=== PATIENT | female | born 1970 | race Caucasian/White ===

== ENCOUNTER 2019-06-12 12:54 | Emergency (ER) | payer OTHER ==
[~2019-06-12] VITALS: Ht 157.5 cm; Wt 77.0 kg
[~2019-06-12 12:54] MED LIST: GABA600T13 PO; VENL-191 PO; VENL37.55 PO
[2019-06-12] MEDS ORDERED: QUET-1 PO (13:23)
[2019-06-12] MEDS ORDERED: ESCI10TA PO (13:23)
[2019-06-12] MEDS ORDERED: HYDROcodone/acetaminophen 10/325mg tab PO ONE (14:15)
[2019-06-12] MEDS ORDERED: ketorolac trometh inj. 60 MG/2 ML VIAL IM ONE (14:15)
[2019-06-12] MEDS ORDERED: HYDR-4353 PO (14:15)
[2019-06-12 14:36] VITALS: BP 145/103
== END 2019-06-12 14:33 | disposition home or self-care (01) ==
LOC: ER 12:54
DX: S80.01XA Contusion of right knee, initial encounter (principal); G43.909 Migraine, unspecified, not intractable, without status migrainosus; Z94.9 Transplanted organ and tissue status, unspecified; Z90.710 Acquired absence of both cervix and uterus; Z79.899 Other long term (current) drug therapy; Z88.6 Allergy status to analgesic agent; X50.1XXA Overexertion from prolonged static or awkward postures, initial encounter; Y93.89 Activity, other specified; Y92.89 Other specified places as the place of occurrence of the external cause; Y99.9 Unspecified external cause status
CPT/HCPCS: 73564; 96372; 99284; J1885

== ENCOUNTER 2020-09-19 09:54 | Emergency (ER) | payer BC ==
[~2020-09-19] VITALS: Ht 167.6 cm; Wt 84.0 kg
[~2020-09-19 09:54] MED LIST changes: +ESCI10TA PO; +QUET-1 PO; -VENL-191 PO; -VENL37.55 PO
[2020-09-19 10:05] VITALS: BP 122/72
[2020-09-19] MEDS ORDERED: HYDROcodone/acetaminophen 5mg/325mg tablet PO ONE (13:10)
[2020-09-19] MEDS ORDERED: PRED20TA PO (13:17)
[2020-09-19] MEDS ORDERED: GUAI120015 PO (13:17)
[2020-09-19] MEDS ORDERED: ALBU6.7H9 INH (13:17)
[2020-09-19] MEDS ORDERED: HYDR-3965 PO (13:48)
== END 2020-09-19 14:00 | disposition home or self-care (01) ==
LOC: ER 09:54
DX: S92.102A Unspecified fracture of left talus, initial encounter for closed fracture (principal); S93.402A Sprain of unspecified ligament of left ankle, initial encounter; J40 Bronchitis, not specified as acute or chronic; M25.562 Pain in left knee; M25.561 Pain in right knee; G43.909 Migraine, unspecified, not intractable, without status migrainosus; F41.9 Anxiety disorder, unspecified; F32.9 Major depressive disorder, single episode, unspecified; Z90.710 Acquired absence of both cervix and uterus; Z98.890 Other specified postprocedural states; Z88.8 Allergy status to other drugs, medicaments and biological substances; Z88.6 Allergy status to analgesic agent; Z88.5 Allergy status to narcotic agent; Z79.899 Other long term (current) drug therapy; W19.XXXA Unspecified fall, initial encounter; Y93.89 Activity, other specified; Y92.89 Other specified places as the place of occurrence of the external cause; Y99.8 Other external cause status
CPT/HCPCS: 29405; 29515; 71046; 73610; 73630; 99284

== ENCOUNTER 2021-02-13 07:22 | Inpatient (IN) | payer BC ==
[~2021-02-13] VITALS: Ht 167.6 cm; Wt 86.3 kg
[~2021-02-13 07:22] MED LIST changes: +ALBU6.7H9 INH; +GUAI120015 PO
[2021-02-13] MEDS ORDERED: pantoprazole IV 80 MG in normal saline 100ml IV soln 100 ML IV ONE (07:35)
[2021-02-13] MEDS ORDERED: morphine 4 MG/ML inj SYRINge IV ONE ×3 (07:35→10:50)
[2021-02-13] MEDS ORDERED: famotidine/PF 10 mg/ml inj IV ONE (07:35)
[2021-02-13] MEDS ORDERED: normal saline 1000ml 1,000 ML IV ONE ×2 (07:35→09:00)
[2021-02-13] MEDS ORDERED: ondansetron/PF 4mg/2ml inj IV ONE (07:35)
[2021-02-13] MEDS ORDERED: etomidate 2mg/ml inj. ONE (08:00)
[2021-02-13] MEDS ORDERED: rocuronium 10mg/ml inj IV ONE (08:00)
[2021-02-13] MEDS: pantoprazole 40MG/NS 100ML BAG 100 ML IV SCH (08:13)
[2021-02-13 08:17] LABS: BASOPHILS % (AUTO) 0.3 % (0-1); EOSINOPHILS % (AUTO) 0.2 % (0-6); HEMATOCRIT 43.3 % (35.0-45.0); HEMOGLOBIN 14.6 g/dl (12.0-16.0); LYMPHOCYTES # (AUTO) 1.4 X10'3 (1.1-4.8); LYMPHOCYTES % (AUTO) 10.3 % (21-51); MEAN CORPUSCULAR HEMOGLOBIN 35.5 PG (27.0-31.0); MEAN CORPUSCULAR HGB CONC 33.8 g/dL (33.0-36.5); MEAN CORPUSCULAR VOLUME 105.2 FL (78-98); MEAN PLATELET VOLUME 7.2 FL (7.4-10.4); MONOCYTES # (AUTO) 0.8 X10'3 (0-0.9); MONOCYTES % (AUTO) 6.4 % (2-12); NEUTROPHILS # (AUTO) 10.9 X10'3 (1.8-7.7); NEUTROPHILS % (AUTO) 82.8 % (42-75); PLATELET COUNT 327 X10'3 (140-440); RED BLOOD COUNT 4.12 X10'6 (4.20-5.60); RED CELL DISTRIBUTION WIDTH 14.7 % (11.5-14.5); WHITE BLOOD COUNT 13.1 X10'3 (4.5-11.0)
[2021-02-13 08:35] LABS: ALANINE AMINOTRANSFERASE 30 U/L (12-78); ALBUMIN 3.8 G/DL (3.4-5.0); ALBUMIN/GLOBULIN RATIO 0.8 (1.1-1.5); ALKALINE PHOSPHATASE 79 IU/L (46-116); ASPARTATE AMINO TRANSFERASE 30 U/L (10-37); BETA HCG,QUANTITATIVE 3 mIU/ml; BILIRUBIN,TOTAL 0.5 MG/DL (0.1-1.0); BLOOD UREA NITROGEN 20 MG/DL (7-18); BUN/CREATININE RATIO 15.2 (6.6-38.0); CREATININE 1.32 MG/DL (0.40-0.90); GLUCOSE 174 MG/DL (70-104); LIPASE < 50 U/L (73-393); TOTAL PROTEIN 8.5 G/DL (6.4-8.2); eGFR 43 ML/MIN
[2021-02-13 08:46] LABS: ANION GAP 16 (8-16); CHLORIDE 102 MMOL/L (99-107); ETHANOL < 0.010 GM/DL (0.0-0.010); POTASSIUM 3.6 MMOL/L (3.5-5.1); SODIUM 144 MMOL/L (135-145)
[2021-02-13] MEDS ORDERED: proCHLORperazine 10 MG/2 ml inj IV ONE (10:10)
[2021-02-13] MEDS ORDERED: LIDOcaine 2% 10ml TOPICAL JELLY (Urojet) MM ONE (10:50)
[2021-02-13] MEDS ORDERED: piperacillin/tazo 4.5gm/100ml 100 ML IV ONE (10:50)
[2021-02-13] MEDS ORDERED: mag hydrox/Alum hydrox/simeth 30ml oral suspension PO PRN (11:45)
[2021-02-13] MEDS ORDERED: potassium Cl 20 mEq SR tablet PO PRN ×2 (11:45)
[2021-02-13] MEDS ORDERED: magnesium hydroxide 30ml (MOM) UD suspension PO PRN (11:45)
[2021-02-13] MEDS ORDERED: magnesium Cl slow-release 64mg tablet PO PRN (11:45)
[2021-02-13] MEDS ORDERED: magnesium 4gm in 100ml NS 100 ML IV PRN (11:45)
[2021-02-13] MEDS ORDERED: morphine 2 MG/ML inj. syringe IV PRN ×2 (11:45)
[2021-02-13] MEDS ORDERED: magnesium 2GM in 50ml NS 50 ML IV PRN (11:45)
[2021-02-13] MEDS ORDERED: acetaminophen 325mg tablet PO PRN (11:45)
[2021-02-13] MEDS ORDERED: acetaminophen 650mg rectal suppository RC PRN (11:45)
[2021-02-13] MEDS ORDERED: diphenhydrAMINE 25mg capsule PO PRN (11:45)
[2021-02-13] MEDS ORDERED: potassium CL 10mEq/100ml bag 100 ML IV PRN (11:45)
[2021-02-13 12:35] LABS: HEMOGLOBIN A1C 5.2 % (4.5-6.2)
[2021-02-13] MEDS ORDERED: QUET200T PO (13:15)
[2021-02-13] MEDS ORDERED: LOSA25TA96 PO (13:15)
[2021-02-13] MEDS ORDERED: LORA-269 PO (13:15)
[2021-02-13] MEDS ORDERED: ESCI20TA PO (13:15)
[2021-02-13] MEDS ORDERED: BUSP-28 PO (13:15)
[2021-02-13 14:20] VITALS: BP 124/82
--- NOTE | 2021-02-13 14:21 | NUR ---
PT. ADMITTED TO ROOM 346B. VS TAKEN. RELATIVELY STABLE. NG HOOKED UP TO SUCTION PER ORDER. ASPIRATION PRECAUTIONS SET UP. BC BY BED. IVF STARTED. PT. ORIENTED TO ROOM AND GIVEN CALL LIGHT.
[2021-02-13] MEDS: normal saline 1000ml 1,000 ML IV SCH ×2 (14:42→22:27)
[2021-02-13] MEDS: ondansetron/PF 4mg/2ml inj IV PRN (15:03)
[2021-02-13] MEDS: morphine 2 MG/ML inj. syringe IV PRN ×4 (16:49→23:44)
[2021-02-13] MEDS: piperacillin/tazo 3.375gm/50ml 50 ML IV SCH ×2 (16:51→23:44)
--- NOTE | 2021-02-13 18:49 | NUR ---
PAGER ID: [phone] MESSAGE: TEJAS LISA 346B C/O NAUSEA. ZOFRAN Q6H GIVEN 3 H AGO. MAY WE HAVE COMPAZINE ORDER PLEASE? MARLEE CRANE RN OLIVE [phone]
--- NOTE | 2021-02-13 18:51 | NUR ---
gAVE REPORT TO HENRY GREEN
[2021-02-13] MEDS: heparin, porcine 5000 units/ml vial SQ SCH (19:18)
[2021-02-13] MEDS: LORazepam 2 mg/ml vial IV PRN (19:31)
[2021-02-13] MEDS: proCHLORperazine 10 MG/2 ml inj IV PRN (19:56)
[2021-02-13 20:00] VITALS: BP 144/93
[2021-02-13] MEDS: docusate sod 100mg capsule PO SCH (20:00)
[2021-02-13] MEDS: K and/or MAG REPLACEMENT MC SCH (20:00)
[2021-02-13 23:42] VITALS: BP 143/90
[2021-02-14] VITALS (25 sets, daily range): BP systolic 101–192; BP diastolic 67–139
[2021-02-14] MEDS: diatr meglu/diatrizoate 30ml oral sol.-(3 dose) bottle PO SCH ×3 (00:17→09:04)
[2021-02-14] MEDS: morphine 2 MG/ML inj. syringe IV PRN ×3 (03:14→09:20)
[2021-02-14] MEDS: LORazepam 2 mg/ml vial IV PRN (05:39)
[2021-02-14] MEDS: ondansetron/PF 4mg/2ml inj IV PRN (05:40)
--- NOTE | 2021-02-14 05:50 | NUR ---
PATIENT C/O CONSTANT PAIN WITH SEVERE NAUSEA THRU THE NIGHT , MORPHINE ADMINISTERED ORDERED WITH LITTLE RELIEF SHE ALSO REQUESTED COMPAZINE AND ZOFRAN FOR NAUSEA AND ATIVAN FOR ANXIETY WHICH WERE ADMINISTERED .
[2021-02-14 05:55] LABS: CLARITY,URINE SLIGHTLY CLOUDY (Clear); COLOR,URINE YELLOW (Yellow); GLUCOSE, URINE NEGATIVE (Neg); KETONES,URINE NEGATIVE (Neg); LEUKOCYTE ESTERASE ,URINE NEGATIVE (Neg); NITRITES, URINE NEGATIVE (Neg); OCCULT BLOOD,URINE TRACE-LYSED (Neg); PH,URINE 5.5 (4.8-8.0); PROTEIN,URINE NEGATIVE (Neg); UROBILINOGEN,URINE 0.2 E.U/dL (0.2-1.0)
[2021-02-14 05:57] LABS: UA COLLECTION TYPE NON-SPECIFIED
[2021-02-14 06:01] LABS: RBC,URINE NONE SEEN /HPF (0-2); URIC ACID CRYSTALS 3+ /HPF (NEGATIVE); URINE AMPHETAMINE SCREEN NEGATIVE (Neg); URINE BARBITUATE SCREEN NEGATIVE (Neg); URINE BENZODIAZEPINES SCREEN NEGATIVE (Neg); URINE CANNABINOID SCREEN NEGATIVE (Neg); URINE COCAINE SCREEN NEGATIVE (Neg); URINE METHADONE SCREEN NEGATIVE (Neg); URINE OPIATE SCREEN POSITIVE (Neg); URINE PHENCYCLIDINE SCREEN NEGATIVE (Neg)
[2021-02-14 06:02] LABS: BACTERIA,URINE 1+ /HPF (Neg); MUCUS STRANDS NONE SEEN /LPF (Neg); SQUAMOUS EPITHELIAL CELL,UR MODERATE /LPF (FEW)
[2021-02-14 06:08] LABS: BASOPHILS # (AUTO) 0.1 X10'3 (0-0.2); BASOPHILS % (AUTO) 0.7 % (0-1); EOSINOPHILS % (AUTO) 0.5 % (0-6); LYMPHOCYTES # (AUTO) 1.4 X10'3 (1.1-4.8); LYMPHOCYTES % (AUTO) 19.1 % (21-51); MEAN CORPUSCULAR HEMOGLOBIN 36.7 PG (27.0-31.0); MEAN CORPUSCULAR HGB CONC 34.4 g/dL (33.0-36.5); MEAN CORPUSCULAR VOLUME 106.7 FL (78-98); MEAN PLATELET VOLUME 7.5 FL (7.4-10.4); MONOCYTES # (AUTO) 0.9 X10'3 (0-0.9); MONOCYTES % (AUTO) 11.7 % (2-12); NEUTROPHILS # (AUTO) 5.1 X10'3 (1.8-7.7); PLATELET COUNT 259 X10'3 (140-440); RED BLOOD COUNT 3.28 X10'6 (4.20-5.60); RED CELL DISTRIBUTION WIDTH 14.7 % (11.5-14.5); WHITE BLOOD COUNT 7.6 X10'3 (4.5-11.0)
[2021-02-14 06:21] LABS: ALANINE AMINOTRANSFERASE 20 U/L (12-78); ALBUMIN 2.9 G/DL (3.4-5.0); ALBUMIN/GLOBULIN RATIO 0.7 (1.1-1.5); ALKALINE PHOSPHATASE 59 IU/L (46-116); ANION GAP 12 (8-16); BILIRUBIN,TOTAL 0.9 MG/DL (0.1-1.0); BLOOD UREA NITROGEN 12 MG/DL (7-18); BUN/CREATININE RATIO 11.5 (6.6-38.0); CALCIUM 8.4 MG/DL (8.5-10.1); CHLORIDE 110 MMOL/L (99-107); CHOLESTEROL 211 MG/DL (0-200); CREATININE 1.04 MG/DL (0.40-0.90); GLUCOSE 142 MG/DL (70-104); HDL CHOLESTEROL 107 MG/DL (35-60); LDL CHOLESTEROL 77 MG/DL (50-100); MAGNESIUM 1.8 MG/DL (1.5-2.4); SODIUM 145 MMOL/L (135-145); TOTAL CARBON DIOXIDE 23.4 MMOL/L (24-32); TOTAL PROTEIN 7.1 G/DL (6.4-8.2); TRIGLYCERIDES 133 MG/DL (20-135); eGFR 57 ML/MIN
[2021-02-14 06:30] LABS: ASPARTATE AMINO TRANSFERASE 25 U/L (10-37); PHOSPHORUS 3.8 MG/DL (2.3-4.5); POTASSIUM 3.7 MMOL/L (3.5-5.1)
[2021-02-14] MEDS ORDERED: ringers solution, lacted 1,000 ML IV SCH (07:50)
[2021-02-14] MEDS ORDERED: meperidine/PF 25mg/ml syringe IV PRN ×3 (07:50)
[2021-02-14] MEDS ORDERED: morphine 4 MG/ML inj SYRINge IV PRN (07:50)
[2021-02-14] MEDS ORDERED: morphine 2 MG/ML inj. syringe IV PRN ×2 (07:50→16:30)
[2021-02-14] MEDS ORDERED: proCHLORperazine 10 MG/2 ml inj IV PRN (07:50)
[2021-02-14] MEDS ORDERED: ondansetron/PF 4mg/2ml inj IV PRN (07:50)
[2021-02-14] MEDS: docusate sod 100mg capsule PO SCH ×2 (08:00→21:33)
[2021-02-14] MEDS: K and/or MAG REPLACEMENT MC SCH (08:00)
[2021-02-14] MEDS: normal saline 1000ml 1,000 ML IV SCH ×2 (08:42→16:50)
[2021-02-14] MEDS: heparin, porcine 5000 units/ml vial SQ SCH ×2 (08:43→21:32)
[2021-02-14] MEDS: piperacillin/tazo 3.375gm/50ml 50 ML IV SCH ×2 (08:51→16:00)
[2021-02-14] MEDS ORDERED: BUPIVAcaine 0.5% inj/PF 30 ML ONE (09:35)
[2021-02-14] MEDS ORDERED: naloxone 0.4 mg/ml inj IV PRN (09:50)
[2021-02-14] MEDS ORDERED: CADD PCA waste documentation MC PRN (09:50)
[2021-02-14] MEDS ORDERED: morphine/NS 1 mg/ml 50ml CADD 50 ML IV SCH (09:50)
[2021-02-14] MEDS ORDERED: midazolam 1 mg/ML 2ml injection ONE (11:02)
[2021-02-14] MEDS ORDERED: fentaNYL /PF 50mcg/ml 5ml ampule ONE (11:02)
[2021-02-14] MEDS ORDERED: dexamethasone sod phosphate 10mg/ml inj ONE (11:03)
[2021-02-14] MEDS ORDERED: LIDOcaine 1%/PF 5ML 10 MG/ML VIAL ONE (11:03)
[2021-02-14] MEDS ORDERED: sevoflurane 250ml liquid IH ONE (11:03)
[2021-02-14] MEDS ORDERED: labetalol 20mg/4ml (5mg/ml) syringe IV ONE (11:03)
[2021-02-14] MEDS ORDERED: propofol inj 20 ML IV ONE (11:03)
[2021-02-14] MEDS ORDERED: rocuronium 10mg/ml inj IV ONE ×2 (11:03)
[2021-02-14] MEDS ORDERED: ondansetron/PF 4mg/2ml inj ONE (11:34)
[2021-02-14] MEDS ORDERED: BUPIVACAINE liposomal/PF 13.3 MG/ML vial IM ONE (12:44)
[2021-02-14] MEDS ORDERED: BUPIVAcaine/PF 7.5mg/ml (0.75%) 10ml vial ONE (13:53)
[2021-02-14] MEDS ORDERED: acetaminophen 1,000mg/100ml IV 100 ML IV ONE (14:00)
--- NOTE | 2021-02-14 14:08 | NUR ---
Received from OR via SURGICAL BED , accompanied by Anesthesiologist FALGUNI and report given by Anesthesiolgist. PATIENT WITH 20G PIV IN RIGHT UE RUNNING 1 GM TYLENOL. PATIENT WITH RIGGS CATHETER IN PLACE CY URINE. PATIENT WITH MIDLINE ISLAND DRESSING THAT WAS SPOTTED WITH BLOOD. 2 SMALL ISLANDS WITH VARRIED BLOODY DRAINAGE. PATIENT WITH SCDS DONNED AND PATIENT IS VSS AT THIS TIME. 10L MASK ON WITH 94% SATURATIONS. Addendum: 02/14/21 at 1446 by Tucker Clark RN, RN Amended: Links added.
[2021-02-14] MEDS ORDERED: ipratropium/albuterol 3ml nebule NEB STA (14:19)
--- NOTE | 2021-02-14 14:25 | NUR ---
PATIENT BEGINNING TO LABOR IN HER BREATHING. GETTING TACHYPNEIC AT THIS TIME. RR INCREASING AND PATIENT LEVEL OF CONSCIOUSNESS DECREASING. 02 SATURATIONS DROPPED TO 80'S AND PATIENT MENTATION BEGINNING TO DECREASE. LOSS OF CONSCIOUSNESS OCCURRED, CODE BLUE CALLED 2' INCREASING LABOR OF BREATHING AND INCREASED ABDOMINAL SWELLING TO INCISION LINE - NO BLEEDING OUTSIDE OF ISLAND DRESSING HOWEVER MUCH TIGHTER SWELLING LEFT LATERAL TO DRESSING. MD MONTES DE OCA AND MD PILLAI PRESENT TO LEAD CODE. HR WEAK VIA PALPATION TO RIGHT GROIN. PATIENT BEING BAGGED TO INCREASE O2 SATURATIONS. PATIENT BEGINNING TO ROUSE MANUAL BAGGING VIA RT AND JAW THRUST BEING PERFORMED. PATIENT MAINTAINED HR THROUGHOUT CODE. QUAD LUMEN CENTRAL LINE PLACED IN RIGHT GROIN VIA MD PILLAI. PATIENT NOW SEDATED AND ON VENTILATOR. VSS. CURRENT VS IN FLOW SHEET Addendum: 02/14/21 at 1604 by Tucker Clark RN RN Amended: Links added.
[2021-02-14] MEDS ORDERED: fentaNYL/PF 50MCG/1 ML 2ML syringe ONE (14:33)
[2021-02-14] MEDS ORDERED: MIDAZolam 5mg/ml 2ml vial ONE (14:33)
[2021-02-14] MEDS ORDERED: fentaNYL/PF 50MCG/1 ML 2ML syringe IV PRN (15:25)
[2021-02-14] MEDS: midazolam 100mg in NS 100ml 100 ML IV PRN ×2 (15:33→21:13)
[2021-02-14] MEDS: FENTANYL-0.9 % NACL/PF 100 ML IV PRN ×2 (15:34→21:16)
--- NOTE | 2021-02-14 15:58 | NUR ---
DRIPS SET UP FOR ICU. FENTANYL AND VERSED SET UP. VSS. TRANSFERED VIA BED WITH RT PRESENT TO BAG PATIENT DURING TRANSPORT. QUAD LUMEN TO RIGHT GROIN PRESENT AND PATENT. 20G PIV IN RIGHT UE STILL PATENT. CLEAR YELLOW URINE PRESENT IN ATRIUM . PATIENT VSS AT THIS TIME. PATIENT MIDLINE DRESSING STILL CDI. CARE TURNED OVER TO JEWELRY DESIGNER. Addendum: 02/14/21 at 1604 by Tucker Rosa - NORMA RN Amended: Links added.
[2021-02-14] MEDS ORDERED: sodium phosphate inj. 30 MMOL in dextrose 5%-water 250 ML IV PRN (16:30)
[2021-02-14] MEDS ORDERED: bisacodyl 10mg suppository rectal RC PRN (16:30)
[2021-02-14] MEDS ORDERED: magnesium 4gm in 100ml NS 100 ML IV PRN (16:30)
[2021-02-14] MEDS ORDERED: sodium phosphate inj. 15 MMOL in dextrose 5%-water 250 ML IV PRN (16:30)
[2021-02-14] MEDS ORDERED: magnesium 2GM in 50ml NS 50 ML IV PRN (16:30)
[2021-02-14] MEDS ORDERED: acetaminophen 650mg rectal suppository RC PRN (16:30)
[2021-02-14 16:40] LABS: ABG BASE EXCESS -4.6 mmol/L (-2.0-2.0); ABG HCO3 18.5 mmol/L (22.0-26.0); ABG PCO2 (T) 27.2 mmHg (32.0-45.0); FCOHb 0.3 % (0.0-3.9); FMetHb 0.2 % (0.0-1.5); FO2Hb 97.5 % (94-97); PATIENT TEMPERATURE 36.2; PEEP 5 cm H2O; RESPIRATORY RATE 16 b/min; TIDAL VOLUME 450 mL; TOTAL HEMOGLOBIN 11.5 G/dl (12.0-16.0)
[2021-02-15] VITALS (24 sets, daily range): BP systolic 82–109; BP diastolic 39–68
[2021-02-15] MEDS: FENTANYL-0.9 % NACL/PF 100 ML IV PRN ×6 (00:12→17:52)
[2021-02-15] MEDS ORDERED: propofol 1000mg/100ml bottle 100 ML IV ONE (01:37)
[2021-02-15] MEDS: propofol 1000mg/100ml bottle 100 ML IV SCH ×2 (01:40→12:27)
[2021-02-15] MEDS: midazolam 100mg in NS 100ml 100 ML IV PRN ×5 (01:46→22:07)
[2021-02-15] MEDS: piperacillin/tazo 3.375gm/50ml 50 ML IV SCH ×3 (02:24→16:11)
[2021-02-15 02:37] LABS: BASOPHILS % (AUTO) 0.3 % (0-1); EOSINOPHILS % (AUTO) 0 % (0-6); HEMATOCRIT 26.7 % (35.0-45.0); LYMPHOCYTES % (AUTO) 15.4 % (21-51); MEAN CORPUSCULAR HEMOGLOBIN 36.4 PG (27.0-31.0); MEAN CORPUSCULAR HGB CONC 33.8 g/dL (33.0-36.5); MEAN CORPUSCULAR VOLUME 107.7 FL (78-98); MEAN PLATELET VOLUME 7.3 FL (7.4-10.4); MONOCYTES # (AUTO) 0.7 X10'3 (0-0.9); MONOCYTES % (AUTO) 10.9 % (2-12); NEUTROPHILS # (AUTO) 4.8 X10'3 (1.8-7.7); NEUTROPHILS % (AUTO) 73.4 % (42-75); PLATELET COUNT 216 X10'3 (140-440); RED BLOOD COUNT 2.48 X10'6 (4.20-5.60); RED CELL DISTRIBUTION WIDTH 14.5 % (11.5-14.5); WHITE BLOOD COUNT 6.5 X10'3 (4.5-11.0)
[2021-02-15 02:57] LABS: ALANINE AMINOTRANSFERASE 21 U/L (12-78); ALBUMIN 2.1 G/DL (3.4-5.0); ALBUMIN/GLOBULIN RATIO 0.6 (1.1-1.5); ALKALINE PHOSPHATASE 38 IU/L (46-116); ANION GAP 13 (8-16); ASPARTATE AMINO TRANSFERASE 20 U/L (10-37); BILIRUBIN,TOTAL 0.8 MG/DL (0.1-1.0); BLOOD UREA NITROGEN 9 MG/DL (7-18); BUN/CREATININE RATIO 9.9 (6.6-38.0); CALCIUM 7.8 MG/DL (8.5-10.1); CHLORIDE 112 MMOL/L (99-107); CREATININE 0.91 MG/DL (0.40-0.90); GLUCOSE 126 MG/DL (70-104); MAGNESIUM 1.5 MG/DL (1.5-2.4); PHOSPHORUS 2.4 MG/DL (2.3-4.5); POTASSIUM 3.2 MMOL/L (3.5-5.1); SODIUM 146 MMOL/L (135-145); TOTAL PROTEIN 5.4 G/DL (6.4-8.2); eGFR 66 ML/MIN
[2021-02-15 03:01] LABS: ABG BASE EXCESS -3.8 mmol/L (-2.0-2.0); ABG HCO3 18.6 mmol/L (22.0-26.0); ABG OXYGEN SATURATION 92.8 % (94-97); ABG PCO2 (T) 25.4 mmHg (32.0-45.0); ABG PO2 (T) 63.6 mmHg (75.0-100.0); FCOHb 0.3 % (0.0-3.9); FO2Hb 92.5 % (94-97); PEEP 5 cm H2O; RESPIRATORY RATE 16 b/min; TIDAL VOLUME 450 mL; TOTAL HEMOGLOBIN 9.7 G/dl (12.0-16.0)
[2021-02-15] MEDS: potassium Cl 20mEq/100mL bag 100 ML IV PRN (04:09)
--- NOTE | 2021-02-15 04:30 | NUR ---
MD notified during rounds that patient UOP has dropped off most likely due to hypotension from sedation. Patient requiring a significant amount of sedation to keep comfortable and safe on ventilator. Potassium 3.2 and H&H dropped from post op labs. Will recheck labs, replace potassium, and give 1 L LR bolus
[2021-02-15] MEDS ORDERED: ringers solution, lacted 1,000 ML IV ONE ×4 (04:50→16:20)
[2021-02-15] MEDS: normal saline 1000ml 1,000 ML IV SCH ×2 (07:03→10:58)
[2021-02-15] MEDS ORDERED: atropine 0.1mg/ml 10ml syringe ONE (08:00)
[2021-02-15] MEDS: K and/or MAG REPLACEMENT MC SCH (08:11)
[2021-02-15] MEDS: enoxaparin 40mg/0.4ml syringe SUBCUT SCH (08:11)
[2021-02-15] MEDS: docusate sod 100mg capsule PO SCH ×2 (08:11→19:47)
[2021-02-15] MEDS: pantoprazole 40MG/NS 100ML BAG 100 ML IV SCH (08:12)
[2021-02-15] MEDS: ringers solution, lacted 1,000 ML IV SCH ×2 (08:50→20:32)
[2021-02-15 10:18] LABS: BASOPHILS % (AUTO) 0.4 % (0-1); EOSINOPHILS % (AUTO) 0.4 % (0-6); HEMOGLOBIN 8.2 g/dl (12.0-16.0); LYMPHOCYTES # (AUTO) 1.6 X10'3 (1.1-4.8); LYMPHOCYTES % (AUTO) 23.9 % (21-51); MEAN CORPUSCULAR HEMOGLOBIN 36.7 PG (27.0-31.0); MEAN CORPUSCULAR HGB CONC 34.1 g/dL (33.0-36.5); MEAN CORPUSCULAR VOLUME 107.6 FL (78-98); MEAN PLATELET VOLUME 7.4 FL (7.4-10.4); MONOCYTES # (AUTO) 0.8 X10'3 (0-0.9); MONOCYTES % (AUTO) 11.6 % (2-12); NEUTROPHILS # (AUTO) 4.4 X10'3 (1.8-7.7); NEUTROPHILS % (AUTO) 63.7 % (42-75); PLATELET COUNT 181 X10'3 (140-440); RED BLOOD COUNT 2.23 X10'6 (4.20-5.60); RED CELL DISTRIBUTION WIDTH 14.1 % (11.5-14.5); WHITE BLOOD COUNT 6.9 X10'3 (4.5-11.0)
[2021-02-15] MEDS ORDERED: furosemide 40mg/4ml inj IV ONE (10:45)
[2021-02-15] MEDS: acetaminophen 325mg tablet PO PRN ×2 (10:49→12:15)
[2021-02-15 12:07] LABS: ALANINE AMINOTRANSFERASE 18 U/L (12-78); ALBUMIN 1.9 G/DL (3.4-5.0); ALBUMIN/GLOBULIN RATIO 0.6 (1.1-1.5); ALKALINE PHOSPHATASE 35 IU/L (46-116); ANION GAP 10 (8-16); ASPARTATE AMINO TRANSFERASE 25 U/L (10-37); BILIRUBIN,TOTAL 0.6 MG/DL (0.1-1.0); BLOOD UREA NITROGEN 9 MG/DL (7-18); BUN/CREATININE RATIO 11.1 (6.6-38.0); CALCIUM 7.6 MG/DL (8.5-10.1); CHLORIDE 113 MMOL/L (99-107); CREATININE 0.81 MG/DL (0.40-0.90); GLUCOSE 102 MG/DL (70-104); POTASSIUM 3.7 MMOL/L (3.5-5.1); SODIUM 144 MMOL/L (135-145); TOTAL CARBON DIOXIDE 20.9 MMOL/L (24-32); TOTAL PROTEIN 5.1 G/DL (6.4-8.2); eGFR 75 ML/MIN
[2021-02-15] MEDS: folic acid 1mg/0.2ml inj IV SCH (12:16)
[2021-02-15] MEDS: thiamine inj. 100 MG in normal saline 100ml IV soln 100 ML IV SCH (13:35)
--- NOTE | 2021-02-15 14:16 | NUR ---
Initial: Pt intubated admit DX HTN, acute respiratory failure, SBO r/t obstipation w/ abdominal distention s/p ex lap TRAVIS, spigelian hernia repair per EMR. S/p code blue yesterday per EMR. Abdominal pressure test slightly elevated w/ decreasing urine output this AM per RN; concerns for potential abdominal compartment syndrome if continues per architect manager at rounds. EN and PN recs below for nutrition support needs depending on pt course. Noted pt receiving propofol at 3.474ml/hr providing additional 92 kcals/day per EMR. MCV 107.7 w/ hx etoh per RN; to start on thiamin, folic, MVI today per architect manager at rounds. Will continue to monitor for nutrition support needs on vent post-op. Rec: 1. IF no concern for compartment syndrome/GI impairment; consider continuous EN using Vital High Protein at 64ml/hr goal. Would provide 1536ml volume/day, 1536 kcals, 1290ml water, and 134g protein. 2. IF TF; additional water flush 200ml Q4H 3. IF continuous TPN; 2:1 Clinimix E 5/20 at 70ml/hr goal w/ separate 250ml 20% intralipids to run for 12 hours on Friday/Fridays. In total would provide 1680ml volume/day, 84g AA, 336g DEX (2.51mg/kg/min), and avg 1607 kcals/day. Unable to meet pt protein needs via PN given current high DEX formulary. 4. IF EN/PN; PALB Q /, daily wts 5. thiamin, folic, MVI for etoh hx per MD 6. bowel care per MD post-op Addendum: 02/15/21 at [address] Amended: Links added.
[2021-02-15] MEDS ORDERED: VANCOMYCIN 1GM/200ML IVPB 200 ML IV ONE (16:25)
[2021-02-15 17:10] LABS: BASOPHILS % (AUTO) 0.5 % (0-1); EOSINOPHILS # (AUTO) 0.1 X10'3 (0-0.9); EOSINOPHILS % (AUTO) 1.2 % (0-6); HEMATOCRIT 22.4 % (35.0-45.0); HEMOGLOBIN 7.6 g/dl (12.0-16.0); LYMPHOCYTES # (AUTO) 1.7 X10'3 (1.1-4.8); LYMPHOCYTES % (AUTO) 26.1 % (21-51); MEAN CORPUSCULAR HEMOGLOBIN 36.5 PG (27.0-31.0); MEAN CORPUSCULAR HGB CONC 33.8 g/dL (33.0-36.5); MEAN CORPUSCULAR VOLUME 107.9 FL (78-98); MEAN PLATELET VOLUME 7.4 FL (7.4-10.4); MONOCYTES # (AUTO) 0.7 X10'3 (0-0.9); MONOCYTES % (AUTO) 10.3 % (2-12); NEUTROPHILS # (AUTO) 3.9 X10'3 (1.8-7.7); NEUTROPHILS % (AUTO) 61.9 % (42-75); PLATELET COUNT 168 X10'3 (140-440); RED BLOOD COUNT 2.08 X10'6 (4.20-5.60); RED CELL DISTRIBUTION WIDTH 14.4 % (11.5-14.5); WHITE BLOOD COUNT 6.3 X10'3 (4.5-11.0)
[2021-02-15] MEDS: fluconazole-Diflucan 200mg/NS 100 ML IV SCH (17:16)
[2021-02-15] MEDS: hydrocortisone sod succ/PF 100mg/2ml inj. IV SCH ×2 (17:35→19:46)
[2021-02-15] MEDS: vancomycin/NS 1 GM ADD-VANTAGE 250 ML IV SCH (17:51)
[2021-02-15] MEDS ORDERED: furosemide 20 MG/2 ML vial IV ONE (19:20)
[2021-02-15 19:27] LABS: ABG BASE EXCESS -5.8 mmol/L (-2.0-2.0); ABG HCO3 19.9 mmol/L (22.0-26.0); ABG OXYGEN SATURATION 84.1 % (94-97); ABG PCO2 (T) 40.1 mmHg (32.0-45.0); FMetHb 0.4 % (0.0-1.5); FO2Hb 83.8 % (94-97); PEEP 5 cm H2O; RESPIRATORY RATE 14 b/min; TIDAL VOLUME 450 mL; TOTAL HEMOGLOBIN 9.5 G/dl (12.0-16.0)
--- NOTE | 2021-02-15 19:30 | NUR ---
Notified MD tyler regarding pt requiring more sedation as she is not tolerating the ventilator. Volumes mismatching, peak pressures elevated, and O2 sats dropping. Will give ordered 20 mg Lasix, get ABG, and titrate up on the sedation.
--- NOTE | 2021-02-15 20:40 | NUR ---
Dr. Rouse notified that patient still not tolerating ventilator setting without appropriate sedation. Fent and versed on max limit and propofol at 20. Patient is now hypotensive to due to sedation. MD recommended starting levophed.
[2021-02-15] MEDS ORDERED: NORepinephrine 8mg/ 250ml NS 250 ML IV ONE (20:43)
[2021-02-15] MEDS: NORepinephrine 8mg/ 250ml NS 250 ML IV SCH (20:49)
[2021-02-15] MEDS: fentaNYL/NS/PF 2,500 mcg/250mL 250 ML IV PRN (22:12)
--- NOTE | 2021-02-15 22:45 | NUR ---
Notified Nasim PUGH regarding levophed appearing to cause bradycardic HR. Patient normally 70-90's and now is in the 40-50's with an irregular HR. MD recommended starting dopamine rather than using levophed as BP support.
[2021-02-15] MEDS ORDERED: DOPamine 400mg/D5W 250ml 250 ML IV PRN (22:50)
[2021-02-15] MEDS ORDERED: DOPamine 400mg/D5W 250ml 250 ML IV ONE (22:55)
[2021-02-16] VITALS (24 sets, daily range): BP systolic 87–123; BP diastolic 44–75
[2021-02-16] MEDS: piperacillin/tazo 4.5gm/100ml 100 ML IV SCH ×3 (00:48→16:35)
[2021-02-16] MEDS: midazolam 100mg in NS 100ml 100 ML IV PRN ×3 (01:47→15:14)
[2021-02-16 02:32] LABS: ABG BASE EXCESS -2.8 mmol/L (-2.0-2.0); ABG HCO3 20.3 mmol/L (22.0-26.0); ABG OXYGEN SATURATION 92.4 % (94-97); ABG PCO2 (T) 29.3 mmHg (32.0-45.0); ABG PO2 (T) 62.9 mmHg (75.0-100.0); FCOHb 0.3 % (0.0-3.9); FMetHb 0.2 % (0.0-1.5); FO2Hb 91.9 % (94-97); PATIENT TEMPERATURE 36.9; PEEP 5 cm H2O; RESPIRATORY RATE 14 b/min; TIDAL VOLUME 450 mL
[2021-02-16 03:12] LABS: BASOPHILS % (AUTO) 0.1 % (0-1); EOSINOPHILS % (AUTO) 0 % (0-6); HEMATOCRIT 24.5 % (35.0-45.0); HEMOGLOBIN 8.3 g/dl (12.0-16.0); LYMPHOCYTES # (AUTO) 0.6 X10'3 (1.1-4.8); LYMPHOCYTES % (AUTO) 7.6 % (21-51); MEAN CORPUSCULAR HEMOGLOBIN 36.4 PG (27.0-31.0); MEAN CORPUSCULAR HGB CONC 33.8 g/dL (33.0-36.5); MEAN CORPUSCULAR VOLUME 107.6 FL (78-98); MEAN PLATELET VOLUME 7.5 FL (7.4-10.4); MONOCYTES # (AUTO) 0.7 X10'3 (0-0.9); MONOCYTES % (AUTO) 7.9 % (2-12); NEUTROPHILS % (AUTO) 84.4 % (42-75); PLATELET COUNT 194 X10'3 (140-440); RED BLOOD COUNT 2.27 X10'6 (4.20-5.60); RED CELL DISTRIBUTION WIDTH 14.6 % (11.5-14.5); WHITE BLOOD COUNT 8.3 X10'3 (4.5-11.0)
[2021-02-16 03:30] LABS: % IRON SATURATION 5 % (11-46); IRON 7 UG/DL (49-151); TOTAL IRON BINDING CAPACITY 155 UG/DL (259-388)
[2021-02-16 03:42] LABS: ALANINE AMINOTRANSFERASE 19 U/L (12-78); ALBUMIN 1.9 G/DL (3.4-5.0); ALBUMIN/GLOBULIN RATIO 0.5 (1.1-1.5); ALKALINE PHOSPHATASE 43 IU/L (46-116); ANION GAP 11 (8-16); ASPARTATE AMINO TRANSFERASE 22 U/L (10-37); BILIRUBIN,TOTAL 0.7 MG/DL (0.1-1.0); BLOOD UREA NITROGEN 9 MG/DL (7-18); BUN/CREATININE RATIO 11.7 (6.6-38.0); CALCIUM 7.4 MG/DL (8.5-10.1); CHLORIDE 109 MMOL/L (99-107); CREATININE 0.77 MG/DL (0.40-0.90); FERRITIN 244 NG/ML (8-252); GLUCOSE 125 MG/DL (70-104); MAGNESIUM 1.5 MG/DL (1.5-2.4); PHOSPHORUS 3.5 MG/DL (2.3-4.5); SODIUM 143 MMOL/L (135-145); TOTAL CARBON DIOXIDE 22.7 MMOL/L (24-32); TOTAL PROTEIN 5.6 G/DL (6.4-8.2); eGFR 80 ML/MIN
[2021-02-16 03:53] LABS: POTASSIUM 2.8 MMOL/L (3.5-5.1)
[2021-02-16] MEDS: potassium Cl 20mEq/100mL bag 100 ML IV PRN ×3 (03:57→12:38)
[2021-02-16] MEDS: fentaNYL/NS/PF 2,500 mcg/250mL 250 ML IV PRN ×2 (04:36→12:39)
--- NOTE | 2021-02-16 04:40 | NUR ---
MD rounds on patient. Potassium currently being replaced. MD recommends to wean versed sedation due to propofol seeming to be the main sedative that works appropriately. Will wean sedation as patient tolerates.
[2021-02-16] MEDS: vancomycin/NS 1 GM ADD-VANTAGE 250 ML IV SCH ×2 (05:20→17:01)
[2021-02-16] MEDS: hydrocortisone sod succ/PF 100mg/2ml inj. IV SCH ×4 (05:20→22:08)
[2021-02-16] MEDS: ringers solution, lacted 1,000 ML IV SCH ×3 (05:21→16:35)
[2021-02-16] MEDS: pantoprazole 40MG/NS 100ML BAG 100 ML IV SCH (07:38)
[2021-02-16] MEDS: enoxaparin 40mg/0.4ml syringe SUBCUT SCH (07:39)
[2021-02-16] MEDS: thiamine inj. 100 MG in normal saline 100ml IV soln 100 ML IV SCH (07:39)
[2021-02-16] MEDS: docusate sod 100mg capsule PO SCH ×2 (07:39→22:08)
[2021-02-16] MEDS: K and/or MAG REPLACEMENT MC SCH (07:40)
[2021-02-16] MEDS ORDERED: MULTIVIT-MIN/FERROUS GLUCONATE 9 MG/15 ML LIQUID PO SCH (08:00)
[2021-02-16] MEDS ORDERED: furosemide 20 MG/2 ML vial IV ONE (08:15)
[2021-02-16] MEDS: propofol 1000mg/100ml bottle 100 ML IV SCH (08:21)
[2021-02-16] MEDS: NORepinephrine 8mg/ 250ml NS 250 ML IV SCH (11:03)
[2021-02-16] MEDS ORDERED: haloperidol 5mg tablet PO PRN (11:15)
[2021-02-16] MEDS ORDERED: haloperidol lactate 5mg/ml inj IM PRN (11:15)
[2021-02-16] MEDS ORDERED: dextrose 50%-water 50ml dispensing syringe IV PRN (11:15)
[2021-02-16] MEDS ORDERED: LORazepam 2 mg/ml vial IV PRN (11:15)
[2021-02-16] MEDS: folic acid 1mg/0.2ml inj IV SCH (13:19)
[2021-02-16 15:33] LABS: BASOPHILS % (AUTO) 0.2 % (0-1); EOSINOPHILS % (AUTO) 0 % (0-6); HEMATOCRIT 24.8 % (35.0-45.0); HEMOGLOBIN 8.6 g/dl (12.0-16.0); LYMPHOCYTES # (AUTO) 1.1 X10'3 (1.1-4.8); LYMPHOCYTES % (AUTO) 10.4 % (21-51); MEAN CORPUSCULAR HEMOGLOBIN 36.8 PG (27.0-31.0); MEAN CORPUSCULAR HGB CONC 34.7 g/dL (33.0-36.5); MEAN CORPUSCULAR VOLUME 106.1 FL (78-98); MEAN PLATELET VOLUME 7.3 FL (7.4-10.4); MONOCYTES # (AUTO) 1.1 X10'3 (0-0.9); MONOCYTES % (AUTO) 10.2 % (2-12); NEUTROPHILS # (AUTO) 8.5 X10'3 (1.8-7.7); NEUTROPHILS % (AUTO) 79.2 % (42-75); PLATELET COUNT 243 X10'3 (140-440); RED BLOOD COUNT 2.33 X10'6 (4.20-5.60); RED CELL DISTRIBUTION WIDTH 14.2 % (11.5-14.5); WHITE BLOOD COUNT 10.8 X10'3 (4.5-11.0)
[2021-02-16] MEDS ORDERED: CISatracurium **Bolus** 2 mg/ml inj IV ONE (15:40)
[2021-02-16 15:50] LABS: ALBUMIN 1.9 G/DL (3.4-5.0); ANION GAP 5 (8-16); BLOOD UREA NITROGEN 9 MG/DL (7-18); BUN/CREATININE RATIO 10.8 (6.6-38.0); CALCIUM 7.9 MG/DL (8.5-10.1); CHLORIDE 106 MMOL/L (99-107); CREATININE 0.83 MG/DL (0.40-0.90); GLUCOSE 123 MG/DL (70-104); POTASSIUM 3.6 MMOL/L (3.5-5.1); SODIUM 139 MMOL/L (135-145); TOTAL CARBON DIOXIDE 27.7 MMOL/L (24-32); eGFR 73 ML/MIN
[2021-02-16] MEDS ORDERED: bisacodyl 10mg suppository rectal RC PRN (16:30)
[2021-02-16] MEDS: fluconazole-Diflucan 200mg/NS 100 ML IV SCH (16:35)
--- NOTE | 2021-02-16 16:43 | NUR ---
Abd pressure obtained this morning and was 17. Pt became increasingly agitated around 1600, stomach firmer then morning assessment, rechecked abd pressure which fluctuated between 25-30. Per Dr Brennan, gave 1x Nimbex 10mg push and reassessed Abd pressure and it was 8. Rechecked Hgb which remained stable. Notified Dr. Mohr.
[2021-02-16] MEDS: iron sucrose complex injection 200 MG in normal saline 100ml IV soln 100 ML IV SCH (17:01)
[2021-02-16 17:08] LABS: ABG BASE EXCESS -1.9 mmol/L (-2.0-2.0); ABG HCO3 21.4 mmol/L (22.0-26.0); ABG OXYGEN SATURATION 93.2 % (94-97); ABG PCO2 (T) 29.8 mmHg (32.0-45.0); ABG PO2 (T) 65.6 mmHg (75.0-100.0); FCOHb 0.3 % (0.0-3.9); FMetHb 0.3 % (0.0-1.5); FO2Hb 92.6 % (94-97); PATIENT TEMPERATURE 36.5; PEEP 5 cm H2O; RESPIRATORY RATE 14 b/min; TIDAL VOLUME 452 mL; TOTAL HEMOGLOBIN 8.4 G/dl (12.0-16.0)
--- NOTE | 2021-02-16 20:45 | NUR ---
Elgin PU[facility] notified regarding bradycardic HR at 38-41, and UOP minimal of 15-20 an hour since arrival to shift. After paralytic wore off from day shift, pt not compliant on ventilator with versed and fentanyl current rate. Propofol started at low dosage. MD will look at chart and order as needed.
--- NOTE | 2021-02-16 21:00 | NUR ---
Pt awake during 1999 assessment. Noncompliant on ventilator. End-Tidal CO2 trending upward, mismatching volumes. RT at bedside.
[2021-02-16] MEDS ORDERED: furosemide 40mg/4ml inj IV ONE (21:20)
--- NOTE | 2021-02-16 22:10 | NUR ---
10 mg of Lasix given and stopped LR infusion of 150/Hr per order. Will let MD know if patient blood pressure does not maintain with low HR.
[2021-02-17] VITALS (25 sets, daily range): BP systolic 94–165; BP diastolic 59–99
[2021-02-17] MEDS: piperacillin/tazo 4.5gm/100ml 100 ML IV SCH ×3 (01:14→16:46)
[2021-02-17] MEDS: NORepinephrine 8mg/ 250ml NS 250 ML IV SCH ×2 (01:26→15:49)
[2021-02-17 03:08] LABS: ABG BASE EXCESS -1.4 mmol/L (-2.0-2.0); ABG HCO3 21.2 mmol/L (22.0-26.0); ABG PCO2 (T) 27.3 mmHg (32.0-45.0); FCOHb 0.2 % (0.0-3.9); FMetHb 0.3 % (0.0-1.5); FO2Hb 93.5 % (94-97); PATIENT TEMPERATURE 36.7; PEEP 5 cm H2O; RESPIRATORY RATE 14 b/min; TIDAL VOLUME 450 mL; TOTAL HEMOGLOBIN 8.5 G/dl (12.0-16.0)
[2021-02-17] MEDS: hydrocortisone sod succ/PF 100mg/2ml inj. IV SCH ×4 (04:18→19:58)
[2021-02-17] MEDS: fentaNYL/NS/PF 2,500 mcg/250mL 250 ML IV PRN ×2 (04:19→20:59)
[2021-02-17] MEDS ORDERED: VANCOMYCIN LEVEL IV ONE (04:30)
--- NOTE | 2021-02-17 04:45 | NUR ---
AM rounds with Dr. Otero. Let him know about events that happened over night. Due to patient's blood pressure maintaining and ventilating properly we will allow 40's HR. Let him know about ABG results for AM; patient was 7.5 with a CO2 of 27. Will decrease rate from 14 to 12.
[2021-02-17 04:46] LABS: BASOPHILS % (AUTO) 0.1 % (0-1); EOSINOPHILS % (AUTO) 0.1 % (0-6); HEMOGLOBIN 7.5 g/dl (12.0-16.0); LYMPHOCYTES % (AUTO) 14.1 % (21-51); MEAN CORPUSCULAR HEMOGLOBIN 36.4 PG (27.0-31.0); MEAN CORPUSCULAR HGB CONC 34.2 g/dL (33.0-36.5); MEAN CORPUSCULAR VOLUME 106.4 FL (78-98); MEAN PLATELET VOLUME 7.7 FL (7.4-10.4); MONOCYTES # (AUTO) 0.7 X10'3 (0-0.9); NEUTROPHILS # (AUTO) 5.2 X10'3 (1.8-7.7); NEUTROPHILS % (AUTO) 75.7 % (42-75); PLATELET COUNT 193 X10'3 (140-440); RED BLOOD COUNT 2.05 X10'6 (4.20-5.60); RED CELL DISTRIBUTION WIDTH 14.5 % (11.5-14.5); WHITE BLOOD COUNT 6.9 X10'3 (4.5-11.0)
[2021-02-17 04:52] LABS: HEMATOCRIT 21.8 % (35.0-45.0)
[2021-02-17 05:29] LABS: ALANINE AMINOTRANSFERASE 20 U/L (12-78); ALBUMIN 1.6 G/DL (3.4-5.0); ALBUMIN/GLOBULIN RATIO 0.4 (1.1-1.5); ALKALINE PHOSPHATASE 39 IU/L (46-116); ANION GAP 13 (8-16); ASPARTATE AMINO TRANSFERASE 21 U/L (10-37); BILIRUBIN,TOTAL 0.5 MG/DL (0.1-1.0); BLOOD UREA NITROGEN 11 MG/DL (7-18); BUN/CREATININE RATIO 13.3 (6.6-38.0); CHLORIDE 108 MMOL/L (99-107); CREATININE 0.83 MG/DL (0.40-0.90); GLUCOSE 125 MG/DL (70-104); MAGNESIUM 1.6 MG/DL (1.5-2.4); PHOSPHORUS 3.3 MG/DL (2.3-4.5); POTASSIUM 3.2 MMOL/L (3.5-5.1); SODIUM 145 MMOL/L (135-145); TOTAL CARBON DIOXIDE 23.7 MMOL/L (24-32); TOTAL PROTEIN 5.5 G/DL (6.4-8.2); VANCOMYCIN,TROUGH 7.8 UG/ML (6.0-14.0); eGFR 73 ML/MIN
[2021-02-17] MEDS: vancomycin/NS 1 GM ADD-VANTAGE 250 ML IV SCH (05:44)
[2021-02-17] MEDS: potassium Cl 20mEq/100mL bag 100 ML IV PRN (05:44)
--- NOTE | 2021-02-17 05:45 | NUR ---
Replaced potassium for a level of 3.2. Will need to recheck lab to increase to 3.5 per protocol and order.
--- NOTE | 2021-02-17 06:30 | NUR ---
Patient in room ICU 2040. I have received report from NIGHT NURSE and had the opportunity to ask questions and assume patient care.
[2021-02-17] MEDS: K and/or MAG REPLACEMENT MC SCH (07:06)
--- NOTE | 2021-02-17 08:00 | NUR ---
PT RESTLESS- DIPRIVAN BOLUSES GIVEN- HR 39 TO 80'S- MOVING LEGS- SBP STABLE
[2021-02-17] MEDS: pantoprazole 40MG/NS 100ML BAG 100 ML IV SCH (08:07)
[2021-02-17] MEDS: iron sucrose complex injection 200 MG in normal saline 100ml IV soln 100 ML IV SCH (08:08)
[2021-02-17] MEDS: thiamine inj. 100 MG in normal saline 100ml IV soln 100 ML IV SCH (08:08)
[2021-02-17] MEDS: docusate sod 100mg capsule PO SCH ×2 (08:09→19:58)
[2021-02-17] MEDS: enoxaparin 40mg/0.4ml syringe SUBCUT SCH (08:09)
[2021-02-17] MEDS: folic acid 1mg/0.2ml inj IV SCH (08:10)
--- NOTE | 2021-02-17 08:15 | NUR ---
PT'S SATS SUDDENLY TO 70'S- PT BLUE- VOLUMES NONE TO 100'S. PT BAGGED-THEN UNABLE TO BAG- DR PAREDES HERE- AWARE- PARALYTIC GIVEN . PT NOW GETTING VOLUMES.
[2021-02-17] MEDS ORDERED: CISatracurium **Bolus** 2 mg/ml inj IV ONE (08:25)
[2021-02-17] MEDS ORDERED: rocuronium 10mg/ml inj IV ONE (08:25)
[2021-02-17] MEDS ORDERED: Dextrose 10%-water IV solution 1,000 ML IV PRN ×3 (08:40→08:51)
[2021-02-17] MEDS: ipratropium/albuterol 3ml nebule NEB PRN ×2 (08:54→08:55)
[2021-02-17 09:30] LABS: ABG BASE EXCESS -0.5 mmol/L (-2.0-2.0); ABG HCO3 23.4 mmol/L (22.0-26.0); ABG OXYGEN SATURATION 98.3 % (94-97); ABG PO2 (T) 138.5 mmHg (75.0-100.0); FCOHb 0.3 % (0.0-3.9); FMetHb 0.1 % (0.0-1.5); FO2Hb 97.9 % (94-97); PATIENT TEMPERATURE 36.6; PEEP 5 cm H2O; RESPIRATORY RATE 20 b/min; TIDAL VOLUME 400 mL; TOTAL HEMOGLOBIN 10.8 G/dl (12.0-16.0)
--- NOTE | 2021-02-17 09:30 | NUR ---
CXR AND ABGS DONE ON DIFFERENT VENT SETTINGS- CHANGES MADE ACCORDINGLY.
[2021-02-17] MEDS ORDERED: CISatracurium besylate inj. 100 MG in normal saline 100ml IV soln 90 ML IV PRN (09:45)
--- NOTE | 2021-02-17 10:00 | NUR ---
HR 139 ST- DR REGGIE AWARE- DIPRIVAN BOLUS GIVEN- BRIEF AFFECT. PT AWKENING FROM PARALYTIC.
[2021-02-17] MEDS: propofol 1000mg/100ml bottle 100 ML IV SCH (10:11)
[2021-02-17] MEDS: ipratropium/albuterol 3ml nebule NEB SCH ×4 (11:06→22:37)
--- NOTE | 2021-02-17 11:59 | NUR ---
TPN Consult: Pt remains intubated w/ TPN to start today per furnace unloader. Propofol currently at 4.56ml/hr providing additional 120 kcals/day. Noted pt +18kg 2 days w/ +1L fluid balance likely initial 81.82kg most accurate wt making true BMI 29; PN recs below using updated wt hx. Concerns for abdominal pressures noted per EMR; RD d/w RN regarding holding colace per MD discretion given GI concerns. Will monitor for TPN tolerance and adjustment needs. Rec: 1. Continuous TPN per MD via central access using 2:1 Clinimix E / at 105ml/hr goal w/ separate 250ml 20% intralipids to run for 12 hours on Friday/Fridays. In total would provide 2520ml volume/day, 126g AA, 378g DEX (3.21mg/kg/min initial accurate wt 81.82kg), and avg 1918 kcals/day. 2. TG/PALB Q /, daily wts 3. monitor TPN tolerance and Propofol rate for PN adjustment needs 4. IF TF; Vital High Protein at 64ml/hr goal would provide 1536ml volume/day, 1536 kcals, 1290ml water, and 134g protein. 5. thiamin, folic, MVI for etoh hx per MD 6. bowel care per MD post-op Addendum: 02/17/21 at [address] Amended: Links added.
--- NOTE | 2021-02-17 12:00 | NUR ---
NIMBEX GTT STARTED. PT STABLE. UPDATE TO BY PHONE
[2021-02-17] MEDS: VANCOmycin 1250MG/NS 250ml Bag 250 ML IV SCH (13:07)
[2021-02-17 13:12] LABS: PREALBUMIN 15.9 MG/DL (19-36); TRIGLYCERIDES 146 MG/DL (20-135)
[2021-02-17] MEDS: fluconazole-Diflucan 200mg/NS 100 ML IV SCH (16:46)
[2021-02-17] MEDS: CISatracurium besylate inj. 100 MG in dextrose 5%-water 90 ML IV PRN ×2 (17:30→22:47)
[2021-02-17] MEDS: lactobacillus rhamnosus 10,000 MMU CELLS/CAPSULE PO SCH (19:58)
[2021-02-17] MEDS: ZINC/COPPER/MANGANESE/SELENIUM 1 ML, chromic chloride inj. 10 MCG in AA 5%/cal/electrol... IV SCH (20:05)
[2021-02-18] VITALS (25 sets, daily range): BP systolic 138–192; BP diastolic 80–101
[2021-02-18] MEDS: VANCOmycin 1250MG/NS 250ml Bag 250 ML IV SCH ×2 (01:51→13:31)
[2021-02-18] MEDS: hydrocortisone sod succ/PF 100mg/2ml inj. IV SCH ×4 (01:51→20:30)
[2021-02-18] MEDS: piperacillin/tazo 4.5gm/100ml 100 ML IV SCH ×3 (01:52→16:00)
[2021-02-18] MEDS: ipratropium/albuterol 3ml nebule NEB SCH ×6 (02:53→23:48)
[2021-02-18 03:04] LABS: ABG BASE EXCESS -0.2 mmol/L (-2.0-2.0); ABG HCO3 23.1 mmol/L (22.0-26.0); ABG OXYGEN SATURATION 94.7 % (94-97); ABG PCO2 (T) 31.2 mmHg (32.0-45.0); ABG PO2 (T) 74.2 mmHg (75.0-100.0); FCOHb 0.3 % (0.0-3.9); FMetHb 0.2 % (0.0-1.5); FO2Hb 94.2 % (94-97); PATIENT TEMPERATURE 36.4; PEEP 5 cm H2O; RESPIRATORY RATE 16 b/min; TIDAL VOLUME 400 mL; TOTAL HEMOGLOBIN 8.1 G/dl (12.0-16.0)
[2021-02-18 03:26] LABS: ALANINE AMINOTRANSFERASE 8 U/L (12-78); ALBUMIN 1.7 G/DL (3.4-5.0); ALBUMIN/GLOBULIN RATIO 0.4 (1.1-1.5); ALKALINE PHOSPHATASE 37 IU/L (46-116); ANION GAP 7 (8-16); ASPARTATE AMINO TRANSFERASE 16 U/L (10-37); BILIRUBIN,TOTAL 0.5 MG/DL (0.1-1.0); BLOOD UREA NITROGEN 11 MG/DL (7-18); BUN/CREATININE RATIO 14.1 (6.6-38.0); CALCIUM 8.3 MG/DL (8.5-10.1); CHLORIDE 108 MMOL/L (99-107); CREATININE 0.78 MG/DL (0.40-0.90); GLUCOSE 172 MG/DL (70-104); MAGNESIUM 1.7 MG/DL (1.5-2.4); PHOSPHORUS 2.8 MG/DL (2.3-4.5); SODIUM 141 MMOL/L (135-145); TOTAL CARBON DIOXIDE 25.8 MMOL/L (24-32); TOTAL PROTEIN 5.7 G/DL (6.4-8.2); eGFR 79 ML/MIN
[2021-02-18 03:31] LABS: POTASSIUM 2.7 MMOL/L (3.5-5.1)
[2021-02-18] MEDS: propofol 1000mg/100ml bottle 100 ML IV SCH ×5 (03:36→23:26)
[2021-02-18] MEDS: potassium Cl 20mEq/100mL bag 100 ML IV PRN ×3 (03:36→09:17)
[2021-02-18 03:54] LABS: BASOPHILS % (AUTO) 0.2 % (0-1); EOSINOPHILS % (AUTO) 0.1 % (0-6); HEMOGLOBIN 7.6 g/dl (12.0-16.0); LYMPHOCYTES # (AUTO) 0.7 X10'3 (1.1-4.8); LYMPHOCYTES % (AUTO) 8.6 % (21-51); MEAN CORPUSCULAR HEMOGLOBIN 36.7 PG (27.0-31.0); MEAN CORPUSCULAR HGB CONC 34.6 g/dL (33.0-36.5); MEAN CORPUSCULAR VOLUME 106.1 FL (78-98); MEAN PLATELET VOLUME 7.5 FL (7.4-10.4); MONOCYTES # (AUTO) 0.7 X10'3 (0-0.9); MONOCYTES % (AUTO) 9.3 % (2-12); NEUTROPHILS # (AUTO) 6.3 X10'3 (1.8-7.7); NEUTROPHILS % (AUTO) 81.8 % (42-75); PLATELET COUNT 241 X10'3 (140-440); RED BLOOD COUNT 2.08 X10'6 (4.20-5.60); RED CELL DISTRIBUTION WIDTH 14.1 % (11.5-14.5); WHITE BLOOD COUNT 7.7 X10'3 (4.5-11.0)
[2021-02-18] MEDS ORDERED: magnesium 2GM in 50ml NS 50 ML IV ONE (05:00)
[2021-02-18] MEDS: CISatracurium besylate inj. 100 MG in dextrose 5%-water 90 ML IV PRN ×4 (05:17→20:42)
--- NOTE | 2021-02-18 06:00 | NUR ---
Replacing potassium and magnesium after AM labs resulted.
[2021-02-18] MEDS: NORepinephrine 8mg/ 250ml NS 250 ML IV SCH ×2 (06:12→20:30)
--- NOTE | 2021-02-18 06:51 | NUR ---
Patient in room ICU 2040. I have received report from Greyson GREEN and had the opportunity to ask questions and assume patient care.
[2021-02-18 07:05] LABS: POTASSIUM 2.9 MMOL/L (3.5-5.1)
[2021-02-18] MEDS: lactobacillus rhamnosus 10,000 MMU CELLS/CAPSULE PO SCH ×2 (08:00→20:00)
[2021-02-18] MEDS: docusate sod 100mg capsule PO SCH ×2 (08:00→20:00)
[2021-02-18] MEDS: folic acid 1mg/0.2ml inj IV SCH (08:06)
[2021-02-18] MEDS: iron sucrose complex injection 200 MG in normal saline 100ml IV soln 100 ML IV SCH (08:07)
[2021-02-18] MEDS: thiamine inj. 100 MG in normal saline 100ml IV soln 100 ML IV SCH (08:07)
[2021-02-18] MEDS: enoxaparin 40mg/0.4ml syringe SUBCUT SCH (08:07)
[2021-02-18] MEDS: pantoprazole 40MG/NS 100ML BAG 100 ML IV SCH (08:08)
[2021-02-18 10:05] LABS: PLATELET ESTIMATE NORMAL; TOTAL CELLS COUNTED 100
[2021-02-18] MEDS: fentaNYL/NS/PF 2,500 mcg/250mL 250 ML IV PRN ×2 (10:07→20:39)
--- NOTE | 2021-02-18 10:30 | NUR ---
Per pharmacy keep TPN at 30, patients potassium and phos dropped
--- NOTE | 2021-02-18 10:39 | NUR ---
Dr. Zaidi by to round on patient, ordered an add on test CPK possible EEG if she does not tolerate weaning of nimbex
[2021-02-18 10:53] LABS: CREATINE KINASE 132 U/L (26-192)
[2021-02-18] MEDS ORDERED: LORazepam 2 mg/ml vial IV PRN (11:15)
[2021-02-18] MEDS ORDERED: LORazepam 1 MG tablet PO PRN (11:15)
[2021-02-18] MEDS: fluconazole-Diflucan 200mg/NS 100 ML IV SCH (16:04)
--- NOTE | 2021-02-18 18:23 | NUR ---
Problems reprioritized. Patient report given, questions answered & plan of care reviewed with Magalys GREEN.
--- NOTE | 2021-02-18 18:25 | NUR ---
Patient in room ICU 2040. I have received report from Lashon GREEN and had the opportunity to ask questions and assume patient care.
[2021-02-19] VITALS (23 sets, daily range): BP systolic 127–192; BP diastolic 1–100
[2021-02-19] MEDS ORDERED: VANCOMYCIN LEVEL IV ONE (00:30)
[2021-02-19] MEDS ORDERED: midazolam 100mg in NS 100ml 100 ML IV PRN (00:40)
[2021-02-19] MEDS: piperacillin/tazo 4.5gm/100ml 100 ML IV SCH ×4 (00:44→23:53)
[2021-02-19] MEDS: VANCOmycin 1250MG/NS 250ml Bag 250 ML IV SCH (00:49)
[2021-02-19] MEDS: midazolam 100mg in NS 100ml 100 ML IV PRN ×4 (01:12→20:07)
[2021-02-19 01:49] LABS: BASOPHILS % (AUTO) 0.1 % (0-1); EOSINOPHILS % (AUTO) 0.1 % (0-6); HEMATOCRIT 23.8 % (35.0-45.0); LYMPHOCYTES # (AUTO) 1.2 X10'3 (1.1-4.8); MEAN CORPUSCULAR HEMOGLOBIN 36.3 PG (27.0-31.0); MEAN CORPUSCULAR HGB CONC 33.8 g/dL (33.0-36.5); MEAN CORPUSCULAR VOLUME 107.2 FL (78-98); MEAN PLATELET VOLUME 7.2 FL (7.4-10.4); MONOCYTES # (AUTO) 1.2 X10'3 (0-0.9); MONOCYTES % (AUTO) 9.9 % (2-12); NEUTROPHILS # (AUTO) 9.8 X10'3 (1.8-7.7); NEUTROPHILS % (AUTO) 79.9 % (42-75); PLATELET COUNT 256 X10'3 (140-440); RED BLOOD COUNT 2.22 X10'6 (4.20-5.60); RED CELL DISTRIBUTION WIDTH 14.4 % (11.5-14.5); WHITE BLOOD COUNT 12.3 X10'3 (4.5-11.0)
[2021-02-19 02:12] LABS: ALBUMIN 1.8 G/DL (3.4-5.0); ANION GAP 7 (8-16); BLOOD UREA NITROGEN 9 MG/DL (7-18); BUN/CREATININE RATIO 10.6 (6.6-38.0); CALCIUM 8.6 MG/DL (8.5-10.1); CHLORIDE 109 MMOL/L (99-107); CREATININE 0.85 MG/DL (0.40-0.90); GLUCOSE 158 MG/DL (70-104); MAGNESIUM 2.3 MG/DL (1.5-2.4); PHOSPHORUS 3.2 MG/DL (2.3-4.5); POTASSIUM 3.5 MMOL/L (3.5-5.1); PREALBUMIN 22.6 MG/DL (19-36); SODIUM 142 MMOL/L (135-145); TOTAL CARBON DIOXIDE 25.6 MMOL/L (24-32); eGFR 71 ML/MIN
[2021-02-19 02:14] LABS: VANCOMYCIN,TROUGH 21.7 UG/ML (6.0-14.0)
[2021-02-19] MEDS: ipratropium/albuterol 3ml nebule NEB SCH ×6 (02:16→23:33)
[2021-02-19 02:22] LABS: NUCLEATED RED BLOOD CELLS 4 /100WBC (0-0); TOTAL CELLS COUNTED 100
[2021-02-19 02:24] LABS: PLATELET ESTIMATE NORMAL; POLYCHROMASIA 1+
[2021-02-19 02:27] LABS: ABG BASE EXCESS -0.7 mmol/L (-2.0-2.0); ABG HCO3 23.5 mmol/L (22.0-26.0); ABG OXYGEN SATURATION 91.6 % (94-97); ABG PCO2 (T) 35.4 mmHg (32.0-45.0); ABG PO2 (T) 63.3 mmHg (75.0-100.0); FCOHb 0.2 % (0.0-3.9); FMetHb 0.4 % (0.0-1.5); FO2Hb 91.1 % (94-97); PATIENT TEMPERATURE 36.2; PEEP 5 cm H2O; RESPIRATORY RATE 16 b/min; TIDAL VOLUME 400 mL; TOTAL HEMOGLOBIN 8.9 G/dl (12.0-16.0)
[2021-02-19] MEDS: hydrocortisone sod succ/PF 100mg/2ml inj. IV SCH ×4 (03:05→20:05)
[2021-02-19] MEDS: hydrALAZINE 20mg/ml inj. IV PRN ×2 (03:05→22:59)
[2021-02-19] MEDS: propofol 1000mg/100ml bottle 100 ML IV SCH ×7 (03:49→21:57)
[2021-02-19] MEDS: CISatracurium besylate inj. 100 MG in dextrose 5%-water 90 ML IV PRN ×3 (03:50→23:51)
[2021-02-19] MEDS ORDERED: furosemide 40mg/4ml inj IV ONE ×2 (04:30→12:30)
--- NOTE | 2021-02-19 06:14 | NUR ---
Problems reprioritized. Patient report given, questions answered & plan of care reviewed with Lashon GREEN.
[2021-02-19] MEDS: fentaNYL/NS/PF 2,500 mcg/250mL 250 ML IV PRN ×3 (07:14→23:52)
[2021-02-19] MEDS: ZINC/COPPER/MANGANESE/SELENIUM 1 ML, chromic chloride inj. 10 MCG in AA 5%/cal/electrol... IV SCH (07:58)
[2021-02-19] MEDS: enoxaparin 40mg/0.4ml syringe SUBCUT SCH (08:00)
[2021-02-19] MEDS: thiamine inj. 100 MG in normal saline 100ml IV soln 100 ML IV SCH (08:00)
[2021-02-19] MEDS: docusate sod 100mg capsule PO SCH ×2 (08:00→20:00)
[2021-02-19] MEDS: lactobacillus rhamnosus 10,000 MMU CELLS/CAPSULE PO SCH ×2 (08:00→20:00)
[2021-02-19] MEDS: pantoprazole 40MG/NS 100ML BAG 100 ML IV SCH (08:01)
[2021-02-19] MEDS: iron sucrose complex injection 200 MG in normal saline 100ml IV soln 100 ML IV SCH (08:01)
[2021-02-19] MEDS: folic acid 1mg/0.2ml inj IV SCH (08:02)
--- NOTE | 2021-02-19 10:57 | NUR ---
bedside, updated him on condition and plan for the day, he requested to take the patients cell phone home so that it can be charged. Black cell phone with a pink case sent home with rubio
--- NOTE | 2021-02-19 11:50 | NUR ---
f/u 02/19: Noted Propofol increased to 28.5ml/hr providing 752kcals. Updated TPN recs below discussed w/ clinical pharmacist. Will hold lipids while pt receiving high does of Propofol. Unable to meet minimum protein needs d/t to increased Propofol. Rec: 1. Continuous TPN per MD via central access using 2:1 Clinimix E 07/29 at 90ml/hr to provide 2160ml volume/day, 108g AA, 324g DEX (2.75mg/kg/min GIR; initial accurate wt 81.82kg), and 1533 kcals/day. 2. Hold additional intralipids given current Propofol rate 21.42, providing 752kcals/day. Monitor Propofol rate and adjustment needs 3. TG/PALB Q /, daily wts 4. monitor TPN tolerance and Propofol rate for PN adjustment needs 5. IF TF; Vital High Protein at 64ml/hr goal would provide 1536ml volume/day, 1536 kcals, 1290ml water, and 134g protein. 6. thiamin, folic, MVI for etoh hx per MD 7. bowel care per MD post-op Addendum: 02/19/21 at [address] Amended: Links added.
--- NOTE | 2021-02-19 12:00 | NUR ---
Called Dr. Zaidi concerning patients decreasing o2 sat, informed him that she is sating between 85-875 on 100% fio2 peep of 10, he gave a one time order of 40mg of lasix
--- NOTE | 2021-02-19 13:00 | NUR ---
Dr. Brennan by to round on patient updated him of her current situation, inquired about her previous surgeries in regards to her difficulties with extubation. He stated that prior she has been difficult to extubate, he stated that she looks fluid over loaded, informed him that i gave her a one time dose of 40mg lasix and that she also has it scheduled Q8. Inquired about tube feeding he stated that if we chose to we need to go slow at 10ml/hr as she had a small bowel obstruction
[2021-02-19 13:14] LABS: ABG BASE EXCESS 2.4 mmol/L (-2.0-2.0); ABG HCO3 27.4 mmol/L (22.0-26.0); ABG OXYGEN SATURATION 86.4 % (94-97); ABG PCO2 (T) 44.7 mmHg (32.0-45.0); ABG PO2 (T) 55.8 mmHg (75.0-100.0); FCOHb 0.2 % (0.0-3.9); FMetHb 0.3 % (0.0-1.5); PEEP 10 cm H2O; RESPIRATORY RATE 16 b/min; TIDAL VOLUME 400 mL
[2021-02-19] MEDS: vancomycin/NS 1 GM ADD-VANTAGE 250 ML IV SCH (14:22)
[2021-02-19] MEDS ORDERED: enoxaparin 50mg/0.5ml (from 3ml vial) syringe SUBCUT ONE ×2 (14:30)
--- NOTE | 2021-02-19 14:30 | NUR ---
Dr. Zaidi by to follow up on patient wants to get her to CT for a CTA chest and an abdomen and pelvis once she is stable respiratory mott, also ordered some labs, an echo and bilateral ultra sound lower ext.
[2021-02-19 14:31] LABS: PLATELET COUNT 268 X10'3 (140-440)
[2021-02-19 14:54] LABS: AMYLASE 18 U/L (25-115); LIPASE 117 U/L (73-393)
[2021-02-19 15:17] LABS: D-DIMER 2.07 MG/L FEU (0-0.50); PARTIAL THROMBOPLASTIN TIME 27 SECONDS (22-32)
[2021-02-19] MEDS ORDERED: dextrose 50%-water 50ml dispensing syringe IV PRN ×2 (15:50)
[2021-02-19] MEDS ORDERED: dextrose ORAL solution 15 GM/59 ML bottle PO PRN ×2 (15:50)
[2021-02-19] MEDS ORDERED: glucagon, human recombinant 1mg kit SUBCUT PRN (15:50)
[2021-02-19] MEDS: fluconazole-Diflucan 200mg/NS 100 ML IV SCH (16:33)
[2021-02-19] MEDS: furosemide 40mg/4ml inj IV SCH ×2 (17:55→23:53)
--- NOTE | 2021-02-19 18:39 | NUR ---
Problems reprioritized. Patient report given, questions answered & plan of care reviewed with Sanjana GREEN.
[2021-02-19] MEDS: potassium Cl 20mEq/100mL bag 100 ML IV PRN ×3 (19:01→21:37)
[2021-02-19] MEDS: enoxaparin 60mg/0.6ml syringe SUBCUT SCH (20:06)
[2021-02-19] MEDS: enoxaparin 30mg/0.3ml syringe SUBCUT SCH (20:06)
[2021-02-19] MEDS: insulin regular, human U-100 3ml vial - multi-dose SQ SCH (20:29)
[2021-02-19] MEDS: insulin glargine (Lantus) pen - multi-dose SQ SCH (20:30)
[2021-02-19] MEDS: diatr meglu/diatrizoate 30ml oral sol.-(3 dose) bottle PO SCH (21:19)
[2021-02-20] VITALS (24 sets, daily range): BP systolic 105–160; BP diastolic 46–100
[2021-02-20] MEDS ORDERED: VANCOMYCIN LEVEL IV ONE (00:30)
[2021-02-20] MEDS: vancomycin/NS 1 GM ADD-VANTAGE 250 ML IV SCH ×2 (01:09→15:48)
[2021-02-20] MEDS: propofol 1000mg/100ml bottle 100 ML IV SCH ×4 (01:30→18:36)
[2021-02-20] MEDS: insulin regular, human U-100 3ml vial - multi-dose SQ SCH ×3 (02:11→20:32)
[2021-02-20] MEDS: hydrocortisone sod succ/PF 100mg/2ml inj. IV SCH ×2 (02:18→08:03)
[2021-02-20 02:48] LABS: BASOPHILS % (AUTO) 0 % (0-1); EOSINOPHILS % (AUTO) 0.1 % (0-6); HEMATOCRIT 24.6 % (35.0-45.0); HEMOGLOBIN 8.3 g/dl (12.0-16.0); LYMPHOCYTES # (AUTO) 1.7 X10'3 (1.1-4.8); LYMPHOCYTES % (AUTO) 11.6 % (21-51); MEAN CORPUSCULAR HEMOGLOBIN 35.9 PG (27.0-31.0); MEAN CORPUSCULAR HGB CONC 33.6 g/dL (33.0-36.5); MEAN CORPUSCULAR VOLUME 106.8 FL (78-98); MEAN PLATELET VOLUME 7.4 FL (7.4-10.4); MONOCYTES # (AUTO) 1.7 X10'3 (0-0.9); MONOCYTES % (AUTO) 11.7 % (2-12); NEUTROPHILS % (AUTO) 76.6 % (42-75); PLATELET COUNT 291 X10'3 (140-440); RED CELL DISTRIBUTION WIDTH 14.5 % (11.5-14.5); WHITE BLOOD COUNT 14.4 X10'3 (4.5-11.0)
[2021-02-20 03:09] LABS: ALBUMIN 1.9 G/DL (3.4-5.0); ANION GAP 3 (8-16); BLOOD UREA NITROGEN 20 MG/DL (7-18); BUN/CREATININE RATIO 19.6 (6.6-38.0); CALCIUM 8.4 MG/DL (8.5-10.1); CHLORIDE 107 MMOL/L (99-107); CREATININE 1.02 MG/DL (0.40-0.90); GLUCOSE 169 MG/DL (70-104); MAGNESIUM 1.8 MG/DL (1.5-2.4); PHOSPHORUS 3.4 MG/DL (2.3-4.5); SODIUM 142 MMOL/L (135-145); TOTAL CARBON DIOXIDE 32.1 MMOL/L (24-32); TRIGLYCERIDES 147 MG/DL (20-135); eGFR 58 ML/MIN
[2021-02-20] MEDS: ipratropium/albuterol 3ml nebule NEB SCH ×5 (03:14→20:54)
[2021-02-20 03:22] LABS: POTASSIUM 2.4 MMOL/L (3.5-5.1)
[2021-02-20 03:24] LABS: ABG BASE EXCESS 6.7 mmol/L (-2.0-2.0); ABG HCO3 28.8 mmol/L (22.0-26.0); ABG OXYGEN SATURATION 97.7 % (94-97); ABG PCO2 (T) 30.5 mmHg (32.0-45.0); ABG PO2 (T) 97.9 mmHg (75.0-100.0); FCOHb 0.2 % (0.0-3.9); FMetHb 0.1 % (0.0-1.5); FO2Hb 97.4 % (94-97); PATIENT TEMPERATURE 36.3; PEEP 14 cm H2O; RESPIRATORY RATE 16 b/min; TOTAL HEMOGLOBIN 8.9 G/dl (12.0-16.0)
[2021-02-20] MEDS: potassium Cl 20mEq/100mL bag 100 ML IV PRN ×5 (03:24→17:51)
[2021-02-20 04:02] LABS: NUCLEATED RED BLOOD CELLS 3 /100WBC (0-0); TOTAL CELLS COUNTED 100
[2021-02-20 04:03] LABS: PLATELET ESTIMATE NORMAL
[2021-02-20 04:05] LABS: POLYCHROMASIA FEW
[2021-02-20 05:29] LABS: ABG BASE EXCESS 7.4 mmol/L (-2.0-2.0); ABG HCO3 31.1 mmol/L (22.0-26.0); ABG OXYGEN SATURATION 96.9 % (94-97); ABG PCO2 (T) 39.2 mmHg (32.0-45.0); ABG PO2 (T) 95.7 mmHg (75.0-100.0); FCOHb 0.2 % (0.0-3.9); FMetHb 0.6 % (0.0-1.5); FO2Hb 96.1 % (94-97); PATIENT TEMPERATURE 36.5; PEEP 14 cm H2O; RESPIRATORY RATE 14 b/min; TOTAL HEMOGLOBIN 8.8 G/dl (12.0-16.0)
[2021-02-20] MEDS: CISatracurium besylate inj. 100 MG in dextrose 5%-water 90 ML IV PRN ×4 (05:58→20:58)
--- NOTE | 2021-02-20 06:38 | NUR ---
Reassessments not done on previous shift Propofol 02/19/21 2221 02/20/21 0112 02/20/21 0157 02/20/21 0530 Fentanyl 02/20/21 0052
--- NOTE | 2021-02-20 06:38 | NUR ---
Patient in room ICU 2040. I have received report from Sanjana GREEN and had the opportunity to ask questions and assume patient care.
[2021-02-20] MEDS: potassium Cl 20 mEq/100mL bag IV SCH ×4 (07:36→23:09)
[2021-02-20] MEDS: diatr meglu/diatrizoate 30ml oral sol.-(3 dose) bottle PO SCH ×2 (07:51→21:00)
[2021-02-20] MEDS: lactobacillus rhamnosus 10,000 MMU CELLS/CAPSULE PO SCH ×2 (08:00→20:00)
[2021-02-20] MEDS: docusate sod 100mg capsule PO SCH ×2 (08:00→20:00)
[2021-02-20] MEDS: furosemide 40mg/4ml inj IV SCH ×3 (08:00→23:54)
[2021-02-20] MEDS: hydrALAZINE 20mg/ml inj. IV SCH ×2 (08:04→14:00)
[2021-02-20] MEDS ORDERED: acetaZOLAMIDE IV 500mg inj IV ONE (08:05)
[2021-02-20] MEDS: MVI, adult No.4 with vit. K 10 ML in dextrose 5% water 500ml 500 ML IV SCH ×2 (08:05)
[2021-02-20] MEDS: thiamine inj. 100 MG in normal saline 100ml IV soln 100 ML IV SCH (08:05)
[2021-02-20] MEDS: ZINC/COPPER/MANGANESE/SELENIUM 1 ML, chromic chloride inj. 10 MCG in AA 5%/cal/electrol... IV SCH (08:06)
[2021-02-20] MEDS: pantoprazole IV 40 MG in dextrose 5%-water 100 ML IV SCH (08:07)
[2021-02-20] MEDS: enoxaparin 60mg/0.6ml syringe SUBCUT SCH ×2 (08:08→20:00)
[2021-02-20] MEDS: enoxaparin 30mg/0.3ml syringe SUBCUT SCH ×2 (08:08→20:00)
[2021-02-20] MEDS: piperacillin/tazo 4.5gm/100ml 100 ML IV SCH ×2 (08:09→18:37)
[2021-02-20] MEDS: iron sucrose complex injection 200 MG in normal saline 100ml IV soln 100 ML IV SCH (08:09)
[2021-02-20] MEDS: folic acid 1mg/0.2ml inj IV SCH (08:10)
--- NOTE | 2021-02-20 09:43 | NUR ---
D/C'd right upper arm IV cannula intact.
[2021-02-20] MEDS: midazolam 100mg in NS 100ml 100 ML IV PRN ×2 (10:11→17:09)
[2021-02-20] MEDS ORDERED: iohexol 350MG/ML 100ml bottle IV ONE (10:37)
[2021-02-20] MEDS ORDERED: LORazepam 1 MG tablet PO PRN (11:15)
[2021-02-20] MEDS ORDERED: LORazepam 2 mg/ml vial IV PRN (11:15)
--- NOTE | 2021-02-20 11:24 | NUR ---
f/u 02/20: Pt remains intubated and sedated, now on rotorest bed. Per RN, Propofol continues to run at 50mcg, or 28.95ml/hr providing ~764kcals. Will continue to infuse TPN and hold on trickle feeds per now per Event Promoter. Unable to meet minimum protein needs d/t to increased Propofol. Rec: 1. Continuous TPN per MD via central access using 2:1 Clinimix E 07/29 at 90ml/hr to provide 2160ml volume/day, 108g AA, 324g DEX (2.75mg/kg/min GIR; initial accurate wt 81.82kg), and 1533 kcals/day. 2. Hold additional intralipids given current Propofol rate 28.95, providing 764kcals/day. Monitor Propofol rate and adjustment needs 3. TG/PALB Q /, daily wts 4. monitor TPN tolerance and Propofol rate for PN adjustment needs 5. IF TF; Vital High Protein at 64ml/hr goal would provide 1536ml volume/day, 1536 kcals, 1290ml water, and 134g protein. 6. thiamin, folic, MVI for etoh hx per MD 7. bowel care per MD post-op Addendum: 02/20/21 at [address] Amended: Links added.
[2021-02-20] MEDS: methylPREDNISolone sod succ 125mg/2ml vial IV SCH ×2 (14:36→20:19)
[2021-02-20] MEDS: fluconazole-Diflucan 200mg/NS 100 ML IV SCH (15:48)
[2021-02-20] MEDS: fentaNYL/NS/PF 2,500 mcg/250mL 250 ML IV PRN (17:09)
[2021-02-20] MEDS: insulin glargine (Lantus) pen - multi-dose SQ SCH (20:33)
[2021-02-21] VITALS (24 sets, daily range): BP systolic 113–176; BP diastolic 50–87
[2021-02-21] MEDS: propofol 1000mg/100ml bottle 100 ML IV SCH ×5 (00:21→22:42)
[2021-02-21] MEDS: ipratropium/albuterol 3ml nebule NEB SCH ×7 (00:22→22:55)
[2021-02-21] MEDS: midazolam 100mg in NS 100ml 100 ML IV PRN ×4 (00:39→23:10)
[2021-02-21] MEDS: piperacillin/tazo 4.5gm/100ml 100 ML IV SCH ×4 (00:39→23:10)
[2021-02-21] MEDS: vancomycin/NS 1 GM ADD-VANTAGE 250 ML IV SCH (01:00)
[2021-02-21 01:03] LABS: POTASSIUM 4.2 MMOL/L (3.5-5.1)
[2021-02-21 01:14] LABS: VANCOMYCIN,TROUGH 25.4 UG/ML (6.0-14.0)
[2021-02-21] MEDS: methylPREDNISolone sod succ 125mg/2ml vial IV SCH ×4 (02:38→20:01)
[2021-02-21] MEDS: insulin regular, human U-100 3ml vial - multi-dose SQ SCH ×4 (02:46→20:12)
[2021-02-21] MEDS: fentaNYL/NS/PF 2,500 mcg/250mL 250 ML IV PRN ×2 (02:55→12:25)
[2021-02-21 03:47] LABS: EOSINOPHILS % (AUTO) 0.1 % (0-6); HEMOGLOBIN 8.2 g/dl (12.0-16.0); MONOCYTES # (AUTO) 1.1 X10'3 (0-0.9)
[2021-02-21 03:49] LABS: BASOPHILS % (AUTO) 0.1 % (0-1); HEMATOCRIT 25.5 % (35.0-45.0); LYMPHOCYTES % (AUTO) 7.8 % (21-51); MEAN CORPUSCULAR HEMOGLOBIN 35.5 PG (27.0-31.0); MEAN CORPUSCULAR HGB CONC 32.2 g/dL (33.0-36.5); MEAN CORPUSCULAR VOLUME 110.3 FL (78-98); MEAN PLATELET VOLUME 7.8 FL (7.4-10.4); MONOCYTES % (AUTO) 8.6 % (2-12); NEUTROPHILS # (AUTO) 10.4 X10'3 (1.8-7.7); NEUTROPHILS % (AUTO) 83.4 % (42-75); PLATELET COUNT 296 X10'3 (140-440); RED BLOOD COUNT 2.31 X10'6 (4.20-5.60); RED CELL DISTRIBUTION WIDTH 15.6 % (11.5-14.5); WHITE BLOOD COUNT 12.5 X10'3 (4.5-11.0)
[2021-02-21 03:56] LABS: ALBUMIN 2.1 G/DL (3.4-5.0); ANION GAP 9 (8-16); BLOOD UREA NITROGEN 24 MG/DL (7-18); BUN/CREATININE RATIO 24.5 (6.6-38.0); CALCIUM 8.6 MG/DL (8.5-10.1); CHLORIDE 105 MMOL/L (99-107); CREATININE 0.98 MG/DL (0.40-0.90); GLUCOSE 155 MG/DL (70-104); MAGNESIUM 1.8 MG/DL (1.5-2.4); PHOSPHORUS 4.6 MG/DL (2.3-4.5); POTASSIUM 4.3 MMOL/L (3.5-5.1); SODIUM 144 MMOL/L (135-145); TOTAL CARBON DIOXIDE 30.3 MMOL/L (24-32); eGFR 61 ML/MIN
[2021-02-21 04:28] LABS: ABG BASE EXCESS 7.2 mmol/L (-2.0-2.0); ABG HCO3 31.8 mmol/L (22.0-26.0); ABG OXYGEN SATURATION 96.5 % (94-97); ABG PCO2 (T) 46.6 mmHg (32.0-45.0); ABG PO2 (T) 89.8 mmHg (75.0-100.0); FCOHb 0.3 % (0.0-3.9); FMetHb 0.6 % (0.0-1.5); FO2Hb 95.6 % (94-97); PATIENT TEMPERATURE 37.2; PEEP 14 cm H2O; RESPIRATORY RATE 14 b/min; TOTAL HEMOGLOBIN 8.6 G/dl (12.0-16.0)
[2021-02-21 04:32] LABS: NUCLEATED RED BLOOD CELLS 3 /100WBC (0-0); TOTAL CELLS COUNTED 100
[2021-02-21 04:33] LABS: LARGE PLATELETS FEW; PLATELET ESTIMATE NORMAL
[2021-02-21 04:34] LABS: POLYCHROMASIA FEW
[2021-02-21] MEDS: CISatracurium besylate inj. 100 MG in dextrose 5%-water 90 ML IV PRN ×2 (05:45→23:20)
[2021-02-21] MEDS: ZINC/COPPER/MANGANESE/SELENIUM 1 ML, chromic chloride inj. 10 MCG in AA 5%/cal/electrol... IV SCH (05:46)
--- NOTE | 2021-02-21 06:30 | NUR ---
Patient in room ICU 2040. I have received report from Sanjana GREEN and had the opportunity to ask questions and assume patient care.
[2021-02-21] MEDS: docusate sod 100mg capsule PO SCH (08:00)
[2021-02-21] MEDS ORDERED: vancomycin inj. 750 MG in normal saline 250ml IV soln 250 ML IV SCH (08:00)
[2021-02-21] MEDS: enoxaparin 30mg/0.3ml syringe SUBCUT SCH (08:08)
[2021-02-21] MEDS: enoxaparin 60mg/0.6ml syringe SUBCUT SCH (08:08)
[2021-02-21] MEDS: furosemide 40mg/4ml inj IV SCH ×3 (08:09→23:10)
[2021-02-21] MEDS: iron sucrose complex injection 200 MG in normal saline 100ml IV soln 100 ML IV SCH (08:09)
[2021-02-21] MEDS: thiamine inj. 100 MG in normal saline 100ml IV soln 100 ML IV SCH (08:09)
[2021-02-21] MEDS: potassium Cl 20 mEq/100mL bag IV SCH ×3 (08:30→14:31)
[2021-02-21] MEDS: pantoprazole IV 40 MG in dextrose 5%-water 100 ML IV SCH (08:31)
[2021-02-21] MEDS: lactobacillus rhamnosus 10,000 MMU CELLS/CAPSULE PO SCH (08:31)
[2021-02-21] MEDS: folic acid 1mg/0.2ml inj IV SCH (08:36)
--- NOTE | 2021-02-21 10:00 | NUR ---
MD Visit Dr. Paz here. OK'd tube feed at a slow rate as pt will aspariate if too fast. Dr. Zaidi aware as well. In rounds discussed restarting pts psych meds. Orders noted.
[2021-02-21 11:28] LABS: ABG BASE EXCESS 4.8 mmol/L (-2.0-2.0); ABG HCO3 28.8 mmol/L (22.0-26.0); ABG OXYGEN SATURATION 94.6 % (94-97); ABG PCO2 (T) 40.4 mmHg (32.0-45.0); ABG PO2 (T) 76.6 mmHg (75.0-100.0); FCOHb 0.3 % (0.0-3.9); FMetHb 0.4 % (0.0-1.5); FO2Hb 93.9 % (94-97); PATIENT TEMPERATURE 37.1; PEEP 14 cm H2O; TOTAL HEMOGLOBIN 11.3 G/dl (12.0-16.0)
--- NOTE | 2021-02-21 11:45 | NUR ---
TF/El Consult: Pt s/p CT abdomen yesterday w/ no obstruction noted per EMR. Trickle EN to start today per surgeon; recs below. El 12 w/ abdomen surgical site otherwise skin intact per EMR. Pt remains on propofol at 17.1ml/hr providing additional 451 kcals/day. LBM 02/11 10 days constipation w/ prior colace held for NPO; likely to start w/ EN. Will monitor for TF/PN tolerance and adjustment needs on vent. Rec: 1. Continuous TPN per MD via central access using 2:1 Clinimix E 07/29 at 90ml/hr to provide 2160ml volume/day, 108g AA, 324g DEX (2.75mg/kg/min GIR; initial accurate wt 81.82kg), and 1533 kcals/day. 2. Trickle TF per MD using Pivot 1.5 at 10ml/hr goal; to provide 240ml volume/day, 360 kcals, 182ml water, and 23g protein. 3. Hold additional intralipids given current Propofol rate 17.1ml/hr providing 451 kcals/day. Monitor Propofol rate and adjustment needs 4. TG/PALB Q /, daily wts 5. monitor EN/TPN tolerance and Propofol rate for adjustment needs 6. IF TF to advance recommend PN weaning and EN using Pivot 1.5 at 55ml/hr goal. Would provide 1320ml volume/day, 1980 kcals, 1003ml water, and 124g protein. 7. IF TF advancement; additional water flush 200ml Q4H 8. thiamin, folic, MVI for etoh hx per MD 9. routine bowel care Addendum: 02/21/21 at [address] Amended: Links added.
[2021-02-21] MEDS: vancomycin inj. 750 MG in normal saline 250ml IV soln 250 ML IV SCH ×2 (12:27→23:10)
[2021-02-21] MEDS ORDERED: dextrose ORAL solution 15 GM/59 ML bottle NG PRN ×2 (12:30→12:31)
[2021-02-21] MEDS ORDERED: haloperidol 5mg tablet NG PRN (12:32)
[2021-02-21] MEDS ORDERED: mag hydrox/Alum hydrox/simeth 30ml oral suspension NG PRN (12:32)
[2021-02-21] MEDS ORDERED: magnesium hydroxide 30ml (MOM) UD suspension NG PRN (12:33)
[2021-02-21] MEDS ORDERED: diphenhydrAMINE 25 MG/10 ML UD oral solution NG PRN (12:35)
[2021-02-21] MEDS: morphine/NS 100mg/100ml bag 100 ML IV SCH ×2 (12:47→21:05)
[2021-02-21] MEDS: busPIRone 5mg tablet NG SCH ×2 (13:27→20:03)
[2021-02-21] MEDS: gabapentin 300mg capsule NG SCH ×2 (13:27→20:03)
--- NOTE | 2021-02-21 15:47 | NUR ---
NG Tube Pts NG was off x 30 mins for oral meds given. At 20 mins, moderate amt of green drainage coming out her mouth. Discussed with CN and NG tube advances about 10 cm. Placement confirmed and put back on low intermittent suction with mod amount of drainage. Surgeon notified.
--- NOTE | 2021-02-21 16:00 | NUR ---
NORMA TC: Pt NG suction turned off and pt proceeded to vomit; EN not to start at this time. Rec: 1. Continuous TPN per MD via central access using 2:1 Clinimix E / at 90ml/hr to provide 2160ml volume/day, 108g AA, 324g DEX (2.75mg/kg/min GIR; initial accurate wt 81.82kg), and 1533 kcals/day. 2. IF trickle TF per MD using Pivot 1.5 at 10ml/hr goal; would provide 240ml volume/day, 360 kcals, 182ml water, and 23g protein. 3. Hold additional intralipids given current Propofol rate 17.1ml/hr providing 451 kcals/day. Monitor Propofol rate and adjustment needs 4. TG/PALB Q /, daily wts 5. monitor EN/TPN tolerance and Propofol rate for adjustment needs 6. IF TF to start/advance recommend PN weaning and EN using Pivot 1.5 at 55ml/hr goal. Would provide 1320ml volume/day, 1980 kcals, 1003ml water, and 124g protein. 7. IF TF start and advancement; additional water flush 200ml Q4H 8. thiamin, folic, MVI for etoh hx per MD 9. routine bowel care Addendum: 02/21/21 at [address] Amended: Links added.
[2021-02-21] MEDS ORDERED: methylnaltrexone br 12mg/0.6ml inj***SubQ only SQ PRN (16:15)
--- NOTE | 2021-02-21 16:15 | NUR ---
MD Visit Dr. Zaidi to see pt. Aware of NG output with NG suction off. Orders received.
[2021-02-21] MEDS: fluconazole-Diflucan 200mg/NS 100 ML IV SCH (16:28)
--- NOTE | 2021-02-21 18:07 | NUR ---
Problems reprioritized. Patient report given, questions answered & plan of care reviewed with Jim GREEN.
[2021-02-21] MEDS: ESCITALOPRAM OXALATE 5 MG TABLET NG SCH (20:02)
[2021-02-21] MEDS: docusate sodium 100mg/10ml UD cup NG SCH (20:02)
[2021-02-21] MEDS: quetiapine 100mg tablet NG SCH (20:03)
[2021-02-21] MEDS: lactobacillus rhamnosus 10,000 MMU CELLS/CAPSULE NG SCH (20:04)
[2021-02-21] MEDS: insulin glargine (Lantus) pen - multi-dose SQ SCH (20:07)
--- NOTE | 2021-02-21 21:46 | NUR ---
Pt is a 50 yo female, admitted 02/13/2021, day 8 of hospitalization, full code, multiple allergies, PMH of multiple abdominal surgeries, presented on 02/13/2021 c/o abdominal pain along with N/V and decreased flatus. Admitted to hospital 02/13/2021. 02/14/2021 to OR for TRAVIS, in PACU post op pt went into respiratory arrest requiring reintubation and admission to ICU. 02/19/2021 pt placed on Rotorest bed for ARDS. Currently, pt remains sedated on Morphine at 10 mg infusing (10ml/hr), Versed at 13 mg infusion (13ml/hr), Propofol at 30 mcgs (17.1 ml/hr), and paralytic Nimbex infusing at 1.99 (11.91 ml/hr). TO4 4/4 at 10. Afebrile with core temperature probe. Pt is repositioned Q 2 hours. HR 68 SR BP 144/62 via right groin A-Line. weak pulses, generalized +3 edema. 02/20/2021 CTA neg for PE, 02/19/2021 Vascular US neg for DVT. Pt is on scheduled Lasix with serum K+ Q8 hours. 2000 K+ was 3.7. Pt remains on Potassium and Magnesium Protocol. All IVF infusing via Rt groin QLC, all ports f/p with good blood return. Right groin A-Line, f/p, good blood return, lines zeroed, good square wave. Dressings for both A-Line and QLC were changed. Intubated with 7.0 ETT, 23 cm, vent mode: AC/PC, rate:16, TV:376+, FIO2:45%, PEEP:12. Breath sounds clear/coarse, equal symmetrical, non labored. Pulses OX 93-97%. Tolerating vent settings well. Bed rotation at 62 degrees. Hypoactive bowel sounds all quads. OGT draining green content. LIWS. Abdomen with midline surgical incision, dressing CDI, no drainage noted. Protonix for GI prophylaxis. Glucose checks Q 6 hours level 2. 20:00 140 covered with 1 unit of Humulin R insulin. Lantus 14 units. TPN infusing at 90 ml's hour (TPN designated port). LBM 02/11/2021 (scheduled Colace and Culturelle). Bladder non distended, Anders draining clear yellow urine, >100 ml's/hour. Skin intact aside for surgical incision. ABX: Diflucan, Zosyn, Vancomycin. Vancomycin Tr on 02/21/2021 0000 was 25.4. (called and discussed with pharmacist the level and said Vancomycin had been adjusted from 1 gm to 750 mg. Repeat Vancomycin Tr at 02/22/2021 0200. Pt remains safe, continue to monitor. Addendum: 02/22/21 at 0426 by Jim Javier RN update: Potassium 3.2 replaced with 40 meq (20 meq/1 hour times 2) Creatine 1.11 WBC's 14.0 (previous was 12.5) ( pt is on steroids.
[2021-02-22] VITALS (24 sets, daily range): BP systolic 136–185; BP diastolic 47–97
[2021-02-22] MEDS: midazolam 100mg in NS 100ml 100 ML IV PRN ×3 (00:25→21:02)
[2021-02-22] MEDS: methylPREDNISolone sod succ 125mg/2ml vial IV SCH ×4 (02:06→20:20)
[2021-02-22] MEDS: insulin regular, human U-100 3ml vial - multi-dose SQ SCH ×4 (02:11→20:31)
[2021-02-22] MEDS: ipratropium/albuterol 3ml nebule NEB SCH ×6 (02:27→23:52)
[2021-02-22 02:41] LABS: ABG BASE EXCESS 7.5 mmol/L (-2.0-2.0); ABG HCO3 31.1 mmol/L (22.0-26.0); ABG OXYGEN SATURATION 93.7 % (94-97); ABG PCO2 (T) 37.6 mmHg (32.0-45.0); ABG PO2 (T) 64.2 mmHg (75.0-100.0); FCOHb 0.3 % (0.0-3.9); FMetHb 0.3 % (0.0-1.5); FO2Hb 93.1 % (94-97); PATIENT TEMPERATURE 35.5; PEEP 12 cm H2O; RESPIRATORY RATE 16 b/min; TOTAL HEMOGLOBIN 9.3 G/dl (12.0-16.0)
[2021-02-22] MEDS: propofol 1000mg/100ml bottle 100 ML IV SCH ×4 (03:22→19:51)
[2021-02-22 03:30] LABS: EOSINOPHILS % (AUTO) 0.1 % (0-6); HEMOGLOBIN 8.7 g/dl (12.0-16.0)
[2021-02-22 03:33] LABS: BASOPHILS % (AUTO) 0.2 % (0-1); LYMPHOCYTES # (AUTO) 1.2 X10'3 (1.1-4.8); LYMPHOCYTES % (AUTO) 8.3 % (21-51); MEAN CORPUSCULAR HEMOGLOBIN 36.6 PG (27.0-31.0); MEAN CORPUSCULAR HGB CONC 33.5 g/dL (33.0-36.5); MEAN CORPUSCULAR VOLUME 109.2 FL (78-98); MEAN PLATELET VOLUME 8.2 FL (7.4-10.4); MONOCYTES # (AUTO) 1.1 X10'3 (0-0.9); MONOCYTES % (AUTO) 8.1 % (2-12); NEUTROPHILS # (AUTO) 11.7 X10'3 (1.8-7.7); NEUTROPHILS % (AUTO) 83.3 % (42-75); PLATELET COUNT 296 X10'3 (140-440); RED BLOOD COUNT 2.38 X10'6 (4.20-5.60); RED CELL DISTRIBUTION WIDTH 15.6 % (11.5-14.5)
[2021-02-22 03:56] LABS: ALBUMIN 2.3 G/DL (3.4-5.0); ANION GAP 11 (8-16); BLOOD UREA NITROGEN 40 MG/DL (7-18); CALCIUM 8.7 MG/DL (8.5-10.1); CHLORIDE 103 MMOL/L (99-107); CREATININE 1.11 MG/DL (0.40-0.90); GLUCOSE 231 MG/DL (70-104); MAGNESIUM 2.2 MG/DL (1.5-2.4); PHOSPHORUS 5.5 MG/DL (2.3-4.5); POTASSIUM 3.2 MMOL/L (3.5-5.1); SODIUM 145 MMOL/L (135-145); TOTAL CARBON DIOXIDE 31.2 MMOL/L (24-32); eGFR 52 ML/MIN
[2021-02-22] MEDS: potassium Cl 20 mEq/100mL bag IV SCH ×2 (04:11→07:37)
[2021-02-22] MEDS: potassium Cl 20mEq/100mL bag 100 ML IV PRN (06:11)
--- NOTE | 2021-02-22 06:30 | NUR ---
Patient in room ICU 2040. I have received report from Jim GREEN and had the opportunity to ask questions and assume patient care.
[2021-02-22] MEDS: piperacillin/tazo 4.5gm/100ml 100 ML IV SCH ×2 (07:36→16:16)
[2021-02-22] MEDS: thiamine inj. 100 MG in normal saline 100ml IV soln 100 ML IV SCH (07:36)
[2021-02-22] MEDS: pantoprazole IV 40 MG in dextrose 5%-water 100 ML IV SCH (07:36)
[2021-02-22] MEDS: docusate sodium 100mg/10ml UD cup NG SCH ×2 (07:37→20:20)
[2021-02-22] MEDS: gabapentin 300mg capsule NG SCH ×3 (07:38→20:21)
[2021-02-22] MEDS: furosemide 40mg/4ml inj IV SCH ×2 (07:38→16:16)
[2021-02-22] MEDS: lactobacillus rhamnosus 10,000 MMU CELLS/CAPSULE NG SCH ×2 (07:38→20:21)
[2021-02-22] MEDS: busPIRone 5mg tablet NG SCH ×3 (07:38→20:21)
[2021-02-22] MEDS: iron sucrose complex injection 200 MG in normal saline 100ml IV soln 100 ML IV SCH (08:00)
--- NOTE | 2021-02-22 09:30 | NUR ---
MD Visit Dr. Zaidi and Dr. Paz to see pt. Both aware of no bowel sounds and NG. Dr. Paz said he didnt expect her bowels to respond for about 10 days. PICC line recommended to remove femoral line.
[2021-02-22] MEDS: folic acid 1mg/0.2ml inj IV SCH (09:32)
--- NOTE | 2021-02-22 11:06 | NUR ---
Visit He came to see . Glendy was here (REMOTE PILOT OPERATOR) and spoke with . I answered his questions. He thanked us for caring for her, shook my hand and left after about 15 minutes.
--- NOTE | 2021-02-22 11:52 | NUR ---
Skin Assessment Pt was turned with help of 2 Johanna. Skin on back in clear w/no areas of redness or bruising. Pad to coccyx replaces. No BM evidence at all. Cream to rectal area.
[2021-02-22] MEDS: vancomycin inj. 750 MG in normal saline 250ml IV soln 250 ML IV SCH (12:11)
[2021-02-22] MEDS: enoxaparin 40mg/0.4ml syringe SQ SCH (12:27)
--- NOTE | 2021-02-22 13:36 | NUR ---
PICC PICC line inserted per PICC RN. Lines changed prior to moving to new PICC line. Weaning paralytics.
[2021-02-22] MEDS: morphine/NS 100mg/100ml bag 100 ML IV SCH (15:57)
[2021-02-22] MEDS: ZINC/COPPER/MANGANESE/SELENIUM 1 ML, chromic chloride inj. 10 MCG in AA 5%/cal/electrol... IV SCH (16:07)
[2021-02-22] MEDS: fluconazole-Diflucan 200mg/NS 100 ML IV SCH (16:16)
--- NOTE | 2021-02-22 18:09 | NUR ---
Shift note Nimbex was weaned off about 4 PM. After PICC placed, all lines changed with new tubing. Quad lumen removed form femoral vein. Bled somewhat but controlled with manual pressure x 15 min. Dressing replaces over art line and recheck without blood. Versed and MS going to Rt forearm IV. Other meds to PICC line after checking compatibility.
--- NOTE | 2021-02-22 18:25 | NUR ---
Patient in room ICU 2040. I have received report from Priscilla GREEN and had the opportunity to ask questions and assume patient care.
--- NOTE | 2021-02-22 18:30 | NUR ---
Patient in room ICU 2040. I have received report from Tab GREEN and had the opportunity to ask questions and assume patient care.
[2021-02-22] MEDS ORDERED: VANCOMYCIN LEVEL IV ONE ×2 (19:30→23:30)
[2021-02-22] MEDS: ESCITALOPRAM OXALATE 5 MG TABLET NG SCH (20:21)
[2021-02-22] MEDS: quetiapine 100mg tablet NG SCH (20:21)
[2021-02-22] MEDS: insulin glargine (Lantus) pen - multi-dose SQ SCH (20:30)
[2021-02-23] VITALS (24 sets, daily range): BP systolic 94–151; BP diastolic 43–81
[2021-02-23] MEDS: furosemide 40mg/4ml inj IV SCH ×2 (00:26→08:32)
[2021-02-23 00:37] LABS: POTASSIUM 3.5 MMOL/L (3.5-5.1); VANCOMYCIN,TROUGH 16.7 UG/ML (6.0-14.0)
[2021-02-23] MEDS: vancomycin inj. 750 MG in normal saline 250ml IV soln 250 ML IV SCH ×3 (00:49→23:55)
[2021-02-23] MEDS: potassium Cl 20 mEq/100mL bag IV SCH ×2 (00:50→08:27)
[2021-02-23] MEDS: propofol 1000mg/100ml bottle 100 ML IV SCH ×5 (01:01→22:53)
[2021-02-23] MEDS: piperacillin/tazo 4.5gm/100ml 100 ML IV SCH ×3 (01:53→16:34)
[2021-02-23] MEDS: methylPREDNISolone sod succ 125mg/2ml vial IV SCH ×2 (02:05→08:31)
[2021-02-23] MEDS: insulin regular, human U-100 3ml vial - multi-dose SQ SCH ×4 (02:09→20:44)
[2021-02-23 02:27] LABS: BASOPHILS % (AUTO) 0.1 % (0-1); EOSINOPHILS % (AUTO) 0 % (0-6); HEMATOCRIT 26.8 % (35.0-45.0); LYMPHOCYTES # (AUTO) 0.9 X10'3 (1.1-4.8); LYMPHOCYTES % (AUTO) 6.7 % (21-51); MEAN CORPUSCULAR HEMOGLOBIN 36.4 PG (27.0-31.0); MEAN CORPUSCULAR HGB CONC 33.5 g/dL (33.0-36.5); MEAN CORPUSCULAR VOLUME 108.6 FL (78-98); MEAN PLATELET VOLUME 7.9 FL (7.4-10.4); MONOCYTES # (AUTO) 1.2 X10'3 (0-0.9); NEUTROPHILS # (AUTO) 11.6 X10'3 (1.8-7.7); NEUTROPHILS % (AUTO) 84.2 % (42-75); PLATELET COUNT 305 X10'3 (140-440); RED BLOOD COUNT 2.47 X10'6 (4.20-5.60); RED CELL DISTRIBUTION WIDTH 16.4 % (11.5-14.5); WHITE BLOOD COUNT 13.8 X10'3 (4.5-11.0)
[2021-02-23] MEDS: morphine/NS 100mg/100ml bag 100 ML IV SCH ×3 (02:29→22:52)
[2021-02-23 02:43] LABS: ALBUMIN 2.2 G/DL (3.4-5.0); ANION GAP 7 (8-16); BLOOD UREA NITROGEN 50 MG/DL (7-18); BUN/CREATININE RATIO 50.5 (6.6-38.0); CALCIUM 8.6 MG/DL (8.5-10.1); CHLORIDE 105 MMOL/L (99-107); CREATININE 0.99 MG/DL (0.40-0.90); GLUCOSE 154 MG/DL (70-104); MAGNESIUM 2.4 MG/DL (1.5-2.4); PHOSPHORUS 5.7 MG/DL (2.3-4.5); POTASSIUM 3.8 MMOL/L (3.5-5.1); SODIUM 144 MMOL/L (135-145); TOTAL CARBON DIOXIDE 32.1 MMOL/L (24-32); eGFR 60 ML/MIN
[2021-02-23] MEDS: ipratropium/albuterol 3ml nebule NEB SCH ×6 (03:23→23:09)
[2021-02-23 04:29] LABS: ANISOCYTOSIS 1+; LARGE PLATELETS FEW; NUCLEATED RED BLOOD CELLS 2 /100WBC (0-0); PLATELET ESTIMATE NORMAL; TOTAL CELLS COUNTED 100
[2021-02-23 04:30] LABS: POLYCHROMASIA FEW
[2021-02-23] MEDS: midazolam 100mg in NS 100ml 100 ML IV PRN ×3 (04:47→20:40)
[2021-02-23 05:17] LABS: ABG HCO3 30.5 mmol/L (22.0-26.0); ABG OXYGEN SATURATION 90.7 % (94-97); ABG PCO2 (T) 38.8 mmHg (32.0-45.0); ABG PO2 (T) 63.1 mmHg (75.0-100.0); FCOHb 0.3 % (0.0-3.9); FMetHb 0.2 % (0.0-1.5); FO2Hb 90.2 % (94-97); PATIENT TEMPERATURE 36.7; PEEP 10 cm H2O; RESPIRATORY RATE 16 b/min; TOTAL HEMOGLOBIN 9.9 G/dl (12.0-16.0)
--- NOTE | 2021-02-23 06:23 | NUR ---
Problems reprioritized. Patient report given, questions answered & plan of care reviewed with Sharny GREEN.
--- NOTE | 2021-02-23 06:30 | NUR ---
Patient in room ICU 2040. I have received report from kathya and had the opportunity to ask questions and assume patient care.
[2021-02-23] MEDS: pantoprazole IV 40 MG in dextrose 5%-water 100 ML IV SCH (08:25)
[2021-02-23] MEDS: thiamine inj. 100 MG in normal saline 100ml IV soln 100 ML IV SCH (08:28)
[2021-02-23] MEDS: MVI, adult No.4 with vit. K 10 ML in dextrose 5% water 500ml 500 ML IV SCH ×2 (08:29)
[2021-02-23] MEDS: folic acid 1mg/0.2ml inj IV SCH (08:31)
[2021-02-23] MEDS: enoxaparin 40mg/0.4ml syringe SQ SCH (08:31)
[2021-02-23] MEDS: gabapentin 300mg capsule NG SCH ×3 (08:32→20:29)
[2021-02-23] MEDS: docusate sodium 100mg/10ml UD cup NG SCH ×2 (08:32→20:28)
[2021-02-23] MEDS: busPIRone 5mg tablet NG SCH ×3 (08:33→20:29)
[2021-02-23] MEDS: lactobacillus rhamnosus 10,000 MMU CELLS/CAPSULE NG SCH ×2 (08:33→20:28)
--- NOTE | 2021-02-23 11:00 | NUR ---
pt on rotorest- parked on rt side briefly - hr to 39, sats to 60%. bed to supine position, losing volumes, put on 100%- now being bagged- dr cedillo here and aware. attempted side to side and then supine- volumes and sats remain down- vent malfunctioning- changed by rt. pt improved, still occ low volumes- mode changed to acprvc.- abg and cxr done.
[2021-02-23 11:59] LABS: ABG HCO3 31.3 mmol/L (22.0-26.0); ABG OXYGEN SATURATION 98.3 % (94-97); ABG PCO2 (T) 50.9 mmHg (32.0-45.0); ABG PO2 (T) 147.9 mmHg (75.0-100.0); ALLEN'S TEST POSITIVE; FCOHb 0.3 % (0.0-3.9); FMetHb 0.3 % (0.0-1.5); FO2Hb 97.7 % (94-97); PATIENT TEMPERATURE 37.7; PEEP 8 cm H2O; RESPIRATORY RATE 16 b/min; TIDAL VOLUME 400 mL; TOTAL HEMOGLOBIN 9.4 G/dl (12.0-16.0)
[2021-02-23] MEDS: ZINC/COPPER/MANGANESE/SELENIUM 1 ML, chromic chloride inj. 10 MCG in AA 5%/cal/electrol... IV SCH (12:11)
[2021-02-23] MEDS: methylPREDNISolone sod succ/PF 40mg inj. IV SCH ×2 (14:48→20:28)
[2021-02-23] MEDS: mineral oil/petrolatum ophthal oint EACHEYE SCH ×2 (14:49→20:28)
[2021-02-23 15:29] LABS: ALBUMIN 2.3 G/DL (3.4-5.0); ANION GAP 6 (8-16); BLOOD UREA NITROGEN 54 MG/DL (7-18); BUN/CREATININE RATIO 50.9 (6.6-38.0); CALCIUM 8.4 MG/DL (8.5-10.1); CHLORIDE 103 MMOL/L (99-107); CREATININE 1.06 MG/DL (0.40-0.90); GLUCOSE 119 MG/DL (70-104); MAGNESIUM 2.5 MG/DL (1.5-2.4); PHOSPHORUS 6.3 MG/DL (2.3-4.5); POTASSIUM 3.8 MMOL/L (3.5-5.1); SODIUM 142 MMOL/L (135-145); eGFR 55 ML/MIN
--- NOTE | 2021-02-23 15:30 | NUR ---
update to dr cedillo. tolerating acprvc fairly well-at times high peak pressures able now to turn fio2 to 45%. óscar checked post large diuresis. bp down with radha- positional- using cuff pressures. in briefly
--- NOTE | 2021-02-23 18:30 | NUR ---
Patient in room ICU 2040. I have received report from Sharyn GREEN and had the opportunity to ask questions and assume patient care.
--- NOTE | 2021-02-23 19:30 | NUR ---
PT is intubated and mechanically vented, on Rotorest bed. PT sedated with Versed @ 13mg/hr, Propofol @ 30mcg/kg and Morphine at 10mg/hr. PT has an Arterial line to RT groin, BP is positional and tends to decrease when PT is rotated to the Left, also noted that PT's TV decrease slightly as well. PT's is maintaining O2 sats in mid 90's. HR decreased from Mid 50's down to low 50's as low as 48 thus far when rotated to Left side as well. Anders in place and draining to gravity. All straps are on place, PT is secure. Will continue to monitor.
[2021-02-23] MEDS: quetiapine 100mg tablet NG SCH (20:29)
[2021-02-23] MEDS: ESCITALOPRAM OXALATE 5 MG TABLET NG SCH (20:29)
[2021-02-23] MEDS: insulin glargine (Lantus) pen - multi-dose SQ SCH (20:44)
[2021-02-24] VITALS (24 sets, daily range): BP systolic 97–144; BP diastolic 42–78
[2021-02-24] MEDS: piperacillin/tazo 4.5gm/100ml 100 ML IV SCH ×3 (01:34→15:50)
[2021-02-24] MEDS: mineral oil/petrolatum ophthal oint EACHEYE SCH ×4 (02:04→20:09)
[2021-02-24] MEDS: methylPREDNISolone sod succ/PF 40mg inj. IV SCH ×4 (02:05→20:10)
[2021-02-24] MEDS: insulin regular, human U-100 3ml vial - multi-dose SQ SCH ×4 (02:07→20:44)
[2021-02-24 03:00] LABS: BASOPHILS % (AUTO) 0.2 % (0-1); EOSINOPHILS % (AUTO) 0 % (0-6); HEMOGLOBIN 8.6 g/dl (12.0-16.0); LYMPHOCYTES # (AUTO) 0.7 X10'3 (1.1-4.8); MEAN CORPUSCULAR HGB CONC 32.8 g/dL (33.0-36.5); PLATELET COUNT 262 X10'3 (140-440)
[2021-02-24 03:02] LABS: HEMATOCRIT 26.2 % (35.0-45.0); LYMPHOCYTES % (AUTO) 5.9 % (21-51); MEAN CORPUSCULAR VOLUME 109.5 FL (78-98); MEAN PLATELET VOLUME 8.2 FL (7.4-10.4); MONOCYTES # (AUTO) 1.2 X10'3 (0-0.9); MONOCYTES % (AUTO) 10.2 % (2-12); NEUTROPHILS # (AUTO) 9.5 X10'3 (1.8-7.7); NEUTROPHILS % (AUTO) 83.7 % (42-75); RED CELL DISTRIBUTION WIDTH 16.7 % (11.5-14.5); WHITE BLOOD COUNT 11.4 X10'3 (4.5-11.0)
[2021-02-24 03:05] LABS: ALBUMIN 2.1 G/DL (3.4-5.0); ANION GAP 7 (8-16); BLOOD UREA NITROGEN 53 MG/DL (7-18); BUN/CREATININE RATIO 58.2 (6.6-38.0); CALCIUM 8.4 MG/DL (8.5-10.1); CHLORIDE 105 MMOL/L (99-107); CREATININE 0.91 MG/DL (0.40-0.90); GLUCOSE 142 MG/DL (70-104); MAGNESIUM 2.8 MG/DL (1.5-2.4); PHOSPHORUS 4.9 MG/DL (2.3-4.5); POTASSIUM 3.6 MMOL/L (3.5-5.1); SODIUM 144 MMOL/L (135-145); TOTAL CARBON DIOXIDE 32.1 MMOL/L (24-32); eGFR 66 ML/MIN
[2021-02-24] MEDS: propofol 1000mg/100ml bottle 100 ML IV SCH ×3 (03:16→14:22)
[2021-02-24] MEDS: ipratropium/albuterol 3ml nebule NEB SCH ×6 (03:30→23:38)
[2021-02-24 03:46] LABS: ANISOCYTOSIS 1+; NUCLEATED RED BLOOD CELLS 2 /100WBC (0-0); PLATELET ESTIMATE NORMAL; TOTAL CELLS COUNTED 100
[2021-02-24 03:47] LABS: POLYCHROMASIA FEW
[2021-02-24 03:49] LABS: ABG BASE EXCESS 5.6 mmol/L (-2.0-2.0); ABG HCO3 29.6 mmol/L (22.0-26.0); ABG OXYGEN SATURATION 93.9 % (94-97); ABG PCO2 (T) 38.5 mmHg (32.0-45.0); ABG PO2 (T) 69.1 mmHg (75.0-100.0); FCOHb 0.4 % (0.0-3.9); FMetHb 0.3 % (0.0-1.5); FO2Hb 93.2 % (94-97); PATIENT TEMPERATURE 35.7; PEEP 8 cm H2O; RESPIRATORY RATE 16 b/min; TIDAL VOLUME 400 mL; TOTAL HEMOGLOBIN 7.2 G/dl (12.0-16.0)
[2021-02-24] MEDS: midazolam 100mg in NS 100ml 100 ML IV PRN ×2 (04:42→12:24)
--- NOTE | 2021-02-24 06:27 | NUR ---
Problems reprioritized. Patient report given, questions answered & plan of care reviewed with Sharyn GREEN.
--- NOTE | 2021-02-24 06:30 | NUR ---
Patient in room ICU 2040. I have received report from Priscilla and had the opportunity to ask questions and assume patient care.
[2021-02-24] MEDS: pantoprazole IV 40 MG in dextrose 5%-water 100 ML IV SCH (08:30)
[2021-02-24] MEDS: folic acid 1mg/0.2ml inj IV SCH (08:36)
[2021-02-24] MEDS: thiamine inj. 100 MG in normal saline 100ml IV soln 100 ML IV SCH (08:37)
[2021-02-24] MEDS: ZINC/COPPER/MANGANESE/SELENIUM 1 ML, chromic chloride inj. 10 MCG in AA 5%/cal/electrol... IV SCH (08:37)
[2021-02-24] MEDS: furosemide 40mg/4ml inj IV SCH (08:42)
[2021-02-24] MEDS: enoxaparin 40mg/0.4ml syringe SQ SCH (08:43)
[2021-02-24] MEDS: gabapentin 300mg capsule NG SCH ×3 (08:44→20:10)
[2021-02-24] MEDS: docusate sodium 100mg/10ml UD cup NG SCH ×2 (08:44→20:09)
[2021-02-24] MEDS: lactobacillus rhamnosus 10,000 MMU CELLS/CAPSULE NG SCH ×2 (08:44→20:10)
[2021-02-24] MEDS: busPIRone 5mg tablet NG SCH ×3 (08:44→20:10)
[2021-02-24] MEDS: morphine/NS 100mg/100ml bag 100 ML IV SCH ×2 (10:37→21:25)
--- NOTE | 2021-02-24 11:47 | NUR ---
Reassessment: Pt remains intubated on rotorest bed and tolerating TPN at goal rate. Noted Phos is elevated though down from 02/23 with elevated mag, currently receiving electrolyte containing TPN. Will monitor need to transition to non-electrolyte TPN. Noted Propofol rate has been decreased to 11.58 mL/hr still providing a significant amount of kcal. IF Propofol continues to be weaned TPN recommendations will need to be adjusted to include intralipids. F/u KUB was performed this morning, pending report at this time. Will continue to follow closely and make recommendations as appropriate. Recommendations: 1. Continuous TPN per MD via central access using 2:1 Clinimix-E 07/29 at 90 ml/hr to provide 2160 ml volume/day, 108 g AA, 324 g DEX (2.42 mg/kg/min GIR), and 1533 kcal/day. 2. Hold additional intralipids given current Propofol rate 11.58 ml/hr providing 306 kcal/day. Monitor Propofol rate and adjust TPN as appropriate 3. TG and PALB q Friday/ 4. Daily scaled wts 5. Monitor electrolytes and need to change to non-electrolyte TPN 6. IF trickle TF, Pivot 1.5 with 10 ml/hr goal; to provide 240 ml volume/day, 360 kcal, 182 ml water, and 23 g protein. 7. IF okay to advance TF, Pivot 1.5 with 55 ml/hr goal. To provide 1320 ml volume/day, 1980 kcal, 1003 ml water, and 124 g protein. Wean TPN with TF advancement 8. IF TF to advance to goal rate; additional 200 mL water flush Q4H 9. Routine Thiamine, Folic acid, and MVI for EtOH hx per MD 10. Routine bowel care Addendum: 02/24/21 at [address] Amended: Links added.
--- NOTE | 2021-02-24 12:00 | NUR ---
fio2 to 40% as per md- sats still 94%, peep at 8. pt not responsive to any care- diprivan and versed decreased., hr remains laura in the 40's. bp stable. good diuresis post am lasix. will check lytes.
[2021-02-24] MEDS: vancomycin inj. 750 MG in normal saline 250ml IV soln 250 ML IV SCH ×2 (12:25→23:29)
[2021-02-24] MEDS ORDERED: mineral oil/petrolatum ophthal oint EACHEYE SCH (14:00)
[2021-02-24 14:36] LABS: ALBUMIN 2.1 G/DL (3.4-5.0); ANION GAP 8 (8-16); BLOOD UREA NITROGEN 53 MG/DL (7-18); BUN/CREATININE RATIO 67.1 (6.6-38.0); CALCIUM 8.1 MG/DL (8.5-10.1); CHLORIDE 104 MMOL/L (99-107); CREATININE 0.79 MG/DL (0.40-0.90); GLUCOSE 127 MG/DL (70-104); MAGNESIUM 2.6 MG/DL (1.5-2.4); PHOSPHORUS 4.6 MG/DL (2.3-4.5); POTASSIUM 3.4 MMOL/L (3.5-5.1); SODIUM 144 MMOL/L (135-145); eGFR 78 ML/MIN
[2021-02-24] MEDS: potassium Cl 20mEq/100mL bag 100 ML IV PRN ×2 (15:08→15:51)
--- NOTE | 2021-02-24 18:23 | NUR ---
1 small soft bm
--- NOTE | 2021-02-24 18:35 | NUR ---
Patient in room ICU 2040. I have received report from Sharyn GREEN and had the opportunity to ask questions and assume patient care.
[2021-02-24] MEDS: ESCITALOPRAM OXALATE 5 MG TABLET NG SCH (20:10)
[2021-02-24] MEDS: quetiapine 100mg tablet NG SCH (20:10)
[2021-02-24] MEDS: insulin glargine (Lantus) pen - multi-dose SQ SCH (20:43)
--- NOTE | 2021-02-24 22:00 | NUR ---
FiO2 increased from 35% to 40% d/t PT de-sat to 86%. PT tolerating well and O2 sat now >90%.
[2021-02-25] VITALS (24 sets, daily range): BP systolic 101–171; BP diastolic 39–82
[2021-02-25] MEDS: midazolam 100mg in NS 100ml 100 ML IV PRN ×2 (00:35→11:10)
[2021-02-25] MEDS: propofol 1000mg/100ml bottle 100 ML IV SCH ×3 (00:36→19:22)
[2021-02-25] MEDS: piperacillin/tazo 4.5gm/100ml 100 ML IV SCH ×3 (01:32→15:58)
[2021-02-25] MEDS: mineral oil/petrolatum ophthal oint EACHEYE SCH ×4 (02:40→19:55)
[2021-02-25] MEDS: methylPREDNISolone sod succ/PF 40mg inj. IV SCH ×4 (02:41→19:55)
[2021-02-25] MEDS: ipratropium/albuterol 3ml nebule NEB SCH ×6 (03:00→22:50)
[2021-02-25 03:04] LABS: BASOPHILS % (AUTO) 0.2 % (0-1); EOSINOPHILS % (AUTO) 0 % (0-6); HEMOGLOBIN 9.1 g/dl (12.0-16.0); LYMPHOCYTES # (AUTO) 0.5 X10'3 (1.1-4.8); LYMPHOCYTES % (AUTO) 5.1 % (21-51); MEAN CORPUSCULAR HEMOGLOBIN 36.9 PG (27.0-31.0); MEAN CORPUSCULAR HGB CONC 33.8 g/dL (33.0-36.5); MEAN CORPUSCULAR VOLUME 109.3 FL (78-98); MEAN PLATELET VOLUME 8.4 FL (7.4-10.4); MONOCYTES # (AUTO) 1.3 X10'3 (0-0.9); MONOCYTES % (AUTO) 12.3 % (2-12); NEUTROPHILS # (AUTO) 8.4 X10'3 (1.8-7.7); NEUTROPHILS % (AUTO) 82.4 % (42-75); PLATELET COUNT 249 X10'3 (140-440); RED BLOOD COUNT 2.47 X10'6 (4.20-5.60); RED CELL DISTRIBUTION WIDTH 16.5 % (11.5-14.5); WHITE BLOOD COUNT 10.2 X10'3 (4.5-11.0)
[2021-02-25] MEDS: insulin regular, human U-100 3ml vial - multi-dose SQ SCH ×4 (03:04→22:09)
[2021-02-25 03:21] LABS: ALBUMIN 2.1 G/DL (3.4-5.0); ANION GAP 6 (8-16); BLOOD UREA NITROGEN 55 MG/DL (7-18); BUN/CREATININE RATIO 67.9 (6.6-38.0); CALCIUM 8.4 MG/DL (8.5-10.1); CHLORIDE 105 MMOL/L (99-107); CREATININE 0.81 MG/DL (0.40-0.90); GLUCOSE 110 MG/DL (70-104); MAGNESIUM 2.7 MG/DL (1.5-2.4); POTASSIUM 4.3 MMOL/L (3.5-5.1); SODIUM 142 MMOL/L (135-145); TOTAL CARBON DIOXIDE 31.4 MMOL/L (24-32); eGFR 75 ML/MIN
[2021-02-25 05:07] LABS: ANISOCYTOSIS 1+; NUCLEATED RED BLOOD CELLS 1 /100WBC (0-0); PLATELET ESTIMATE NORMAL; TOTAL CELLS COUNTED 100
[2021-02-25 05:08] LABS: POLYCHROMASIA FEW
--- NOTE | 2021-02-25 06:31 | NUR ---
Problems reprioritized. Patient report given, questions answered & plan of care reviewed with Tab GREEN.
--- NOTE | 2021-02-25 06:33 | NUR ---
Patient in room ICU 2040. I have received report from Priscilla GREEN and had the opportunity to ask questions and assume patient care.
[2021-02-25] MEDS: gabapentin 300mg capsule NG SCH ×3 (07:46→22:01)
[2021-02-25] MEDS: docusate sodium 100mg/10ml UD cup NG SCH ×2 (07:46→19:55)
[2021-02-25] MEDS: lactobacillus rhamnosus 10,000 MMU CELLS/CAPSULE NG SCH ×2 (07:46→19:55)
[2021-02-25] MEDS: busPIRone 5mg tablet NG SCH ×3 (07:47→22:02)
[2021-02-25] MEDS: folic acid 1mg/0.2ml inj IV SCH (07:47)
[2021-02-25] MEDS: pantoprazole IV 40 MG in dextrose 5%-water 100 ML IV SCH (07:49)
[2021-02-25] MEDS: furosemide 40mg/4ml inj IV SCH (07:49)
[2021-02-25] MEDS: enoxaparin 40mg/0.4ml syringe SQ SCH (07:50)
[2021-02-25] MEDS: thiamine inj. 100 MG in normal saline 100ml IV soln 100 ML IV SCH (07:50)
[2021-02-25] MEDS: ZINC/COPPER/MANGANESE/SELENIUM 1 ML, chromic chloride inj. 10 MCG in AA 5%/cal/electrol... IV SCH (07:52)
[2021-02-25] MEDS: vancomycin inj. 750 MG in normal saline 250ml IV soln 250 ML IV SCH (11:10)
--- NOTE | 2021-02-25 11:20 | NUR ---
Roto rest Dr. Richards to see pt earlier with order to take pt of roto-rest bed. About 1015, pt moved to an ICU bed with out incident. Positioned to comfort. Pt HR down to low 40s so weaning sedation meds. Dr Hernandez to see - incisional dressings removed at midline at two rt lateral abd small incision sites. Opens eyes to sternal rub.
--- NOTE | 2021-02-25 14:45 | NUR ---
Family to see. Excited pt was off rotorest bed. Pt noted to have abrasion at Rt yarsani area from bed. Triple abx ointment applied. Small rt shoulder abrasion as well that is scabbed over.
[2021-02-25 15:41] LABS: ABG BASE EXCESS 8.4 mmol/L (-2.0-2.0); ABG HCO3 33.2 mmol/L (22.0-26.0); ABG OXYGEN SATURATION 91.4 % (94-97); ABG PCO2 (T) 47.2 mmHg (32.0-45.0); ABG PO2 (T) 65.9 mmHg (75.0-100.0); FCOHb 0.3 % (0.0-3.9); FLOW 35 L/min; FO2Hb 91.1 % (94-97); PEEP 8 cm H2O; RESPIRATORY RATE 16 b/min; TIDAL VOLUME 400 mL; TOTAL HEMOGLOBIN 10.5 G/dl (12.0-16.0)
--- NOTE | 2021-02-25 18:14 | NUR ---
Problems reprioritized. Patient report given, questions answered & plan of care reviewed with Sanjana GREEN.
[2021-02-25] MEDS: quetiapine 100mg tablet NG SCH (22:02)
[2021-02-25] MEDS: ESCITALOPRAM OXALATE 5 MG TABLET NG SCH (22:02)
[2021-02-25] MEDS: morphine/NS 100mg/100ml bag 100 ML IV SCH (22:04)
[2021-02-25] MEDS: insulin glargine (Lantus) pen - multi-dose SQ SCH (22:10)
[2021-02-26] VITALS (22 sets, daily range): BP systolic 122–178; BP diastolic 61–96
[2021-02-26] MEDS: piperacillin/tazo 4.5gm/100ml 100 ML IV SCH ×3 (00:06→15:41)
[2021-02-26] MEDS: vancomycin inj. 750 MG in normal saline 250ml IV soln 250 ML IV SCH (00:06)
[2021-02-26] MEDS: mineral oil/petrolatum ophthal oint EACHEYE SCH ×4 (02:00→20:30)
[2021-02-26] MEDS: insulin regular, human U-100 3ml vial - multi-dose SQ SCH ×4 (02:13→20:38)
[2021-02-26 02:57] LABS: BASOPHILS % (AUTO) 0.1 % (0-1); EOSINOPHILS % (AUTO) 0 % (0-6); HEMATOCRIT 29.1 % (35.0-45.0); HEMOGLOBIN 9.8 g/dl (12.0-16.0); LYMPHOCYTES # (AUTO) 0.2 X10'3 (1.1-4.8); LYMPHOCYTES % (AUTO) 2.7 % (21-51); MEAN CORPUSCULAR HEMOGLOBIN 36.9 PG (27.0-31.0); MEAN CORPUSCULAR HGB CONC 33.8 g/dL (33.0-36.5); MEAN CORPUSCULAR VOLUME 109.2 FL (78-98); MEAN PLATELET VOLUME 8.5 FL (7.4-10.4); MONOCYTES # (AUTO) 1.2 X10'3 (0-0.9); MONOCYTES % (AUTO) 13.3 % (2-12); NEUTROPHILS # (AUTO) 7.6 X10'3 (1.8-7.7); NEUTROPHILS % (AUTO) 83.9 % (42-75); PLATELET COUNT 241 X10'3 (140-440); RED BLOOD COUNT 2.66 X10'6 (4.20-5.60); RED CELL DISTRIBUTION WIDTH 15.9 % (11.5-14.5)
[2021-02-26] MEDS: ipratropium/albuterol 3ml nebule NEB SCH ×6 (03:07→23:19)
[2021-02-26] MEDS: methylPREDNISolone sod succ/PF 40mg inj. IV SCH ×4 (03:14→20:30)
[2021-02-26 03:45] LABS: ALBUMIN 2.1 G/DL (3.4-5.0); BLOOD UREA NITROGEN 52 MG/DL (7-18); BUN/CREATININE RATIO 61.2 (6.6-38.0); CALCIUM 8.3 MG/DL (8.5-10.1); CHLORIDE 104 MMOL/L (99-107); CREATININE 0.85 MG/DL (0.40-0.90); GLUCOSE 123 MG/DL (70-104); MAGNESIUM 2.6 MG/DL (1.5-2.4); PHOSPHORUS 3.7 MG/DL (2.3-4.5); POTASSIUM 4.2 MMOL/L (3.5-5.1); SODIUM 140 MMOL/L (135-145); TRIGLYCERIDES 91 MG/DL (20-135); eGFR 71 ML/MIN
[2021-02-26 03:51] LABS: ABG BASE EXCESS 7.1 mmol/L (-2.0-2.0); ABG HCO3 31.6 mmol/L (22.0-26.0); ABG OXYGEN SATURATION 93.2 % (94-97); ABG PCO2 (T) 45.5 mmHg (32.0-45.0); ABG PO2 (T) 75.5 mmHg (75.0-100.0); FCOHb 0.3 % (0.0-3.9); FMetHb 0.1 % (0.0-1.5); FO2Hb 92.8 % (94-97); PATIENT TEMPERATURE 37.5; PEEP 8 cm H2O; RESPIRATORY RATE 16 b/min; TIDAL VOLUME 400 mL; TOTAL HEMOGLOBIN 10.9 G/dl (12.0-16.0)
[2021-02-26 03:58] LABS: ANION GAP 6 (8-16); TOTAL CARBON DIOXIDE 30.2 MMOL/L (24-32)
[2021-02-26 04:13] LABS: ANISOCYTOSIS 1+; PLATELET ESTIMATE NORMAL; POLYCHROMASIA FEW; TOTAL CELLS COUNTED 100
[2021-02-26 05:03] LABS: PREALBUMIN 60.4 MG/DL (19-36)
[2021-02-26] MEDS: ZINC/COPPER/MANGANESE/SELENIUM 1 ML, chromic chloride inj. 10 MCG in AA 5%/cal/electrol... IV SCH (06:54)
[2021-02-26] MEDS: docusate sodium 100mg/10ml UD cup NG SCH ×2 (07:23→20:30)
[2021-02-26] MEDS: thiamine inj. 100 MG in normal saline 100ml IV soln 100 ML IV SCH (07:23)
[2021-02-26] MEDS: gabapentin 300mg capsule NG SCH ×3 (07:23→20:30)
[2021-02-26] MEDS: lactobacillus rhamnosus 10,000 MMU CELLS/CAPSULE NG SCH ×2 (07:23→20:30)
[2021-02-26] MEDS: enoxaparin 40mg/0.4ml syringe SQ SCH (07:23)
[2021-02-26] MEDS: busPIRone 5mg tablet NG SCH ×3 (07:24→20:30)
[2021-02-26] MEDS: furosemide 40mg/4ml inj IV SCH ×2 (07:24→15:42)
[2021-02-26] MEDS: pantoprazole IV 40 MG in dextrose 5%-water 100 ML IV SCH (07:24)
[2021-02-26] MEDS: folic acid 1mg/0.2ml inj IV SCH (07:25)
[2021-02-26] MEDS: morphine/NS 100mg/100ml bag 100 ML IV SCH (11:20)
[2021-02-26] MEDS: midazolam 100mg in NS 100ml 100 ML IV PRN (18:29)
[2021-02-26] MEDS ORDERED: metolazone 2.5mg tablet PO SCH (20:00)
[2021-02-26] MEDS: ESCITALOPRAM OXALATE 5 MG TABLET NG SCH (20:30)
[2021-02-26] MEDS: quetiapine 100mg tablet NG SCH (20:30)
[2021-02-26] MEDS: insulin glargine (Lantus) pen - multi-dose SQ SCH (20:41)
[2021-02-27] VITALS (23 sets, daily range): BP systolic 110–173; BP diastolic 62–101
[2021-02-27] MEDS: piperacillin/tazo 4.5gm/100ml 100 ML IV SCH ×3 (00:42→15:44)
[2021-02-27] MEDS: furosemide 40mg/4ml inj IV SCH (00:43)
[2021-02-27] MEDS: methylPREDNISolone sod succ/PF 40mg inj. IV SCH ×4 (02:14→21:10)
[2021-02-27] MEDS: insulin regular, human U-100 3ml vial - multi-dose SQ SCH ×4 (02:17→21:21)
[2021-02-27] MEDS: mineral oil/petrolatum ophthal oint EACHEYE SCH ×4 (02:18→20:00)
[2021-02-27 03:08] LABS: BASOPHILS % (AUTO) 0.1 % (0-1); EOSINOPHILS % (AUTO) 0 % (0-6); HEMATOCRIT 34.1 % (35.0-45.0); HEMOGLOBIN 11.7 g/dl (12.0-16.0); LYMPHOCYTES # (AUTO) 0.5 X10'3 (1.1-4.8); LYMPHOCYTES % (AUTO) 4.7 % (21-51); MEAN CORPUSCULAR HEMOGLOBIN 36.4 PG (27.0-31.0); MEAN CORPUSCULAR HGB CONC 34.3 g/dL (33.0-36.5); MEAN CORPUSCULAR VOLUME 106.2 FL (78-98); MEAN PLATELET VOLUME 8.8 FL (7.4-10.4); MONOCYTES # (AUTO) 1.9 X10'3 (0-0.9); MONOCYTES % (AUTO) 17.2 % (2-12); NEUTROPHILS # (AUTO) 8.5 X10'3 (1.8-7.7); PLATELET COUNT 274 X10'3 (140-440); RED BLOOD COUNT 3.21 X10'6 (4.20-5.60); RED CELL DISTRIBUTION WIDTH 15.6 % (11.5-14.5)
[2021-02-27] MEDS: ipratropium/albuterol 3ml nebule NEB SCH ×6 (03:10→23:20)
[2021-02-27 03:45] LABS: ALBUMIN 2.5 G/DL (3.4-5.0); ANION GAP 8 (8-16); BLOOD UREA NITROGEN 55 MG/DL (7-18); BUN/CREATININE RATIO 60.4 (6.6-38.0); CALCIUM 8.8 MG/DL (8.5-10.1); CHLORIDE 100 MMOL/L (99-107); CREATININE 0.91 MG/DL (0.40-0.90); GLUCOSE 119 MG/DL (70-104); MAGNESIUM 2.5 MG/DL (1.5-2.4); PHOSPHORUS 3.6 MG/DL (2.3-4.5); POTASSIUM 3.3 MMOL/L (3.5-5.1); SODIUM 138 MMOL/L (135-145); eGFR 66 ML/MIN
[2021-02-27] MEDS: morphine/NS 100mg/100ml bag 100 ML IV SCH (03:46)
[2021-02-27] MEDS ORDERED: ZINC/COPPER/MANGANESE/SELENIUM 0.5 ML, chromic chloride inj. 5 MCG in AA 5%/cal/electro... IV SCH (04:00)
[2021-02-27 04:12] LABS: ABG BASE EXCESS 6.3 mmol/L (-2.0-2.0); ABG HCO3 27.7 mmol/L (22.0-26.0); ABG OXYGEN SATURATION 92.3 % (94-97); ABG PCO2 (T) 29.7 mmHg (32.0-45.0); ABG PO2 (T) 63.7 mmHg (75.0-100.0); FCOHb 0.1 % (0.0-3.9); FMetHb 0.1 % (0.0-1.5); FO2Hb 92.1 % (94-97); PATIENT TEMPERATURE 37.1; PEEP 5 cm H2O; RESPIRATORY RATE 16 b/min; TIDAL VOLUME 400 mL; TOTAL HEMOGLOBIN 12.1 G/dl (12.0-16.0)
[2021-02-27] MEDS: potassium Cl 20mEq/100mL bag 100 ML IV PRN ×2 (04:12→05:33)
[2021-02-27 05:32] LABS: NUCLEATED RED BLOOD CELLS 1 /100WBC (0-0); PLATELET ESTIMATE NORMAL; TOTAL CELLS COUNTED 100
[2021-02-27 05:33] LABS: ANISOCYTOSIS 1+; POLYCHROMASIA FEW; TEAR DROP CELLS FEW
[2021-02-27] MEDS ORDERED: metolazone 2.5mg tablet NG SCH ×2 (07:53→11:51)
[2021-02-27] MEDS ORDERED: furosemide 40mg/4ml inj IV SCH (08:00)
[2021-02-27] MEDS: folic acid 1mg/0.2ml inj IV SCH (08:18)
[2021-02-27] MEDS: lactobacillus rhamnosus 10,000 MMU CELLS/CAPSULE NG SCH ×2 (08:19→21:11)
[2021-02-27] MEDS: busPIRone 5mg tablet NG SCH ×3 (08:19→21:12)
[2021-02-27] MEDS: docusate sodium 100mg/10ml UD cup NG SCH ×2 (08:19→21:11)
[2021-02-27] MEDS: pantoprazole IV 40 MG in dextrose 5%-water 100 ML IV SCH (08:19)
[2021-02-27] MEDS: gabapentin 300mg capsule NG SCH ×3 (08:19→21:11)
[2021-02-27] MEDS: enoxaparin 40mg/0.4ml syringe SQ SCH (08:20)
[2021-02-27] MEDS: thiamine inj. 100 MG in normal saline 100ml IV soln 100 ML IV SCH (08:25)
[2021-02-27] MEDS: MVI, adult No.4 with vit. K 10 ML in dextrose 5% water 500ml 500 ML IV SCH ×2 (09:11)
[2021-02-27 13:55] LABS: ALBUMIN 2.7 G/DL (3.4-5.0); ANION GAP 10 (8-16); BLOOD UREA NITROGEN 55 MG/DL (7-18); BUN/CREATININE RATIO 52.4 (6.6-38.0); CHLORIDE 91 MMOL/L (99-107); CREATININE 1.05 MG/DL (0.40-0.90); GLUCOSE 163 MG/DL (70-104); POTASSIUM 3.7 MMOL/L (3.5-5.1); SODIUM 133 MMOL/L (135-145); TOTAL CARBON DIOXIDE 31.7 MMOL/L (24-32); eGFR 56 ML/MIN
--- NOTE | 2021-02-27 14:55 | NUR ---
F/u 02/27: Pt remains intubated off roto-rest bed tolerating TPN at goal. Propofol now off; updated PN recs below to better meet kcal/lipid needs. LBM 02/11 16 days w/ persistent Ileus per surgeon note. R NG -300ml output daily per EMR w/ pt receiving routine colace BID; consider trickle EN per surgeon discretion since receiving bowel care via NG daily. Noted PALB 60 02/26 up from 22.6 02/19; likely r/t steroids as not overfeeding pt at this time. Will continue to monitor for further nutrition intervention needs this admit. Recommendations: 1. Continuous TPN per MD via central access using 2:1 Clinimix-E / at 91ml/hr w/ separate 250ml 20% intralipids to run for 12 hours at 20.83ml/hr /Fri. In total; to provide 2184ml volume/day, 109g AA, 437g DEX (3.39 mg/kg/min), and avg 2065 kcal/day. 2. TG/PALB q Friday/; Daily scaled wts 3. Monitor TPN tolerance and adjustment needs 4. IF trickle TF, Pivot 1.5 with 10 ml/hr goal; to provide 240 ml volume/day, 360 kcal, 182 ml water, and 23 g protein. 5. IF EN initiates and to advance; Pivot 1.5 with 55 ml/hr goal. To provide 1320 ml volume/day, 1980 kcal, 1003 ml water, and 124 g protein. Wean TPN with TF advancement 6. Routine Thiamine, Folic acid, and MVI for EtOH hx per MD 7. Routine bowel care per MD Addendum: 02/27/21 at [address] Amended: Links added.
[2021-02-27] MEDS: ZINC/COPPER/MANGANESE/SELENIUM 1 ML, chromic chloride inj. 10 MCG in AA 5%/cal/electrol... IV SCH (15:38)
[2021-02-27] MEDS: midazolam 100mg in NS 100ml 100 ML IV PRN (18:22)
[2021-02-27] MEDS: quetiapine 100mg tablet NG SCH (21:11)
[2021-02-27] MEDS: ESCITALOPRAM OXALATE 5 MG TABLET NG SCH (21:11)
[2021-02-27] MEDS: insulin glargine (Lantus) pen - multi-dose SQ SCH (21:23)
[2021-02-28] VITALS (24 sets, daily range): BP systolic 96–161; BP diastolic 55–108
[2021-02-28] MEDS: piperacillin/tazo 4.5gm/100ml 100 ML IV SCH ×4 (00:29→23:16)
[2021-02-28] MEDS: mineral oil/petrolatum ophthal oint EACHEYE SCH ×4 (02:00→20:00)
[2021-02-28] MEDS: insulin regular, human U-100 3ml vial - multi-dose SQ SCH ×3 (02:46→20:30)
[2021-02-28] MEDS: methylPREDNISolone sod succ/PF 40mg inj. IV SCH ×4 (02:50→20:36)
[2021-02-28 03:16] LABS: BASOPHILS % (AUTO) 0.1 % (0-1); EOSINOPHILS % (AUTO) 0 % (0-6); HEMATOCRIT 34.6 % (35.0-45.0); HEMOGLOBIN 11.6 g/dl (12.0-16.0); LYMPHOCYTES # (AUTO) 0.2 X10'3 (1.1-4.8); LYMPHOCYTES % (AUTO) 1.6 % (21-51); MEAN CORPUSCULAR HEMOGLOBIN 35.9 PG (27.0-31.0); MEAN CORPUSCULAR HGB CONC 33.6 g/dL (33.0-36.5); MEAN CORPUSCULAR VOLUME 106.9 FL (78-98); MEAN PLATELET VOLUME 8.6 FL (7.4-10.4); MONOCYTES # (AUTO) 2.2 X10'3 (0-0.9); MONOCYTES % (AUTO) 15.5 % (2-12); NEUTROPHILS # (AUTO) 11.9 X10'3 (1.8-7.7); NEUTROPHILS % (AUTO) 82.8 % (42-75); PLATELET COUNT 267 X10'3 (140-440); RED BLOOD COUNT 3.23 X10'6 (4.20-5.60); RED CELL DISTRIBUTION WIDTH 15.6 % (11.5-14.5); WHITE BLOOD COUNT 14.3 X10'3 (4.5-11.0)
[2021-02-28 03:27] LABS: ALBUMIN 2.5 G/DL (3.4-5.0); ANION GAP 9 (8-16); BLOOD UREA NITROGEN 47 MG/DL (7-18); BUN/CREATININE RATIO 53.4 (6.6-38.0); CALCIUM 8.9 MG/DL (8.5-10.1); CHLORIDE 95 MMOL/L (99-107); CREATININE 0.88 MG/DL (0.40-0.90); GLUCOSE 151 MG/DL (70-104); MAGNESIUM 2.3 MG/DL (1.5-2.4); PHOSPHORUS 3.8 MG/DL (2.3-4.5); POTASSIUM 3.6 MMOL/L (3.5-5.1); SODIUM 136 MMOL/L (135-145); TOTAL CARBON DIOXIDE 32.4 MMOL/L (24-32); eGFR 69 ML/MIN
[2021-02-28] MEDS: ipratropium/albuterol 3ml nebule NEB SCH ×2 (03:29→07:44)
[2021-02-28 04:14] LABS: ABG BASE EXCESS 4.7 mmol/L (-2.0-2.0); ABG HCO3 28.8 mmol/L (22.0-26.0); ABG OXYGEN SATURATION 94.1 % (94-97); ABG PCO2 (T) 42.1 mmHg (32.0-45.0); ABG PO2 (T) 78.1 mmHg (75.0-100.0); ALLEN'S TEST POSITIVE; FCOHb 0.3 % (0.0-3.9); FMetHb 0.3 % (0.0-1.5); FO2Hb 93.5 % (94-97); PATIENT TEMPERATURE 37.5; PEEP 5 cm H2O; RESPIRATORY RATE 12 b/min; TIDAL VOLUME 400 mL; TOTAL HEMOGLOBIN 12.2 G/dl (12.0-16.0)
[2021-02-28 04:49] LABS: TOTAL CELLS COUNTED 100
[2021-02-28 04:50] LABS: ANISOCYTOSIS 1+; PLATELET ESTIMATE NORMAL
[2021-02-28 04:51] LABS: TEAR DROP CELLS FEW
[2021-02-28] MEDS: gabapentin 300mg capsule NG SCH ×3 (08:46→21:35)
[2021-02-28] MEDS: busPIRone 5mg tablet NG SCH ×3 (08:47→21:35)
[2021-02-28] MEDS: lactobacillus rhamnosus 10,000 MMU CELLS/CAPSULE NG SCH ×2 (08:47→20:38)
[2021-02-28] MEDS: furosemide 40mg/4ml inj IV SCH (08:47)
[2021-02-28] MEDS: thiamine inj. 100 MG in normal saline 100ml IV soln 100 ML IV SCH (08:47)
[2021-02-28] MEDS: pantoprazole IV 40 MG in dextrose 5%-water 100 ML IV SCH (08:48)
[2021-02-28] MEDS: enoxaparin 40mg/0.4ml syringe SQ SCH (08:49)
[2021-02-28] MEDS: docusate sodium 100mg/10ml UD cup NG SCH ×2 (08:50→20:00)
[2021-02-28] MEDS: folic acid 1mg/0.2ml inj IV SCH (09:03)
--- NOTE | 2021-02-28 12:16 | NUR ---
TF Consult: Pt TPN at goal and tolerating s/p extubation this AM. No bowel movement post-op 17 days receiving routine colace w/ trickle feeds to start today via NG per surgeon. PRN dulcolax available to be given today per RN. Updated nutrition recs below s/p extubation. Will monitor for nutrition support tolerance and further adjustment needs this admit. Recommendations: 1. Continuous TPN per MD via central access using 2:1 Clinimix-E 5/20 at 91ml/hr w/ separate 250ml 20% intralipids to run for 12 hours at 20.83ml/hr /Fri. In total; to provide 2184ml volume/day, 109g AA, 437g DEX (3.39 mg/kg/min), and avg 2065 kcal/day. 2. Trickle NGTF per surgeon using Pivot 1.5 at 10ml/hr goal; to provide 240ml volume/day, 360 kcal, 182ml water, and 23g protein. 3. TG/PALB q Friday/; Daily scaled wts 4. Monitor TPN/EN tolerance and adjustment needs 5. IF EN to advance; Pivot 1.5 at 57ml/hr goal. Would provide 1368ml volume/day, 2052 kcal, 1040ml water, and 128g protein. Wean TPN with TF advancement 6. Advance diet as medically indicated per NUTRITION AIDES TEACHER/MD recs to low-residue 7. Routine Thiamine, Folic acid, and MVI for EtOH hx per MD 8. Routine bowel care per MD Addendum: 02/28/21 at [address] Amended: Links added.
[2021-02-28] MEDS: ZINC/COPPER/MANGANESE/SELENIUM 1 ML, chromic chloride inj. 10 MCG in AA 5%/cal/electrol... IV SCH (15:05)
--- NOTE | 2021-02-28 18:32 | NUR ---
Problems reprioritized. Patient report given, questions answered & plan of care reviewed with NORMA Metz.
[2021-02-28] MEDS: morphine 4 MG/ML inj SYRINge IV PRN (19:47)
[2021-02-28] MEDS: insulin glargine (Lantus) pen - multi-dose SQ SCH (20:31)
[2021-02-28] MEDS: ondansetron/PF 4mg/2ml inj IV PRN (20:32)
[2021-02-28] MEDS: ESCITALOPRAM OXALATE 5 MG TABLET NG SCH (21:35)
[2021-02-28] MEDS: quetiapine 100mg tablet NG SCH (21:35)
[2021-02-28] MEDS: LORazepam 2 mg/ml vial IV PRN (22:06)
[2021-02-28] MEDS: proCHLORperazine 10 MG/2 ml inj IV PRN (23:16)
[2021-03-01] VITALS (24 sets, daily range): BP systolic 107–162; BP diastolic 62–94
[2021-03-01] MEDS: mineral oil/petrolatum ophthal oint EACHEYE SCH ×4 (01:09→20:00)
[2021-03-01] MEDS: insulin regular, human U-100 3ml vial - multi-dose SQ SCH ×2 (02:34→15:57)
[2021-03-01] MEDS: LORazepam 2 mg/ml vial IV PRN (02:54)
[2021-03-01 03:12] LABS: BASOPHILS % (AUTO) 0.1 % (0-1); EOSINOPHILS % (AUTO) 0.2 % (0-6); HEMATOCRIT 36.3 % (35.0-45.0); HEMOGLOBIN 12.2 g/dl (12.0-16.0); LYMPHOCYTES # (AUTO) 0.6 X10'3 (1.1-4.8); LYMPHOCYTES % (AUTO) 5.2 % (21-51); MEAN CORPUSCULAR HEMOGLOBIN 35.4 PG (27.0-31.0); MEAN CORPUSCULAR HGB CONC 33.5 g/dL (33.0-36.5); MEAN CORPUSCULAR VOLUME 105.6 FL (78-98); MEAN PLATELET VOLUME 8.8 FL (7.4-10.4); MONOCYTES # (AUTO) 2.1 X10'3 (0-0.9); MONOCYTES % (AUTO) 18.6 % (2-12); NEUTROPHILS # (AUTO) 8.7 X10'3 (1.8-7.7); NEUTROPHILS % (AUTO) 75.9 % (42-75); PLATELET COUNT 267 X10'3 (140-440); RED BLOOD COUNT 3.44 X10'6 (4.20-5.60); WHITE BLOOD COUNT 11.5 X10'3 (4.5-11.0)
[2021-03-01 03:31] LABS: ALBUMIN 2.7 G/DL (3.4-5.0); ANION GAP 8 (8-16); BLOOD UREA NITROGEN 40 MG/DL (7-18); BUN/CREATININE RATIO 54.1 (6.6-38.0); CHLORIDE 96 MMOL/L (99-107); CREATININE 0.74 MG/DL (0.40-0.90); GLUCOSE 113 MG/DL (70-104); MAGNESIUM 2.2 MG/DL (1.5-2.4); PHOSPHORUS 3.3 MG/DL (2.3-4.5); POTASSIUM 3.7 MMOL/L (3.5-5.1); PREALBUMIN 49.8 MG/DL (19-36); SODIUM 136 MMOL/L (135-145); TOTAL CARBON DIOXIDE 32.4 MMOL/L (24-32); TRIGLYCERIDES 105 MG/DL (20-135); eGFR 84 ML/MIN
[2021-03-01] MEDS: morphine 4 MG/ML inj SYRINge IV PRN ×2 (03:34→22:18)
[2021-03-01 04:31] LABS: TOTAL CELLS COUNTED 100
[2021-03-01 04:33] LABS: ANISOCYTOSIS 1+; LARGE PLATELETS FEW; PLATELET ESTIMATE NORMAL; TEAR DROP CELLS FEW
[2021-03-01 04:34] LABS: ELLIPTOCYTES FEW
--- NOTE | 2021-03-01 06:21 | NUR ---
Problems reprioritized. Patient report given, questions answered & plan of care reviewed with NORMA Vergara.
[2021-03-01] MEDS: docusate sodium 100mg/10ml UD cup NG SCH ×2 (09:00→20:00)
[2021-03-01] MEDS: pantoprazole IV 40 MG in dextrose 5%-water 100 ML IV SCH (09:56)
[2021-03-01] MEDS: thiamine inj. 100 MG in normal saline 100ml IV soln 100 ML IV SCH (09:56)
[2021-03-01] MEDS: piperacillin/tazo 4.5gm/100ml 100 ML IV SCH (09:57)
[2021-03-01] MEDS: folic acid 1mg/0.2ml inj IV SCH (09:57)
[2021-03-01] MEDS: methylPREDNISolone sod succ/PF 40mg inj. IV SCH ×2 (09:58→21:35)
[2021-03-01] MEDS: enoxaparin 40mg/0.4ml syringe SQ SCH (09:58)
[2021-03-01] MEDS: busPIRone 5mg tablet NG SCH ×3 (09:59→21:00)
[2021-03-01] MEDS: furosemide 40mg/4ml inj IV SCH (09:59)
[2021-03-01] MEDS: gabapentin 300mg capsule NG SCH ×3 (09:59→21:00)
[2021-03-01] MEDS: lactobacillus rhamnosus 10,000 MMU CELLS/CAPSULE NG SCH ×2 (09:59→20:00)
--- NOTE | 2021-03-01 10:53 | NUR ---
F/u 03/01: Pt trickle TF not started yesterday w/ no reasoning in EMR; to start today per RN. Pt s/p large BM last night w/ lisa held r/t diarrhea per RN; following prior 17 days constipation post-op. Pt tolerating TPN at new goal rate s/p extubation. Will monitor for trickle TF tolerance and further nutrition support adjustment needs post-op. Addendum: 03/01/21 at [address] Amended: Links added.
[2021-03-01] MEDS: proCHLORperazine 10 MG/2 ml inj IV PRN (13:35)
[2021-03-01] MEDS: ZINC/COPPER/MANGANESE/SELENIUM 1 ML, chromic chloride inj. 10 MCG in AA 5%/cal/electrol... IV SCH (14:36)
[2021-03-01] MEDS: ESCITALOPRAM OXALATE 5 MG TABLET NG SCH (21:00)
[2021-03-01] MEDS: quetiapine 100mg tablet NG SCH (21:00)
[2021-03-01] MEDS: insulin glargine (Lantus) pen - multi-dose SQ SCH (21:41)
[2021-03-02] VITALS (23 sets, daily range): BP systolic 133–172; BP diastolic 73–97
[2021-03-02] MEDS: mineral oil/petrolatum ophthal oint EACHEYE SCH ×4 (01:59→19:32)
[2021-03-02 03:24] LABS: BASOPHILS % (AUTO) 0.1 % (0-1); EOSINOPHILS % (AUTO) 0 % (0-6); HEMATOCRIT 38.2 % (35.0-45.0); HEMOGLOBIN 12.9 g/dl (12.0-16.0); LYMPHOCYTES # (AUTO) 0.3 X10'3 (1.1-4.8); LYMPHOCYTES % (AUTO) 1.5 % (21-51); MEAN CORPUSCULAR HGB CONC 33.8 g/dL (33.0-36.5); MEAN CORPUSCULAR VOLUME 106.6 FL (78-98); MEAN PLATELET VOLUME 8.8 FL (7.4-10.4); MONOCYTES # (AUTO) 1.5 X10'3 (0-0.9); MONOCYTES % (AUTO) 8.3 % (2-12); NEUTROPHILS % (AUTO) 90.1 % (42-75); PLATELET COUNT 291 X10'3 (140-440); RED BLOOD COUNT 3.58 X10'6 (4.20-5.60); RED CELL DISTRIBUTION WIDTH 15.1 % (11.5-14.5); WHITE BLOOD COUNT 17.7 X10'3 (4.5-11.0)
[2021-03-02 03:34] LABS: ALBUMIN 2.7 G/DL (3.4-5.0); ANION GAP 10 (8-16); BLOOD UREA NITROGEN 38 MG/DL (7-18); BUN/CREATININE RATIO 54.3 (6.6-38.0); CALCIUM 9.1 MG/DL (8.5-10.1); CHLORIDE 98 MMOL/L (99-107); GLUCOSE 160 MG/DL (70-104); MAGNESIUM 2.3 MG/DL (1.5-2.4); POTASSIUM 3.1 MMOL/L (3.5-5.1); SODIUM 141 MMOL/L (135-145); TOTAL CARBON DIOXIDE 33.1 MMOL/L (24-32); eGFR 89 ML/MIN
[2021-03-02] MEDS: morphine 4 MG/ML inj SYRINge IV PRN ×4 (04:17→19:59)
[2021-03-02] MEDS: ondansetron/PF 4mg/2ml inj IV PRN ×3 (04:17→16:22)
--- NOTE | 2021-03-02 06:10 | NUR ---
Patient in room ICU 2040. I have received report from Javed GREEN and had the opportunity to ask questions and assume patient care.
[2021-03-02] MEDS: docusate sodium 100mg/10ml UD cup NG SCH ×2 (08:00→19:39)
[2021-03-02] MEDS: busPIRone 5mg tablet NG SCH ×3 (08:00→20:00)
[2021-03-02] MEDS: lactobacillus rhamnosus 10,000 MMU CELLS/CAPSULE NG SCH ×2 (08:00→19:59)
[2021-03-02] MEDS: gabapentin 300mg capsule NG SCH ×3 (08:00→20:00)
[2021-03-02] MEDS: pantoprazole IV 40 MG in dextrose 5%-water 100 ML IV SCH (08:34)
[2021-03-02] MEDS: methylPREDNISolone sod succ/PF 40mg inj. IV SCH ×2 (08:35→19:58)
[2021-03-02] MEDS: thiamine inj. 100 MG in normal saline 100ml IV soln 100 ML IV SCH (08:35)
[2021-03-02] MEDS: furosemide 40mg/4ml inj IV SCH (08:35)
[2021-03-02] MEDS: enoxaparin 40mg/0.4ml syringe SQ SCH (08:38)
[2021-03-02] MEDS: potassium Cl 20mEq/100mL bag 100 ML IV PRN ×2 (08:39→12:12)
[2021-03-02] MEDS: MVI, adult No.4 with vit. K 10 ML in dextrose 5% water 500ml 500 ML IV SCH ×2 (08:57)
[2021-03-02] MEDS: folic acid 1mg/0.2ml inj IV SCH (08:58)
[2021-03-02] MEDS: ZINC/COPPER/MANGANESE/SELENIUM 1 ML, chromic chloride inj. 10 MCG in AA 5%/cal/electrol... IV SCH (12:51)
[2021-03-02] MEDS: piperacillin/tazo 4.5gm/100ml 100 ML IV SCH ×2 (12:52→19:50)
--- NOTE | 2021-03-02 14:08 | NUR ---
F/u 03/02: Pt NG came out w/ episode of emesis and possible aspiration per MD at rounds. Pt to remain NPO on TPN for sole nutrition at this time currently tolerating at goal. LBM 03/01 per EMR. Will monitor for PO diet advancement and tolerance this admit. Recommendations: 1. Continuous TPN per MD via central access using 2:1 Clinimix-E /20 at 91ml/hr w/ separate 250ml 20% intralipids to run for 12 hours at 20.83ml/hr /Fri. In total; to provide 2184ml volume/day, 109g AA, 437g DEX (3.39 mg/kg/min), and avg 2065 kcal/day. 2. advance diet as medically indicated per X RAY EQUIPMENT SERVICER/MD to low-residue 3. TG/PALB q Friday/; Daily scaled wts 4. Wean TPN w/ PO diet advancement as medically indicated 5. IF prolonged NPO/unsafe PO; consider post-pyloric EN using Pivot 1.5 at 57ml/hr goal. Would provide 1368ml volume/day, 2052 kcal, 1040ml water, and 128g protein. 6. Routine Thiamine, Folic acid, and MVI for EtOH hx per MD 7. Routine bowel care Addendum: 03/02/21 at [address] Amended: Links added.
[2021-03-02 15:53] LABS: ABG BASE EXCESS 8.2 mmol/L (-2.0-2.0); ABG HCO3 32.7 mmol/L (22.0-26.0); ABG OXYGEN SATURATION 89.8 % (94-97); ABG PCO2 (T) 45.1 mmHg (32.0-45.0); ABG PO2 (T) 57.8 mmHg (75.0-100.0); ALLEN'S TEST POSITIVE; FCOHb 0.3 % (0.0-3.9); FMetHb 0.4 % (0.0-1.5); FO2Hb 89.2 % (94-97); PATIENT TEMPERATURE 37.2; TOTAL HEMOGLOBIN 14.1 G/dl (12.0-16.0)
--- NOTE | 2021-03-02 16:00 | NUR ---
patient vomited bile gastric contents 3x, NG inserted in patient's left nare hooked to suction, bilous output noted.
[2021-03-02] MEDS: quetiapine 100mg tablet NG SCH (20:00)
[2021-03-02] MEDS: ESCITALOPRAM OXALATE 5 MG TABLET NG SCH (20:01)
[2021-03-02] MEDS: insulin regular, human U-100 3ml vial - multi-dose SQ SCH (20:59)
[2021-03-02] MEDS: insulin glargine (Lantus) pen - multi-dose SQ SCH (21:00)
[2021-03-03] VITALS (21 sets, daily range): BP systolic 127–170; BP diastolic 73–106
[2021-03-03] MEDS: mineral oil/petrolatum ophthal oint EACHEYE SCH ×4 (01:12→20:29)
[2021-03-03] MEDS: morphine 4 MG/ML inj SYRINge IV PRN ×3 (01:13→18:12)
[2021-03-03 02:38] LABS: BASOPHILS % (AUTO) 0.3 % (0-1); EOSINOPHILS % (AUTO) 0.3 % (0-6); HEMATOCRIT 36.5 % (35.0-45.0); HEMOGLOBIN 12.1 g/dl (12.0-16.0); LYMPHOCYTES # (AUTO) 0.2 X10'3 (1.1-4.8); LYMPHOCYTES % (AUTO) 1.8 % (21-51); MEAN CORPUSCULAR HEMOGLOBIN 35.4 PG (27.0-31.0); MEAN CORPUSCULAR HGB CONC 33.1 g/dL (33.0-36.5); MEAN CORPUSCULAR VOLUME 107.1 FL (78-98); MEAN PLATELET VOLUME 9.2 FL (7.4-10.4); MONOCYTES # (AUTO) 1.1 X10'3 (0-0.9); MONOCYTES % (AUTO) 8.9 % (2-12); NEUTROPHILS # (AUTO) 11.2 X10'3 (1.8-7.7); NEUTROPHILS % (AUTO) 88.7 % (42-75); PLATELET COUNT 230 X10'3 (140-440); RED CELL DISTRIBUTION WIDTH 14.7 % (11.5-14.5); WHITE BLOOD COUNT 12.6 X10'3 (4.5-11.0)
[2021-03-03 02:54] LABS: ALBUMIN 2.5 G/DL (3.4-5.0); ANION GAP 7 (8-16); BLOOD UREA NITROGEN 34 MG/DL (7-18); BUN/CREATININE RATIO 50.7 (6.6-38.0); CALCIUM 9.1 MG/DL (8.5-10.1); CHLORIDE 100 MMOL/L (99-107); CREATININE 0.67 MG/DL (0.40-0.90); GLUCOSE 111 MG/DL (70-104); MAGNESIUM 2.2 MG/DL (1.5-2.4); PHOSPHORUS 3.1 MG/DL (2.3-4.5); POTASSIUM 3.8 MMOL/L (3.5-5.1); SODIUM 139 MMOL/L (135-145); TOTAL CARBON DIOXIDE 31.6 MMOL/L (24-32); eGFR > 90 ML/MIN
[2021-03-03] MEDS: piperacillin/tazo 4.5gm/100ml 100 ML IV SCH ×3 (04:00→20:12)
--- NOTE | 2021-03-03 06:10 | NUR ---
Patient in room ICU 2040. I have received report from Octavio GREEN and had the opportunity to ask questions and assume patient care.
[2021-03-03] MEDS: methylPREDNISolone sod succ/PF 40mg inj. IV SCH ×2 (07:42→20:15)
[2021-03-03] MEDS: furosemide 40mg/4ml inj IV SCH (07:42)
[2021-03-03] MEDS: enoxaparin 40mg/0.4ml syringe SQ SCH (07:43)
[2021-03-03] MEDS: pantoprazole IV 40 MG in dextrose 5%-water 100 ML IV SCH (07:43)
[2021-03-03] MEDS: folic acid 1mg/0.2ml inj IV SCH (07:43)
[2021-03-03] MEDS: lactobacillus rhamnosus 10,000 MMU CELLS/CAPSULE NG SCH ×2 (08:00→20:14)
[2021-03-03] MEDS: docusate sodium 100mg/10ml UD cup NG SCH ×2 (08:00→20:29)
[2021-03-03] MEDS: gabapentin 300mg capsule NG SCH ×3 (08:00→20:15)
[2021-03-03] MEDS: busPIRone 5mg tablet NG SCH ×3 (08:16→20:14)
[2021-03-03] MEDS: thiamine inj. 100 MG in normal saline 100ml IV soln 100 ML IV SCH (08:16)
[2021-03-03] MEDS: insulin regular, human U-100 3ml vial - multi-dose SQ SCH ×2 (08:36→15:04)
[2021-03-03] MEDS: ZINC/COPPER/MANGANESE/SELENIUM 1 ML, chromic chloride inj. 10 MCG in AA 5%/cal/electrol... IV SCH (10:23)
[2021-03-03] MEDS: hydrALAZINE 20mg/ml inj. IV PRN (16:36)
--- NOTE | 2021-03-03 18:30 | NUR ---
Problems reprioritized. Patient report given, questions answered & plan of care reviewed with Eryn GREEN.
--- NOTE | 2021-03-03 20:00 | NUR ---
TRIAL OF ICE SHIPS MADE PATIENT NAUSEOUS. ORDERED ZOFRAN GIVEN. TOLERATED WELL. TUBE FEEDS GOING AT 10ML ORDERED.
[2021-03-03] MEDS: ondansetron/PF 4mg/2ml inj IV PRN (20:14)
[2021-03-03] MEDS: quetiapine 100mg tablet NG SCH (20:14)
[2021-03-03] MEDS: ESCITALOPRAM OXALATE 5 MG TABLET NG SCH (20:15)
[2021-03-03] MEDS: insulin glargine (Lantus) pen - multi-dose SQ SCH (21:00)
[2021-03-04] VITALS (22 sets, daily range): BP systolic 123–170; BP diastolic 69–106
[2021-03-04] MEDS: mineral oil/petrolatum ophthal oint EACHEYE SCH ×5 (02:00→20:30)
[2021-03-04] MEDS: insulin regular, human U-100 3ml vial - multi-dose SQ SCH ×4 (02:12→20:53)
[2021-03-04 03:54] LABS: BASOPHILS % (AUTO) 0.1 % (0-1); EOSINOPHILS % (AUTO) 0.1 % (0-6); HEMATOCRIT 34.7 % (35.0-45.0); HEMOGLOBIN 11.6 g/dl (12.0-16.0); LYMPHOCYTES # (AUTO) 0.2 X10'3 (1.1-4.8); LYMPHOCYTES % (AUTO) 1.9 % (21-51); MEAN CORPUSCULAR HEMOGLOBIN 35.8 PG (27.0-31.0); MEAN CORPUSCULAR HGB CONC 33.5 g/dL (33.0-36.5); MEAN CORPUSCULAR VOLUME 106.9 FL (78-98); MONOCYTES # (AUTO) 0.6 X10'3 (0-0.9); MONOCYTES % (AUTO) 4.8 % (2-12); NEUTROPHILS # (AUTO) 10.7 X10'3 (1.8-7.7); NEUTROPHILS % (AUTO) 93.1 % (42-75); PLATELET COUNT 256 X10'3 (140-440); RED BLOOD COUNT 3.24 X10'6 (4.20-5.60); RED CELL DISTRIBUTION WIDTH 14.6 % (11.5-14.5); WHITE BLOOD COUNT 11.5 X10'3 (4.5-11.0)
[2021-03-04 03:59] LABS: ANION GAP 8 (8-16); BLOOD UREA NITROGEN 37 MG/DL (7-18); CHLORIDE 97 MMOL/L (99-107); CREATININE 0.74 MG/DL (0.40-0.90); GLUCOSE 144 MG/DL (70-104); POTASSIUM 3.5 MMOL/L (3.5-5.1); SODIUM 137 MMOL/L (135-145); TOTAL CARBON DIOXIDE 31.8 MMOL/L (24-32)
[2021-03-04 04:00] LABS: ALBUMIN 2.4 G/DL (3.4-5.0); MAGNESIUM 2.1 MG/DL (1.5-2.4); PHOSPHORUS 3.4 MG/DL (2.3-4.5); eGFR 84 ML/MIN
[2021-03-04] MEDS: piperacillin/tazo 4.5gm/100ml 100 ML IV SCH ×3 (05:01→20:47)
--- NOTE | 2021-03-04 06:28 | NUR ---
Problems reprioritized. Patient report given, questions answered & plan of care reviewed with NORMA Oconnell.
--- NOTE | 2021-03-04 06:31 | NUR ---
Patient in room 2040, received report from Enzo GREEN, assumed patient care.
[2021-03-04] MEDS: thiamine inj. 100 MG in normal saline 100ml IV soln 100 ML IV SCH (07:35)
[2021-03-04] MEDS: docusate sodium 100mg/10ml UD cup NG SCH ×2 (07:35→20:47)
[2021-03-04] MEDS: enoxaparin 40mg/0.4ml syringe SQ SCH (07:35)
[2021-03-04] MEDS: pantoprazole IV 40 MG in dextrose 5%-water 100 ML IV SCH (07:35)
[2021-03-04] MEDS: busPIRone 5mg tablet NG SCH ×3 (07:35→20:48)
[2021-03-04] MEDS: furosemide 40mg/4ml inj IV SCH (07:36)
[2021-03-04] MEDS: gabapentin 300mg capsule NG SCH ×3 (07:36→20:48)
[2021-03-04] MEDS: lactobacillus rhamnosus 10,000 MMU CELLS/CAPSULE NG SCH ×2 (07:36→20:48)
[2021-03-04] MEDS: methylPREDNISolone sod succ/PF 40mg inj. IV SCH ×2 (07:36→20:47)
--- NOTE | 2021-03-04 08:15 | NUR ---
shortly after administering PO meds through NG tube patient began vomiting, about 200ml of green emesis noted. made aware.
[2021-03-04] MEDS: folic acid 1mg/0.2ml inj IV SCH (08:58)
[2021-03-04] MEDS: ZINC/COPPER/MANGANESE/SELENIUM 1 ML, chromic chloride inj. 10 MCG in AA 5%/cal/electrol... IV SCH (08:58)
--- NOTE | 2021-03-04 16:37 | NUR ---
Noted patient had another episode of emesis, about 50ml, changed entire bed linen new gown and picc line dressing.
--- NOTE | 2021-03-04 18:30 | NUR ---
Patient in room ICU 2040. I have received report from NORMA Coles and had the opportunity to ask questions and assume patient care.
[2021-03-04] MEDS: quetiapine 100mg tablet NG SCH (20:48)
[2021-03-04] MEDS: ESCITALOPRAM OXALATE 5 MG TABLET NG SCH (20:48)
[2021-03-04] MEDS: insulin glargine (Lantus) pen - multi-dose SQ SCH (20:53)
[2021-03-04] MEDS: ondansetron/PF 4mg/2ml inj IV PRN (20:58)
[2021-03-05] VITALS (23 sets, daily range): BP systolic 127–151; BP diastolic 56–112
[2021-03-05] MEDS: insulin regular, human U-100 3ml vial - multi-dose SQ SCH ×3 (02:47→21:59)
[2021-03-05 03:48] LABS: ALBUMIN 2.5 G/DL (3.4-5.0); ANION GAP 8 (8-16); BLOOD UREA NITROGEN 47 MG/DL (7-18); BUN/CREATININE RATIO 66.2 (6.6-38.0); CALCIUM 9.2 MG/DL (8.5-10.1); CHLORIDE 97 MMOL/L (99-107); CREATININE 0.71 MG/DL (0.40-0.90); GLUCOSE 142 MG/DL (70-104); MAGNESIUM 2.2 MG/DL (1.5-2.4); PHOSPHORUS 3.6 MG/DL (2.3-4.5); POTASSIUM 3.2 MMOL/L (3.5-5.1); SODIUM 138 MMOL/L (135-145); TOTAL CARBON DIOXIDE 32.8 MMOL/L (24-32); TRIGLYCERIDES 108 MG/DL (20-135); eGFR 88 ML/MIN
[2021-03-05 03:58] LABS: BASOPHILS % (AUTO) 0.1 % (0-1); EOSINOPHILS % (AUTO) 0.2 % (0-6); HEMATOCRIT 34.4 % (35.0-45.0); HEMOGLOBIN 11.7 g/dl (12.0-16.0); LYMPHOCYTES # (AUTO) 0.3 X10'3 (1.1-4.8); LYMPHOCYTES % (AUTO) 2.7 % (21-51); MEAN CORPUSCULAR HEMOGLOBIN 36.2 PG (27.0-31.0); MEAN CORPUSCULAR HGB CONC 33.9 g/dL (33.0-36.5); MEAN CORPUSCULAR VOLUME 106.7 FL (78-98); MEAN PLATELET VOLUME 8.8 FL (7.4-10.4); MONOCYTES # (AUTO) 0.6 X10'3 (0-0.9); MONOCYTES % (AUTO) 5.8 % (2-12); NEUTROPHILS # (AUTO) 9.8 X10'3 (1.8-7.7); NEUTROPHILS % (AUTO) 91.2 % (42-75); PLATELET COUNT 261 X10'3 (140-440); RED BLOOD COUNT 3.22 X10'6 (4.20-5.60); RED CELL DISTRIBUTION WIDTH 14.5 % (11.5-14.5); WHITE BLOOD COUNT 10.7 X10'3 (4.5-11.0)
[2021-03-05 04:22] LABS: PREALBUMIN 22.6 MG/DL (19-36)
[2021-03-05] MEDS: piperacillin/tazo 4.5gm/100ml 100 ML IV SCH (04:26)
[2021-03-05] MEDS: potassium Cl 20 mEq/100mL bag IV SCH ×2 (04:50→06:16)
[2021-03-05] MEDS ORDERED: metoclopramide 5 mg/ml inj IV PRN (04:50)
[2021-03-05] MEDS: potassium Cl 20mEq/100mL bag 100 ML IV PRN (05:05)
--- NOTE | 2021-03-05 06:12 | NUR ---
Problems reprioritized. Patient report given, questions answered & plan of care reviewed with Day shift RN.
--- NOTE | 2021-03-05 06:47 | NUR ---
Patient in room ICU 2040. I have received report from mold shifter RN and had the opportunity to ask questions and assume patient care.
[2021-03-05] MEDS: ZINC/COPPER/MANGANESE/SELENIUM 1 ML, chromic chloride inj. 10 MCG in AA 5%/cal/electrol... IV SCH (07:01)
[2021-03-05] MEDS: mineral oil/petrolatum ophthal oint EACHEYE SCH ×4 (07:48→18:46)
[2021-03-05] MEDS: folic acid 1mg/0.2ml inj IV SCH (07:48)
[2021-03-05] MEDS: furosemide 40mg/4ml inj IV SCH (07:51)
[2021-03-05] MEDS: methylPREDNISolone sod succ/PF 40mg inj. IV SCH ×2 (07:51→21:53)
[2021-03-05] MEDS: pantoprazole IV 40 MG in dextrose 5%-water 100 ML IV SCH (07:55)
[2021-03-05] MEDS: enoxaparin 40mg/0.4ml syringe SQ SCH (07:58)
[2021-03-05] MEDS: docusate sodium 100mg/10ml UD cup NG SCH ×2 (08:00→21:53)
[2021-03-05] MEDS: lactobacillus rhamnosus 10,000 MMU CELLS/CAPSULE NG SCH ×2 (08:00→21:54)
[2021-03-05] MEDS: busPIRone 5mg tablet NG SCH ×3 (08:00→21:54)
[2021-03-05] MEDS: gabapentin 300mg capsule NG SCH ×3 (08:00→21:54)
[2021-03-05] MEDS: thiamine inj. 100 MG in normal saline 100ml IV soln 100 ML IV SCH (08:21)
--- NOTE | 2021-03-05 11:27 | NUR ---
F/u 03/05: Pt continues to have episodes of emesis, last one 03/04 per RN. Pt to continue on TPN until no more emesis and pt can tolerate PO. LBM 03/03. Will continue to monitor for diet advancement and tolerance this admit. Recommendations: 1. Continuous TPN per MD via central access using 2:1 Clinimix-E 08/03 at 91ml/hr w/ separate 250ml 20% intralipids to run for 12 hours at 20.83ml/hr /Fri. In total; to provide 2184ml volume/day, 109g AA, 437g DEX (3.39 mg/kg/min), and avg 2065 kcal/day. 2. advance diet as medically indicated per RPG DEVELOPER/MD to low-residue 3. TG/PALB q Friday/; Daily scaled wts 4. Wean TPN w/ PO diet advancement as medically indicated 5. IF prolonged NPO/unsafe PO; consider post-pyloric EN using Pivot 1.5 at 57ml/hr goal. Would provide 1368ml volume/day, 2052 kcal, 1040ml water, and 128g protein. 6. Routine Thiamine, Folic acid, and MVI for EtOH hx per MD 7. Routine bowel care Addendum: 03/05/21 at [address] Amended: Links added.
[2021-03-05] MEDS: metoclopramide 5 mg/ml inj IV SCH ×2 (11:33→18:00)
[2021-03-05] MEDS ORDERED: ketorolac trometh. 30mg/ml inj. IV ONE (12:30)
--- NOTE | 2021-03-05 18:15 | NUR ---
Problems reprioritized. Patient report given, questions answered & plan of care reviewed with Rubi GREEN.
--- NOTE | 2021-03-05 18:30 | NUR ---
Patient in room ICU 2040. I have received report from NORMA Smith and had the opportunity to ask questions and assume patient care.
[2021-03-05] MEDS: ESCITALOPRAM OXALATE 5 MG TABLET NG SCH (21:54)
[2021-03-05] MEDS: quetiapine 100mg tablet NG SCH (21:54)
[2021-03-05] MEDS: insulin glargine (Lantus) pen - multi-dose SQ SCH (22:03)
[2021-03-06] VITALS (18 sets, daily range): BP systolic 113–157; BP diastolic 70–89
[2021-03-06] MEDS: metoclopramide 5 mg/ml inj IV SCH ×3 (00:08→15:11)
[2021-03-06] MEDS: insulin regular, human U-100 3ml vial - multi-dose SQ SCH ×4 (02:50→20:33)
[2021-03-06 03:11] LABS: BASOPHILS # (AUTO) 0.1 X10'3 (0-0.2); BASOPHILS % (AUTO) 0.7 % (0-1); EOSINOPHILS % (AUTO) 0.3 % (0-6); HEMATOCRIT 35.3 % (35.0-45.0); HEMOGLOBIN 11.9 g/dl (12.0-16.0); LYMPHOCYTES # (AUTO) 0.3 X10'3 (1.1-4.8); LYMPHOCYTES % (AUTO) 2.7 % (21-51); MEAN CORPUSCULAR HEMOGLOBIN 35.8 PG (27.0-31.0); MEAN CORPUSCULAR HGB CONC 33.6 g/dL (33.0-36.5); MEAN CORPUSCULAR VOLUME 106.8 FL (78-98); MEAN PLATELET VOLUME 8.7 FL (7.4-10.4); MONOCYTES # (AUTO) 0.4 X10'3 (0-0.9); NEUTROPHILS # (AUTO) 9.5 X10'3 (1.8-7.7); NEUTROPHILS % (AUTO) 92.3 % (42-75); PLATELET COUNT 245 X10'3 (140-440); RED BLOOD COUNT 3.31 X10'6 (4.20-5.60); RED CELL DISTRIBUTION WIDTH 14.3 % (11.5-14.5); WHITE BLOOD COUNT 10.3 X10'3 (4.5-11.0)
[2021-03-06 03:25] LABS: ALANINE AMINOTRANSFERASE 83 U/L (12-78); ALBUMIN 2.6 G/DL (3.4-5.0); ALBUMIN/GLOBULIN RATIO 0.6 (1.1-1.5); ALKALINE PHOSPHATASE 85 IU/L (46-116); ANION GAP 8 (8-16); ASPARTATE AMINO TRANSFERASE 36 U/L (10-37); BILIRUBIN,TOTAL 0.6 MG/DL (0.1-1.0); BLOOD UREA NITROGEN 48 MG/DL (7-18); BUN/CREATININE RATIO 68.6 (6.6-38.0); CALCIUM 9.4 MG/DL (8.5-10.1); CHLORIDE 98 MMOL/L (99-107); GLUCOSE 143 MG/DL (70-104); MAGNESIUM 2.4 MG/DL (1.5-2.4); PHOSPHORUS 3.6 MG/DL (2.3-4.5); POTASSIUM 3.6 MMOL/L (3.5-5.1); SODIUM 140 MMOL/L (135-145); TOTAL CARBON DIOXIDE 33.7 MMOL/L (24-32); TOTAL PROTEIN 7.1 G/DL (6.4-8.2); eGFR 89 ML/MIN
[2021-03-06] MEDS: ZINC/COPPER/MANGANESE/SELENIUM 1 ML, chromic chloride inj. 10 MCG in AA 5%/cal/electrol... IV SCH (05:09)
--- NOTE | 2021-03-06 06:13 | NUR ---
Problems reprioritized. Patient report given, questions answered & plan of care reviewed with NORMA Nam.
--- NOTE | 2021-03-06 06:35 | NUR ---
Patient in room ICU 2040. I have received report from Rubi GREEN and had the opportunity to ask questions and assume patient care. Pt semi fowlers in bed, NG tube to left nare, pt endorses she had a lot of dreams through the night, and making kissing faces at nurse. breathing even and non labored. no s/sx acute distress. safety measures in place.
[2021-03-06] MEDS: gabapentin 300mg capsule NG SCH ×3 (07:43→21:32)
[2021-03-06] MEDS: docusate sodium 100mg/10ml UD cup NG SCH ×2 (07:43→21:17)
[2021-03-06] MEDS: furosemide 40mg/4ml inj IV SCH (07:43)
[2021-03-06] MEDS: busPIRone 5mg tablet NG SCH ×3 (07:43→21:32)
[2021-03-06] MEDS: lactobacillus rhamnosus 10,000 MMU CELLS/CAPSULE NG SCH ×2 (07:43→21:32)
[2021-03-06] MEDS: methylPREDNISolone sod succ/PF 40mg inj. IV SCH ×2 (07:43→21:16)
[2021-03-06] MEDS: folic acid 1mg/0.2ml inj IV SCH (07:44)
[2021-03-06] MEDS: thiamine inj. 100 MG in normal saline 100ml IV soln 100 ML IV SCH (07:44)
[2021-03-06] MEDS: pantoprazole IV 40 MG in dextrose 5%-water 100 ML IV SCH (07:44)
[2021-03-06] MEDS: enoxaparin 40mg/0.4ml syringe SQ SCH (07:45)
[2021-03-06] MEDS: mineral oil/petrolatum ophthal oint EACHEYE SCH ×3 (07:45→20:00)
[2021-03-06] MEDS: MVI, adult No.4 with vit. K 10 ML in dextrose 5% water 500ml 500 ML IV SCH ×2 (09:06)
[2021-03-06] MEDS: acetaminophen 325mg/10.15ml oral unit dose solution NG PRN (09:06)
--- NOTE | 2021-03-06 11:42 | NUR ---
F/u 03/06: Pt nausea and emesis not stopped w/ NGTF started at 10ml/hr last night per RN. Clean Up Worker agreeable to advance trickle rate today. RD d/w RN and notified MD will advance to 30ml/hr and monitor for tolerance given prior hx EN intolerance this admit. Updated recs below; IF EN advancement wean PN as medically indicated. Recommendations: 1. Continuous TPN per MD via central access using 2:1 Clinimix-E /20 at 91ml/hr w/ separate 250ml 20% intralipids to run for 12 hours at 20.83ml/hr /Fri. In total; to provide 2184ml volume/day, 109g AA, 437g DEX (3.39 mg/kg/min), and avg 2065 kcal/day. 2. Trickle TF per MD using Pivot 1.5 at 30ml/hr goal; to provide 720ml volume/day, 1080 kcal, 547ml water, and 68g protein 3. advance diet as medically indicated per FRONT DESK AUXILIARY/MD to low-residue 4. TG/PALB q Friday/; Daily scaled wts 5. Wean TPN w/ EN tolerance/advancement as medically indicated 6. IF trickle TF tolerance; advance TF using Pivot 1.5 at 57ml/hr goal. Would provide 1368ml volume/day, 2052 kcal, 1040ml water, and 128g protein. 7. Routine Thiamine, Folic acid, and MVI for EtOH hx per MD 8. Routine bowel care Addendum: 03/06/21 at [address] Amended: Links added.
--- NOTE | 2021-03-06 14:17 | NUR ---
WOUND INFECTION EDUCATION PROVIDED BY WOUND CARE 1. Patient instructed to call their primary doctor, or go the ED immediately if any of the following symptoms occur: * Increased pain in wound * Increase in drainage from the wound * Redness in the skin surrounding the wound * Warmth in the skin surrounding the wound * Bleeding from the wound * Temperature of 101 or greater 2. If any of these occur while in the hospital tell a nurse immediately. PRESSURE ULCER EDUCATION: DEFINITION: A pressure ulcer is an area of skin that breaks down when you stay in one position too long. The constant pressure against the skin reduces the blood flow to that area and the affected tissue dies. CAUSES: "Being bedridden or in a wheelchair "Fragile skin "Having a chronic condition, such as diabetes or vascular disease "Inability to move certain parts of your body without assistance "Older age "Incontinence of urine or stool SYMPTOMS: "A reddened area that DOES NOT turn white when pressed on - this can be the beginning of a pressure ulcer "A blister, deep sore or a crater - these can be advanced pressure ulcers FIRST AID: "Relieve the pressure on this area "Keep the area clean and dry "Call your primary doctor if you see any of the above symptoms "DO NOT massage the area "DO NOT use a donut shaped or ring shaped pillow- these actually interfere with the blood flow and cause complications PREVENTION: "Check for pressure ulcers everyday "Change position at least every two hours to relieve pressure "Use items that help relieve pressure- pillows, sheepskin, foam padding, and powders. "Keep skin clean and dry "Eat healthy well balanced meals "Exercise daily IF YOU SEE ANY OF THESE SYMPTOMS WHILE IN THE HOSPITAL - TELL YOUR NURSE IMMEDIATELY. IF YOU SEE ANY OF THESE SYMPTOMS WHILE AT HOME OR HAVE ANY QUESTIONS OR CONCERNS ABOUT PRESSURE ULCERS - CALL YOUR PRIMARY DOCTOR IMMEDIATELY. Addendum: 03/06/21 at 1418 by Kristina Partida RN Amended: Links added.
--- NOTE | 2021-03-06 17:30 | NUR ---
Pt transferred to room 348A, surgical floor. all pt belongings brought with pt including pt cell phone and tablet. pt oriented to new room. safety education completed. pt minimally verbalized understanding, but agreed with information willingly. safety measures ensured. needs anticipated and met. no s/sx acute distress.
--- NOTE | 2021-03-06 18:24 | NUR ---
Problems reprioritized. Patient report given, questions answered & plan of care reviewed with Romeo RN. Pt semi folwers in bed, TPN at 90; TF @ 30. breathing even and non labored. no s/sx acute distress
--- NOTE | 2021-03-06 18:30 | NUR ---
Patient in room [id number] 348. I have received report from NAVARRO GREEN and had the opportunity to ask questions and assume patient care.
[2021-03-06] MEDS: insulin glargine (Lantus) pen - multi-dose SQ SCH (20:34)
[2021-03-06] MEDS: quetiapine 100mg tablet NG SCH (21:31)
[2021-03-06] MEDS: ESCITALOPRAM OXALATE 5 MG TABLET NG SCH (21:31)
[2021-03-07] VITALS (8 sets, daily range): BP systolic 130–157; BP diastolic 64–94
[2021-03-07] MEDS: metoclopramide 5 mg/ml inj IV SCH ×3 (00:22→17:45)
[2021-03-07] MEDS: mineral oil/petrolatum ophthal oint EACHEYE SCH ×4 (01:53→20:33)
[2021-03-07] MEDS: insulin regular, human U-100 3ml vial - multi-dose SQ SCH ×3 (02:40→21:19)
[2021-03-07] MEDS: ZINC/COPPER/MANGANESE/SELENIUM 1 ML, chromic chloride inj. 10 MCG in AA 5%/cal/electrol... IV SCH (02:50)
--- NOTE | 2021-03-07 03:35 | NUR ---
PATIENT TRANSFERRED TO PCU ROOM 3025B FOR TELEMETRY MONITORING.
--- NOTE | 2021-03-07 03:40 | NUR ---
Patient in room PCU 3025. I have received report from Lizeth GREEN and had the opportunity to ask questions and assume patient care.
--- NOTE | 2021-03-07 06:45 | NUR ---
Patient in room PCU 3025. I have received report from Lizabeth BUSTILLO and had the opportunity to ask questions and assume patient care.
--- NOTE | 2021-03-07 07:12 | NUR ---
Pt received with lt nare NGT, infusing Vital AF and patent. TPN and Lipids infusing, pat in place, skin teat to lt thigh. Alma to midline abd dsg well approximated dry and intact, call light in reach, will continue to monitor.
[2021-03-07] MEDS: folic acid 1mg/0.2ml inj IV SCH ×2 (08:00→11:57)
[2021-03-07] MEDS: busPIRone 5mg tablet NG SCH ×3 (08:15→20:32)
[2021-03-07] MEDS: enoxaparin 40mg/0.4ml syringe SQ SCH (08:16)
[2021-03-07] MEDS: docusate sodium 100mg/10ml UD cup NG SCH ×2 (08:16→20:32)
[2021-03-07] MEDS: furosemide 40mg/4ml inj IV SCH (08:16)
[2021-03-07] MEDS: methylPREDNISolone sod succ/PF 40mg inj. IV SCH ×2 (08:16→20:33)
[2021-03-07] MEDS: gabapentin 300mg capsule NG SCH ×3 (08:16→20:33)
[2021-03-07] MEDS: lactobacillus rhamnosus 10,000 MMU CELLS/CAPSULE NG SCH ×2 (08:16→20:32)
--- NOTE | 2021-03-07 08:34 | NUR ---
Request sent to pharmacy for meds GM Can you send josh please Protonix 40 IV Thiamine 100 iV Folic Acid inj Lisandra reid Thank you
[2021-03-07] MEDS: thiamine inj. 100 MG in normal saline 100ml IV soln 100 ML IV SCH (09:04)
[2021-03-07] MEDS: pantoprazole IV 40 MG in dextrose 5%-water 100 ML IV SCH (09:04)
[2021-03-07] MEDS ORDERED: magnesium 4gm in 100ml NS 100 ML IV PRN (10:00)
[2021-03-07] MEDS ORDERED: potassium Cl 40MEQ/1/2NS 520ml 520 ML IV PRN (10:00)
[2021-03-07] MEDS ORDERED: magnesium Cl slow-release 64mg tablet PO PRN (10:00)
[2021-03-07] MEDS ORDERED: potassium Cl 20 mEq SR tablet PO PRN ×2 (10:00)
--- NOTE | 2021-03-07 10:51 | NUR ---
Anders cath bag leaking, bag was exchanged
--- NOTE | 2021-03-07 14:24 | NUR ---
F/u 03/07: Pt tolerating trickle TF at 30ml/hr GRV WNL. RD paged MD and d/w RN regarding TF advancement and TPN wean as medically indicated; pending response. Updated TPN recs below given current EN provision; RD collaborated w/ clinical pharmacist. Recommendations: 1. Continuous TPN per MD via central access using 2:1 Clinimix-E / at 46ml/hr goal; to provide 1104ml volume/day, 55g AA, 221g DEX (1.81 mg/kg/min), and 971 kcals/day. Hold intralipids at this time; receiving 37g fat/day w/ current TF regimen. 2. Trickle TF per MD using Pivot 1.5 at 30ml/hr goal; to provide 720ml volume/day, 1080 kcal, 547ml water, and 68g protein 3. advance diet as medically indicated per INHALATION THERAPY AIDES TEACHER/MD to low-residue 4. TG/PALB q Friday/; Daily scaled wts 5. Wean TPN w/ EN tolerance/advancement as medically indicated 6. Advance TF using Pivot 1.5 at 57ml/hr goal if MD agreeable; would provide 1368ml volume/day, 2052 kcal, 1040ml water, and 128g protein. 7. Routine Thiamine, Folic acid, and MVI for EtOH hx per MD 8. Routine bowel care Addendum: 03/07/21 at [address] Amended: Links added.
--- NOTE | 2021-03-07 18:30 | NUR ---
Patient in room PCU 3025. I have received report from Rachael GREEN and had the opportunity to ask questions and assume patient care.
--- NOTE | 2021-03-07 19:04 | NUR ---
Problems reprioritized. Patient report given, questions answered & plan of care reviewed with Jimena GREEN [].
[2021-03-07] MEDS: K and/or MAG REPLACEMENT MC SCH (20:00)
[2021-03-07] MEDS: quetiapine 100mg tablet NG SCH (20:32)
[2021-03-07] MEDS: ESCITALOPRAM OXALATE 5 MG TABLET NG SCH (20:33)
[2021-03-07] MEDS: insulin glargine (Lantus) pen - multi-dose SQ SCH (21:24)
[2021-03-08] VITALS (7 sets, daily range): BP systolic 123–152; BP diastolic 58–93
[2021-03-08] MEDS: ZINC/COPPER/MANGANESE/SELENIUM 1 ML, chromic chloride inj. 10 MCG in AA 5%/cal/electrol... IV SCH (00:43)
[2021-03-08] MEDS: insulin regular, human U-100 3ml vial - multi-dose SQ SCH ×4 (02:48→21:47)
[2021-03-08] MEDS: mineral oil/petrolatum ophthal oint EACHEYE SCH ×4 (02:52→20:00)
--- NOTE | 2021-03-08 06:37 | NUR ---
Patient in room PCU 3025. I have received report from Jimena GREEN and had the opportunity to ask questions and assume patient care.
--- NOTE | 2021-03-08 06:56 | NUR ---
Problems reprioritized. Patient report given, questions answered & plan of care reviewed with Rachael GREEN.
[2021-03-08] MEDS: docusate sodium 100mg/10ml UD cup NG SCH ×2 (08:00→20:00)
[2021-03-08] MEDS ORDERED: methylPREDNISolone sod succ/PF 40mg inj. IV SCH (08:00)
[2021-03-08] MEDS: K and/or MAG REPLACEMENT MC SCH ×2 (08:00→20:00)
[2021-03-08] MEDS: thiamine inj. 100 MG in normal saline 100ml IV soln 100 ML IV SCH ×2 (08:51→09:03)
[2021-03-08] MEDS: pantoprazole IV 40 MG in dextrose 5%-water 100 ML IV SCH (08:52)
[2021-03-08] MEDS: enoxaparin 40mg/0.4ml syringe SQ SCH (08:57)
[2021-03-08] MEDS: furosemide 40mg/4ml inj IV SCH (08:59)
[2021-03-08] MEDS: gabapentin 300mg capsule NG SCH ×3 (09:00→21:43)
[2021-03-08] MEDS: lactobacillus rhamnosus 10,000 MMU CELLS/CAPSULE NG SCH ×2 (09:01→20:00)
[2021-03-08] MEDS: busPIRone 5mg tablet NG SCH ×3 (09:03→21:42)
[2021-03-08] MEDS: folic acid 1mg/0.2ml inj IV SCH (09:06)
[2021-03-08 13:04] LABS: BASOPHILS % (AUTO) 0.3 % (0-1); EOSINOPHILS # (AUTO) 0.1 X10'3 (0-0.9); EOSINOPHILS % (AUTO) 0.7 % (0-6); HEMATOCRIT 37.7 % (35.0-45.0); HEMOGLOBIN 12.6 g/dl (12.0-16.0); LYMPHOCYTES # (AUTO) 0.4 X10'3 (1.1-4.8); LYMPHOCYTES % (AUTO) 2.8 % (21-51); MEAN CORPUSCULAR HEMOGLOBIN 35.8 PG (27.0-31.0); MEAN CORPUSCULAR HGB CONC 33.5 g/dL (33.0-36.5); MEAN CORPUSCULAR VOLUME 106.8 FL (78-98); MEAN PLATELET VOLUME 8.6 FL (7.4-10.4); MONOCYTES # (AUTO) 0.5 X10'3 (0-0.9); MONOCYTES % (AUTO) 3.3 % (2-12); NEUTROPHILS # (AUTO) 14.3 X10'3 (1.8-7.7); NEUTROPHILS % (AUTO) 92.9 % (42-75); PLATELET COUNT 262 X10'3 (140-440); RED BLOOD COUNT 3.53 X10'6 (4.20-5.60); WHITE BLOOD COUNT 15.3 X10'3 (4.5-11.0)
[2021-03-08 13:29] LABS: ALANINE AMINOTRANSFERASE 85 U/L (12-78); ALBUMIN 2.9 G/DL (3.4-5.0); ALBUMIN/GLOBULIN RATIO 0.6 (1.1-1.5); ALKALINE PHOSPHATASE 84 IU/L (46-116); ANION GAP 11 (8-16); ASPARTATE AMINO TRANSFERASE 28 U/L (10-37); BILIRUBIN,TOTAL 0.5 MG/DL (0.1-1.0); BLOOD UREA NITROGEN 47 MG/DL (7-18); BUN/CREATININE RATIO 65.3 (6.6-38.0); CALCIUM 9.2 MG/DL (8.5-10.1); CHLORIDE 98 MMOL/L (99-107); CREATININE 0.72 MG/DL (0.40-0.90); GLUCOSE 152 MG/DL (70-104); MAGNESIUM 2.2 MG/DL (1.5-2.4); PHOSPHORUS 3.9 MG/DL (2.3-4.5); POTASSIUM 3.8 MMOL/L (3.5-5.1); SODIUM 138 MMOL/L (135-145); TOTAL CARBON DIOXIDE 28.6 MMOL/L (24-32); TOTAL PROTEIN 7.6 G/DL (6.4-8.2); TRIGLYCERIDES 131 MG/DL (20-135); eGFR 86 ML/MIN
[2021-03-08 13:36] LABS: PREALBUMIN 50.8 MG/DL (19-36)
--- NOTE | 2021-03-08 13:52 | NUR ---
F/u 03/08: Pt tolerating trickle TF at 30ml/hr GRV WNL and continues on TPN at goal. D/w RN and MD regarding advancing TF and weaning TPN as tolerated, MD diego w/ this, see updated TF recs below. VLAD collaborated w/ clinical pharmacist. LBM 03/05. Will continue to monitor and adjust needs as medically indicated. Recommendations: 1. Advance TF using Pivot 1.5 at 57ml/hr goal; would provide 1368ml volume/day, 2052 kcal, 1040ml water, and 128g protein. 2. Continuous TPN per MD via central access using 2:1 Clinimix-E 08/03 at 46ml/hr goal; to provide 1104ml volume/day, 55g AA, 221g DEX (1.81 mg/kg/min), and 971 kcals/day. Wean PN as TF advances 3. Additional water flush 200ml Q4H once TPN stopped; monitor serum Na 4. TG/PALB q Friday/; Daily scaled wt 5. advance diet as medically indicated per MINE CAPTAIN/MD to low-residue 6. Routine Thiamine, Folic acid, and MVI for EtOH hx per MD 7. Routine bowel care Addendum: 03/08/21 at [address] Amended: Links added.
--- NOTE | 2021-03-08 18:51 | NUR ---
Problems reprioritized. Patient report given, questions answered & plan of care reviewed with Alfa GREEN[].
[2021-03-08] MEDS: insulin glargine (Lantus) pen - multi-dose SQ SCH (21:00)
[2021-03-08] MEDS: ESCITALOPRAM OXALATE 5 MG TABLET NG SCH (21:42)
[2021-03-08] MEDS: LORazepam 2 mg/ml vial IV PRN (21:42)
[2021-03-08] MEDS: quetiapine 100mg tablet NG SCH (21:43)
[2021-03-08] MEDS: hydrALAZINE 20mg/ml inj. IV PRN (23:01)
[2021-03-08] MEDS: acetaminophen 325mg/10.15ml oral unit dose solution NG PRN (23:53)
--- NOTE | 2021-03-09 | NUR ---
PT 1800 AND 2200 BP WAS ELEVATED AND PRN HTN MEDICATIONS ADMINISTERED ORDERED. BP WAS RECHECKED AND DECREASED SIGNIFICANTLY. PT HAD INCREASED TEMPERATURES AND PRN ANTIPYRETIC WAS ALSO ADMINISTERED. WILL REASSESS. NO S/S OF ACUTE PAIN/DISTRESS NOTED. WILL CONTINUE TO OBSERVE.
[2021-03-09] MEDS: LORazepam 2 mg/ml vial IV PRN ×2 (01:33→20:49)
[2021-03-09] MEDS: ZINC/COPPER/MANGANESE/SELENIUM 1 ML, chromic chloride inj. 10 MCG in AA 5%/cal/electrol... IV SCH ×2 (01:39→20:45)
--- NOTE | 2021-03-09 02:18 | NUR ---
PT HAD EMESIS R/T TO ANXIETY. PRN ANXIETY MEDICATION WAS ADMINISTERED ORDERED. FEEDING TO NGT HELD AND WILL RESTART IN 30 MINS. PT IS A/OX3 BUT SPEAKS INCOHERENTLY REGARDING PAST EVENTS WHILE ADMITTED THAT DO NOT MAKE SENSE. PT WAS REDIRECTED AND IS NOW RESTING. WILL CONTINUE TO OBSERVE.
[2021-03-09] MEDS: mineral oil/petrolatum ophthal oint EACHEYE SCH ×4 (02:22→20:00)
[2021-03-09 02:30] VITALS: BP 122/67
[2021-03-09 06:00] VITALS: BP 140/78
[2021-03-09 07:24] LABS: BASOPHILS % (AUTO) 0.2 % (0-1); EOSINOPHILS # (AUTO) 0.1 X10'3 (0-0.9); HEMATOCRIT 35.1 % (35.0-45.0); LYMPHOCYTES # (AUTO) 1.5 X10'3 (1.1-4.8); LYMPHOCYTES % (AUTO) 12.6 % (21-51); MEAN CORPUSCULAR HEMOGLOBIN 35.7 PG (27.0-31.0); MEAN CORPUSCULAR HGB CONC 34.1 g/dL (33.0-36.5); MEAN CORPUSCULAR VOLUME 104.8 FL (78-98); MEAN PLATELET VOLUME 8.3 FL (7.4-10.4); MONOCYTES # (AUTO) 0.8 X10'3 (0-0.9); MONOCYTES % (AUTO) 6.6 % (2-12); NEUTROPHILS # (AUTO) 9.7 X10'3 (1.8-7.7); NEUTROPHILS % (AUTO) 79.6 % (42-75); PLATELET COUNT 226 X10'3 (140-440); RED BLOOD COUNT 3.35 X10'6 (4.20-5.60); RED CELL DISTRIBUTION WIDTH 14.3 % (11.5-14.5); WHITE BLOOD COUNT 12.2 X10'3 (4.5-11.0)
[2021-03-09 07:51] LABS: ALANINE AMINOTRANSFERASE 63 U/L (12-78); ALBUMIN 2.6 G/DL (3.4-5.0); ALBUMIN/GLOBULIN RATIO 0.6 (1.1-1.5); ALKALINE PHOSPHATASE 79 IU/L (46-116); ANION GAP 11 (8-16); ASPARTATE AMINO TRANSFERASE 15 U/L (10-37); BILIRUBIN,TOTAL 0.4 MG/DL (0.1-1.0); BLOOD UREA NITROGEN 42 MG/DL (7-18); BUN/CREATININE RATIO 62.7 (6.6-38.0); CALCIUM 9.2 MG/DL (8.5-10.1); CHLORIDE 102 MMOL/L (99-107); CREATININE 0.67 MG/DL (0.40-0.90); GLUCOSE 168 MG/DL (70-104); MAGNESIUM 2.1 MG/DL (1.5-2.4); PHOSPHORUS 3.2 MG/DL (2.3-4.5); POTASSIUM 3.4 MMOL/L (3.5-5.1); SODIUM 141 MMOL/L (135-145); TOTAL CARBON DIOXIDE 27.9 MMOL/L (24-32); TOTAL PROTEIN 6.9 G/DL (6.4-8.2); eGFR > 90 ML/MIN
[2021-03-09] MEDS: furosemide 40mg/4ml inj IV SCH (08:00)
[2021-03-09] MEDS: enoxaparin 40mg/0.4ml syringe SQ SCH (08:00)
[2021-03-09] MEDS: folic acid 1mg/0.2ml inj IV SCH (08:00)
[2021-03-09] MEDS: gabapentin 300mg capsule NG SCH ×3 (08:00→20:48)
[2021-03-09] MEDS: pantoprazole IV 40 MG in normal saline 100ml IV soln 100 ML IV SCH (08:00)
[2021-03-09] MEDS: busPIRone 5mg tablet NG SCH ×3 (08:00→20:48)
[2021-03-09] MEDS: lactobacillus rhamnosus 10,000 MMU CELLS/CAPSULE NG SCH ×2 (08:00→20:00)
[2021-03-09] MEDS: methylPREDNISolone sod succ/PF 40mg inj. IV SCH (08:00)
[2021-03-09] MEDS: K and/or MAG REPLACEMENT MC SCH ×2 (08:00→20:00)
[2021-03-09] MEDS: docusate sodium 100mg/10ml UD cup NG SCH ×2 (08:00→20:00)
[2021-03-09] MEDS: MVI, adult No.4 with vit. K 10 ML in dextrose 5% water 500ml 500 ML IV SCH ×2 (08:00)
[2021-03-09] MEDS: proCHLORperazine 10 MG/2 ml inj IV PRN (09:22)
[2021-03-09 11:00] VITALS: BP 149/84
[2021-03-09 18:00] VITALS: BP 120/71
[2021-03-09] MEDS: diatr meglu/diatrizoate 30ml oral sol.-(3 dose) bottle PO SCH (20:47)
[2021-03-09] MEDS: ESCITALOPRAM OXALATE 5 MG TABLET NG SCH (20:48)
[2021-03-09] MEDS: ondansetron/PF 4mg/2ml inj IV PRN (20:49)
[2021-03-09] MEDS: quetiapine 100mg tablet NG SCH (20:49)
[2021-03-09] MEDS: insulin glargine (Lantus) pen - multi-dose SQ SCH (21:00)
[2021-03-09] MEDS: insulin regular, human U-100 3ml vial - multi-dose SQ SCH (21:22)
[2021-03-09 22:00] VITALS: BP 114/73
[2021-03-10 02:00] VITALS: BP 128/72
[2021-03-10] MEDS: mineral oil/petrolatum ophthal oint EACHEYE SCH ×4 (02:00→20:00)
[2021-03-10 06:00] VITALS: BP 117/65
[2021-03-10 06:30] LABS: BASOPHILS % (AUTO) 0.3 % (0-1); EOSINOPHILS # (AUTO) 0.2 X10'3 (0-0.9); EOSINOPHILS % (AUTO) 1.4 % (0-6); HEMATOCRIT 34.8 % (35.0-45.0); LYMPHOCYTES # (AUTO) 1.8 X10'3 (1.1-4.8); LYMPHOCYTES % (AUTO) 14.8 % (21-51); MEAN CORPUSCULAR HEMOGLOBIN 36.1 PG (27.0-31.0); MEAN CORPUSCULAR HGB CONC 34.4 g/dL (33.0-36.5); MEAN CORPUSCULAR VOLUME 105.1 FL (78-98); MEAN PLATELET VOLUME 8.4 FL (7.4-10.4); MONOCYTES # (AUTO) 0.9 X10'3 (0-0.9); MONOCYTES % (AUTO) 7.2 % (2-12); NEUTROPHILS # (AUTO) 9.2 X10'3 (1.8-7.7); NEUTROPHILS % (AUTO) 76.3 % (42-75); PLATELET COUNT 204 X10'3 (140-440); RED BLOOD COUNT 3.32 X10'6 (4.20-5.60); RED CELL DISTRIBUTION WIDTH 14.5 % (11.5-14.5); WHITE BLOOD COUNT 12.1 X10'3 (4.5-11.0)
[2021-03-10 07:19] LABS: ALANINE AMINOTRANSFERASE 51 U/L (12-78); ALBUMIN 2.6 G/DL (3.4-5.0); ALBUMIN/GLOBULIN RATIO 0.6 (1.1-1.5); ALKALINE PHOSPHATASE 79 IU/L (46-116); ANION GAP 11 (8-16); ASPARTATE AMINO TRANSFERASE 20 U/L (10-37); BILIRUBIN,TOTAL 0.4 MG/DL (0.1-1.0); BLOOD UREA NITROGEN 41 MG/DL (7-18); BUN/CREATININE RATIO 62.1 (6.6-38.0); CALCIUM 9.1 MG/DL (8.5-10.1); CHLORIDE 99 MMOL/L (99-107); CREATININE 0.66 MG/DL (0.40-0.90); GLUCOSE 99 MG/DL (70-104); MAGNESIUM 2.2 MG/DL (1.5-2.4); PHOSPHORUS 3.3 MG/DL (2.3-4.5); SODIUM 140 MMOL/L (135-145); TOTAL CARBON DIOXIDE 30.5 MMOL/L (24-32); TOTAL PROTEIN 7.2 G/DL (6.4-8.2); eGFR > 90 ML/MIN
[2021-03-10] MEDS: diatr meglu/diatrizoate 30ml oral sol.-(3 dose) bottle PO SCH ×2 (07:31→21:00)
[2021-03-10] MEDS: folic acid 1mg/0.2ml inj IV SCH (07:32)
[2021-03-10] MEDS: pantoprazole IV 40 MG in normal saline 100ml IV soln 100 ML IV SCH (07:32)
[2021-03-10] MEDS: methylPREDNISolone sod succ/PF 40mg inj. IV SCH (07:32)
[2021-03-10] MEDS: furosemide 40mg/4ml inj IV SCH (07:32)
[2021-03-10] MEDS: lactobacillus rhamnosus 10,000 MMU CELLS/CAPSULE NG SCH ×2 (08:00→20:39)
[2021-03-10] MEDS: thiamine inj. 100 MG in normal saline 100ml IV soln 100 ML IV SCH (08:00)
[2021-03-10] MEDS: gabapentin 300mg capsule NG SCH ×3 (08:00→20:39)
[2021-03-10] MEDS: busPIRone 5mg tablet NG SCH ×3 (08:00→20:39)
[2021-03-10] MEDS: docusate sodium 100mg/10ml UD cup NG SCH ×2 (08:00→20:00)
[2021-03-10] MEDS: K and/or MAG REPLACEMENT MC SCH ×2 (08:00→20:00)
[2021-03-10] MEDS: enoxaparin 40mg/0.4ml syringe SQ SCH (08:02)
[2021-03-10] MEDS: LORazepam 2 mg/ml vial IV PRN ×2 (08:02→20:40)
[2021-03-10 11:00] VITALS: BP 138/74
[2021-03-10 15:00] VITALS: BP 136/72
[2021-03-10] MEDS ORDERED: ZINC/COPPER/MANGANESE/SELENIUM 1 ML, chromic chloride inj. 10 MCG in AA 5%/cal/electrol... IV SCH (16:28)
[2021-03-10 18:00] VITALS: BP 118/77
[2021-03-10] MEDS: quetiapine 100mg tablet NG SCH (20:39)
[2021-03-10] MEDS: ESCITALOPRAM OXALATE 5 MG TABLET NG SCH (20:39)
[2021-03-10] MEDS: insulin regular, human U-100 3ml vial - multi-dose SQ SCH (20:44)
[2021-03-10] MEDS: insulin glargine (Lantus) pen - multi-dose SQ SCH (21:00)
[2021-03-10 22:00] VITALS: BP 145/86
[2021-03-11 02:00] VITALS: BP 144/86
[2021-03-11] MEDS: mineral oil/petrolatum ophthal oint EACHEYE SCH ×4 (02:00→20:00)
[2021-03-11] MEDS: LORazepam 2 mg/ml vial IV PRN ×3 (04:24→18:54)
--- NOTE | 2021-03-11 06:30 | NUR ---
Patient in room PCU 3025. I have received report from Merritt GREEN and had the opportunity to ask questions and assume patient care.
[2021-03-11 06:55] LABS: ALANINE AMINOTRANSFERASE 51 U/L (12-78); ALBUMIN 2.5 G/DL (3.4-5.0); ALBUMIN/GLOBULIN RATIO 0.5 (1.1-1.5); ALKALINE PHOSPHATASE 88 IU/L (46-116); ANION GAP 8 (8-16); ASPARTATE AMINO TRANSFERASE 21 U/L (10-37); BILIRUBIN,TOTAL 0.4 MG/DL (0.1-1.0); BLOOD UREA NITROGEN 45 MG/DL (7-18); BUN/CREATININE RATIO 68.2 (6.6-38.0); CALCIUM 9.6 MG/DL (8.5-10.1); CHLORIDE 100 MMOL/L (99-107); CREATININE 0.66 MG/DL (0.40-0.90); GLUCOSE 130 MG/DL (70-104); MAGNESIUM 2.3 MG/DL (1.5-2.4); PHOSPHORUS 4.4 MG/DL (2.3-4.5); POTASSIUM 3.8 MMOL/L (3.5-5.1); SODIUM 142 MMOL/L (135-145); TOTAL CARBON DIOXIDE 34.2 MMOL/L (24-32); TOTAL PROTEIN 7.1 G/DL (6.4-8.2); eGFR > 90 ML/MIN
[2021-03-11] MEDS: K and/or MAG REPLACEMENT MC SCH ×2 (08:00→20:00)
[2021-03-11] MEDS: docusate sodium 100mg/10ml UD cup NG SCH (08:00)
[2021-03-11] MEDS: folic acid 1mg/0.2ml inj IV SCH (08:00)
[2021-03-11 08:30] LABS: BASOPHILS % (AUTO) 0.3 % (0-1); EOSINOPHILS # (AUTO) 0.2 X10'3 (0-0.9); EOSINOPHILS % (AUTO) 2.1 % (0-6); HEMATOCRIT 36.3 % (35.0-45.0); HEMOGLOBIN 12.2 g/dl (12.0-16.0); LYMPHOCYTES # (AUTO) 1.8 X10'3 (1.1-4.8); LYMPHOCYTES % (AUTO) 15.7 % (21-51); MEAN CORPUSCULAR HEMOGLOBIN 35.4 PG (27.0-31.0); MEAN CORPUSCULAR HGB CONC 33.7 g/dL (33.0-36.5); MEAN PLATELET VOLUME 8.8 FL (7.4-10.4); MONOCYTES % (AUTO) 9.3 % (2-12); NEUTROPHILS # (AUTO) 8.1 X10'3 (1.8-7.7); NEUTROPHILS % (AUTO) 72.6 % (42-75); PLATELET COUNT 209 X10'3 (140-440); RED BLOOD COUNT 3.45 X10'6 (4.20-5.60); RED CELL DISTRIBUTION WIDTH 14.7 % (11.5-14.5); WHITE BLOOD COUNT 11.2 X10'3 (4.5-11.0)
[2021-03-11] MEDS: busPIRone 5mg tablet NG SCH ×3 (08:52→21:31)
[2021-03-11] MEDS: furosemide 40mg/4ml inj IV SCH (08:52)
[2021-03-11] MEDS: gabapentin 300mg capsule NG SCH ×3 (08:52→21:31)
[2021-03-11] MEDS: lactobacillus rhamnosus 10,000 MMU CELLS/CAPSULE NG SCH ×2 (08:52→20:00)
[2021-03-11] MEDS: proCHLORperazine 10 MG/2 ml inj IV PRN (08:52)
[2021-03-11] MEDS: enoxaparin 40mg/0.4ml syringe SQ SCH (08:53)
[2021-03-11] MEDS: methylPREDNISolone sod succ/PF 40mg inj. IV SCH (08:53)
[2021-03-11] MEDS: piperacillin/tazo 3.375gm/50ml 50 ML IV SCH ×3 (08:56→16:47)
[2021-03-11] MEDS: pantoprazole IV 40 MG in normal saline 100ml IV soln 100 ML IV SCH (08:56)
[2021-03-11] MEDS: thiamine inj. 100 MG in normal saline 100ml IV soln 100 ML IV SCH (08:56)
[2021-03-11] MEDS ORDERED: LOPERAMIDE 2 mg/15 ml oral solution UD NG PRN (12:45)
[2021-03-11 18:00] VITALS: BP 137/87
--- NOTE | 2021-03-11 18:30 | NUR ---
Problems reprioritized. Patient report given, questions answered & plan of care reviewed with Merritt GREEN.
[2021-03-11] MEDS: morphine 2 MG/ML inj. syringe IV PRN (20:34)
[2021-03-11] MEDS: insulin glargine (Lantus) pen - multi-dose SQ SCH (21:00)
[2021-03-11] MEDS: quetiapine 100mg tablet NG SCH (21:31)
[2021-03-11] MEDS: ESCITALOPRAM OXALATE 5 MG TABLET NG SCH (21:31)
[2021-03-11] MEDS: insulin regular, human U-100 3ml vial - multi-dose SQ SCH (21:33)
[2021-03-11] MEDS: ondansetron/PF 4mg/2ml inj IV PRN (21:48)
[2021-03-11 22:00] VITALS: BP 120/74
[2021-03-12] MEDS: piperacillin/tazo 3.375gm/50ml 50 ML IV SCH ×2 (01:07→09:46)
[2021-03-12 02:00] VITALS: BP 107/50
[2021-03-12] MEDS: mineral oil/petrolatum ophthal oint EACHEYE SCH ×3 (02:00→14:00)
[2021-03-12] MEDS: LORazepam 2 mg/ml vial IV PRN ×2 (05:38→14:52)
[2021-03-12 06:13] LABS: BASOPHILS % (AUTO) 0.3 % (0-1); EOSINOPHILS # (AUTO) 0.2 X10'3 (0-0.9); EOSINOPHILS % (AUTO) 2.1 % (0-6); HEMATOCRIT 33.5 % (35.0-45.0); HEMOGLOBIN 11.4 g/dl (12.0-16.0); LYMPHOCYTES % (AUTO) 20.8 % (21-51); MEAN CORPUSCULAR HEMOGLOBIN 35.7 PG (27.0-31.0); MEAN CORPUSCULAR HGB CONC 33.8 g/dL (33.0-36.5); MEAN CORPUSCULAR VOLUME 105.4 FL (78-98); MEAN PLATELET VOLUME 8.6 FL (7.4-10.4); MONOCYTES # (AUTO) 0.9 X10'3 (0-0.9); MONOCYTES % (AUTO) 9.2 % (2-12); NEUTROPHILS # (AUTO) 6.6 X10'3 (1.8-7.7); NEUTROPHILS % (AUTO) 67.6 % (42-75); PLATELET COUNT 222 X10'3 (140-440); RED BLOOD COUNT 3.18 X10'6 (4.20-5.60); RED CELL DISTRIBUTION WIDTH 14.6 % (11.5-14.5); WHITE BLOOD COUNT 9.8 X10'3 (4.5-11.0)
[2021-03-12 06:14] LABS: ALANINE AMINOTRANSFERASE 48 U/L (12-78); ALBUMIN 2.3 G/DL (3.4-5.0); ALBUMIN/GLOBULIN RATIO 0.5 (1.1-1.5); ALKALINE PHOSPHATASE 80 IU/L (46-116); ANION GAP 8 (8-16); ASPARTATE AMINO TRANSFERASE 16 U/L (10-37); BILIRUBIN,TOTAL 0.4 MG/DL (0.1-1.0); BLOOD UREA NITROGEN 41 MG/DL (7-18); BUN/CREATININE RATIO 68.3 (6.6-38.0); CHLORIDE 102 MMOL/L (99-107); GLUCOSE 106 MG/DL (70-104); MAGNESIUM 2.2 MG/DL (1.5-2.4); PHOSPHORUS 3.8 MG/DL (2.3-4.5); POTASSIUM 3.5 MMOL/L (3.5-5.1); SODIUM 142 MMOL/L (135-145); TOTAL CARBON DIOXIDE 31.9 MMOL/L (24-32); TOTAL PROTEIN 6.6 G/DL (6.4-8.2); TRIGLYCERIDES 99 MG/DL (20-135); eGFR > 90 ML/MIN
--- NOTE | 2021-03-12 06:30 | NUR ---
Patient in room PCU 3025. I have received report from Merritt GREEN and had the opportunity to ask questions and assume patient care.
[2021-03-12] MEDS ORDERED: vancomycin/NS 1 GM ADD-VANTAGE 250 ML IV SCH (07:00)
[2021-03-12] MEDS: K and/or MAG REPLACEMENT MC SCH (08:00)
[2021-03-12] MEDS: folic acid 1mg/0.2ml inj IV SCH (08:00)
[2021-03-12] MEDS: gabapentin 300mg capsule NG SCH ×2 (08:16→13:00)
[2021-03-12] MEDS: lactobacillus rhamnosus 10,000 MMU CELLS/CAPSULE NG SCH (08:16)
[2021-03-12] MEDS: busPIRone 5mg tablet NG SCH ×2 (08:16→13:00)
[2021-03-12] MEDS: furosemide 40mg/4ml inj IV SCH (08:17)
[2021-03-12] MEDS: methylPREDNISolone sod succ/PF 40mg inj. IV SCH (08:17)
[2021-03-12] MEDS: morphine 2 MG/ML inj. syringe IV PRN ×2 (08:18→18:11)
[2021-03-12] MEDS: enoxaparin 40mg/0.4ml syringe SQ SCH (08:18)
[2021-03-12] MEDS: pantoprazole IV 40 MG in normal saline 100ml IV soln 100 ML IV SCH (08:19)
[2021-03-12] MEDS: thiamine inj. 100 MG in normal saline 100ml IV soln 100 ML IV SCH (08:19)
[2021-03-12] MEDS: ondansetron/PF 4mg/2ml inj IV PRN ×2 (09:35→18:11)
--- NOTE | 2021-03-12 12:47 | NUR ---
F/u 03/12: Pt TF has been advanced to goal of Pivot at 57ml/hr and tolerating well; TPN has been stopped. Pt noted to continue to be confused. LBM 03/10. No change to nutrition recommendations at this time, will continue to monitor. Recommendations: 1. Advance TF using Pivot 1.5 at 57ml/hr goal; would provide 1368ml volume/day, 2052 kcal, 1040ml water, and 128g protein. 2. Additional water flush 200ml Q4H once TPN stopped; monitor serum Na 3. TG/PALB q Friday/; Daily scaled wt 4. advance diet as medically indicated per PREPRESS MANAGER/MD to low-residue 5. Routine Thiamine, Folic acid, and MVI for EtOH hx per MD 6. Routine bowel care 7. Advance diet per PREPRESS MANAGER/MD to low residue Addendum: 03/12/21 at [address] Amended: Links added.
--- NOTE | 2021-03-12 19:03 | NUR ---
Problems reprioritized. Patient report given, questions answered & plan of care reviewed with Merritt GREEN.
[2021-03-12 19:20] VITALS: BP 117/84
--- NOTE | 2021-03-12 19:29 | NUR ---
PATIENT WAS PICKED UP BY EMS TO [facility] AT 1920. PATIENT WAS IN A STABLE CONDITION, VITAL SIGN STABLE AND REPORT WAS GIVEN BY THE DAY SHIFT NURSE TO THE FACILITY. TELE WAS REMOVED AND ALL CARE WAS TRANSFERRED TO [facility].
[2021-03-13] MEDS ORDERED: lansoprazole 15mg solutab NG SCH (08:00)
[2021-03-13] MEDS ORDERED: VANCOMYCIN LEVEL IV ONE (18:30)
== END 2021-03-12 19:20 | DRG 335 ==
LOC: ER 07:22 → ED HOLD 11:44 → SUR 3N 14:10 → ICU 2S 02-14 14:54 → SUR 3N 03-06 16:53 → PCU 3S 03-07 03:45
PROVIDERS: ADMIT Family Medicine; ATTEND Internal Medicine Critical Care Medicine
PROC: 0D9670Z Drainage of Stomach with Drainage Device, Via Natural or Artificial Opening (ICD-10-PCS; 2021-02-13)
PROC: 0WJG4ZZ Inspection of Peritoneal Cavity, Percutaneous Endoscopic Approach (ICD-10-PCS; 2021-02-14)
PROC: 3E0T3BZ Introduction of Anesthetic Agent into Peripheral Nerves and Plexi, Percutaneous Approach (ICD-10-PCS; 2021-02-14)
PROC: 5A1955Z Respiratory Ventilation, Greater than 96 Consecutive Hours (ICD-10-PCS; 2021-02-14)
PROC: 04HY32Z Insertion of Monitoring Device into Lower Artery, Percutaneous Approach (ICD-10-PCS; 2021-02-14)
PROC: 06HY33Z Insertion of Infusion Device into Lower Vein, Percutaneous Approach (ICD-10-PCS; 2021-02-14)
PROC: 0BH17EZ Insertion of Endotracheal Airway into Trachea, Via Natural or Artificial Opening (ICD-10-PCS; 2021-02-14)
PROC: 0DN80ZZ Release Small Intestine, Open Approach (ICD-10-PCS; principal; 2021-02-14 11:03)
PROC: 3E0336Z Introduction of Nutritional Substance into Peripheral Vein, Percutaneous Approach (ICD-10-PCS; 2021-02-17)
PROC: B32T1ZZ Computerized Tomography (CT Scan) of Left Pulmonary Artery using Low Osmolar Contrast (ICD-10-PCS; 2021-02-20)
PROC: B3201ZZ Computerized Tomography (CT Scan) of Thoracic Aorta using Low Osmolar Contrast (ICD-10-PCS; 2021-02-20)
PROC: B32S1ZZ Computerized Tomography (CT Scan) of Right Pulmonary Artery using Low Osmolar Contrast (ICD-10-PCS; 2021-02-20)
PROC: 02H633Z Insertion of Infusion Device into Right Atrium, Percutaneous Approach (ICD-10-PCS; 2021-02-22)
DX: K56.52 Intestinal adhesions [bands] with complete obstruction (principal); J69.0 Pneumonitis due to inhalation of food and vomit; A41.9 Sepsis, unspecified organism; J80 Acute respiratory distress syndrome; I46.9 Cardiac arrest, cause unspecified; E87.2 Acidosis; G93.40 Encephalopathy, unspecified; Z99.11 Dependence on respirator [ventilator] status; N17.9 Acute kidney failure, unspecified; E87.3 Alkalosis; G89.4 Chronic pain syndrome; I12.9 Hypertensive chronic kidney disease with stage 1 through stage 4 chronic kidney disease, or unspecified chronic kidney disease; E66.9 Obesity, unspecified; N18.9 Chronic kidney disease, unspecified; F32.A Depression, unspecified; F41.9 Anxiety disorder, unspecified; Z20.822 Contact with and (suspected) exposure to COVID-19; R00.1 Bradycardia, unspecified; E87.6 Hypokalemia; D50.0 Iron deficiency anemia secondary to blood loss (chronic); G43.909 Migraine, unspecified, not intractable, without status migrainosus; Z53.31 Laparoscopic surgical procedure converted to open procedure; Z82.5 Family history of asthma and other chronic lower respiratory diseases; Z82.61 Family history of arthritis; Z90.710 Acquired absence of both cervix and uterus; Z90.49 Acquired absence of other specified parts of digestive tract; Z88.8 Allergy status to other drugs, medicaments and biological substances; Z88.6 Allergy status to analgesic agent; Z79.899 Other long term (current) drug therapy; Z68.30 Body mass index [BMI] 30.0-30.9, adult
CPT/HCPCS: 36569; 36573; 93306; 99285; Z7506; Z7508; 36415; 36600; 71045; 71275; 74018; 74176; 74177; 76937; 80048; 80053; 80061; 80202; 80305; 80320; 81001; 82150; 82550; 82607; 82728; 82803; 82948; 83036; 83540; 83550; 83605; 83690; 83735; 84100; 84132; 84134; 84145; 84478; 84484; 84702; 85007; 85018; 85025; 85379; 85384; 85610; 85730; 87040; 87070; 87077; 87081; 87088; 87186; 87635; 93970; 94002; 94003; 94640; 94760; 94799; 97110; 97116; 97161; 97530; 97535; A4215; A4314; A4618; A7000; C9113; C9290; G0378; J0131; J0360; J0461; J0780; J1100; J1120; J1265; J1450; J1630; J1644; J1650; J1720; J1756; J1815; J1885; J1940; J2060; J2250; J2270; J2274; J2405; J2543; J2704; J2765; J2920; J2930; J3010; J3370; J3411; J3475; J3480; J3490; J7030; J7050; J7060; J7120; Q9963; Q9967; S0020

== ENCOUNTER 2021-08-24 16:51 | Inpatient (IN) | payer BC ==
[~2021-08-24] VITALS: Ht 165.1 cm; Wt 74.0 kg
[~2021-08-24 16:51] MED LIST changes: -ALBU6.7H9 INH; +BUSP-28 PO; -ESCI10TA PO; +ESCI20TA PO; -GUAI120015 PO; +LORA-269 PO; +LOSA25TA96 PO; -QUET-1 PO; +QUET200T PO
[2021-08-24 17:58] LABS: ALANINE AMINOTRANSFERASE 19 U/L (12-78); ALBUMIN 3.3 G/DL (3.4-5.0); ALBUMIN/GLOBULIN RATIO 0.8 (1.1-1.5); ALKALINE PHOSPHATASE 91 IU/L (46-116); ANION GAP 4 (8-16); ASPARTATE AMINO TRANSFERASE 18 U/L (10-37); BILIRUBIN,TOTAL 0.2 MG/DL (0.1-1.0); BLOOD UREA NITROGEN 23 MG/DL (7-18); BUN/CREATININE RATIO 23.2 (6.6-38.0); CHLORIDE 105 MMOL/L (99-107); CREATININE 0.99 MG/DL (0.40-0.90); GLUCOSE 121 MG/DL (70-104); LIPASE < 50 U/L (73-393); POTASSIUM 4.2 MMOL/L (3.5-5.1); SODIUM 136 MMOL/L (135-145); TOTAL CARBON DIOXIDE 26.6 MMOL/L (24-32); TOTAL PROTEIN 7.2 G/DL (6.4-8.2); eGFR 60 ML/MIN
[2021-08-24 18:02] LABS: BASOPHILS % (AUTO) 0.8 % (0-1); EOSINOPHILS # (AUTO) 0.1 X10'3 (0-0.9); EOSINOPHILS % (AUTO) 1.7 % (0-6); HEMATOCRIT 40.3 % (35.0-45.0); HEMOGLOBIN 13.4 g/dl (12.0-16.0); LYMPHOCYTES # (AUTO) 2.2 X10'3 (1.1-4.8); LYMPHOCYTES % (AUTO) 41.9 % (21-51); MEAN CORPUSCULAR HEMOGLOBIN 28.7 PG (27.0-31.0); MEAN CORPUSCULAR HGB CONC 33.3 g/dL (33.0-36.5); MEAN PLATELET VOLUME 7.4 FL (7.4-10.4); MONOCYTES # (AUTO) 0.5 X10'3 (0-0.9); MONOCYTES % (AUTO) 10.1 % (2-12); NEUTROPHILS # (AUTO) 2.4 X10'3 (1.8-7.7); NEUTROPHILS % (AUTO) 45.5 % (42-75); PLATELET COUNT 297 X10'3 (140-440); RED BLOOD COUNT 4.68 X10'6 (4.20-5.60); RED CELL DISTRIBUTION WIDTH 13.4 % (11.5-14.5); WHITE BLOOD COUNT 5.3 X10'3 (4.5-11.0)
[2021-08-24 18:29] LABS: CLARITY,URINE SLIGHTLY CLOUDY (Clear); COLOR,URINE YELLOW (Yellow); GLUCOSE, URINE NEGATIVE (Neg); KETONES,URINE NEGATIVE (Neg); LEUKOCYTE ESTERASE ,URINE SMALL (Neg); NITRITES, URINE POSITIVE (Neg); OCCULT BLOOD,URINE NEGATIVE (Neg); PH,URINE 5.5 (4.8-8.0); PROTEIN,URINE NEGATIVE (Neg); URINE HCG NEGATIVE (NEG); UROBILINOGEN,URINE 0.2 E.U/dL (0.2-1.0)
[2021-08-24 18:31] LABS: UA COLLECTION TYPE CLN CATCH MIDSTREAM
[2021-08-24 18:43] LABS: BACTERIA,URINE 2+ /HPF (Neg); MUCUS STRANDS MODERATE /LPF (Neg); RBC,URINE NONE SEEN /HPF (0-2); SQUAMOUS EPITHELIAL CELL,UR MODERATE /LPF (FEW); WBC,URINE 20-30 /HPF (0-4)
[2021-08-25] MEDS ORDERED: ondansetron/PF 4mg/2ml inj IV ONE (01:45)
[2021-08-25] MEDS ORDERED: normal saline 1000ml 1,000 ML IV ONE (01:45)
[2021-08-25] MEDS ORDERED: morphine 2 MG/ML inj. syringe IV ONE ×3 (01:45→11:00)
[2021-08-25] MEDS ORDERED: iohexol 300mg/ml 100ml inj. ONE (01:52)
[2021-08-25] MEDS ORDERED: LIDOcaine 1% 30ml preserv. free vial IJ ONE (02:45)
[2021-08-25] MEDS ORDERED: diphenhydrAMINE 50 mg/ml inj IV ONE (03:20)
[2021-08-25] MEDS ORDERED: pantoprazole 40MG/NS 100ML BAG 100 ML IV STA (03:48)
[2021-08-25] MEDS ORDERED: NITR100C11 PO (03:54)
[2021-08-25] MEDS ORDERED: morphine 4 MG/ML inj SYRINge IV ONE (05:15)
[2021-08-25] MEDS ORDERED: metroNIDAZOLE-Flagyl 750mg/NS 150 ML IV STA (06:12)
[2021-08-25] MEDS ORDERED: levoFLOXACIN-Levaquin 750MG/D5 150 ML IV STA (06:12)
[2021-08-25] MEDS ORDERED: metoclopramide 5 mg/ml inj IV ONE (06:15)
--- NOTE | 2021-08-25 07:30 | NUR ---
REPORTED FROM HIDE SPLITTER, PT DIFFICULT IV PLACEMENT. MULTIPLE ATTEMPTS FOR ACCESS ON BILAT ARMS.
[2021-08-25] MEDS: diatr meglu/diatrizoate 30ml oral sol.-(3 dose) bottle PO SCH ×3 (08:40→15:15)
[2021-08-25 09:43] LABS: GASTRIC OCCULT BLOOD POSITIVE (Neg)
[2021-08-25] MEDS: normal saline 1000ml 1,000 ML IV SCH ×5 (10:12→21:00)
[2021-08-25] MEDS ORDERED: acetaminophen 650mg rectal suppository RC PRN (11:00)
[2021-08-25] MEDS ORDERED: HYDROcodone/acetaminophen 5mg/325mg tablet PO PRN (11:00)
[2021-08-25] MEDS ORDERED: mag hydrox/Alum hydrox/simeth 30ml oral suspension PO PRN (11:00)
[2021-08-25] MEDS ORDERED: magnesium 4gm in 100ml NS 100 ML IV PRN (11:00)
[2021-08-25] MEDS ORDERED: magnesium Cl slow-release 64mg tablet PO PRN (11:00)
[2021-08-25] MEDS ORDERED: potassium CL 10mEq/100ml bag 100 ML IV PRN (11:00)
[2021-08-25] MEDS ORDERED: bisacodyl 10mg suppository rectal RC PRN (11:00)
[2021-08-25] MEDS ORDERED: morphine 2 MG/ML inj. syringe IV PRN (11:00)
[2021-08-25] MEDS ORDERED: acetaminophen 325mg tablet PO PRN ×2 (11:00)
[2021-08-25] MEDS ORDERED: POTASSIUM BICARB 20meq eff tab 20 MEQ TABLET.EFF PO PRN ×2 (11:00)
[2021-08-25] MEDS ORDERED: magnesium 2GM in 50ml NS 50 ML IV PRN (11:00)
[2021-08-25] MEDS ORDERED: magnesium hydroxide 30ml (MOM) UD suspension PO PRN (11:00)
[2021-08-25 11:48] LABS: HEMATOCRIT 37.6 % (35.0-45.0); HEMOGLOBIN 12.8 g/dl (12.0-16.0); MEAN CORPUSCULAR HEMOGLOBIN 29.4 PG (27.0-31.0); MEAN CORPUSCULAR VOLUME 86.6 FL (78-98); MEAN PLATELET VOLUME 7.3 FL (7.4-10.4); PLATELET COUNT 254 X10'3 (140-440); RED BLOOD COUNT 4.34 X10'6 (4.20-5.60); RED CELL DISTRIBUTION WIDTH 13.3 % (11.5-14.5); WHITE BLOOD COUNT 5.8 X10'3 (4.5-11.0)
--- NOTE | 2021-08-25 12:00 | NUR ---
PIV GOING BAD. ULTRASOUND GUIDED IV PLACED IN LEFT UPPER ARM. PIV PATENT, FLUIDS RUNNING.
[2021-08-25] MEDS: LORazepam 1 MG tablet PO SCH ×2 (13:18→20:30)
[2021-08-25] MEDS: cefTRIAXone 1g/NS 100ml IVPB 100 ML IV SCH (13:19)
[2021-08-25] MEDS: gabapentin 300mg capsule PO SCH ×3 (13:19→20:30)
[2021-08-25] MEDS: metoclopramide 5 mg/ml inj IV PRN (13:51)
[2021-08-25] MEDS: busPIRone 5mg tablet PO SCH ×2 (13:51→20:30)
[2021-08-25] MEDS: morphine 2 MG/ML inj. syringe IV PRN ×3 (13:52→23:04)
--- NOTE | 2021-08-25 14:19 | NUR ---
PT LOST IV ACCESS. MD AWARE. SQL SERVER DBA DEVELOPER WILL MAKE LAST ATTMEPT FOR IV ACCESS. DISCUSSIONN FOR POSSIBLE CENTRAL LINE PLACEMENT.
[2021-08-25] MEDS: pantoprazole 40MG/NS 100ML BAG 100 ML IV SCH ×3 (15:14→22:43)
--- NOTE | 2021-08-25 15:21 | NUR ---
PT TO CT
[2021-08-25 17:07] LABS: HEMATOCRIT 37.4 % (35.0-45.0); HEMOGLOBIN 12.5 g/dl (12.0-16.0); MEAN CORPUSCULAR HEMOGLOBIN 28.6 PG (27.0-31.0); MEAN CORPUSCULAR HGB CONC 33.3 g/dL (33.0-36.5); MEAN CORPUSCULAR VOLUME 85.9 FL (78-98); MEAN PLATELET VOLUME 7.1 FL (7.4-10.4); PLATELET COUNT 249 X10'3 (140-440); RED BLOOD COUNT 4.35 X10'6 (4.20-5.60); RED CELL DISTRIBUTION WIDTH 13.5 % (11.5-14.5); WHITE BLOOD COUNT 4.7 X10'3 (4.5-11.0)
[2021-08-25] MEDS: HYDROcodone/acetaminophen 10/325mg tab PO PRN (17:37)
[2021-08-25 18:00] VITALS: BP 124/44
[2021-08-25] MEDS: K and/or MAG REPLACEMENT MC SCH (20:00)
[2021-08-25] MEDS: docusate sod 100mg capsule PO SCH (20:29)
[2021-08-25] MEDS: ESCITALOPRAM OXALATE 5 MG TABLET PO SCH (20:30)
[2021-08-25] MEDS: lactobacillus rhamnosus 10,000 MMU CELLS/CAPSULE PO SCH (20:32)
[2021-08-25 22:00] VITALS: BP 121/65
[2021-08-25] MEDS: quetiapine 100mg tablet PO SCH (22:43)
[2021-08-25] MEDS: metroNIDAZOLE-Flagyl 500mg/NS 100 ML IV SCH ×2 (23:24→23:29)
[2021-08-25] MEDS: diphenhydrAMINE 25mg capsule PO PRN (23:38)
[2021-08-26] MEDS: HYDROcodone/acetaminophen 10/325mg tab PO PRN ×3 (00:12→20:38)
[2021-08-26] MEDS: pantoprazole 40MG/NS 100ML BAG 100 ML IV SCH ×5 (01:00→22:51)
[2021-08-26 02:00] VITALS: BP 125/61
[2021-08-26] MEDS: normal saline 1000ml 1,000 ML IV SCH ×3 (02:15→17:00)
[2021-08-26] MEDS: morphine 2 MG/ML inj. syringe IV PRN ×5 (04:07→22:27)
[2021-08-26 06:49] LABS: HEMATOCRIT 35.8 % (35.0-45.0); MEAN CORPUSCULAR HEMOGLOBIN 29.4 PG (27.0-31.0); MEAN CORPUSCULAR HGB CONC 33.6 g/dL (33.0-36.5); MEAN CORPUSCULAR VOLUME 87.5 FL (78-98); MEAN PLATELET VOLUME 6.9 FL (7.4-10.4); PLATELET COUNT 220 X10'3 (140-440); RED BLOOD COUNT 4.09 X10'6 (4.20-5.60); RED CELL DISTRIBUTION WIDTH 13.3 % (11.5-14.5); WHITE BLOOD COUNT 3.7 X10'3 (4.5-11.0)
--- NOTE | 2021-08-26 06:51 | NUR ---
Patient in room PCU 3012. I have received report from Priya GREEN and had the opportunity to ask questions and assume patient care.
[2021-08-26 07:00] VITALS: BP 103/63
[2021-08-26 07:28] LABS: ALANINE AMINOTRANSFERASE 9 U/L (12-78); ALBUMIN 2.6 G/DL (3.4-5.0); ALBUMIN/GLOBULIN RATIO 0.8 (1.1-1.5); ALKALINE PHOSPHATASE 68 IU/L (46-116); ANION GAP 6 (8-16); ASPARTATE AMINO TRANSFERASE 16 U/L (10-37); BILIRUBIN,TOTAL 0.4 MG/DL (0.1-1.0); BLOOD UREA NITROGEN 9 MG/DL (7-18); BUN/CREATININE RATIO 10.8 (6.6-38.0); CALCIUM 8.5 MG/DL (8.5-10.1); CHLORIDE 109 MMOL/L (99-107); CHOL/HDL RATIO 3.1 (0.00-4.99); CHOLESTEROL 148 MG/DL (0-200); CREATININE 0.83 MG/DL (0.40-0.90); GLUCOSE 89 MG/DL (70-104); HDL CHOLESTEROL 47 MG/DL (35-60); LDL CHOLESTEROL 78 MG/DL (50-100); MAGNESIUM 1.6 MG/DL (1.5-2.4); PHOSPHORUS 4.1 MG/DL (2.3-4.5); SODIUM 140 MMOL/L (135-145); TOTAL CARBON DIOXIDE 24.8 MMOL/L (24-32); TOTAL PROTEIN 5.9 G/DL (6.4-8.2); TRIGLYCERIDES 53 MG/DL (20-135); eGFR 73 ML/MIN
[2021-08-26] MEDS: K and/or MAG REPLACEMENT MC SCH ×2 (08:00→20:00)
[2021-08-26] MEDS: busPIRone 5mg tablet PO SCH ×3 (08:24→20:45)
[2021-08-26] MEDS: gabapentin 300mg capsule PO SCH ×4 (08:24→20:44)
[2021-08-26] MEDS: LORazepam 1 MG tablet PO SCH ×3 (08:25→22:28)
[2021-08-26] MEDS: lactobacillus rhamnosus 10,000 MMU CELLS/CAPSULE PO SCH ×2 (08:25→20:39)
[2021-08-26] MEDS: cefTRIAXone 1g/NS 100ml IVPB 100 ML IV SCH (08:25)
[2021-08-26] MEDS: metroNIDAZOLE-Flagyl 500mg/NS 100 ML IV SCH ×2 (08:26→16:27)
[2021-08-26] MEDS: docusate sod 100mg capsule PO SCH ×2 (08:26→20:39)
[2021-08-26 11:00] VITALS: BP 114/70
[2021-08-26] MEDS ORDERED: bisacodyl 10mg suppository rectal RC STA (11:30)
--- NOTE | 2021-08-26 12:17 | NUR ---
Patient only has 1 IV site, having to run meds 1 at a time. This is reason for not giving 1100 Protonix. Pt still has 0700 dose running.
[2021-08-26] MEDS: ondansetron/PF 4mg/2ml inj IV PRN (13:10)
--- NOTE | 2021-08-26 13:22 | NUR ---
Message: [id number] Lia Gonzalez: Pt had small, hard BM after suppository. Abdomen is tender on palpation, and has absent bowel sounds. [employer] [facility] [id number] Transaction number: [id number]
[2021-08-26] MEDS: magnesium hydroxide 30ml (MOM) UD suspension PO SCH ×2 (14:04→20:00)
[2021-08-26 15:00] VITALS: BP 125/68
[2021-08-26] MEDS: metoclopramide 5 mg/ml inj IV PRN ×2 (16:30→22:28)
[2021-08-26] MEDS: diphenhydrAMINE 25mg capsule PO PRN (18:04)
[2021-08-26 18:30] VITALS: BP 125/87
--- NOTE | 2021-08-26 19:30 | NUR ---
pt reports she has sleep apnea & uses 2L o2 at HS, at home Addendum: 08/27/21 at 0420 by Mary Pugh RN Amended: Links added.
[2021-08-26] MEDS: ESCITALOPRAM OXALATE 5 MG TABLET PO SCH (20:45)
[2021-08-26] MEDS ORDERED: polyethylene glycol 3350 17gm powd pack PO SCH (21:00)
[2021-08-26] MEDS: quetiapine 100mg tablet PO SCH (22:29)
[2021-08-26 22:30] VITALS: BP 126/88
[2021-08-27] MEDS: metroNIDAZOLE-Flagyl 500mg/NS 100 ML IV SCH ×3 (00:32→07:56)
[2021-08-27] MEDS: HYDROcodone/acetaminophen 10/325mg tab PO PRN ×3 (00:46→10:16)
[2021-08-27] MEDS: pantoprazole 40MG/NS 100ML BAG 100 ML IV SCH ×3 (01:00→11:00)
[2021-08-27 02:40] VITALS: BP 106/66
[2021-08-27] MEDS: morphine 2 MG/ML inj. syringe IV PRN ×3 (02:40→12:07)
[2021-08-27] MEDS: normal saline 1000ml 1,000 ML IV SCH (03:00)
[2021-08-27 07:00] VITALS: BP 109/64
[2021-08-27] MEDS: ondansetron/PF 4mg/2ml inj IV PRN (07:08)
[2021-08-27] MEDS: busPIRone 5mg tablet PO SCH (07:15)
[2021-08-27] MEDS: lactobacillus rhamnosus 10,000 MMU CELLS/CAPSULE PO SCH (07:15)
[2021-08-27] MEDS: LORazepam 1 MG tablet PO SCH (07:15)
[2021-08-27] MEDS: gabapentin 300mg capsule PO SCH (07:16)
[2021-08-27 07:25] LABS: BASOPHILS % (AUTO) 1.2 % (0-1); EOSINOPHILS # (AUTO) 0.1 X10'3 (0-0.9); EOSINOPHILS % (AUTO) 3.8 % (0-6); HEMATOCRIT 32.7 % (35.0-45.0); HEMOGLOBIN 10.9 g/dl (12.0-16.0); LYMPHOCYTES # (AUTO) 1.7 X10'3 (1.1-4.8); MEAN CORPUSCULAR HEMOGLOBIN 28.7 PG (27.0-31.0); MEAN CORPUSCULAR HGB CONC 33.3 g/dL (33.0-36.5); MEAN CORPUSCULAR VOLUME 86.1 FL (78-98); MONOCYTES # (AUTO) 0.5 X10'3 (0-0.9); MONOCYTES % (AUTO) 13.3 % (2-12); NEUTROPHILS # (AUTO) 1.5 X10'3 (1.8-7.7); NEUTROPHILS % (AUTO) 37.7 % (42-75); PLATELET COUNT 213 X10'3 (140-440); RED CELL DISTRIBUTION WIDTH 13.2 % (11.5-14.5); WHITE BLOOD COUNT 3.9 X10'3 (4.5-11.0)
[2021-08-27 07:40] LABS: ALANINE AMINOTRANSFERASE 12 U/L (12-78); ALBUMIN 2.5 G/DL (3.4-5.0); ALBUMIN/GLOBULIN RATIO 0.8 (1.1-1.5); ALKALINE PHOSPHATASE 63 IU/L (46-116); ANION GAP 7 (8-16); ASPARTATE AMINO TRANSFERASE 15 U/L (10-37); BILIRUBIN,TOTAL 0.3 MG/DL (0.1-1.0); BLOOD UREA NITROGEN 9 MG/DL (7-18); BUN/CREATININE RATIO 11.3 (6.6-38.0); CALCIUM 8.2 MG/DL (8.5-10.1); CHLORIDE 108 MMOL/L (99-107); GLUCOSE 73 MG/DL (70-104); MAGNESIUM 1.5 MG/DL (1.5-2.4); PHOSPHORUS 3.3 MG/DL (2.3-4.5); POTASSIUM 3.8 MMOL/L (3.5-5.1); SODIUM 139 MMOL/L (135-145); TOTAL CARBON DIOXIDE 24.2 MMOL/L (24-32); TOTAL PROTEIN 5.6 G/DL (6.4-8.2); eGFR 76 ML/MIN
[2021-08-27] MEDS: docusate sod 100mg capsule PO SCH (07:50)
[2021-08-27] MEDS: magnesium hydroxide 30ml (MOM) UD suspension PO SCH (07:52)
[2021-08-27] MEDS: cefTRIAXone 1g/NS 100ml IVPB 100 ML IV SCH (08:00)
[2021-08-27] MEDS: K and/or MAG REPLACEMENT MC SCH (08:00)
--- NOTE | 2021-08-27 08:00 | NUR ---
patient was given a dose of potassium with a potassium of 3.8. patient was informed she got a dose of potassium ,Dr boss informed and charge nurse lavern informed. patient had repeat blood test to test level. potassium was 4.8 still within normal range
[2021-08-27] MEDS ORDERED: LACT1CAP26 PO (08:30)
[2021-08-27] MEDS ORDERED: TRAM50TA2 PO (08:30)
[2021-08-27] MEDS ORDERED: PANT40TA54 PO (08:30)
[2021-08-27] MEDS ORDERED: CEFD300C3 PO (08:30)
[2021-08-27] MEDS ORDERED: METR-159 PO (08:30)
[2021-08-27] MEDS ORDERED: DOCU100C40 PO (08:35)
[2021-08-27] MEDS ORDERED: MAGN400O6 PO (08:36)
[2021-08-27] MEDS ORDERED: ONDA4TAB12 PO (08:39)
[2021-08-27 09:40] LABS: HEMOGLOBIN 11.2 g/dl (12.0-16.0); MEAN CORPUSCULAR HEMOGLOBIN 28.3 PG (27.0-31.0); MEAN CORPUSCULAR HGB CONC 32.9 g/dL (33.0-36.5); MEAN PLATELET VOLUME 7.1 FL (7.4-10.4); PLATELET COUNT 227 X10'3 (140-440); RED BLOOD COUNT 3.95 X10'6 (4.20-5.60); RED CELL DISTRIBUTION WIDTH 13.2 % (11.5-14.5); WHITE BLOOD COUNT 4.8 X10'3 (4.5-11.0)
[2021-08-27] MEDS: metoclopramide 5 mg/ml inj IV PRN (12:06)
--- NOTE | 2021-08-27 12:35 | NUR ---
patient c/o pain medicated as per emar. Dr boss aware. patient had 3 BM, large size this am. All Dc instructions given to patient. patient handed script for [place] 10mg, to take to pharmacy . PIV x2 removed intact. patient DC home in stable condition with via private car
== END 2021-08-27 12:25 | disposition home or self-care (01) | DRG 757 ==
LOC: ER 16:51 → ED HOLD 08-25 11:08 → PCU 3S 08-25 17:28
PROVIDERS: ADMIT Family Medicine; ATTEND Family Medicine
DX: N76.0 Acute vaginitis (principal); K22.6 Gastro-esophageal laceration-hemorrhage syndrome; N39.0 Urinary tract infection, site not specified; F41.9 Anxiety disorder, unspecified; F11.10 Opioid abuse, uncomplicated; G43.909 Migraine, unspecified, not intractable, without status migrainosus; B96.1 Klebsiella pneumoniae [K. pneumoniae] as the cause of diseases classified elsewhere; F32.A Depression, unspecified; K59.00 Constipation, unspecified; K29.00 Acute gastritis without bleeding; N32.89 Other specified disorders of bladder; I12.9 Hypertensive chronic kidney disease with stage 1 through stage 4 chronic kidney disease, or unspecified chronic kidney disease; N18.9 Chronic kidney disease, unspecified; Z82.49 Family history of ischemic heart disease and other diseases of the circulatory system; Z82.5 Family history of asthma and other chronic lower respiratory diseases; Z90.710 Acquired absence of both cervix and uterus; Z88.5 Allergy status to narcotic agent; Z88.8 Allergy status to other drugs, medicaments and biological substances; Z90.49 Acquired absence of other specified parts of digestive tract
CPT/HCPCS: 36410; 36415; 74176; 74177; 76937; 80053; 80061; 81001; 81025; 82271; 83036; 83605; 83690; 83735; 84100; 84132; 84145; 84443; 85025; 85027; 86885; 86900; 86901; 87040; 87077; 87088; 87186; 87210; 87491; 96365; 96375; 99285; A6258; C1751; C9113; G0378; J0696; J1200; J1956; J2270; J2405; J2765; J3490; J7030; J7040; Q0163; Q9963; Q9967

== ENCOUNTER 2022-10-16 07:00 | Inpatient (IN) | payer BC ==
[~2022-10-16] VITALS: Ht 157.5 cm; Wt 79.1 kg
[~2022-10-16 07:00] MED LIST changes: +DOCU100C40 PO; +LACT1CAP26 PO; -LOSA25TA96 PO; +MAGN400O6 PO; +ONDA4TAB12 PO; +PANT40TA54 PO; +TRAM50TA2 PO
[2022-10-16] MEDS ORDERED: diphenhydrAMINE 50 mg/ml inj IV ONE (07:10)
[2022-10-16] MEDS ORDERED: metoclopramide 5 mg/ml inj IV ONE (07:10)
[2022-10-16] MEDS ORDERED: normal saline 1000ML IV soln IVB ONE ×2 (07:10)
[2022-10-16] MEDS ORDERED: piperacillin/tazo 3.375gm/50ml 50 ML IV ONE (07:50)
[2022-10-16] MEDS ORDERED: morphine 4 MG/ML inj SYRINge IV ONE (08:35)
[2022-10-16] MEDS ORDERED: LORazepam 2 mg/ml vial IV ONE (08:45)
[2022-10-16 09:15] LABS: BASOPHILS % (AUTO) 0.2 % (0-1); EOSINOPHILS % (AUTO) 0 % (0-6); HEMOGLOBIN 14.1 g/dl (12.0-16.0); LYMPHOCYTES % (AUTO) 7.5 % (21-51); MEAN CORPUSCULAR HEMOGLOBIN 34.7 PG (27.0-31.0); MEAN CORPUSCULAR HGB CONC 33.5 g/dL (33.0-36.5); MEAN CORPUSCULAR VOLUME 103.7 FL (78-98); MEAN PLATELET VOLUME 7.1 FL (7.4-10.4); MONOCYTES # (AUTO) 0.9 X10'3 (0-0.9); MONOCYTES % (AUTO) 6.4 % (2-12); NEUTROPHILS # (AUTO) 11.6 X10'3 (1.8-7.7); NEUTROPHILS % (AUTO) 85.9 % (42-75); PLATELET COUNT 297 X10'3 (140-440); RED BLOOD COUNT 4.05 X10'6 (4.20-5.60); WHITE BLOOD COUNT 13.6 X10'3 (4.5-11.0)
[2022-10-16 09:22] LABS: URINE HCG NEGATIVE (NEG)
[2022-10-16 09:26] LABS: BILIRUBIN,URINE NEGATIVE (Neg); CLARITY,URINE CLOUDY (Clear); COLOR,URINE YELLOW (Yellow); GLUCOSE, URINE NEGATIVE (Neg); KETONES,URINE NEGATIVE (Neg); LEUKOCYTE ESTERASE ,URINE NEGATIVE (Neg); NITRITES, URINE NEGATIVE (Neg); OCCULT BLOOD,URINE TRACE-INTACT (Neg); PH,URINE 5.5 (4.8-8.0); PROTEIN,URINE NEGATIVE (Neg); UROBILINOGEN,URINE 0.2 E.U/dL (0.2-1.0)
[2022-10-16 09:38] LABS: UA COLLECTION TYPE CLN CATCH MIDSTREAM
[2022-10-16 09:40] LABS: ALANINE AMINOTRANSFERASE 16 U/L (12-78); ALBUMIN 3.3 G/DL (3.4-5.0); ALBUMIN/GLOBULIN RATIO 0.8 (1.1-1.5); ALKALINE PHOSPHATASE 73 IU/L (46-116); ANION GAP 13 (8-16); ASPARTATE AMINO TRANSFERASE 16 U/L (10-37); BILIRUBIN,TOTAL 0.4 MG/DL (0.1-1.0); BLOOD UREA NITROGEN 13 MG/DL (7-18); BUN/CREATININE RATIO 15.1 (10.0-20.0); CHLORIDE 105 MMOL/L (99-107); CREATININE 0.86 MG/DL (0.40-0.90); GLUCOSE 140 MG/DL (70-104); LIPASE < 50 U/L (73-393); SODIUM 141 MMOL/L (135-145); TOTAL PROTEIN 7.3 G/DL (6.4-8.2); eCRCL 62 ML/MIN; eGFR 70 ML/MIN
[2022-10-16 09:42] LABS: POTASSIUM 3.8 MMOL/L (3.5-5.1)
[2022-10-16 09:46] LABS: AMORPHOUS URATES 4+; BACTERIA,URINE FEW /HPF (Neg); RBC,URINE 0-2 /HPF (0-2); SQUAMOUS EPITHELIAL CELL,UR FEW /LPF (FEW); URIC ACID CRYSTALS FEW /HPF (NEGATIVE); WBC,URINE 0-4 /HPF (0-4)
[2022-10-16] MEDS ORDERED: ondansetron/PF 4mg/2ml inj IV ONE (10:15)
[2022-10-16] MEDS ORDERED: morphine 10mg/ml inj. IV ONE (10:15)
[2022-10-16] MEDS ORDERED: potassium Cl 40MEQ/1/2NS 520ml 520 ML IV PRN (10:35)
[2022-10-16] MEDS ORDERED: HYDROcodone/acetaminophen 5mg/325mg tablet PO PRN ×2 (10:35→11:30)
[2022-10-16] MEDS ORDERED: magnesium Cl slow-release 64mg tablet PO PRN (10:35)
[2022-10-16] MEDS ORDERED: HYDROcodone/acetaminophen 10/325mg tab PO PRN ×2 (10:35→11:30)
[2022-10-16] MEDS ORDERED: morphine 2 MG/ML inj. syringe IV PRN ×3 (10:35→11:30)
[2022-10-16] MEDS ORDERED: potassium Cl 20 mEq SR tablet PO PRN ×2 (10:35)
[2022-10-16] MEDS ORDERED: magnesium 4gm in 100ml NS 100 ML IV PRN (10:35)
[2022-10-16] MEDS ORDERED: acetaminophen 325mg tablet PO PRN ×2 (10:35)
[2022-10-16] MEDS: normal saline 1000ml 1,000 ML IV SCH ×2 (10:55→20:35)
[2022-10-16] MEDS ORDERED: LORazepam 2 mg/ml vial IV PRN (11:30)
[2022-10-16 11:36] LABS: APTT 25 SECONDS (22-32); PROTHROMBIN TIME 10.4 SECONDS (9.0-12.0)
[2022-10-16] MEDS ORDERED: diatr meglu/diatrizoate 30ml oral sol.-(3 dose) bottle PO SCH ×3 (12:00→14:23)
[2022-10-16] MEDS ORDERED: BUSP15TA3 PO (13:01)
[2022-10-16] MEDS ORDERED: BUSP10TA3 PO (13:01)
[2022-10-16] MEDS ORDERED: ESCI20TA39 PO (13:01)
[2022-10-16] MEDS ORDERED: LORA-269 PO (13:01)
[2022-10-16] MEDS ORDERED: BREX1TAB PO (13:01)
[2022-10-16] MEDS ORDERED: QUET300T20 PO (13:01)
[2022-10-16] MEDS: ondansetron/PF 4mg/2ml inj IV PRN ×2 (13:29→20:03)
[2022-10-16] MEDS: morphine 2 MG/ML inj. syringe IV PRN ×2 (15:31→20:02)
[2022-10-16] MEDS: diatr meglu/diatrizoate 30ml oral sol.-(3 dose) bottle PO SCH ×2 (15:50→18:00)
[2022-10-16] MEDS ORDERED: iohexol 300mg/ml 100ml inj. ONE (15:53)
--- NOTE | 2022-10-16 16:07 | NUR ---
TO CT AT THIS TIME VIA [facility].
[2022-10-16] MEDS: piperacillin/tazo 3.375gm/50ml 50 ML IV SCH (17:49)
[2022-10-16 18:00] VITALS: BP 171/99; PULSE 104; RESP 16; TEMP 97.7; O2SAT 92
--- NOTE | 2022-10-16 18:43 | NUR ---
Problems reprioritized. Patient report given, questions answered & plan of care reviewed with Brandy GREEN, patient stable at transfer of care.
[2022-10-16] MEDS: ondansetron 4mg rapidly disintigrating tab PO PRN (19:16)
[2022-10-16 20:00] VITALS: RESP 16; O2SAT 92
[2022-10-16] MEDS ORDERED: quetiapine 100mg tablet PO SCH (21:00)
[2022-10-16] MEDS: heparin, porcine 5000 units/ml vial SQ SCH (21:42)
[2022-10-16 22:00] VITALS: BP 156/94; PULSE 101; RESP 16; TEMP 97.3; O2SAT 92
--- NOTE | 2022-10-16 22:07 | NUR ---
Patient in room PCU 3015. I have received report from Lisa GREEN and had the opportunity to ask questions and assume patient care. Lashon GREEN/Brandy GREEN
[2022-10-16] MEDS: LORazepam 1 MG tablet PO PRN (23:18)
[2022-10-17] VITALS (15 sets, daily range): BP systolic 97–180; BP diastolic 48–87; PULSE 50–108; RESP 11–18; TEMP 96.8–98.9; O2SAT 92–100
[2022-10-17] MEDS: piperacillin/tazo 3.375gm/50ml 50 ML IV SCH ×3 (01:11→15:20)
[2022-10-17] MEDS: gabapentin 300mg capsule PO SCH ×4 (04:54→20:00)
[2022-10-17] MEDS: morphine 2 MG/ML inj. syringe IV PRN ×4 (04:54→17:10)
--- NOTE | 2022-10-17 06:20 | NUR ---
Patient in room U 3015. I have received report from Brandy GREEN and had the opportunity to ask questions and assume patient care.Pt sleeping, No distress, Call light in reach Addendum: 10/17/22 at 0643 by Shiloh Rivera RN Amended: Links added.
[2022-10-17 07:49] LABS: EOSINOPHILS # (AUTO) 0.1 X10'3 (0-0.9); HEMOGLOBIN 11.6 g/dl (12.0-16.0); MONOCYTES # (AUTO) 0.8 X10'3 (0-0.9); MONOCYTES % (AUTO) 9.6 % (2-12); WHITE BLOOD COUNT 8.6 X10'3 (4.5-11.0)
[2022-10-17 07:51] LABS: BASOPHILS % (AUTO) 0.3 % (0-1); EOSINOPHILS % (AUTO) 1.2 % (0-6); HEMATOCRIT 34.1 % (35.0-45.0); LYMPHOCYTES # (AUTO) 2.4 X10'3 (1.1-4.8); LYMPHOCYTES % (AUTO) 27.8 % (21-51); MEAN CORPUSCULAR HEMOGLOBIN 35.2 PG (27.0-31.0); MEAN CORPUSCULAR VOLUME 103.4 FL (78-98); MEAN PLATELET VOLUME 7.1 FL (7.4-10.4); NEUTROPHILS # (AUTO) 5.2 X10'3 (1.8-7.7); NEUTROPHILS % (AUTO) 61.1 % (42-75); PLATELET COUNT 220 X10'3 (140-440); RED CELL DISTRIBUTION WIDTH 13.8 % (11.5-14.5)
[2022-10-17] MEDS ORDERED: brexpiprazole 0.25mg tablet PO SCH (08:00)
[2022-10-17] MEDS ORDERED: LORazepam 1 MG tablet PO PRN (08:00)
[2022-10-17] MEDS ORDERED: busPIRone 15mg tablet PO SCH (08:00)
[2022-10-17 08:30] LABS: ALANINE AMINOTRANSFERASE 13 U/L (12-78); ALBUMIN 2.5 G/DL (3.4-5.0); ALBUMIN/GLOBULIN RATIO 0.7 (1.1-1.5); ALKALINE PHOSPHATASE 62 IU/L (46-116); ANION GAP 10 (8-16); ASPARTATE AMINO TRANSFERASE 18 U/L (10-37); BILIRUBIN,TOTAL 1.1 MG/DL (0.1-1.0); BLOOD UREA NITROGEN 10 MG/DL (7-18); BUN/CREATININE RATIO 12.2 (10.0-20.0); CALCIUM 8.1 MG/DL (8.5-10.1); CHLORIDE 107 MMOL/L (99-107); CREATININE 0.82 MG/DL (0.40-0.90); GLUCOSE 115 MG/DL (70-104); MAGNESIUM 1.6 MG/DL (1.5-2.4); POTASSIUM 3.3 MMOL/L (3.5-5.1); SODIUM 142 MMOL/L (135-145); TOTAL CARBON DIOXIDE 25.5 MMOL/L (24-32); TOTAL PROTEIN 5.9 G/DL (6.4-8.2); eCRCL 65 ML/MIN; eGFR 74 ML/MIN
[2022-10-17 08:36] LABS: LIPASE < 50 U/L (73-393)
[2022-10-17] MEDS: normal saline 1000ml 1,000 ML IV SCH ×2 (09:00→16:35)
[2022-10-17] MEDS: ESCITALOPRAM OXALATE 5 MG TABLET PO SCH (09:07)
[2022-10-17] MEDS: multivitamins, therapeutics tablet PO SCH (09:08)
[2022-10-17] MEDS: atenolol 50mg tablet PO SCH (09:08)
[2022-10-17] MEDS: heparin, porcine 5000 units/ml vial SQ SCH ×2 (09:09→20:00)
[2022-10-17] MEDS: ondansetron/PF 4mg/2ml inj IV PRN (09:12)
[2022-10-17] MEDS: busPIRone 5mg tablet PO SCH ×3 (11:51→21:00)
[2022-10-17] MEDS: LORazepam 1 MG tablet PO PRN (11:54)
--- NOTE | 2022-10-17 12:03 | NUR ---
PAGER ID: [phone] MESSAGE: [id number] Matt vicente Pt states her pain meds were to be changed to Q2h. Order remains Q4H. Shiloh GALDAMEZ
[2022-10-17] MEDS ORDERED: morphine 2 MG/ML inj. syringe IV PRN ×2 (12:05→18:15)
[2022-10-17] MEDS ORDERED: non-formulary drug (Buspirone HCl 1 TAB) PO SCH (13:00)
[2022-10-17] MEDS ORDERED: non-formulary drug (Gabapentin 1 TABLET) PO SCH (13:00)
[2022-10-17] MEDS ORDERED: ringers solution, lacted 1,000 ML IV SCH (18:15)
[2022-10-17] MEDS ORDERED: meperidine/PF 25mg/ml syringe IV PRN ×3 (18:15)
[2022-10-17] MEDS ORDERED: ondansetron/PF 4mg/2ml inj IV PRN (18:15)
[2022-10-17] MEDS ORDERED: morphine 4 MG/ML inj SYRINge IV PRN (18:15)
[2022-10-17] MEDS ORDERED: proCHLORperazine 10 MG/2 ml inj IV PRN (18:15)
[2022-10-17] MEDS ORDERED: fentaNYL /PF 50mcg/ml 5ml ampule ONE (18:21)
[2022-10-17] MEDS ORDERED: MIDAZolam 1 MG/ML 5ML VIAL ONE (18:21)
--- NOTE | 2022-10-17 18:21 | NUR ---
Problems reprioritized. Patient report given, questions answered & plan of care reviewed with Brandy GREEN. Pt left for surgery at 1805. Dr Gerard came himself to transport Pt. patients Hussein followed to waiting room. Addendum: 10/17/22 at 1823 by Shiloh Rivera RN Amended: Links added.
[2022-10-17] MEDS ORDERED: LIDOcaine 2% (20mg/ml) 5ml vial ONE (18:22)
[2022-10-17] MEDS ORDERED: propofol inj 20 ML IV ONE (18:22)
[2022-10-17] MEDS ORDERED: rocuronium 10mg/ml inj IV ONE ×2 (18:23→19:50)
--- NOTE | 2022-10-17 18:25 | NUR ---
Patient in room PCU 3015. I have received report from Shiloh GREEN and had the opportunity to ask questions and assume patient care. Lashon GREEN/Brandy GREEN
[2022-10-17] MEDS ORDERED: sevoflurane 250ml liquid IH ONE (18:27)
[2022-10-17] MEDS ORDERED: ondansetron/PF 4mg/2ml inj ONE (18:27)
[2022-10-17] MEDS ORDERED: BUPIVACAINE liposomal/PF 13.3 MG/ML vial IM ONE (18:54)
[2022-10-17] MEDS ORDERED: BUPIVAcaine/PF 2.5 mg/ml (0.25%) 30ml vial ONE (18:55)
[2022-10-17] MEDS ORDERED: ePHEDrine 50MG/ML INJ. ONE (19:50)
[2022-10-17] MEDS ORDERED: dexamethasone sod phosphate 4mg/ml inj. ONE (19:51)
[2022-10-17] MEDS: quetiapine fumarate ER 300mg tablet PO SCH (21:00)
[2022-10-17] MEDS ORDERED: morphine 10mg/ml inj. ONE (21:01)
--- NOTE | 2022-10-17 21:30 | NUR ---
PT ARRIVED TO ICU RM 2012 IN ICU BED-INTUBATED AND ACCOMPANIED BY DR. MONTES DE OCA-ANESTHESIA REPORT GIVEN, PT HAD EXP LAP WITH LYSIS OF ADHESIONS-NO BOWEL OBSTRUCTION FOUND, VSS, RT PRESENT TO SET UP VENT-SEE SETTINGS IN FLOWSHEET, PT TOLERATING WELL, PROPOFOL AND FENTANYL STARTED PER ORDER TO PIV 18G IN RIGHT A/C, ART LINE -RIGHT WRIST, F/C PRESENT, SCDS ON, [place] DRSG PRESENT-CDI, ET TUBE NOTED TO BE 7.5 AND 21 AT THE GUMS-SECURED BY RT, WRIST RESTRAINTS IN PLACE, NEURO INTACT-PT OPENS EYES, CAN SQUEEZE HANDS, RESPONDS TO VERBAL STIMULI.
[2022-10-17] MEDS: FENTANYL-0.9 % NACL/PF 100 ML IV PRN (21:56)
[2022-10-17] MEDS: propofol 1000mg/100ml bottle 100 ML IV SCH (21:57)
--- NOTE | 2022-10-17 22:00 | NUR ---
CHEST XRAY DONE, PT WAKING UP-SEDATION MEDS INCREASED TO KEEP PT COMFORTABLE, VSS, NG ATTACHED TO LOW CONTINUOUS SXN-NOTED DARK GREEN IN TUBE, ABD LIGHTLY DISTENDED.
--- NOTE | 2022-10-17 22:10 | NUR ---
SEDATION MEDS ADJUSTED AGAIN TO KEEP PT COMFORTABLE, VSS, NO CHANGES IN DRSG, NG TO SXN, NO CHANGES IN ASSESSMENT, REPORT GIVEN TO PRIMARY RN-ALL QUESTIONS ANSWERED, BAG MENDER CALLED BY ANESTHESIA TO TAKE OVER CARE.
[2022-10-17 22:46] LABS: ABG BASE EXCESS -3.1 mmol/L (-2.0-2.0); ABG HCO3 21.3 mmol/L (22.0-26.0); ABG OXYGEN SATURATION 93.8 % (94-97); ABG PCO2 (T) 35.9 mmHg (32.0-45.0); ABG PH (T) 7.391 (7.350-7.450); ABG PO2 (T) 74.9 mmHg (75.0-100.0); FCOHb 0.6 % (0.0-3.9); FHHb 6.1 % (0.0-5.0); FMetHb 0.3 % (0.0-1.5); MODE Vent SIMV-VC; PEEP 5 cm H2O; RESPIRATORY RATE 12 b/min; TIDAL VOLUME 500 mL; TOTAL HEMOGLOBIN 11.1 G/dl (12.0-16.0)
--- NOTE | 2022-10-17 23:24 | NUR ---
2230 I have received report and assumed care of pt, pt resting in bed, rise and fall of chest cavity equile and symmetrical. Lung sounds are course in all lung lozano. Pt on mechanical ventilator. Fentanyl in place for pain control, propofol in place for sedation. Pt opens her eyes to verbal stimuli. [place] dressing with minimal drainage.
[2022-10-18] VITALS (32 sets, daily range): BP systolic 82–160; BP diastolic 34–98; PULSE 44–88; RESP 7–27; O2SAT 90–99
[2022-10-18] MEDS: piperacillin/tazo 3.375gm/50ml 50 ML IV SCH ×3 (00:38→15:44)
[2022-10-18] MEDS: propofol 1000mg/100ml bottle 100 ML IV SCH ×2 (00:39→09:22)
[2022-10-18] MEDS: FENTANYL-0.9 % NACL/PF 100 ML IV PRN (00:39)
[2022-10-18] MEDS: gabapentin 300mg capsule PO SCH ×4 (02:00→20:28)
[2022-10-18 02:34] LABS: BASOPHILS % (AUTO) 0.2 % (0-1); EOSINOPHILS % (AUTO) 0.1 % (0-6); HEMATOCRIT 30.1 % (35.0-45.0); HEMOGLOBIN 10.1 g/dl (12.0-16.0); LYMPHOCYTES # (AUTO) 0.7 X10'3 (1.1-4.8); MEAN CORPUSCULAR HGB CONC 33.5 g/dL (33.0-36.5); MEAN CORPUSCULAR VOLUME 104.6 FL (78-98); MEAN PLATELET VOLUME 7.4 FL (7.4-10.4); MONOCYTES # (AUTO) 0.4 X10'3 (0-0.9); NEUTROPHILS # (AUTO) 6.4 X10'3 (1.8-7.7); NEUTROPHILS % (AUTO) 85.7 % (42-75); PLATELET COUNT 206 X10'3 (140-440); RED BLOOD COUNT 2.87 X10'6 (4.20-5.60); RED CELL DISTRIBUTION WIDTH 13.3 % (11.5-14.5); WHITE BLOOD COUNT 7.4 X10'3 (4.5-11.0)
[2022-10-18 02:45] LABS: ALANINE AMINOTRANSFERASE 12 U/L (12-78); ALBUMIN 2.1 G/DL (3.4-5.0); ALBUMIN/GLOBULIN RATIO 0.7 (1.1-1.5); ALKALINE PHOSPHATASE 44 IU/L (46-116); ANION GAP 9 (8-16); ASPARTATE AMINO TRANSFERASE 15 U/L (10-37); BILIRUBIN,TOTAL 0.6 MG/DL (0.1-1.0); BLOOD UREA NITROGEN 10 MG/DL (7-18); BUN/CREATININE RATIO 14.7 (10.0-20.0); CALCIUM 8.3 MG/DL (8.5-10.1); CHLORIDE 108 MMOL/L (99-107); CREATININE 0.68 MG/DL (0.40-0.90); GLUCOSE 128 MG/DL (70-104); LIPASE < 50 U/L (73-393); MAGNESIUM 1.4 MG/DL (1.5-2.4); PHOSPHORUS 3.1 MG/DL (2.3-4.5); SODIUM 140 MMOL/L (135-145); TOTAL CARBON DIOXIDE 23.4 MMOL/L (24-32); TOTAL PROTEIN 5.2 G/DL (6.4-8.2); eCRCL 78 ML/MIN; eGFR > 90 ML/MIN
[2022-10-18 02:46] LABS: POTASSIUM 3.7 MMOL/L (3.5-5.1)
[2022-10-18] MEDS: normal saline 1000ml 1,000 ML IV SCH ×3 (03:08→22:26)
[2022-10-18 03:21] LABS: ABG BASE EXCESS -2.7 mmol/L (-2.0-2.0); ABG HCO3 21.1 mmol/L (22.0-26.0); ABG OXYGEN SATURATION 97.1 % (94-97); ABG PCO2 (T) 33.7 mmHg (32.0-45.0); ABG PH (T) 7.417 (7.350-7.450); ABG PO2 (T) 101.1 mmHg (75.0-100.0); FCOHb 0.3 % (0.0-3.9); FHHb 2.9 % (0.0-5.0); FO2Hb 96.8 % (94-97); MODE Vent SIMV VC; PATIENT TEMPERATURE 37.4; PEEP 5 cm H2O; RESPIRATORY RATE 12 b/min; TIDAL VOLUME 500 mL; TOTAL HEMOGLOBIN 10.8 G/dl (12.0-16.0)
--- NOTE | 2022-10-18 06:15 | NUR ---
report given to rec rn plan of car reviewed
[2022-10-18] MEDS ORDERED: non-formulary drug (Escitalopram Oxalate 1 TAB) PO SCH (08:00)
[2022-10-18] MEDS: magnesium 2GM in 50ml NS 50 ML IV PRN (08:52)
[2022-10-18] MEDS: ESCITALOPRAM OXALATE 5 MG TABLET PO SCH (08:53)
[2022-10-18] MEDS: busPIRone 5mg tablet PO SCH ×3 (08:53→20:28)
[2022-10-18] MEDS: heparin, porcine 5000 units/ml vial SQ SCH ×2 (08:53→20:27)
[2022-10-18] MEDS: multivitamins, therapeutics tablet PO SCH (08:53)
[2022-10-18] MEDS: atenolol 50mg tablet PO SCH (08:54)
[2022-10-18] MEDS ORDERED: dexmedetomidin/NS 400mcg/100ml 100 ML IV PRN (09:20)
--- NOTE | 2022-10-18 11:19 | NUR ---
Initial: Pt admit for SBO. Pt currently intubated POD #1 s/p exploratory laparotomy with lysis of adhesions. Per EMR pt sedated with Propofol running wt 11.864 mL/hr providing 313 kcal/day. Pt with an NGT in place, documented with 200 mL output 10/17 per I&O. Recommend initiating nutrition support as medically indicated if expected prolonged intubation and/or NPO status pending return of bowel function. Pt currently receiving routine Thiamine, Folic acid, and MVI for EtOH hx. Per physician note pt with sepsis. LBM 10/15 per EMR. Will continue to follow closely and make recommendations as appropriate. Recommendations: 1) Initiate nutrition support if expected prolonged intubation and/or return of bowel function 2) Monitor Propofol rate and bowel function for appropriate nutrition support recommendations 3) Continue routine Thiamine, Folic acid, and MVI for EtOH hx 4) Bowel care per physician 5) Scaled weight this admit; subsequent weekly scaled weights Addendum: 10/18/22 at [address] Amended: Links added.
[2022-10-18] MEDS: HYDROmorphone 1 mg/ml syringe IV PRN ×2 (12:12→16:24)
[2022-10-18] MEDS: LORazepam 1 MG tablet PO PRN (14:19)
[2022-10-18] MEDS: quetiapine fumarate ER 300mg tablet PO SCH (20:28)
[2022-10-18] MEDS ORDERED: ringers solution, lacted 1,000 ML IV ONE (22:20)
[2022-10-19] VITALS (18 sets, daily range): BP systolic 88–140; BP diastolic 39–81; PULSE 56–88; RESP 9–18; TEMP 98.1–99.5; O2SAT 90–98
[2022-10-19] MEDS: magnesium 2GM in 50ml NS 50 ML IV PRN (00:25)
[2022-10-19] MEDS: morphine 4 MG/ML inj SYRINge IV PRN ×9 (00:43→21:40)
[2022-10-19] MEDS: piperacillin/tazo 3.375gm/50ml 50 ML IV SCH ×4 (01:01→23:47)
[2022-10-19] MEDS ORDERED: mineral oil/petrolatum ophthal oint EACHEYE SCH (02:00)
[2022-10-19] MEDS: gabapentin 300mg capsule PO SCH ×4 (02:58→21:01)
[2022-10-19] MEDS: LORazepam 1 MG tablet PO PRN ×2 (05:21→13:34)
--- NOTE | 2022-10-19 06:30 | NUR ---
Patient in room CICU 2013. I have received report from mohini and had the opportunity to ask questions and assume patient care.
[2022-10-19 06:43] LABS: BASOPHILS % (AUTO) 0.4 % (0-1); EOSINOPHILS # (AUTO) 0.1 X10'3 (0-0.9); EOSINOPHILS % (AUTO) 0.7 % (0-6); HEMATOCRIT 31.4 % (35.0-45.0); HEMOGLOBIN 10.4 g/dl (12.0-16.0); LYMPHOCYTES # (AUTO) 2.5 X10'3 (1.1-4.8); LYMPHOCYTES % (AUTO) 27.9 % (21-51); MEAN CORPUSCULAR HEMOGLOBIN 35.1 PG (27.0-31.0); MEAN CORPUSCULAR HGB CONC 33.1 g/dL (33.0-36.5); MEAN CORPUSCULAR VOLUME 106.1 FL (78-98); MEAN PLATELET VOLUME 7.5 FL (7.4-10.4); MONOCYTES # (AUTO) 0.9 X10'3 (0-0.9); MONOCYTES % (AUTO) 10.5 % (2-12); NEUTROPHILS # (AUTO) 5.4 X10'3 (1.8-7.7); NEUTROPHILS % (AUTO) 60.5 % (42-75); PLATELET COUNT 212 X10'3 (140-440); RED BLOOD COUNT 2.96 X10'6 (4.20-5.60); RED CELL DISTRIBUTION WIDTH 13.5 % (11.5-14.5); WHITE BLOOD COUNT 8.9 X10'3 (4.5-11.0)
[2022-10-19 07:15] LABS: ALANINE AMINOTRANSFERASE 14 U/L (12-78); ALBUMIN 2.4 G/DL (3.4-5.0); ALBUMIN/GLOBULIN RATIO 0.6 (1.1-1.5); ALKALINE PHOSPHATASE 50 IU/L (46-116); ANION GAP 17 (8-16); ASPARTATE AMINO TRANSFERASE 20 U/L (10-37); BILIRUBIN,TOTAL 0.6 MG/DL (0.1-1.0); BLOOD UREA NITROGEN 14 MG/DL (7-18); BUN/CREATININE RATIO 14.3 (10.0-20.0); CALCIUM 8.6 MG/DL (8.5-10.1); CHLORIDE 105 MMOL/L (99-107); CREATININE 0.98 MG/DL (0.40-0.90); GLUCOSE 83 MG/DL (70-104); SODIUM 142 MMOL/L (135-145); TOTAL CARBON DIOXIDE 20.5 MMOL/L (24-32); TOTAL PROTEIN 6.3 G/DL (6.4-8.2); eCRCL 54 ML/MIN; eGFR 60 ML/MIN
[2022-10-19] MEDS: albuterol 2.5 MG/3 ML nebule NEB PRN (08:06)
[2022-10-19] MEDS: heparin, porcine 5000 units/ml vial SQ SCH ×2 (08:11→21:00)
[2022-10-19] MEDS: multivitamins, therapeutics tablet PO SCH (08:12)
[2022-10-19] MEDS: busPIRone 5mg tablet PO SCH ×3 (08:13→21:00)
[2022-10-19] MEDS: ESCITALOPRAM OXALATE 5 MG TABLET PO SCH (08:13)
[2022-10-19] MEDS: atenolol 25mg tablet PO SCH ×2 (08:15→10:28)
[2022-10-19] MEDS: normal saline 1000ml 1,000 ML IV SCH ×2 (08:35→20:59)
--- NOTE | 2022-10-19 10:45 | NUR ---
call to dr leo hector for transfer.report to tessie on ortho. pt ambulated to - tolerated well, moved to 4009 . plus bowel sounds ms for pain x 1
--- NOTE | 2022-10-19 11:00 | NUR ---
Pt transferred from ICU to 4009b via w/c to bed. VSS. o2 sats 92% RA. Pt reported severe abd pain. Morphine 3mg given for pain per order. Dr. Paz in to make rounds and said pt can have NGT out. Dc'd NGT tip intact. Call light within reach and instructed pt to not get OOB without assistance.
--- NOTE | 2022-10-19 12:30 | NUR ---
Patient in room ORTHO 4009. I have received report from Bert GREEN and had the opportunity to ask questions and assume patient care.
[2022-10-19 16:29] LABS: MAGNESIUM 1.9 MG/DL (1.5-2.4); PHOSPHORUS 2.9 MG/DL (2.3-4.5)
--- NOTE | 2022-10-19 18:10 | NUR ---
Patient in room ORTHO 4009. I have received report from BRENDA CARBONE and had the opportunity to ask questions and assume patient care.
--- NOTE | 2022-10-19 18:48 | NUR ---
Problems reprioritized. Patient report given, questions answered & plan of care reviewed with Melisa GREEN.
[2022-10-19] MEDS: quetiapine fumarate ER 300mg tablet PO SCH (21:00)
[2022-10-20] VITALS (7 sets, daily range): BP systolic 110–139; BP diastolic 58–82; PULSE 60–94; RESP 16–18; TEMP 97.8–98.9; O2SAT 94–98
[2022-10-20] MEDS: morphine 4 MG/ML inj SYRINge IV PRN ×2 (00:58→05:10)
[2022-10-20] MEDS: gabapentin 300mg capsule PO SCH ×4 (02:01→20:30)
[2022-10-20] MEDS: LORazepam 1 MG tablet PO PRN ×3 (05:09→22:16)
[2022-10-20] MEDS: normal saline 1000ml 1,000 ML IV SCH ×2 (05:13→14:35)
--- NOTE | 2022-10-20 06:25 | NUR ---
Problems reprioritized. Patient report given, questions answered & plan of care reviewed with NORMA BREWER.
--- NOTE | 2022-10-20 07:12 | NUR ---
Patient in room ORTHO 4009B. I have received report from NORMA MORALEZ and had the opportunity to ask questions and assume patient care.
[2022-10-20 07:31] LABS: BASOPHILS % (AUTO) 0.5 % (0-1); EOSINOPHILS # (AUTO) 0.2 X10'3 (0-0.9); EOSINOPHILS % (AUTO) 2.5 % (0-6); HEMATOCRIT 28.3 % (35.0-45.0); HEMOGLOBIN 9.5 g/dl (12.0-16.0); LYMPHOCYTES # (AUTO) 1.8 X10'3 (1.1-4.8); LYMPHOCYTES % (AUTO) 27.1 % (21-51); MEAN CORPUSCULAR HGB CONC 33.4 g/dL (33.0-36.5); MEAN CORPUSCULAR VOLUME 104.6 FL (78-98); MEAN PLATELET VOLUME 6.8 FL (7.4-10.4); MONOCYTES # (AUTO) 0.7 X10'3 (0-0.9); MONOCYTES % (AUTO) 11.2 % (2-12); NEUTROPHILS # (AUTO) 3.9 X10'3 (1.8-7.7); NEUTROPHILS % (AUTO) 58.7 % (42-75); PLATELET COUNT 226 X10'3 (140-440); WHITE BLOOD COUNT 6.6 X10'3 (4.5-11.0)
[2022-10-20 07:34] LABS: ALANINE AMINOTRANSFERASE 14 U/L (12-78); ALBUMIN/GLOBULIN RATIO 0.5 (1.1-1.5); ALKALINE PHOSPHATASE 43 IU/L (46-116); ANION GAP 9 (8-16); ASPARTATE AMINO TRANSFERASE 17 U/L (10-37); BILIRUBIN,TOTAL 0.5 MG/DL (0.1-1.0); BLOOD UREA NITROGEN 6 MG/DL (7-18); CALCIUM 8.4 MG/DL (8.5-10.1); CHLORIDE 107 MMOL/L (99-107); CREATININE 0.75 MG/DL (0.40-0.90); GLUCOSE 100 MG/DL (70-104); POTASSIUM 3.5 MMOL/L (3.5-5.1); SODIUM 142 MMOL/L (135-145); TOTAL CARBON DIOXIDE 26.1 MMOL/L (24-32); TOTAL PROTEIN 5.8 G/DL (6.4-8.2); eCRCL 71 ML/MIN; eGFR 82 ML/MIN
[2022-10-20] MEDS ORDERED: HYDROmorph/NS 0.2 mg/ml PCA 100 ML IV SCH (09:50)
[2022-10-20] MEDS ORDERED: PCA WASTE DOCUMENTATION 1 MG ML MC PRN (09:50)
[2022-10-20] MEDS ORDERED: naloxone 0.4 mg/ml inj IV PRN (09:50)
[2022-10-20] MEDS: ondansetron/PF 4mg/2ml inj IV PRN (10:14)
[2022-10-20] MEDS: busPIRone 5mg tablet PO SCH ×3 (10:15→20:31)
[2022-10-20] MEDS: multivitamins, therapeutics tablet PO SCH (10:15)
[2022-10-20] MEDS: atenolol 25mg tablet PO SCH (10:16)
[2022-10-20] MEDS: piperacillin/tazo 3.375gm/50ml 50 ML IV SCH ×3 (10:17→23:30)
[2022-10-20] MEDS: heparin, porcine 5000 units/ml vial SQ SCH ×2 (10:17→20:32)
--- NOTE | 2022-10-20 11:05 | NUR ---
DR ORDERED 0.4MG OF DILAUDID AT A CONTINUOUS RATE, HAD TO PUT PATIENT ON OPIOID TOLERANT TO EXECUTE ORDER. WILL FREQUENTLY ROUND ON PATIENT TO MONITOR FOR OVER SEDATION.
[2022-10-20] MEDS: HYDROmorph/NS 0.2 mg/ml PCA 100 ML IV SCH ×7 (11:40→23:00)
[2022-10-20] MEDS: ESCITALOPRAM OXALATE 5 MG TABLET PO SCH (14:04)
--- NOTE | 2022-10-20 18:44 | NUR ---
Problems reprioritized. Patient report given, questions answered & plan of care reviewed with NORMA CAMARILLO.
[2022-10-20] MEDS: quetiapine fumarate ER 300mg tablet PO SCH (20:31)
[2022-10-21] MEDS: HYDROmorph/NS 0.2 mg/ml PCA 100 ML IV SCH ×12 (01:00→23:00)
[2022-10-21] MEDS: normal saline 1000ml 1,000 ML IV SCH ×3 (01:34→20:19)
[2022-10-21] MEDS: gabapentin 300mg capsule PO SCH ×4 (01:51→20:15)
[2022-10-21 06:00] VITALS: BP 107/74; PULSE 28; PULSE 78; RESP 18; TEMP 98.9; O2SAT 98
--- NOTE | 2022-10-21 06:37 | NUR ---
Problems reprioritized. Patient report given, questions answered & plan of care reviewed with NORMA BREWER.
--- NOTE | 2022-10-21 07:26 | NUR ---
Patient in room ORTHO 4013A. I have received report from NORMA CAMARILLO and had the opportunity to ask questions and assume patient care.
[2022-10-21 07:36] LABS: ALANINE AMINOTRANSFERASE 15 U/L (12-78); ALBUMIN/GLOBULIN RATIO 0.6 (1.1-1.5); ALKALINE PHOSPHATASE 44 IU/L (46-116); ANION GAP 11 (8-16); ASPARTATE AMINO TRANSFERASE 16 U/L (10-37); BILIRUBIN,TOTAL 0.5 MG/DL (0.1-1.0); BLOOD UREA NITROGEN 3 MG/DL (7-18); BUN/CREATININE RATIO 4.5 (10.0-20.0); CALCIUM 8.6 MG/DL (8.5-10.1); CHLORIDE 107 MMOL/L (99-107); CREATININE 0.66 MG/DL (0.40-0.90); GLUCOSE 105 MG/DL (70-104); POTASSIUM 3.7 MMOL/L (3.5-5.1); SODIUM 141 MMOL/L (135-145); TOTAL CARBON DIOXIDE 23.5 MMOL/L (24-32); TOTAL PROTEIN 5.6 G/DL (6.4-8.2); eCRCL 81 ML/MIN; eGFR > 90 ML/MIN
[2022-10-21 10:00] VITALS: BP 133/92; PULSE 85; RESP 12; TEMP 97.6; O2SAT 100
[2022-10-21] MEDS: thiamine 100mg tablet PO SCH (10:13)
[2022-10-21] MEDS: piperacillin/tazo 3.375gm/50ml 50 ML IV SCH (10:13)
[2022-10-21] MEDS: multivitamins, therapeutics tablet PO SCH (10:13)
[2022-10-21] MEDS: busPIRone 5mg tablet PO SCH ×3 (10:13→20:15)
[2022-10-21] MEDS: ESCITALOPRAM OXALATE 5 MG TABLET PO SCH (10:14)
[2022-10-21] MEDS: atenolol 25mg tablet PO SCH (10:15)
[2022-10-21] MEDS: heparin, porcine 5000 units/ml vial SQ SCH ×2 (10:15→20:18)
[2022-10-21] MEDS: folic acid 1mg tablet PO SCH (10:28)
[2022-10-21 15:18] LABS: BASOPHILS # (AUTO) 0.1 X10'3 (0-0.2); BASOPHILS % (AUTO) 1.3 % (0-1); EOSINOPHILS # (AUTO) 0.1 X10'3 (0-0.9); EOSINOPHILS % (AUTO) 1.7 % (0-6); HEMATOCRIT 29.1 % (35.0-45.0); HEMOGLOBIN 9.7 g/dl (12.0-16.0); LYMPHOCYTES # (AUTO) 1.8 X10'3 (1.1-4.8); LYMPHOCYTES % (AUTO) 26.2 % (21-51); MEAN CORPUSCULAR HEMOGLOBIN 35.4 PG (27.0-31.0); MEAN CORPUSCULAR HGB CONC 33.4 g/dL (33.0-36.5); MEAN CORPUSCULAR VOLUME 105.9 FL (78-98); MEAN PLATELET VOLUME 7.2 FL (7.4-10.4); MONOCYTES # (AUTO) 0.7 X10'3 (0-0.9); MONOCYTES % (AUTO) 10.5 % (2-12); NEUTROPHILS # (AUTO) 4.2 X10'3 (1.8-7.7); NEUTROPHILS % (AUTO) 60.3 % (42-75); PLATELET COUNT 205 X10'3 (140-440); RED BLOOD COUNT 2.75 X10'6 (4.20-5.60)
--- NOTE | 2022-10-21 16:16 | NUR ---
F/u 10/21: Pt extubated 8/4 AM now post-op day 4 s/p ex lap w/ lysis of adhesions advanced to clear liquids 10/19 WL w/ NG cancelled per EMR. PO mostly 0% initial 4 documented clear liquid meals not meeting estimated needs. LBM 10/15 though passing gas per EMR. IF to remain on clear liquids vs poor intake without return of bowel function would benefit from PN for nutrition needs. Will continue to follow. Recommendations: 1) Advance diet as medically indicated to regular 2) IF to remain on clear liquids without return of GI function; TPN for nutrition needs 3) Continue routine Thiamine, Folic acid, and MVI for EtOH hx 4) Consider bowel regimen per physician discretion 5) Scaled weight this admit; subsequent weekly scaled weights Addendum: 10/21/22 at [address] Amended: Links added.
[2022-10-21 18:00] VITALS: BP 152/73; PULSE 67; RESP 16; TEMP 98.4; O2SAT 98
[2022-10-21 20:00] VITALS: RESP 17; O2SAT 98
[2022-10-21] MEDS: diphenhydrAMINE 25mg capsule PO PRN (20:14)
[2022-10-21] MEDS: quetiapine fumarate ER 300mg tablet PO SCH (20:15)
[2022-10-21] MEDS: LORazepam 1 MG tablet PO PRN (20:15)
[2022-10-21 20:44] VITALS: PULSE 68; RESP 16; O2SAT 98
[2022-10-21 22:00] VITALS: BP 141/90; PULSE 75; RESP 16; TEMP 98; O2SAT 96
[2022-10-22] VITALS (7 sets, daily range): BP systolic 107–140; BP diastolic 53–76; PULSE 65–93; RESP 15–20; TEMP 97.7–99; O2SAT 92–98
[2022-10-22] MEDS: HYDROmorph/NS 0.2 mg/ml PCA 100 ML IV SCH ×7 (01:00→13:00)
[2022-10-22] MEDS: gabapentin 300mg capsule PO SCH ×4 (01:50→19:24)
[2022-10-22] MEDS: LORazepam 1 MG tablet PO PRN ×2 (04:55→21:16)
--- NOTE | 2022-10-22 06:21 | NUR ---
Problems reprioritized. Patient report given, questions answered & plan of care reviewed with NORMA BREWER.
--- NOTE | 2022-10-22 07:21 | NUR ---
Patient in room ORTHO 4013A. I have received report from NORMA CAMARILLO and had the opportunity to ask questions and assume patient care.
[2022-10-22] MEDS: ESCITALOPRAM OXALATE 5 MG TABLET PO SCH (09:17)
[2022-10-22] MEDS: multivitamins, therapeutics tablet PO SCH (09:18)
[2022-10-22] MEDS: folic acid 1mg tablet PO SCH (09:18)
[2022-10-22] MEDS: busPIRone 5mg tablet PO SCH ×3 (09:18→21:16)
[2022-10-22] MEDS: thiamine 100mg tablet PO SCH (09:18)
[2022-10-22] MEDS: atenolol 25mg tablet PO SCH (09:19)
[2022-10-22] MEDS: heparin, porcine 5000 units/ml vial SQ SCH ×2 (09:21→19:24)
[2022-10-22] MEDS: normal saline 1000ml 1,000 ML IV SCH ×2 (13:04→16:35)
[2022-10-22] MEDS: oxyCODONE/APAP 10/325mg tablet PO PRN ×2 (15:18→21:17)
[2022-10-22] MEDS: HYDROmorphone 1 mg/ml syringe IV PRN (18:17)
[2022-10-22] MEDS: diphenhydrAMINE 25mg capsule PO PRN (19:23)
--- NOTE | 2022-10-22 19:43 | NUR ---
Problems reprioritized. Patient report given, questions answered & plan of care reviewed with NORMA CAMARILLO.
[2022-10-22] MEDS: quetiapine fumarate ER 300mg tablet PO SCH (21:16)
[2022-10-23] VITALS (9 sets, daily range): BP systolic 111–177; BP diastolic 63–87; PULSE 77–114; RESP 16–22; TEMP 97.7–98.4; O2SAT 91–99
[2022-10-23] MEDS: HYDROmorphone 1 mg/ml syringe IV PRN ×4 (00:05→19:22)
[2022-10-23] MEDS: gabapentin 300mg capsule PO SCH ×4 (02:12→22:33)
[2022-10-23] MEDS: oxyCODONE/APAP 10/325mg tablet PO PRN ×4 (02:23→22:44)
[2022-10-23] MEDS: normal saline 1000ml 1,000 ML IV SCH ×3 (05:43→22:35)
--- NOTE | 2022-10-23 06:35 | NUR ---
Patient in room ORTHO 4013. I have received report from Urvashi GREEN and had the opportunity to ask questions and assume patient care.
--- NOTE | 2022-10-23 06:38 | NUR ---
Problems reprioritized. Patient report given, questions answered & plan of care reviewed with BRENDA CARBONE.
[2022-10-23] MEDS: ESCITALOPRAM OXALATE 5 MG TABLET PO SCH (08:30)
[2022-10-23] MEDS: folic acid 1mg tablet PO SCH (08:30)
[2022-10-23] MEDS: thiamine 100mg tablet PO SCH (08:30)
[2022-10-23] MEDS: heparin, porcine 5000 units/ml vial SQ SCH ×2 (08:30→22:35)
[2022-10-23] MEDS: multivitamins, therapeutics tablet PO SCH (08:30)
[2022-10-23] MEDS: busPIRone 5mg tablet PO SCH ×3 (08:30→22:31)
[2022-10-23] MEDS: LORazepam 1 MG tablet PO PRN (08:59)
--- NOTE | 2022-10-23 18:00 | NUR ---
I have reviewed and agree with interventions, assessments, and documentation by Mariah Carias LVN.
--- NOTE | 2022-10-23 18:48 | NUR ---
Problems reprioritized. Patient report given, questions answered & plan of care reviewed with Hyun GREEN.
--- NOTE | 2022-10-23 18:50 | NUR ---
Patient in room ORTHO 4013. I have received report from Mariah GUTIERREZ and had the opportunity to ask questions and assume patient care.
[2022-10-23] MEDS: albuterol 2.5 MG/3 ML nebule NEB PRN (20:25)
--- NOTE | 2022-10-23 20:32 | NUR ---
New order for UA as pt.c/o burning and frequency.
[2022-10-23] MEDS: quetiapine fumarate ER 300mg tablet PO SCH (22:31)
[2022-10-23 23:44] LABS: BILIRUBIN,URINE NEGATIVE (Neg); CLARITY,URINE CLEAR (Clear); COLOR,URINE YELLOW (Yellow); GLUCOSE, URINE NEGATIVE (Neg); KETONES,URINE >=80 mg/dl (Neg); LEUKOCYTE ESTERASE ,URINE NEGATIVE (Neg); NITRITES, URINE NEGATIVE (Neg); OCCULT BLOOD,URINE NEGATIVE (Neg); PROTEIN,URINE NEGATIVE (Neg); UROBILINOGEN,URINE 0.2 E.U/dL (0.2-1.0)
[2022-10-23 23:45] LABS: UA COLLECTION TYPE CLN CATCH MIDSTREAM
[2022-10-24] VITALS (11 sets, daily range): BP systolic 121–144; BP diastolic 57–84; PULSE 75–108; RESP 16–20; TEMP 97.9–99.1; O2SAT 90–98
[2022-10-24] MEDS: diphenhydrAMINE 25mg capsule PO PRN (00:04)
[2022-10-24] MEDS: HYDROmorphone 1 mg/ml syringe IV PRN ×5 (00:08→22:10)
[2022-10-24] MEDS: normal saline 1000ml 1,000 ML IV SCH ×2 (00:11→19:46)
[2022-10-24] MEDS: gabapentin 300mg capsule PO SCH ×4 (02:20→22:07)
[2022-10-24] MEDS: oxyCODONE/APAP 10/325mg tablet PO PRN ×2 (02:27→08:24)
[2022-10-24] MEDS: LORazepam 1 MG tablet PO PRN ×2 (05:42→14:07)
--- NOTE | 2022-10-24 06:45 | NUR ---
Problems reprioritized. Patient report given, questions answered & plan of care reviewed with Samson GUTIERREZ.
[2022-10-24] MEDS: thiamine 100mg tablet PO SCH (08:22)
[2022-10-24] MEDS: ESCITALOPRAM OXALATE 5 MG TABLET PO SCH (08:23)
[2022-10-24] MEDS: folic acid 1mg tablet PO SCH (08:23)
[2022-10-24] MEDS: busPIRone 5mg tablet PO SCH ×3 (08:23→22:07)
[2022-10-24] MEDS: multivitamins, therapeutics tablet PO SCH (08:23)
[2022-10-24] MEDS: atenolol 25mg tablet PO SCH (08:24)
[2022-10-24] MEDS: heparin, porcine 5000 units/ml vial SQ SCH ×2 (08:28→22:08)
--- NOTE | 2022-10-24 09:32 | NUR ---
Reassessment: Per physician note sepsis has resolved, estimated nutrient needs have been adjusted accordingly. Patient's diet was advanced to regular 10/23 then changed to low fiber per RD recommendation that was d/w CROP AND SOIL TECHNICIAN on 10/23. Pt eating well, documented with 75-100% PO intake of first meal since diet was advanced from clear liquids. Pt will need an average of 61% PO intake of meals to meet minimum estimated nutrient needs. Per physician notes bowel function slowly returned and pt is passing gas. LBM 10/23 per EMR. Will continue to follow and monitor need for nutrition intervention pending trends in PO intake with diet advancement. Recommendations: 1) Continue low fiber diet 2) Monitor need for ONS/additional protein 3) Continue routine Thiamine, Folic acid, and MVI for EtOH hx 4) Bowel regimen per physician discretion 5) Scaled weight this admit; subsequent weekly scaled weights Addendum: 10/24/22 at [address] Amended: Links added.
[2022-10-24] MEDS ORDERED: OXYcodone (OXYCONTIN) Ext Release 15 MG TAB.SR.12H PO SCH ×2 (09:55→20:00)
[2022-10-24] MEDS ORDERED: HYDROmorphone inj. 0.5 MG/0.5 ML DISP.SYRIN IV PRN (10:30)
[2022-10-24] MEDS: OXYcodone (OXYCONTIN) Ext Release 15 MG TAB.SR.12H PO SCH ×2 (14:08→19:45)
--- NOTE | 2022-10-24 18:00 | NUR ---
Patient in room ORTHO 4013. I have received report from BRENDA Rodríguez and had the opportunity to ask questions and assume patient care.
[2022-10-24] MEDS: albuterol 2.5 MG/3 ML nebule NEB PRN (20:56)
[2022-10-24] MEDS: quetiapine fumarate ER 300mg tablet PO SCH (22:07)
[2022-10-25] VITALS (11 sets, daily range): BP systolic 121–141; BP diastolic 60–85; PULSE 77–100; RESP 15–21; TEMP 97.7–98.9; O2SAT 90–98
[2022-10-25] MEDS: normal saline 1000ml 1,000 ML IV SCH ×3 (00:12→20:31)
[2022-10-25] MEDS: gabapentin 300mg capsule PO SCH ×4 (01:46→20:24)
[2022-10-25] MEDS: HYDROmorphone 1 mg/ml syringe IV PRN ×5 (01:47→21:45)
[2022-10-25] MEDS: LORazepam 1 MG tablet PO PRN ×3 (02:00→17:38)
--- NOTE | 2022-10-25 06:26 | NUR ---
Problems reprioritized. Patient report given, questions answered & plan of care reviewed with NORMA Jeffrey.
[2022-10-25] MEDS: albuterol 2.5 MG/3 ML nebule NEB PRN ×2 (07:40→21:00)
[2022-10-25] MEDS: multivitamins, therapeutics tablet PO SCH (08:36)
[2022-10-25] MEDS: busPIRone 5mg tablet PO SCH ×3 (08:36→21:45)
[2022-10-25] MEDS: atenolol 25mg tablet PO SCH (08:37)
[2022-10-25] MEDS: thiamine 100mg tablet PO SCH (08:37)
[2022-10-25] MEDS: folic acid 1mg tablet PO SCH (08:37)
[2022-10-25] MEDS: ESCITALOPRAM OXALATE 5 MG TABLET PO SCH (08:38)
[2022-10-25] MEDS: heparin, porcine 5000 units/ml vial SQ SCH ×2 (08:39→20:25)
[2022-10-25] MEDS: OXYcodone (OXYCONTIN) Ext Release 15 MG TAB.SR.12H PO SCH ×2 (08:48→20:24)
[2022-10-25] MEDS: oxyCODONE/APAP 10/325mg tablet PO PRN (15:30)
[2022-10-25] MEDS: ondansetron/PF 4mg/2ml inj IV PRN (15:30)
--- NOTE | 2022-10-25 18:15 | NUR ---
Patient in room ORTHO 4013. I have received report from NORMA Jeffrey and had the opportunity to ask questions and assume patient care.
--- NOTE | 2022-10-25 18:36 | NUR ---
Problems reprioritized. Patient report given, questions answered & plan of care reviewed with Melisa GREEN.
[2022-10-25] MEDS: quetiapine fumarate ER 300mg tablet PO SCH (21:45)
[2022-10-26] VITALS (17 sets, daily range): BP systolic 101–146; BP diastolic 54–69; PULSE 68–113; RESP 12–24; TEMP 97.3–99.7; O2SAT 78–97
--- NOTE | 2022-10-26 00:44 | NUR ---
Pt. walked 300 f with nursing,she did very well
[2022-10-26] MEDS: gabapentin 300mg capsule PO SCH ×4 (02:06→20:20)
[2022-10-26] MEDS: HYDROmorphone 1 mg/ml syringe IV PRN ×2 (02:08→21:55)
[2022-10-26] MEDS: oxyCODONE/APAP 10/325mg tablet PO PRN ×2 (04:18→13:48)
--- NOTE | 2022-10-26 06:14 | NUR ---
Problems reprioritized. Patient report given, questions answered & plan of care reviewed with NORMA Coffey.
--- NOTE | 2022-10-26 06:39 | NUR ---
Patient in room ORTHO 4013. I have received report from Melisa and had the opportunity to ask questions and assume patient care.
[2022-10-26] MEDS: albuterol 2.5 MG/3 ML nebule NEB PRN ×2 (07:15→17:09)
[2022-10-26] MEDS: folic acid 1mg tablet PO SCH (08:34)
[2022-10-26] MEDS: busPIRone 5mg tablet PO SCH ×3 (08:34→20:20)
[2022-10-26] MEDS: ESCITALOPRAM OXALATE 5 MG TABLET PO SCH (08:35)
[2022-10-26] MEDS: OXYcodone (OXYCONTIN) Ext Release 15 MG TAB.SR.12H PO SCH ×2 (08:35→20:20)
[2022-10-26] MEDS: thiamine 100mg tablet PO SCH (08:36)
[2022-10-26] MEDS: atenolol 25mg tablet PO SCH (08:36)
[2022-10-26] MEDS: multivitamins, therapeutics tablet PO SCH (08:36)
[2022-10-26] MEDS: heparin, porcine 5000 units/ml vial SQ SCH ×2 (08:37→20:21)
--- NOTE | 2022-10-26 11:15 | NUR ---
Per surgeon, pain medications were to be tapered yesterday. He discussed pain medication regime with patient at length this morning. Patient to receive the scheduled PO pain medication BID, the PO PRN pain medication Q3hr, if needed and the IV pain medication ordered for breakthrough pain. The ordered were updated in the eMAR this morning. Surgeon will revisit the pain medication plan tomorrow.
[2022-10-26 11:48] LABS: BASOPHILS % (AUTO) 0.3 % (0-1); EOSINOPHILS % (AUTO) 0.1 % (0-6); HEMATOCRIT 28.5 % (35.0-45.0); HEMOGLOBIN 9.3 g/dl (12.0-16.0); LYMPHOCYTES # (AUTO) 0.8 X10'3 (1.1-4.8); LYMPHOCYTES % (AUTO) 4.9 % (21-51); MEAN CORPUSCULAR HEMOGLOBIN 33.8 PG (27.0-31.0); MEAN CORPUSCULAR HGB CONC 32.7 g/dL (33.0-36.5); MEAN CORPUSCULAR VOLUME 103.4 FL (78-98); MONOCYTES # (AUTO) 1.1 X10'3 (0-0.9); MONOCYTES % (AUTO) 6.8 % (2-12); NEUTROPHILS # (AUTO) 13.8 X10'3 (1.8-7.7); NEUTROPHILS % (AUTO) 87.9 % (42-75); PLATELET COUNT 416 X10'3 (140-440); RED BLOOD COUNT 2.76 X10'6 (4.20-5.60); RED CELL DISTRIBUTION WIDTH 13.7 % (11.5-14.5); WHITE BLOOD COUNT 15.8 X10'3 (4.5-11.0)
[2022-10-26 11:53] LABS: ALANINE AMINOTRANSFERASE 11 U/L (12-78); ALBUMIN 1.9 G/DL (3.4-5.0); ALBUMIN/GLOBULIN RATIO 0.5 (1.1-1.5); ALKALINE PHOSPHATASE 48 IU/L (46-116); ANION GAP 9 (8-16); ASPARTATE AMINO TRANSFERASE 11 U/L (10-37); BILIRUBIN,TOTAL 0.4 MG/DL (0.1-1.0); BLOOD UREA NITROGEN 2 MG/DL (7-18); BUN/CREATININE RATIO 2.6 (10.0-20.0); CALCIUM 8.6 MG/DL (8.5-10.1); CHLORIDE 106 MMOL/L (99-107); CREATININE 0.76 MG/DL (0.40-0.90); GLUCOSE 138 MG/DL (70-104); POTASSIUM 3.4 MMOL/L (3.5-5.1); SODIUM 144 MMOL/L (135-145); TOTAL CARBON DIOXIDE 29.3 MMOL/L (24-32); TOTAL PROTEIN 5.7 G/DL (6.4-8.2); eCRCL 70 ML/MIN; eGFR 81 ML/MIN
--- NOTE | 2022-10-26 13:48 | NUR ---
Patient continues to request specifically dilaudid. Educated patient regarding pain management, oral pain medications and breakthrough pain medication usage. Patient falls asleep frequently and within minutes of any interaction or conversation but wakes up asking for medication.
--- NOTE | 2022-10-26 17:20 | NUR ---
RE: Lisa in , can you call me? Sats are low 78-84%, paged respiratory already, 91% on 4L, resp asking for hi-flow Erlinda [phone]
[2022-10-26] MEDS ORDERED: furosemide 40mg/4ml inj IV ONE (17:30)
[2022-10-26] MEDS ORDERED: ipratropium/albuterol 3ml nebule NEB PRN (17:30)
--- NOTE | 2022-10-26 18:00 | NUR ---
Patient in room ORTHO 4013. I have received report from NORMA Coffey and had the opportunity to ask questions and assume patient care.
--- NOTE | 2022-10-26 18:23 | NUR ---
Problems reprioritized. Patient report given, questions answered & plan of care reviewed with Melisa.
[2022-10-26] MEDS: ipratropium/albuterol 3ml nebule NEB SCH ×2 (18:53→23:00)
[2022-10-26] MEDS ORDERED: naloxone 0.4 mg/ml inj IV ONE (19:00)
--- NOTE | 2022-10-26 19:00 | NUR ---
Dr. Gray was notified regarding pt. breathing issue.I call RT for breathing treatment,got a orders for CTA chest,DD,CRP ,Procalcitonin and Narcan 0.2.She required high flow O2 10L.
[2022-10-26 19:18] LABS: ABG BASE EXCESS 5.1 mmol/L (-2.0-2.0); ABG HCO3 30.6 mmol/L (22.0-26.0); ABG OXYGEN SATURATION 92.9 % (94-97); ABG PCO2 (T) 51.5 mmHg (32.0-45.0); ABG PH (T) 7.396 (7.350-7.450); ABG PO2 (T) 73.8 mmHg (75.0-100.0); ALLEN'S TEST Modified; FCOHb 0.2 % (0.0-3.9); FHHb 7.1 % (0.0-5.0); FLOW 10 L/min; FMetHb 0.2 % (0.0-1.5); FO2Hb 92.5 % (94-97); MODE Salter NC; PATIENT TEMPERATURE 38.2; TOTAL HEMOGLOBIN 11.8 G/dl (12.0-16.0)
[2022-10-26] MEDS ORDERED: iohexol 350MG/ML 100ml bottle IV ONE (19:21)
[2022-10-26 19:30] LABS: PRO BRAIN NATRIURETIC PEPTIDE 1795 PG/ML (0-125)
[2022-10-26] MEDS: ondansetron/PF 4mg/2ml inj IV PRN (19:32)
[2022-10-26 19:54] LABS: D-DIMER 3.33 MG/L FEU (0-0.50)
[2022-10-26 19:58] LABS: C-REACTIVE PROTEIN 19.38 MG/DL (0.0-0.5)
[2022-10-26] MEDS ORDERED: oxyCODONE/APAP 10/325mg tablet PO PRN (20:00)
[2022-10-26] MEDS: piperacillin/tazo 3.375gm/50ml 50 ML IV SCH (20:20)
[2022-10-26] MEDS: quetiapine fumarate ER 300mg tablet PO SCH (21:55)
[2022-10-27] VITALS (17 sets, daily range): BP systolic 87–107; BP diastolic 42–56; PULSE 88–111; RESP 15–20; TEMP 98.1–100.6; O2SAT 90–100
[2022-10-27] MEDS: piperacillin/tazo 3.375gm/50ml 50 ML IV SCH ×3 (00:21→15:13)
[2022-10-27] MEDS: gabapentin 300mg capsule PO SCH ×4 (02:00→20:53)
[2022-10-27] MEDS: HYDROmorphone 1 mg/ml syringe IV PRN ×4 (05:28→19:39)
--- NOTE | 2022-10-27 06:20 | NUR ---
Problems reprioritized. Patient report given, questions answered & plan of care reviewed with NORMA Coffey.
[2022-10-27 07:06] LABS: BASOPHILS % (AUTO) 0.3 % (0-1); EOSINOPHILS # (AUTO) 0.1 X10'3 (0-0.9); EOSINOPHILS % (AUTO) 0.8 % (0-6); HEMOGLOBIN 8.2 g/dl (12.0-16.0); LYMPHOCYTES # (AUTO) 1.2 X10'3 (1.1-4.8); LYMPHOCYTES % (AUTO) 9.1 % (21-51); MEAN CORPUSCULAR HEMOGLOBIN 33.6 PG (27.0-31.0); MEAN CORPUSCULAR HGB CONC 32.8 g/dL (33.0-36.5); MEAN CORPUSCULAR VOLUME 102.6 FL (78-98); MONOCYTES # (AUTO) 0.9 X10'3 (0-0.9); MONOCYTES % (AUTO) 6.6 % (2-12); NEUTROPHILS # (AUTO) 11.3 X10'3 (1.8-7.7); NEUTROPHILS % (AUTO) 83.2 % (42-75); PLATELET COUNT 361 X10'3 (140-440); RED BLOOD COUNT 2.44 X10'6 (4.20-5.60); RED CELL DISTRIBUTION WIDTH 13.6 % (11.5-14.5); WHITE BLOOD COUNT 13.6 X10'3 (4.5-11.0)
[2022-10-27 07:17] LABS: ALANINE AMINOTRANSFERASE 8 U/L (12-78); ALBUMIN 1.6 G/DL (3.4-5.0); ALBUMIN/GLOBULIN RATIO 0.4 (1.1-1.5); ALKALINE PHOSPHATASE 45 IU/L (46-116); ANION GAP 6 (8-16); ASPARTATE AMINO TRANSFERASE 10 U/L (10-37); BILIRUBIN,TOTAL 0.4 MG/DL (0.1-1.0); BLOOD UREA NITROGEN 5 MG/DL (7-18); BUN/CREATININE RATIO 5.7 (10.0-20.0); CALCIUM 8.1 MG/DL (8.5-10.1); CHLORIDE 102 MMOL/L (99-107); CREATININE 0.87 MG/DL (0.40-0.90); GLUCOSE 114 MG/DL (70-104); POTASSIUM 3.1 MMOL/L (3.5-5.1); SODIUM 143 MMOL/L (135-145); TOTAL PROTEIN 5.3 G/DL (6.4-8.2); eCRCL 61 ML/MIN; eGFR 69 ML/MIN
[2022-10-27] MEDS: ipratropium/albuterol 3ml nebule NEB SCH ×5 (07:31→23:00)
[2022-10-27] MEDS: furosemide 40mg/4ml inj IV SCH ×2 (07:33→20:53)
[2022-10-27] MEDS: heparin, porcine 5000 units/ml vial SQ SCH ×2 (07:40→20:52)
[2022-10-27] MEDS: multivitamins, therapeutics tablet PO SCH (07:42)
[2022-10-27] MEDS: folic acid 1mg tablet PO SCH (07:42)
[2022-10-27] MEDS: busPIRone 5mg tablet PO SCH ×3 (07:42→20:53)
[2022-10-27] MEDS: ESCITALOPRAM OXALATE 5 MG TABLET PO SCH (07:42)
[2022-10-27] MEDS: thiamine 100mg tablet PO SCH (07:43)
[2022-10-27] MEDS: OXYcodone (OXYCONTIN) Ext Release 15 MG TAB.SR.12H PO SCH (07:43)
[2022-10-27] MEDS: atenolol 25mg tablet PO SCH (07:44)
[2022-10-27] MEDS: LORazepam 1 MG tablet PO PRN (07:50)
[2022-10-27] MEDS ORDERED: vancomycin 1,750 MG in NS 350ml IV soln IV ONE (09:25)
[2022-10-27] MEDS ORDERED: levoFLOXACIN-Levaquin 750MG/D5 150 ML IV STA (10:14)
[2022-10-27] MEDS ORDERED: potassium Cl 40MEQ/1/2NS 520ml 520 ML IV PRN (11:55)
[2022-10-27] MEDS ORDERED: magnesium 4gm in 100ml NS 100 ML IV PRN (11:55)
[2022-10-27] MEDS ORDERED: magnesium Cl slow-release 64mg tablet PO PRN (11:55)
[2022-10-27] MEDS ORDERED: potassium Cl 20 mEq SR tablet PO PRN (11:55)
[2022-10-27] MEDS ORDERED: magnesium 2GM in 50ml NS 50 ML IV PRN (11:55)
[2022-10-27] MEDS: potassium Cl 20 mEq SR tablet PO PRN ×2 (12:11→17:02)
--- NOTE | 2022-10-27 14:53 | NUR ---
F/u 10/27: Pt PO fluctuates ~46% avg low fiber meals though regressed 0-25% past 4 per EMR. Pt now w/ aspiration PNA per MD in today's CM note and requiring high flow oxygen from [place] per EMR; RD notified MD recommends FINANCIAL REPORTING DIRECTOR BSS. Overall meeting ~75% kcal and ~76% protein estimated needs though given intake regression would benefit from Ensure Enlive BIDBD to ensure meeting needs- MD notified. LBM 10/25 per EMR. Will continue to monitor. Recommendations: 1) Continue low fiber diet; encourage PO 2) Ensure Enlive BIDBD to assist meeting needs; pending physician verification in EMR 3) Continue routine Thiamine, Folic acid, and MVI for EtOH hx 4) Bowel regimen per physician discretion 5) Scaled weight this admit; subsequent weekly scaled weights Addendum: 10/27/22 at [address] Amended: Links added.
--- NOTE | 2022-10-27 18:33 | NUR ---
Pt resting comfortably at this time. Pt at bedside, no distress at this time.
[2022-10-27] MEDS: quetiapine fumarate ER 300mg tablet PO SCH (20:53)
[2022-10-27] MEDS: oxyCODONE/APAP 5-325mg tablet PO PRN (21:10)
[2022-10-27] MEDS: vancomycin/NS 1 GM ADD-VANTAGE 250 ML IV SCH (22:52)
[2022-10-28] VITALS (21 sets, daily range): BP systolic 87–118; BP diastolic 40–63; PULSE 82–112; RESP 15–21; TEMP 98.1–99.1; O2SAT 88–98
[2022-10-28] MEDS: piperacillin/tazo 3.375gm/50ml 50 ML IV SCH ×2 (00:19→08:00)
[2022-10-28] MEDS: HYDROmorphone 1 mg/ml syringe IV PRN ×4 (00:20→21:29)
[2022-10-28] MEDS: gabapentin 300mg capsule PO SCH ×4 (02:34→19:48)
[2022-10-28] MEDS: oxyCODONE/APAP 5-325mg tablet PO PRN ×3 (02:35→17:56)
--- NOTE | 2022-10-28 06:36 | NUR ---
Report received from eBrt GREEN
--- NOTE | 2022-10-28 06:48 | NUR ---
Problems reprioritized. Patient report given, questions answered & plan of care reviewed with Amy. Addendum: 10/28/22 at 0649 by All López RN Amended: Links added.
[2022-10-28 07:01] LABS: BASOPHILS % (AUTO) 0.2 % (0-1); EOSINOPHILS # (AUTO) 0.4 X10'3 (0-0.9); HEMATOCRIT 25.1 % (35.0-45.0); HEMOGLOBIN 8.2 g/dl (12.0-16.0); LYMPHOCYTES # (AUTO) 1.2 X10'3 (1.1-4.8); LYMPHOCYTES % (AUTO) 9.3 % (21-51); MEAN CORPUSCULAR HEMOGLOBIN 33.4 PG (27.0-31.0); MEAN CORPUSCULAR HGB CONC 32.8 g/dL (33.0-36.5); MEAN PLATELET VOLUME 7.3 FL (7.4-10.4); MONOCYTES # (AUTO) 0.9 X10'3 (0-0.9); NEUTROPHILS % (AUTO) 80.5 % (42-75); PLATELET COUNT 366 X10'3 (140-440); RED BLOOD COUNT 2.46 X10'6 (4.20-5.60); RED CELL DISTRIBUTION WIDTH 13.6 % (11.5-14.5); WHITE BLOOD COUNT 12.4 X10'3 (4.5-11.0)
[2022-10-28] MEDS: ipratropium/albuterol 3ml nebule NEB SCH ×5 (07:09→23:12)
[2022-10-28 07:20] LABS: ALANINE AMINOTRANSFERASE 8 U/L (12-78); ALBUMIN 1.7 G/DL (3.4-5.0); ALBUMIN/GLOBULIN RATIO 0.5 (1.1-1.5); ALKALINE PHOSPHATASE 60 IU/L (46-116); ANION GAP 2 (8-16); ASPARTATE AMINO TRANSFERASE 11 U/L (10-37); BILIRUBIN,TOTAL 0.5 MG/DL (0.1-1.0); BLOOD UREA NITROGEN 8 MG/DL (7-18); BUN/CREATININE RATIO 8.4 (10.0-20.0); CALCIUM 8.3 MG/DL (8.5-10.1); CHLORIDE 103 MMOL/L (99-107); CREATININE 0.95 MG/DL (0.40-0.90); GLUCOSE 87 MG/DL (70-104); SODIUM 144 MMOL/L (135-145); TOTAL CARBON DIOXIDE 38.8 MMOL/L (24-32); TOTAL PROTEIN 5.4 G/DL (6.4-8.2); eCRCL 56 ML/MIN; eGFR 62 ML/MIN
[2022-10-28 07:22] LABS: POTASSIUM 2.9 MMOL/L (3.5-5.1)
[2022-10-28] MEDS: furosemide 40mg/4ml inj IV SCH ×2 (08:00→19:47)
[2022-10-28] MEDS ORDERED: levoFLOXACIN-Levaquin 750MG/D5 150 ML IV SCH (08:00)
[2022-10-28] MEDS: atenolol 25mg tablet PO SCH (08:00)
[2022-10-28] MEDS: ESCITALOPRAM OXALATE 5 MG TABLET PO SCH (08:36)
[2022-10-28] MEDS: thiamine 100mg tablet PO SCH (08:36)
[2022-10-28] MEDS: folic acid 1mg tablet PO SCH (08:36)
[2022-10-28] MEDS: busPIRone 5mg tablet PO SCH ×3 (08:37→21:29)
[2022-10-28] MEDS: multivitamins, therapeutics tablet PO SCH (08:37)
[2022-10-28] MEDS: heparin, porcine 5000 units/ml vial SQ SCH ×2 (08:38→19:48)
--- NOTE | 2022-10-28 08:48 | NUR ---
RT in room with patient. Salter O2 turned up to 12L
[2022-10-28] MEDS: vancomycin/NS 1 GM ADD-VANTAGE 250 ML IV SCH ×2 (11:51→22:00)
[2022-10-28] MEDS: cefepime 2g/NS 100ml ADVANTAGE 100 ML IV SCH ×2 (12:20→19:50)
[2022-10-28] MEDS: POTASSIUM BICARB 20meq eff tab 20 MEQ TABLET.EFF PO PRN ×2 (14:13→20:15)
--- NOTE | 2022-10-28 18:36 | NUR ---
Report given to NOC shift
[2022-10-28] MEDS ORDERED: PERFLUTREN PROTEIN-A MICROSPHR (Optison) 0.22 MG/ML 3ML VIAL IV ONE (19:30)
[2022-10-28] MEDS: quetiapine fumarate ER 300mg tablet PO SCH (21:29)
[2022-10-28] MEDS ORDERED: VANCOMYCIN LEVEL IV ONE (21:30)
[2022-10-28] MEDS: budesonide 0.5mg/2ml UD nebule IH SCH ×2 (22:52→23:13)
[2022-10-28] MEDS: LORazepam 1 MG tablet PO PRN (23:37)
[2022-10-29] VITALS (19 sets, daily range): BP systolic 90–128; BP diastolic 36–73; PULSE 87–105; RESP 16–19; TEMP 97.8–99.6; O2SAT 91–96
[2022-10-29] MEDS: gabapentin 300mg capsule PO SCH ×4 (02:03→20:43)
[2022-10-29] MEDS: POTASSIUM BICARB 20meq eff tab 20 MEQ TABLET.EFF PO PRN (02:03)
[2022-10-29] MEDS: HYDROmorphone 1 mg/ml syringe IV PRN ×2 (03:04→22:43)
[2022-10-29] MEDS: oxyCODONE/APAP 5-325mg tablet PO PRN ×3 (04:25→18:11)
[2022-10-29 06:30] LABS: BASOPHILS % (AUTO) 0.3 % (0-1); EOSINOPHILS # (AUTO) 0.3 X10'3 (0-0.9); EOSINOPHILS % (AUTO) 2.4 % (0-6); HEMATOCRIT 24.3 % (35.0-45.0); HEMOGLOBIN 7.9 g/dl (12.0-16.0); LYMPHOCYTES # (AUTO) 1.7 X10'3 (1.1-4.8); LYMPHOCYTES % (AUTO) 15.8 % (21-51); MEAN CORPUSCULAR HEMOGLOBIN 33.2 PG (27.0-31.0); MEAN CORPUSCULAR HGB CONC 32.6 g/dL (33.0-36.5); MEAN CORPUSCULAR VOLUME 101.8 FL (78-98); MEAN PLATELET VOLUME 7.4 FL (7.4-10.4); MONOCYTES # (AUTO) 1.2 X10'3 (0-0.9); MONOCYTES % (AUTO) 11.3 % (2-12); NEUTROPHILS # (AUTO) 7.8 X10'3 (1.8-7.7); NEUTROPHILS % (AUTO) 70.2 % (42-75); PLATELET COUNT 403 X10'3 (140-440); RED BLOOD COUNT 2.38 X10'6 (4.20-5.60); RED CELL DISTRIBUTION WIDTH 13.9 % (11.5-14.5)
[2022-10-29 06:56] LABS: ALANINE AMINOTRANSFERASE 8 U/L (12-78); ALBUMIN 1.6 G/DL (3.4-5.0); ALBUMIN/GLOBULIN RATIO 0.4 (1.1-1.5); ALKALINE PHOSPHATASE 56 IU/L (46-116); ANION GAP 3 (8-16); ASPARTATE AMINO TRANSFERASE 12 U/L (10-37); BILIRUBIN,TOTAL 0.4 MG/DL (0.1-1.0); BLOOD UREA NITROGEN 6 MG/DL (7-18); BUN/CREATININE RATIO 6.7 (10.0-20.0); CALCIUM 8.4 MG/DL (8.5-10.1); CHLORIDE 101 MMOL/L (99-107); CREATININE 0.89 MG/DL (0.40-0.90); GLUCOSE 94 MG/DL (70-104); POTASSIUM 3.8 MMOL/L (3.5-5.1); SODIUM 143 MMOL/L (135-145); TOTAL CARBON DIOXIDE 39.4 MMOL/L (24-32); TOTAL PROTEIN 5.4 G/DL (6.4-8.2); eCRCL 60 ML/MIN; eGFR 67 ML/MIN
[2022-10-29] MEDS: furosemide 40mg/4ml inj IV SCH ×2 (07:56→20:00)
[2022-10-29] MEDS: atenolol 25mg tablet PO SCH (08:00)
--- NOTE | 2022-10-29 08:00 | NUR ---
PAGER ID: [phone] MESSAGE: Trinh Bautista [phone] Re: Gonzalez [phone] please call re: BP 94/50 holding lasix HR 103 do you want me to give Atenonol or hold Addendum: 10/29/22 at 0837 by Trinh Saravia RN Received orders to also hold patient Atenonol. Dr Casey also stated to hold Pain medications at this time. I did receive a one time dose of Toradol Dr Casey aware of patient Creatinine and H&H levels. Patient refused Toradol states it dose not work for her.
[2022-10-29] MEDS ORDERED: ketorolac trometh. 30mg/ml inj. IV ONE (08:05)
[2022-10-29] MEDS: budesonide 0.5mg/2ml UD nebule IH SCH ×2 (08:10→19:23)
[2022-10-29] MEDS: ipratropium/albuterol 3ml nebule NEB SCH ×5 (08:10→22:55)
[2022-10-29] MEDS: folic acid 1mg tablet PO SCH (08:12)
[2022-10-29] MEDS: thiamine 100mg tablet PO SCH (08:12)
[2022-10-29] MEDS: busPIRone 5mg tablet PO SCH ×3 (08:12→20:43)
[2022-10-29] MEDS: multivitamins, therapeutics tablet PO SCH (08:12)
[2022-10-29] MEDS: cefepime 2g/NS 100ml ADVANTAGE 100 ML IV SCH ×2 (08:14→20:41)
[2022-10-29] MEDS: ESCITALOPRAM OXALATE 5 MG TABLET PO SCH (08:16)
[2022-10-29] MEDS: heparin, porcine 5000 units/ml vial SQ SCH ×2 (08:17→20:44)
[2022-10-29] MEDS: vancomycin/NS 1 GM ADD-VANTAGE 250 ML IV SCH ×3 (10:00→22:49)
[2022-10-29] MEDS: normal saline 1000ml 1,000 ML IV SCH ×2 (15:05→15:30)
--- NOTE | 2022-10-29 15:06 | NUR ---
Called Pharmacy and spoke to Pharmacist Mari and she said it is ok to hang patient Vancomycin late from 1000 this am.
--- NOTE | 2022-10-29 19:15 | NUR ---
Patient in room ORTHO 4013. I have received report from NORMA Tsang and had the opportunity to ask questions and assume patient care. Patient resting comfortably in bed, at bedside. She is requesting a breathing treatment, I advised her I would page RT. I will continue to monitor.
[2022-10-29] MEDS: quetiapine fumarate ER 300mg tablet PO SCH (20:43)
[2022-10-29] MEDS: ondansetron 4mg rapidly disintigrating tab PO PRN (21:07)
[2022-10-30] VITALS (19 sets, daily range): BP systolic 99–128; BP diastolic 53–69; PULSE 71–106; RESP 16–22; TEMP 97.4–98.6; O2SAT 87–97
[2022-10-30] MEDS: gabapentin 300mg capsule PO SCH ×4 (02:04→20:27)
[2022-10-30] MEDS: oxyCODONE/APAP 5-325mg tablet PO PRN ×3 (02:12→17:49)
--- NOTE | 2022-10-30 06:12 | NUR ---
Problems reprioritized. Patient report given, questions answered & plan of care reviewed with NORMA Rodríguez.
[2022-10-30 06:43] LABS: BASOPHILS % (AUTO) 0.5 % (0-1); EOSINOPHILS # (AUTO) 0.4 X10'3 (0-0.9); HEMATOCRIT 23.9 % (35.0-45.0); LYMPHOCYTES # (AUTO) 2.1 X10'3 (1.1-4.8); LYMPHOCYTES % (AUTO) 24.2 % (21-51); MEAN CORPUSCULAR HEMOGLOBIN 33.8 PG (27.0-31.0); MEAN CORPUSCULAR HGB CONC 33.3 g/dL (33.0-36.5); MEAN CORPUSCULAR VOLUME 101.3 FL (78-98); MEAN PLATELET VOLUME 7.3 FL (7.4-10.4); MONOCYTES # (AUTO) 1.2 X10'3 (0-0.9); MONOCYTES % (AUTO) 13.9 % (2-12); NEUTROPHILS # (AUTO) 4.8 X10'3 (1.8-7.7); NEUTROPHILS % (AUTO) 56.4 % (42-75); PLATELET COUNT 428 X10'3 (140-440); RED BLOOD COUNT 2.36 X10'6 (4.20-5.60); RED CELL DISTRIBUTION WIDTH 14.4 % (11.5-14.5); WHITE BLOOD COUNT 8.5 X10'3 (4.5-11.0)
[2022-10-30 07:17] LABS: ALANINE AMINOTRANSFERASE 7 U/L (12-78); ALBUMIN 1.5 G/DL (3.4-5.0); ALBUMIN/GLOBULIN RATIO 0.4 (1.1-1.5); ALKALINE PHOSPHATASE 53 IU/L (46-116); ANION GAP 6 (8-16); ASPARTATE AMINO TRANSFERASE 11 U/L (10-37); BILIRUBIN,TOTAL 0.3 MG/DL (0.1-1.0); BLOOD UREA NITROGEN 6 MG/DL (7-18); BUN/CREATININE RATIO 6.5 (10.0-20.0); CALCIUM 8.4 MG/DL (8.5-10.1); CHLORIDE 105 MMOL/L (99-107); CREATININE 0.93 MG/DL (0.40-0.90); GLUCOSE 96 MG/DL (70-104); POTASSIUM 3.4 MMOL/L (3.5-5.1); SODIUM 146 MMOL/L (135-145); TOTAL CARBON DIOXIDE 35.3 MMOL/L (24-32); TOTAL PROTEIN 5.5 G/DL (6.4-8.2); eCRCL 57 ML/MIN; eGFR 64 ML/MIN
[2022-10-30] MEDS: ipratropium/albuterol 3ml nebule NEB SCH ×4 (07:38→20:22)
[2022-10-30] MEDS: budesonide 0.5mg/2ml UD nebule IH SCH ×2 (07:38→20:21)
--- NOTE | 2022-10-30 07:49 | NUR ---
[id number] Lia Beatrice- please call r/t o2 sats, was at 75% on 5LNC, RT in working with her now.
--- NOTE | 2022-10-30 08:11 | NUR ---
per dr gavin i spoke with him for primary nurse and took orders. he wants pt on continuous pulse ox, SL, and Tele. let primary nurse know and charge
[2022-10-30 08:27] LABS: ABG BASE EXCESS 7.3 mmol/L (-2.0-2.0); ABG HCO3 31.7 mmol/L (22.0-26.0); ABG OXYGEN SATURATION 87.8 % (94-97); ABG PCO2 (T) 44.4 mmHg (32.0-45.0); ABG PH (T) 7.472 (7.350-7.450); ABG PO2 (T) 55.3 mmHg (75.0-100.0); ALLEN'S TEST POSITIVE; FCOHb 0.3 % (0.0-3.9); FHHb 12.1 % (0.0-5.0); FLOW 15 L/min; FMetHb 0.2 % (0.0-1.5); FO2Hb 87.4 % (94-97); MODE HIGH FLOW; TOTAL HEMOGLOBIN 9.8 G/dl (12.0-16.0)
[2022-10-30] MEDS: furosemide 40mg/4ml inj IV SCH ×2 (08:31→20:28)
[2022-10-30] MEDS: cefepime 2g/NS 100ml ADVANTAGE 100 ML IV SCH ×2 (08:42→20:28)
--- NOTE | 2022-10-30 09:00 | NUR ---
Dr Casey notified of pt's respiratory decline and lethargy. He stated he's consulted w/ an turning sander tender, and will see pt in about 10 min after the mtg he's in is over. PAGER ID: [phone] MESSAGE: re: [phone] Please call Renita stat/come see her. Thanks [phone]
[2022-10-30] MEDS: atenolol 25mg tablet PO SCH (09:25)
[2022-10-30] MEDS: ESCITALOPRAM OXALATE 5 MG TABLET PO SCH (09:29)
[2022-10-30] MEDS: thiamine 100mg tablet PO SCH (09:30)
[2022-10-30] MEDS: folic acid 1mg tablet PO SCH (09:30)
[2022-10-30] MEDS: multivitamins, therapeutics tablet PO SCH (09:30)
[2022-10-30] MEDS: busPIRone 5mg tablet PO SCH ×3 (09:31→20:51)
[2022-10-30] MEDS: heparin, porcine 5000 units/ml vial SQ SCH ×2 (09:32→20:29)
--- NOTE | 2022-10-30 10:44 | NUR ---
F/u 10/30: Pt PO regressing ~21% past 3.5 days now refusing breakfast not meeting needs. Ensure Enlive pending MD verification in EMR though physician as how changed; VLAD d/w DO who is agreeable to ONS TID-pending DO verification in EMR. Noted now on 15L HFS and, per DO, almost transferred to ICU given respiratory status this AM. Respiratory status likely significantly impacting PO trends now w/ bilateral hospital-acquired PNA per ID MD note. IF PO remains poor given respiratory status despite ONS initiation pt would benefit from supplemental EN. Remains on routine thiamine, folic acid, MVI for etoh hx. LBM 10/30. Will monitor for further PO trends and nutrition intervention needs. Recommendations: 1) Continue low fiber diet; advance to regular as medically indicated; encourage PO 2) Ensure Enlive TIDWM to assist w/ nutrition intake; pending physician verification in EMR 3) IF poor PO persists despite ONS consider supplemental EN to optimize nutrition status; IF TF Jevity 1.2 at 60ml/hr 4) Continue routine Thiamine, Folic acid, and MVI for EtOH hx 5) Bowel regimen per physician discretion 6) Scaled weight this admit; subsequent weekly scaled weights Addendum: 10/30/22 at [address] Amended: Links added.
[2022-10-30] MEDS: vancomycin/NS 1 GM ADD-VANTAGE 250 ML IV SCH ×2 (11:13→22:30)
[2022-10-30] MEDS: methylPREDNISolone sod succ/PF 40mg inj. IV SCH ×2 (11:21→20:28)
[2022-10-30 12:34] LABS: TOTAL CELLS COUNTED 100
[2022-10-30 12:35] LABS: HYPOCHROMASIA 1+; PLATELET ESTIMATE NORMAL; POLYCHROMASIA FEW
[2022-10-30] MEDS: lactose-reduced food (Ensure Enlive) - 237ml bottle PO SCH ×2 (13:00→18:00)
[2022-10-30] MEDS: POTASSIUM BICARB 20meq eff tab 20 MEQ TABLET.EFF PO PRN ×2 (13:23→17:49)
--- NOTE | 2022-10-30 18:00 | NUR ---
I have reviewed and agree with interventions, assessments, and documentation by Ayleen Rodriguez LVN.
--- NOTE | 2022-10-30 18:10 | NUR ---
Patient in room ORTHO 4013. I have received report from VETO GUTIERREZ and had the opportunity to ask questions and assume patient care.
[2022-10-30] MEDS: quetiapine fumarate ER 300mg tablet PO SCH (20:51)
[2022-10-30] MEDS: HYDROmorphone 1 mg/ml syringe IV PRN (20:51)
[2022-10-31] VITALS (25 sets, daily range): BP systolic 80–130; BP diastolic 40–72; PULSE 69–97; RESP 16–18; TEMP 97.5–98.2; O2SAT 88–98
[2022-10-31] MEDS: oxyCODONE/APAP 5-325mg tablet PO PRN ×3 (00:03→19:46)
[2022-10-31] MEDS: ipratropium/albuterol 3ml nebule NEB SCH ×6 (00:14→23:00)
[2022-10-31] MEDS: gabapentin 300mg capsule PO SCH ×4 (02:01→19:46)
[2022-10-31] MEDS: HYDROmorphone 1 mg/ml syringe IV PRN (03:10)
[2022-10-31] MEDS: albuterol 2.5 MG/3 ML nebule NEB PRN (03:49)
--- NOTE | 2022-10-31 05:00 | NUR ---
Patient in room ORTHO 4013. I have received report from Zuleika GREEN and had the opportunity to ask questions and assume patient care.
[2022-10-31 06:48] LABS: BASOPHILS % (AUTO) 0.2 % (0-1); EOSINOPHILS % (AUTO) 0 % (0-6); HEMATOCRIT 26.4 % (35.0-45.0); HEMOGLOBIN 8.9 g/dl (12.0-16.0); LYMPHOCYTES # (AUTO) 1.5 X10'3 (1.1-4.8); LYMPHOCYTES % (AUTO) 15.1 % (21-51); MEAN CORPUSCULAR HEMOGLOBIN 33.7 PG (27.0-31.0); MEAN CORPUSCULAR HGB CONC 33.5 g/dL (33.0-36.5); MEAN CORPUSCULAR VOLUME 100.6 FL (78-98); MEAN PLATELET VOLUME 7.6 FL (7.4-10.4); MONOCYTES # (AUTO) 0.8 X10'3 (0-0.9); MONOCYTES % (AUTO) 7.6 % (2-12); NEUTROPHILS # (AUTO) 7.6 X10'3 (1.8-7.7); NEUTROPHILS % (AUTO) 77.1 % (42-75); PLATELET COUNT 505 X10'3 (140-440); RED BLOOD COUNT 2.63 X10'6 (4.20-5.60); RED CELL DISTRIBUTION WIDTH 13.9 % (11.5-14.5); WHITE BLOOD COUNT 9.9 X10'3 (4.5-11.0)
[2022-10-31 06:52] LABS: ALANINE AMINOTRANSFERASE 9 U/L (12-78); ALBUMIN 1.7 G/DL (3.4-5.0); ALBUMIN/GLOBULIN RATIO 0.4 (1.1-1.5); ALKALINE PHOSPHATASE 54 IU/L (46-116); ANION GAP 6 (8-16); ASPARTATE AMINO TRANSFERASE 12 U/L (10-37); BILIRUBIN,TOTAL 0.2 MG/DL (0.1-1.0); BLOOD UREA NITROGEN 11 MG/DL (7-18); BUN/CREATININE RATIO 11.6 (10.0-20.0); CALCIUM 8.5 MG/DL (8.5-10.1); CHLORIDE 102 MMOL/L (99-107); CREATININE 0.95 MG/DL (0.40-0.90); GLUCOSE 141 MG/DL (70-104); POTASSIUM 4.1 MMOL/L (3.5-5.1); SODIUM 143 MMOL/L (135-145); TOTAL CARBON DIOXIDE 35.5 MMOL/L (24-32); TOTAL PROTEIN 6.1 G/DL (6.4-8.2); eCRCL 56 ML/MIN; eGFR 62 ML/MIN
[2022-10-31] MEDS: budesonide 0.5mg/2ml UD nebule IH SCH ×2 (07:12→19:30)
[2022-10-31] MEDS: lactose-reduced food (Ensure Enlive) - 237ml bottle PO SCH ×3 (08:00→18:00)
[2022-10-31] MEDS: folic acid 1mg tablet PO SCH (08:29)
[2022-10-31] MEDS: multivitamins, therapeutics tablet PO SCH (08:29)
[2022-10-31] MEDS: ESCITALOPRAM OXALATE 5 MG TABLET PO SCH (08:29)
[2022-10-31] MEDS: thiamine 100mg tablet PO SCH (08:30)
[2022-10-31] MEDS: busPIRone 5mg tablet PO SCH ×3 (08:30→20:28)
[2022-10-31] MEDS: atenolol 25mg tablet PO SCH (08:32)
[2022-10-31] MEDS: methylPREDNISolone sod succ/PF 40mg inj. IV SCH ×2 (08:33→19:47)
[2022-10-31] MEDS: cefepime 2g/NS 100ml ADVANTAGE 100 ML IV SCH ×2 (08:33→19:47)
[2022-10-31] MEDS: heparin, porcine 5000 units/ml vial SQ SCH ×2 (08:33→16:51)
[2022-10-31] MEDS: furosemide 40mg/4ml inj IV SCH (08:37)
[2022-10-31] MEDS: LORazepam 1 MG tablet PO PRN (08:48)
[2022-10-31 09:07] LABS: TOTAL CELLS COUNTED 100
[2022-10-31 09:08] LABS: PLATELET ESTIMATE INCREASED
[2022-10-31 09:09] LABS: HYPOCHROMASIA 1+; POLYCHROMASIA FEW
[2022-10-31 09:10] LABS: LARGE PLATELETS FEW
[2022-10-31] MEDS: vancomycin/NS 1 GM ADD-VANTAGE 250 ML IV SCH ×2 (10:25→21:57)
--- NOTE | 2022-10-31 15:03 | NUR ---
.NET DEVELOPER documentation: I have reviewed and agree with all interventions, assessments performed and documented by Mariah Santos LVN.
--- NOTE | 2022-10-31 16:26 | NUR ---
report given to Zuleika GREEN
--- NOTE | 2022-10-31 17:05 | NUR ---
SOFTWARE SYSTEMS ANALYST documentation: I have reviewed and agree with all interventions, assessments performed and documented by Mariah Santos LVN.
[2022-10-31] MEDS: quetiapine fumarate ER 300mg tablet PO SCH (20:28)
[2022-11-01] VITALS (16 sets, daily range): BP systolic 95–125; BP diastolic 45–74; PULSE 66–107; RESP 15–20; TEMP 97.4–98.9; O2SAT 91–96
[2022-11-01] MEDS: oxyCODONE/APAP 5-325mg tablet PO PRN ×4 (00:35→22:31)
[2022-11-01] MEDS: heparin, porcine 5000 units/ml vial SQ SCH ×3 (00:35→16:39)
[2022-11-01] MEDS: gabapentin 300mg capsule PO SCH ×4 (02:05→20:34)
--- NOTE | 2022-11-01 06:30 | NUR ---
Patient in room ORTHO 4013. I have received report from NORMA Siu and had the opportunity to ask questions and assume patient care.
[2022-11-01] MEDS: ipratropium/albuterol 3ml nebule NEB SCH ×5 (07:31→23:00)
[2022-11-01] MEDS: budesonide 0.5mg/2ml UD nebule IH SCH ×2 (07:36→19:08)
[2022-11-01] MEDS: lactose-reduced food (Ensure Enlive) - 237ml bottle PO SCH ×3 (08:15→18:08)
[2022-11-01 09:31] LABS: BASOPHILS % (AUTO) 0.1 % (0-1); EOSINOPHILS % (AUTO) 0.1 % (0-6); HEMATOCRIT 29.3 % (35.0-45.0); HEMOGLOBIN 9.5 g/dl (12.0-16.0); LYMPHOCYTES # (AUTO) 2.4 X10'3 (1.1-4.8); LYMPHOCYTES % (AUTO) 19.7 % (21-51); MEAN CORPUSCULAR HEMOGLOBIN 32.8 PG (27.0-31.0); MEAN CORPUSCULAR HGB CONC 32.5 g/dL (33.0-36.5); MEAN CORPUSCULAR VOLUME 100.8 FL (78-98); MEAN PLATELET VOLUME 7.4 FL (7.4-10.4); MONOCYTES # (AUTO) 1.2 X10'3 (0-0.9); MONOCYTES % (AUTO) 9.9 % (2-12); NEUTROPHILS # (AUTO) 8.6 X10'3 (1.8-7.7); NEUTROPHILS % (AUTO) 70.2 % (42-75); PLATELET COUNT 561 X10'3 (140-440); RED BLOOD COUNT 2.91 X10'6 (4.20-5.60); RED CELL DISTRIBUTION WIDTH 14.4 % (11.5-14.5); WHITE BLOOD COUNT 12.3 X10'3 (4.5-11.0)
[2022-11-01 09:47] LABS: ALANINE AMINOTRANSFERASE 12 U/L (12-78); ALBUMIN 1.8 G/DL (3.4-5.0); ALBUMIN/GLOBULIN RATIO 0.4 (1.1-1.5); ALKALINE PHOSPHATASE 48 IU/L (46-116); ANION GAP 6 (8-16); ASPARTATE AMINO TRANSFERASE 15 U/L (10-37); BILIRUBIN,TOTAL 0.2 MG/DL (0.1-1.0); BLOOD UREA NITROGEN 21 MG/DL (7-18); BUN/CREATININE RATIO 21.2 (10.0-20.0); CALCIUM 8.9 MG/DL (8.5-10.1); CHLORIDE 103 MMOL/L (99-107); CREATININE 0.99 MG/DL (0.40-0.90); GLUCOSE 163 MG/DL (70-104); POTASSIUM 3.6 MMOL/L (3.5-5.1); SODIUM 142 MMOL/L (135-145); TOTAL CARBON DIOXIDE 33.2 MMOL/L (24-32); TOTAL PROTEIN 6.4 G/DL (6.4-8.2); eCRCL 54 ML/MIN; eGFR 59 ML/MIN
[2022-11-01] MEDS: cefepime 2g/NS 100ml ADVANTAGE 100 ML IV SCH ×2 (09:52→21:33)
[2022-11-01] MEDS: ESCITALOPRAM OXALATE 5 MG TABLET PO SCH (09:58)
[2022-11-01] MEDS: thiamine 100mg tablet PO SCH (09:58)
[2022-11-01] MEDS: multivitamins, therapeutics tablet PO SCH (09:58)
[2022-11-01] MEDS: busPIRone 5mg tablet PO SCH ×3 (09:58→20:34)
[2022-11-01] MEDS: folic acid 1mg tablet PO SCH (09:59)
[2022-11-01] MEDS: methylPREDNISolone sod succ/PF 40mg inj. IV SCH ×2 (09:59→21:33)
[2022-11-01] MEDS: atenolol 25mg tablet PO SCH (10:00)
[2022-11-01 11:05] LABS: PLATELET ESTIMATE INCREASED; TOTAL CELLS COUNTED 100
[2022-11-01 11:06] LABS: HYPERSEGMENTED NEUTROPHILS 1+; HYPOCHROMASIA 1+; POLYCHROMASIA 1+
[2022-11-01] MEDS: vancomycin/NS 1 GM ADD-VANTAGE 250 ML IV SCH ×2 (11:27→22:31)
--- NOTE | 2022-11-01 18:10 | NUR ---
Patient in room ORTHO 4013. I have received report from Alyssia GREEN and had the opportunity to ask questions and assume patient care.
--- NOTE | 2022-11-01 18:40 | NUR ---
Problems reprioritized. Patient report given, questions answered & plan of care reviewed with NORMA Siu.
[2022-11-01] MEDS: quetiapine fumarate ER 300mg tablet PO SCH (20:33)
[2022-11-02] VITALS (13 sets, daily range): BP systolic 102–129; BP diastolic 50–68; PULSE 59–86; RESP 16–18; TEMP 98–98.4; O2SAT 91–97
[2022-11-02] MEDS: heparin, porcine 5000 units/ml vial SQ SCH ×3 (00:58→15:20)
[2022-11-02] MEDS: gabapentin 300mg capsule PO SCH ×4 (01:51→20:29)
[2022-11-02] MEDS: ipratropium/albuterol 3ml nebule NEB SCH ×5 (07:19→23:00)
[2022-11-02] MEDS: budesonide 0.5mg/2ml UD nebule IH SCH ×2 (07:19→19:29)
[2022-11-02] MEDS: multivitamins, therapeutics tablet PO SCH (08:19)
[2022-11-02] MEDS: thiamine 100mg tablet PO SCH (08:19)
[2022-11-02] MEDS: oxyCODONE/APAP 5-325mg tablet PO PRN ×4 (08:19→20:30)
[2022-11-02] MEDS: busPIRone 5mg tablet PO SCH ×3 (08:20→20:29)
[2022-11-02] MEDS: folic acid 1mg tablet PO SCH (08:20)
[2022-11-02] MEDS: atenolol 25mg tablet PO SCH (08:21)
[2022-11-02] MEDS: ESCITALOPRAM OXALATE 5 MG TABLET PO SCH (08:22)
[2022-11-02] MEDS: methylPREDNISolone sod succ/PF 40mg inj. IV SCH ×2 (09:39→20:29)
[2022-11-02] MEDS: cefepime 2g/NS 100ml ADVANTAGE 100 ML IV SCH ×2 (09:40→20:28)
[2022-11-02] MEDS: lactose-reduced food (Ensure Enlive) - 237ml bottle PO SCH ×3 (09:45→18:22)
--- NOTE | 2022-11-02 09:48 | NUR ---
Reassessment: Overall PO intake of meals remains low, documented with average 23% PO intake since 10/31. Pt now receiving an Ensure Enlive TID as of 11/01 and pt with 50% PO intake of two ONS with refusal of one. Documentation of pt refusing ONS prior to 11/01 is an error as physician approval was still pending in EMR. Combined PO intake of ONS and meals meets 62% estimated energy needs and 68% estimated protein needs. Received TC from dietary stating pt is requesting to not receive chocolate Ensure and requests to only receive vanilla, preferences will be honored. Hopefully PO intake of ONS will improve with pt receiving preferred flavor. IF PO intake does not improve pt would benefit from supplemental EN. LBM 11/01 per EMR. Will continue to follow closely and make recommendations as appropriate. Recommendations: 1) Continue low fiber diet; advance to regular as medically indicated 2) Vanilla Ensure Enlive TIDWM to assist with meeting estimated nutrient needs 3) Encourage PO intake 4) IF poor PO persists despite ONS consider supplemental EN to optimize nutrition status; IF TF Jevity 1.2 at 60ml/hr 5) Continue routine Thiamine, Folic acid, and MVI for EtOH hx 6) Bowel regimen per physician discretion 7) Scaled weight this admit; subsequent weekly scaled weights Addendum: 11/02/22 at [address] Amended: Links added.
[2022-11-02] MEDS: vancomycin/NS 1 GM ADD-VANTAGE 250 ML IV SCH ×2 (11:43→22:28)
[2022-11-02 12:50] LABS: ALBUMIN 1.9 G/DL (3.4-5.0); ANION GAP 5 (8-16); BLOOD UREA NITROGEN 19 MG/DL (7-18); CALCIUM 8.4 MG/DL (8.5-10.1); CHLORIDE 106 MMOL/L (99-107); CREATININE 0.95 MG/DL (0.40-0.90); GLUCOSE 155 MG/DL (70-104); POTASSIUM 4.2 MMOL/L (3.5-5.1); SODIUM 141 MMOL/L (135-145); TOTAL CARBON DIOXIDE 30.2 MMOL/L (24-32); eCRCL 56 ML/MIN; eGFR 62 ML/MIN
[2022-11-02] MEDS: quetiapine fumarate ER 300mg tablet PO SCH (21:12)
[2022-11-03] VITALS (12 sets, daily range): BP systolic 121–150; BP diastolic 59–85; PULSE 68–81; RESP 14–17; TEMP 97.3–98.3; O2SAT 89–97
[2022-11-03] MEDS: oxyCODONE/APAP 5-325mg tablet PO PRN ×5 (00:54→21:59)
[2022-11-03] MEDS: heparin, porcine 5000 units/ml vial SQ SCH ×3 (00:54→17:10)
[2022-11-03] MEDS: gabapentin 300mg capsule PO SCH ×4 (00:55→20:03)
[2022-11-03 06:19] LABS: BASOPHILS % (AUTO) 0.4 % (0-1); EOSINOPHILS # (AUTO) 0.2 X10'3 (0-0.9); HEMATOCRIT 28.4 % (35.0-45.0); HEMOGLOBIN 9.3 g/dl (12.0-16.0); LYMPHOCYTES # (AUTO) 3.5 X10'3 (1.1-4.8); LYMPHOCYTES % (AUTO) 29.1 % (21-51); MEAN CORPUSCULAR HEMOGLOBIN 33.3 PG (27.0-31.0); MEAN CORPUSCULAR HGB CONC 32.9 g/dL (33.0-36.5); MEAN CORPUSCULAR VOLUME 101.3 FL (78-98); MEAN PLATELET VOLUME 7.1 FL (7.4-10.4); MONOCYTES # (AUTO) 1.2 X10'3 (0-0.9); MONOCYTES % (AUTO) 10.3 % (2-12); NEUTROPHILS # (AUTO) 6.9 X10'3 (1.8-7.7); NEUTROPHILS % (AUTO) 58.2 % (42-75); PLATELET COUNT 499 X10'3 (140-440); RED CELL DISTRIBUTION WIDTH 14.3 % (11.5-14.5); WHITE BLOOD COUNT 11.9 X10'3 (4.5-11.0)
[2022-11-03 06:30] LABS: ALANINE AMINOTRANSFERASE 13 U/L (12-78); ALBUMIN/GLOBULIN RATIO 0.5 (1.1-1.5); ALKALINE PHOSPHATASE 42 IU/L (46-116); ANION GAP 5 (8-16); ASPARTATE AMINO TRANSFERASE 12 U/L (10-37); BILIRUBIN,TOTAL 0.2 MG/DL (0.1-1.0); BLOOD UREA NITROGEN 19 MG/DL (7-18); BUN/CREATININE RATIO 22.9 (10.0-20.0); CHLORIDE 107 MMOL/L (99-107); CREATININE 0.83 MG/DL (0.40-0.90); GLUCOSE 114 MG/DL (70-104); POTASSIUM 4.4 MMOL/L (3.5-5.1); SODIUM 141 MMOL/L (135-145); TOTAL PROTEIN 6.1 G/DL (6.4-8.2); eCRCL 64 ML/MIN; eGFR 73 ML/MIN
--- NOTE | 2022-11-03 06:55 | NUR ---
Patient report given to Amy RN, patient resting comfortably at this time.
[2022-11-03] MEDS: ipratropium/albuterol 3ml nebule NEB SCH ×5 (07:26→22:45)
[2022-11-03] MEDS: budesonide 0.5mg/2ml UD nebule IH SCH ×2 (07:26→19:16)
[2022-11-03 07:45] LABS: HYPOCHROMASIA 1+; NUCLEATED RED BLOOD CELLS 1 /100WBC (0-0); PLATELET ESTIMATE INCREASED; POLYCHROMASIA 1+; SMUDGE CELLS FEW; TOTAL CELLS COUNTED 100
[2022-11-03] MEDS: lactose-reduced food (Ensure Enlive) - 237ml bottle PO SCH ×3 (08:00→18:18)
[2022-11-03] MEDS: cefepime 2g/NS 100ml ADVANTAGE 100 ML IV SCH ×2 (08:34→20:03)
[2022-11-03] MEDS: folic acid 1mg tablet PO SCH (08:40)
[2022-11-03] MEDS: ESCITALOPRAM OXALATE 5 MG TABLET PO SCH (08:41)
[2022-11-03] MEDS: thiamine 100mg tablet PO SCH (08:41)
[2022-11-03] MEDS: atenolol 25mg tablet PO SCH (08:41)
[2022-11-03] MEDS: multivitamins, therapeutics tablet PO SCH (08:41)
[2022-11-03] MEDS: busPIRone 5mg tablet PO SCH ×3 (08:42→20:02)
[2022-11-03] MEDS: methylPREDNISolone sod succ/PF 40mg inj. IV SCH (08:42)
[2022-11-03] MEDS ORDERED: VANCOMYCIN LEVEL IV ONE (09:30)
[2022-11-03] MEDS: diphenhydrAMINE 25mg capsule PO PRN (09:47)
[2022-11-03] MEDS: vancomycin/NS 1 GM ADD-VANTAGE 250 ML IV SCH (11:36)
--- NOTE | 2022-11-03 11:59 | NUR ---
Pharmacy aware of Vanco Trough, 21.5
--- NOTE | 2022-11-03 18:16 | NUR ---
Report given to Samantha GREEN
[2022-11-03] MEDS: quetiapine fumarate ER 300mg tablet PO SCH (20:02)
[2022-11-03] MEDS: VANCOMYCIN 750MG IV in NS 250 ML IV SCH (21:59)
[2022-11-04] MEDS: heparin, porcine 5000 units/ml vial SQ SCH ×3 (00:35→16:00)
[2022-11-04 01:20] VITALS: PULSE 66; RESP 16; O2SAT 96
[2022-11-04] MEDS: gabapentin 300mg capsule PO SCH ×3 (01:22→13:06)
[2022-11-04] MEDS: LORazepam 1 MG tablet PO PRN ×2 (01:22→16:31)
[2022-11-04] MEDS: oxyCODONE/APAP 5-325mg tablet PO PRN ×3 (02:53→11:35)
[2022-11-04 06:25] LABS: ALANINE AMINOTRANSFERASE 15 U/L (12-78); ALBUMIN 1.9 G/DL (3.4-5.0); ALBUMIN/GLOBULIN RATIO 0.5 (1.1-1.5); ALKALINE PHOSPHATASE 41 IU/L (46-116); ANION GAP 3 (8-16); ASPARTATE AMINO TRANSFERASE 13 U/L (10-37); BILIRUBIN,TOTAL 0.2 MG/DL (0.1-1.0); BLOOD UREA NITROGEN 21 MG/DL (7-18); BUN/CREATININE RATIO 24.7 (10.0-20.0); CALCIUM 8.8 MG/DL (8.5-10.1); CHLORIDE 107 MMOL/L (99-107); CREATININE 0.85 MG/DL (0.40-0.90); GLUCOSE 95 MG/DL (70-104); POTASSIUM 4.1 MMOL/L (3.5-5.1); SODIUM 140 MMOL/L (135-145); TOTAL CARBON DIOXIDE 29.6 MMOL/L (24-32); TOTAL PROTEIN 5.6 G/DL (6.4-8.2); eCRCL 63 ML/MIN; eGFR 71 ML/MIN
--- NOTE | 2022-11-04 06:28 | NUR ---
Problems reprioritized. Patient report given, questions answered & plan of care reviewed with NORMA GUNTER.
[2022-11-04 06:46] LABS: BASOPHILS % (AUTO) 0.3 % (0-1); EOSINOPHILS # (AUTO) 0.4 X10'3 (0-0.9); EOSINOPHILS % (AUTO) 2.8 % (0-6); HEMATOCRIT 27.2 % (35.0-45.0); HEMOGLOBIN 8.9 g/dl (12.0-16.0); LYMPHOCYTES # (AUTO) 4.5 X10'3 (1.1-4.8); MEAN CORPUSCULAR HEMOGLOBIN 33.3 PG (27.0-31.0); MEAN CORPUSCULAR HGB CONC 32.7 g/dL (33.0-36.5); MEAN CORPUSCULAR VOLUME 101.8 FL (78-98); MONOCYTES # (AUTO) 1.2 X10'3 (0-0.9); MONOCYTES % (AUTO) 9.2 % (2-12); NEUTROPHILS # (AUTO) 7.1 X10'3 (1.8-7.7); NEUTROPHILS % (AUTO) 53.7 % (42-75); PLATELET COUNT 478 X10'3 (140-440); RED BLOOD COUNT 2.68 X10'6 (4.20-5.60); RED CELL DISTRIBUTION WIDTH 14.5 % (11.5-14.5); WHITE BLOOD COUNT 13.2 X10'3 (4.5-11.0)
[2022-11-04 06:55] VITALS: BP 119/68; PULSE 64; RESP 18; TEMP 98; O2SAT 94
[2022-11-04] MEDS: busPIRone 5mg tablet PO SCH ×2 (07:10→12:44)
[2022-11-04] MEDS: folic acid 1mg tablet PO SCH (07:10)
[2022-11-04] MEDS: ESCITALOPRAM OXALATE 5 MG TABLET PO SCH (07:10)
[2022-11-04] MEDS: atenolol 25mg tablet PO SCH (07:11)
[2022-11-04] MEDS: multivitamins, therapeutics tablet PO SCH (07:11)
[2022-11-04] MEDS: thiamine 100mg tablet PO SCH (07:11)
[2022-11-04] MEDS: cefepime 2g/NS 100ml ADVANTAGE 100 ML IV SCH (07:14)
[2022-11-04] MEDS: lactose-reduced food (Ensure Enlive) - 237ml bottle PO SCH ×2 (08:00→12:44)
[2022-11-04 08:43] LABS: NUCLEATED RED BLOOD CELLS 1 /100WBC (0-0); PLATELET ESTIMATE INCREASED; TOTAL CELLS COUNTED 100
[2022-11-04 08:44] LABS: HYPOCHROMASIA 1+; POLYCHROMASIA 1+
[2022-11-04 08:45] VITALS: RESP 18
[2022-11-04 08:45] LABS: POIKILOCYTOSIS 1+
[2022-11-04] MEDS: ipratropium/albuterol 3ml nebule NEB SCH ×3 (08:45→15:00)
[2022-11-04] MEDS: albuterol 2.5 MG/3 ML nebule NEB PRN (08:45)
[2022-11-04] MEDS: budesonide 0.5mg/2ml UD nebule IH SCH (08:45)
[2022-11-04 08:49] VITALS: PULSE 68; PULSE 70; RESP 16; O2SAT 95
[2022-11-04] MEDS ORDERED: ATEN-168 PO (09:35)
[2022-11-04] MEDS ORDERED: PER5325T PO (09:35)
[2022-11-04 10:22] VITALS: BP 99/52; PULSE 64; RESP 18; TEMP 97.8; O2SAT 96
[2022-11-04] MEDS: VANCOMYCIN 750MG IV in NS 250 ML IV SCH (10:26)
--- NOTE | 2022-11-04 12:19 | NUR ---
Patients residential child care counselor will package pick up patient at 1700 after he gets off work.
[2022-11-04] MEDS ORDERED: HYDROmorphone inj. 0.5 MG/0.5 ML DISP.SYRIN IV ONE (17:20)
[2022-11-04 17:52] VITALS: RESP 17
--- NOTE | 2022-11-04 18:23 | NUR ---
Patient requested to make appointment with Dr. Tilley office for staple removal. IV removed. Patient discharged with .
[2022-11-05] MEDS ORDERED: VANCOMYCIN LEVEL IV ONE (09:30)
== END 2022-11-04 18:00 | disposition home or self-care (01) | DRG 853 ==
LOC: ER 07:01 → ED HOLD 10:40 → EDBEDREQ 17:07 → PCU 3S 17:36 → CICU 2S 10-17 20:58 → ORTHO 4S 10-19 10:57
PROVIDERS: ADMIT Internal Medicine; ATTEND Internal Medicine
PROC: BW211ZZ Computerized Tomography (CT Scan) of Abdomen and Pelvis using Low Osmolar Contrast (ICD-10-PCS; 2022-10-16)
PROC: 0DNW0ZZ Release Peritoneum, Open Approach (ICD-10-PCS; 2022-10-17)
PROC: 3E0T3BZ Introduction of Anesthetic Agent into Peripheral Nerves and Plexi, Percutaneous Approach (ICD-10-PCS; 2022-10-17)
PROC: 3E0T33Z Introduction of Anti-inflammatory into Peripheral Nerves and Plexi, Percutaneous Approach (ICD-10-PCS; 2022-10-17)
PROC: 5A0935A Assistance with Respiratory Ventilation, Less than 24 Consecutive Hours, High Flow/Velocity Cannula (ICD-10-PCS; principal; 2022-10-26)
PROC: B32T1ZZ Computerized Tomography (CT Scan) of Left Pulmonary Artery using Low Osmolar Contrast (ICD-10-PCS; 2022-10-26)
PROC: B3201ZZ Computerized Tomography (CT Scan) of Thoracic Aorta using Low Osmolar Contrast (ICD-10-PCS; 2022-10-26)
PROC: B32S1ZZ Computerized Tomography (CT Scan) of Right Pulmonary Artery using Low Osmolar Contrast (ICD-10-PCS; 2022-10-26)
PROC: 5A0935A Assistance with Respiratory Ventilation, Less than 24 Consecutive Hours, High Flow/Velocity Cannula (ICD-10-PCS; 2022-10-27)
PROC: 5A0935A Assistance with Respiratory Ventilation, Less than 24 Consecutive Hours, High Flow/Velocity Cannula (ICD-10-PCS; 2022-10-28)
PROC: 5A0935A Assistance with Respiratory Ventilation, Less than 24 Consecutive Hours, High Flow/Velocity Cannula (ICD-10-PCS; 2022-10-29)
PROC: 5A0935A Assistance with Respiratory Ventilation, Less than 24 Consecutive Hours, High Flow/Velocity Cannula (ICD-10-PCS; 2022-10-30)
PROC: 5A0935A Assistance with Respiratory Ventilation, Less than 24 Consecutive Hours, High Flow/Velocity Cannula (ICD-10-PCS; 2022-10-31)
DX: A41.9 Sepsis, unspecified organism (principal); E43 Unspecified severe protein-calorie malnutrition; J69.0 Pneumonitis due to inhalation of food and vomit; J96.01 Acute respiratory failure with hypoxia; K56.50 Intestinal adhesions [bands], unspecified as to partial versus complete obstruction; K56.7 Ileus, unspecified; R18.8 Other ascites; K57.92 Diverticulitis of intestine, part unspecified, without perforation or abscess without bleeding; D62 Acute posthemorrhagic anemia; J90 Pleural effusion, not elsewhere classified; Z20.822 Contact with and (suspected) exposure to COVID-19; D75.89 Other specified diseases of blood and blood-forming organs; E66.9 Obesity, unspecified; E87.6 Hypokalemia; F10.20 Alcohol dependence, uncomplicated; G43.909 Migraine, unspecified, not intractable, without status migrainosus; K42.9 Umbilical hernia without obstruction or gangrene; I95.9 Hypotension, unspecified; F32.A Depression, unspecified; G47.33 Obstructive sleep apnea (adult) (pediatric); F41.1 Generalized anxiety disorder; F11.90 Opioid use, unspecified, uncomplicated; G89.29 Other chronic pain; I10 Essential (primary) hypertension; K21.9 Gastro-esophageal reflux disease without esophagitis; Z76.5 Malingerer [conscious simulation]; Z79.899 Other long term (current) drug therapy; Z82.5 Family history of asthma and other chronic lower respiratory diseases; Z86.19 Personal history of other infectious and parasitic diseases; Z90.710 Acquired absence of both cervix and uterus; Z68.31 Body mass index [BMI] 31.0-31.9, adult; E87.8 Other disorders of electrolyte and fluid balance, not elsewhere classified; E83.51 Hypocalcemia; Z88.8 Allergy status to other drugs, medicaments and biological substances; Z82.61 Family history of arthritis
CPT/HCPCS: 93306; 99285; Z7506; Z7508; 36415; 36600; 71045; 71275; 74176; 74177; 80048; 80053; 80202; 81001; 81003; 81025; 82803; 83605; 83690; 83735; 83880; 84100; 84145; 85007; 85018; 85025; 85379; 85610; 85730; 86140; 86885; 86900; 86901; 86920; 87040; 87070; 87811; 92508; 92616; 93005; 94002; 94003; 94640; 94668; 94760; 97110; 97116; 97161; 97164; 97530; A4615; A4618; A6258; A6402; A6446; A6449; A7000; C1758; C9290; G0378; J0692; J1100; J1170; J1200; J1644; J1885; J1940; J1956; J2060; J2250; J2270; J2274; J2310; J2405; J2543; J2704; J2765; J2920; J3010; J3370; J3475; J3490; J7030; J7040; J7050; J7120; Q0163; Q9963; Q9967

== ENCOUNTER 2023-01-26 11:28 | Emergency (ER) | payer BC ==
[~2023-01-26] VITALS: Ht 167.6 cm; Wt 77.7 kg
[~2023-01-26 11:28] MED LIST changes: +ATEN-168 PO; +BREX1TAB PO; -BUSP-28 PO; +BUSP10TA3 PO; -DOCU100C40 PO; -ESCI20TA PO; +ESCI20TA39 PO; -LACT1CAP26 PO; -MAGN400O6 PO; -ONDA4TAB12 PO; -PANT40TA54 PO; +PER5325T PO; -QUET200T PO; +QUET300T20 PO; -TRAM50TA2 PO
[2023-01-26 12:35] LABS: URINE HCG NEGATIVE (NEG)
[2023-01-26 12:41] LABS: BILIRUBIN,URINE NEGATIVE (Neg); CLARITY,URINE CLOUDY (Clear); COLOR,URINE YELLOW (Yellow); GLUCOSE, URINE NEGATIVE (Neg); KETONES,URINE NEGATIVE (Neg); LEUKOCYTE ESTERASE ,URINE SMALL (Neg); NITRITES, URINE POSITIVE (Neg); OCCULT BLOOD,URINE NEGATIVE (Neg); PH,URINE 6.5 (4.8-8.0); PROTEIN,URINE TRACE mg/dl (Neg)
[2023-01-26 12:43] LABS: UA COLLECTION TYPE CLN CATCH MIDSTREAM
[2023-01-26 12:47] LABS: BACTERIA,URINE 2+ /HPF (Neg); MUCUS STRANDS MODERATE /LPF (Neg); SQUAMOUS EPITHELIAL CELL,UR MODERATE /LPF (FEW); WBC,URINE TNTC /HPF (0-4)
[2023-01-26 12:48] LABS: RBC,URINE 0-2 /HPF (0-2)
[2023-01-26 13:16] LABS: BASOPHILS % (AUTO) 0.5 % (0-1); EOSINOPHILS # (AUTO) 0.1 X10'3 (0-0.9); EOSINOPHILS % (AUTO) 1.3 % (0-6); HEMATOCRIT 40.4 % (35.0-45.0); HEMOGLOBIN 13.2 g/dl (12.0-16.0); LYMPHOCYTES # (AUTO) 2.5 X10'3 (1.1-4.8); LYMPHOCYTES % (AUTO) 38.4 % (21-51); MEAN CORPUSCULAR HEMOGLOBIN 30.2 PG (27.0-31.0); MEAN CORPUSCULAR HGB CONC 32.6 g/dL (33.0-36.5); MEAN CORPUSCULAR VOLUME 92.7 FL (78-98); MEAN PLATELET VOLUME 6.9 FL (7.4-10.4); MONOCYTES # (AUTO) 0.6 X10'3 (0-0.9); MONOCYTES % (AUTO) 8.5 % (2-12); NEUTROPHILS # (AUTO) 3.4 X10'3 (1.8-7.7); NEUTROPHILS % (AUTO) 51.3 % (42-75); PLATELET COUNT 315 X10'3 (140-440); RED BLOOD COUNT 4.36 X10'6 (4.20-5.60); RED CELL DISTRIBUTION WIDTH 17.8 % (11.5-14.5); WHITE BLOOD COUNT 6.6 X10'3 (4.5-11.0)
[2023-01-26 13:29] LABS: ALANINE AMINOTRANSFERASE 11 U/L (12-78); ALBUMIN 3.2 G/DL (3.4-5.0); ALBUMIN/GLOBULIN RATIO 0.8 (1.1-1.5); ALKALINE PHOSPHATASE 80 IU/L (46-116); AMYLASE 22 U/L (25-115); ANION GAP 8 (8-16); ASPARTATE AMINO TRANSFERASE 18 U/L (10-37); BILIRUBIN,TOTAL 0.4 MG/DL (0.1-1.0); BLOOD UREA NITROGEN 15 MG/DL (7-18); BUN/CREATININE RATIO 15.5 (10.0-20.0); CALCIUM 9.3 MG/DL (8.5-10.1); CHLORIDE 104 MMOL/L (99-107); CREATININE 0.97 MG/DL (0.40-0.90); GLUCOSE 110 MG/DL (70-104); LIPASE 14 U/L (16-77); POTASSIUM 3.8 MMOL/L (3.5-5.1); SODIUM 142 MMOL/L (135-145); TOTAL CARBON DIOXIDE 30.5 MMOL/L (24-32); TOTAL PROTEIN 7.3 G/DL (6.4-8.2); eCRCL 65 ML/MIN; eGFR 61 ML/MIN
[2023-01-26] MEDS ORDERED: ringers solution, lacted 1,000 ML IV ONE (14:05)
[2023-01-26] MEDS ORDERED: ondansetron/PF 4mg/2ml inj IV ONE (14:05)
[2023-01-26] MEDS ORDERED: iohexol 300mg/ml 100ml inj. ONE (14:56)
[2023-01-26] MEDS: morphine 2 MG/ML inj. syringe IV PRN ×3 (15:55→19:08)
[2023-01-26] MEDS ORDERED: CefTRIAXone 2gm/D5W 50ml BAG 50 ML IV SCH (15:55)
[2023-01-26] MEDS ORDERED: CefTRIAXone 2gm/D5W 50ml BAG 50 ML IV ONE (15:56)
[2023-01-26 17:49] VITALS: BP 177/99; PULSE 76; RESP 18; O2SAT 95
[2023-01-26] MEDS ORDERED: SULF1TAB49 PO (18:26)
[2023-01-26] MEDS ORDERED: PHEN-716 PO (18:26)
[2023-01-26] MEDS ORDERED: ACET325T55 PO (18:26)
[2023-01-26] MEDS ORDERED: DOCU-148 PO (18:29)
[2023-01-26] MEDS ORDERED: POLY119P2 PO (18:29)
[2023-01-26 19:09] VITALS: TEMP 97.5
== END 2023-01-26 19:13 | disposition home or self-care (01) ==
LOC: ER 11:28
DX: N39.0 Urinary tract infection, site not specified (principal); R10.32 Left lower quadrant pain; K59.00 Constipation, unspecified; G43.909 Migraine, unspecified, not intractable, without status migrainosus; Z87.891 Personal history of nicotine dependence; Z88.8 Allergy status to other drugs, medicaments and biological substances; Z79.899 Other long term (current) drug therapy
CPT/HCPCS: 36415; 74177; 76700; 80053; 81001; 81025; 82150; 83690; 85025; 87077; 87088; 87186; 96361; 96374; 96375; 96376; 99285; J0696; J2270; J2405; J3490; J7120; Q9967

== ENCOUNTER 2023-10-30 12:40 | Inpatient (IN) | payer BC ==
[~2023-10-30] VITALS: Ht 167.6 cm; Wt 83.3 kg
[~2023-10-30 12:40] MED LIST changes: +DOCU-148 PO; +PHEN-716 PO; +POLY119P2 PO
[2023-10-30 13:11] LABS: BILIRUBIN,URINE LARGE (Neg); CLARITY,URINE CLOUDY (Clear); COLOR,URINE YELLOW (Yellow); GLUCOSE, URINE NEGATIVE (Neg); KETONES,URINE >=80 mg/dl (Neg); LEUKOCYTE ESTERASE ,URINE NEGATIVE (Neg); OCCULT BLOOD,URINE NEGATIVE (Neg); PROTEIN,URINE 100 mg/dl (Neg)
[2023-10-30 13:17] LABS: URINE HCG NEGATIVE (NEG)
[2023-10-30 13:27] LABS: UA COLLECTION TYPE CLN CATCH MIDSTREAM
[2023-10-30 13:29] LABS: NITRITES, URINE NEGATIVE (Neg)
[2023-10-30 13:30] LABS: HYALINE CASTS 0-3 /LPF (NEGATIVE); MUCUS STRANDS MANY /LPF (Neg); SQUAMOUS EPITHELIAL CELL,UR MANY /LPF (FEW)
[2023-10-30 13:39] LABS: BACTERIA,URINE 1+ /HPF (Neg)
[2023-10-30 13:40] LABS: RBC,URINE NONE SEEN /HPF (0-2); URIC ACID CRYSTALS 1+ /HPF (NEGATIVE); WBC,URINE 0-4 /HPF (0-4)
[2023-10-30 13:46] LABS: BASOPHILS % (AUTO) 0.4 % (0-1); EOSINOPHILS % (AUTO) 0.1 % (0-6); HEMATOCRIT 38.3 % (35.0-45.0); HEMOGLOBIN 13.1 g/dl (12.0-16.0); LYMPHOCYTES # (AUTO) 1.8 X10'3 (1.1-4.8); LYMPHOCYTES % (AUTO) 22.7 % (21-51); MEAN CORPUSCULAR HEMOGLOBIN 37.3 PG (27.0-31.0); MEAN CORPUSCULAR HGB CONC 34.2 g/dL (33.0-36.5); MEAN CORPUSCULAR VOLUME 108.8 FL (78-98); MEAN PLATELET VOLUME 7.2 FL (7.4-10.4); MONOCYTES # (AUTO) 0.5 X10'3 (0-0.9); NEUTROPHILS # (AUTO) 5.5 X10'3 (1.8-7.7); NEUTROPHILS % (AUTO) 70.8 % (42-75); PLATELET COUNT 382 X10'3 (140-440); RED BLOOD COUNT 3.52 X10'6 (4.20-5.60); RED CELL DISTRIBUTION WIDTH 15.8 % (11.5-14.5); WHITE BLOOD COUNT 7.8 X10'3 (4.5-11.0)
[2023-10-30 13:59] LABS: ALANINE AMINOTRANSFERASE 16 U/L (12-78); ALBUMIN 3.2 G/DL (3.4-5.0); ALBUMIN/GLOBULIN RATIO 0.8 (1.1-1.5); ALKALINE PHOSPHATASE 99 IU/L (46-116); ANION GAP 15 (8-16); ASPARTATE AMINO TRANSFERASE 16 U/L (10-37); BILIRUBIN,TOTAL 0.6 MG/DL (0.1-1.0); BLOOD UREA NITROGEN 11 MG/DL (7-18); BUN/CREATININE RATIO 13.6 (10.0-20.0); CALCIUM 9.9 MG/DL (8.5-10.1); CHLORIDE 100 MMOL/L (99-107); CREATININE 0.81 MG/DL (0.40-0.90); GLUCOSE 139 MG/DL (70-104); LIPASE 32 U/L (16-77); POTASSIUM 3.1 MMOL/L (3.5-5.1); SODIUM 137 MMOL/L (135-145); TOTAL CARBON DIOXIDE 22.2 MMOL/L (24-32); TOTAL PROTEIN 7.4 G/DL (6.4-8.2); eCRCL 77 ML/MIN; eGFR 75 ML/MIN
[2023-10-30] MEDS ORDERED: iohexol 300mg/ml 100ml inj. ONE (15:10)
[2023-10-30] MEDS: ondansetron/PF 4mg/2ml inj IV ONE ×3 (15:54→22:56)
[2023-10-30] MEDS: normal saline 1000ml 1,000 ML IV ONE (15:54)
[2023-10-30] MEDS ORDERED: acetaminophen 1,000mg/100ml IV 100 ML IV SCH (16:00)
[2023-10-30] MEDS: acetaminophen 1,000mg/100ml IV 100 ML IV ONE (16:29)
[2023-10-30] MEDS: morphine 4 MG/ML inj SYRINge IV ONE ×2 (19:36→22:58)
[2023-10-30] MEDS: potassium Cl 20 mEq SR tablet PO STA (23:48)
[2023-10-30] MEDS ORDERED: ONDA-243 PO (23:49)
[2023-10-30] MEDS ORDERED: OXYC-658 PO (23:49)
[2023-10-30] MEDS ORDERED: POTA20PA40 PO (23:51)
[2023-10-31] MEDS ORDERED: morphine 2 MG/ML inj. syringe IV PRN (00:35)
[2023-10-31] MEDS ORDERED: potassium Cl 20 mEq SR tablet PO PRN (00:35)
[2023-10-31] MEDS ORDERED: magnesium hydroxide 30ml (MOM) UD suspension PO PRN (00:35)
[2023-10-31] MEDS ORDERED: bisacodyl 10mg suppository rectal RC PRN (00:35)
[2023-10-31] MEDS ORDERED: magnesium Cl slow-release 64mg tablet PO PRN (00:35)
[2023-10-31] MEDS ORDERED: potassium Cl 40MEQ/1/2NS 520ml 520 ML IV PRN (00:35)
[2023-10-31] MEDS ORDERED: acetaminophen 325mg tablet PO PRN (00:35)
[2023-10-31] MEDS ORDERED: HYDROcodone/acetaminophen 5mg/325mg tablet PO PRN (00:35)
[2023-10-31] MEDS ORDERED: magnesium sulf-water 4G/100mL 100 ML IV PRN (00:35)
[2023-10-31] MEDS: ondansetron/PF 4mg/2ml inj IV ONE (00:56)
[2023-10-31] MEDS: morphine 4 MG/ML inj SYRINge IV ONE (00:57)
[2023-10-31] MEDS: normal saline 1000ml 1,000 ML IV SCH (01:00)
[2023-10-31] MEDS ORDERED: haloperidol lactate 5mg/ml inj IM PRN (01:40)
[2023-10-31] MEDS ORDERED: cloNIDine 0.1 mg tablet PO PRN (01:40)
[2023-10-31] MEDS ORDERED: mag hydrox/Alum hydrox/simeth 30ml oral suspension PO PRN (01:40)
[2023-10-31] MEDS: HYDROmorphone 1 mg/ml syringe IV ONE (02:11)
[2023-10-31] MEDS: pantoprazole 40mg Tablet.DR PO ONE (02:52)
[2023-10-31 03:17] LABS: MAGNESIUM 1.6 MG/DL (1.5-2.4); POTASSIUM 3.4 MMOL/L (3.5-5.1); THYROID STIMULATING HORMONE 4.58 ulU/ml (0.34-4.50)
[2023-10-31] MEDS: CefTRIAXone/D5W-Rocephin 1gm 50 ML IV ONE (04:13)
[2023-10-31] MEDS: LORazepam 2 mg/ml vial IV PRN (05:54)
[2023-10-31 07:20] VITALS: BP 141/87; PULSE 101; RESP 16; TEMP 97.2; O2SAT 94
[2023-10-31] MEDS: hyDRALAzine 10mg tablet PO SCH (07:43)
[2023-10-31] MEDS: ondansetron/PF 4mg/2ml inj IV PRN (07:43)
[2023-10-31] MEDS: multivitamins, therapeutics tablet PO SCH (07:44)
[2023-10-31] MEDS: HYDROcodone/acetaminophen 10/325mg tab PO PRN (07:44)
[2023-10-31] MEDS: heparin, porcine 5000 units/ml vial SQ SCH (07:51)
[2023-10-31 08:00] VITALS: RESP 16; O2SAT 96
[2023-10-31] MEDS: docusate sod 100mg capsule PO SCH (08:00)
[2023-10-31] MEDS: folic acid 1mg/0.2ml inj IV SCH (09:13)
[2023-10-31] MEDS: morphine 2 MG/ML inj. syringe IV PRN (09:13)
[2023-10-31] MEDS: naltrexone 50mg tablet PO SCH (09:13)
[2023-10-31] MEDS ORDERED: LEXAPRO PO (09:46)
[2023-10-31] MEDS ORDERED: PROP10TA10 PO (09:46)
[2023-10-31 10:00] VITALS: BP 125/92; PULSE 100; RESP 18; TEMP 97; O2SAT 92
[2023-10-31] MEDS: mag hydrox/Alum hydrox/simeth 30ml oral suspension PO PRN (12:36)
[2023-10-31] MEDS: haloperidol 5mg tablet PO PRN (13:10)
[2023-10-31] MEDS: LIDOcaine 2% Viscous 15ml cup MM ONE (13:20)
[2023-10-31] MEDS: diphenhydrAMINE 25mg capsule PO ONE (14:33)
[2023-10-31 18:00] VITALS: BP 153/106; PULSE 101; RESP 18; TEMP 98.3; O2SAT 96
[2023-10-31 20:00] VITALS: RESP 16; O2SAT 96
[2023-10-31 22:00] VITALS: BP 139/94; PULSE 102; RESP 18; TEMP 96.9; O2SAT 97
[2023-10-31] MEDS: potassium Cl 20 mEq SR tablet PO PRN (23:12)
[2023-11-01] MEDS: propranolol 10mg tablet PO SCH
[2023-11-01] MEDS: quetiapine fumarate ER 300mg tablet PO SCH (00:04)
[2023-11-01 06:00] VITALS: BP 114/72; PULSE 81; RESP 15; TEMP 96.7; O2SAT 96
[2023-11-01 06:57] LABS: BASOPHILS % (AUTO) 0.4 % (0-1); EOSINOPHILS % (AUTO) 0.3 % (0-6); HEMATOCRIT 34.8 % (35.0-45.0); HEMOGLOBIN 11.7 g/dl (12.0-16.0); LYMPHOCYTES # (AUTO) 1.8 X10'3 (1.1-4.8); LYMPHOCYTES % (AUTO) 19.4 % (21-51); MEAN CORPUSCULAR HEMOGLOBIN 37.4 PG (27.0-31.0); MEAN CORPUSCULAR HGB CONC 33.8 g/dL (33.0-36.5); MEAN CORPUSCULAR VOLUME 110.8 FL (78-98); MEAN PLATELET VOLUME 7.4 FL (7.4-10.4); MONOCYTES # (AUTO) 0.8 X10'3 (0-0.9); MONOCYTES % (AUTO) 8.3 % (2-12); NEUTROPHILS # (AUTO) 6.7 X10'3 (1.8-7.7); NEUTROPHILS % (AUTO) 71.6 % (42-75); PLATELET COUNT 275 X10'3 (140-440); RED BLOOD COUNT 3.14 X10'6 (4.20-5.60); RED CELL DISTRIBUTION WIDTH 15.9 % (11.5-14.5); WHITE BLOOD COUNT 9.3 X10'3 (4.5-11.0)
[2023-11-01 07:13] LABS: ALANINE AMINOTRANSFERASE 12 U/L (12-78); ALBUMIN 2.5 G/DL (3.4-5.0); ALBUMIN/GLOBULIN RATIO 0.7 (1.1-1.5); ALKALINE PHOSPHATASE 74 IU/L (46-116); ANION GAP 10 (8-16); ASPARTATE AMINO TRANSFERASE 18 U/L (10-37); BILIRUBIN,TOTAL 0.5 MG/DL (0.1-1.0); BLOOD UREA NITROGEN 7 MG/DL (7-18); BUN/CREATININE RATIO 10.6 (10.0-20.0); CALCIUM 8.2 MG/DL (8.5-10.1); CHLORIDE 106 MMOL/L (99-107); CREATININE 0.66 MG/DL (0.40-0.90); GLUCOSE 100 MG/DL (70-104); SODIUM 138 MMOL/L (135-145); TOTAL CARBON DIOXIDE 21.8 MMOL/L (24-32); eCRCL 94 ML/MIN; eGFR > 90 ML/MIN
[2023-11-01] MEDS: LORazepam 1 MG tablet PO PRN (07:30)
[2023-11-01 09:00] VITALS: RESP 18; O2SAT 96
[2023-11-01 09:26] LABS: PLATELET ESTIMATE NORMAL
[2023-11-01 09:42] LABS: POLYCHROMASIA FEW
[2023-11-01 10:00] VITALS: BP 121/79; PULSE 86; RESP 18; TEMP 97; O2SAT 96
[2023-11-01] MEDS ORDERED: HYDROmorphone inj. 0.5 MG/0.5 ML DISP.SYRIN IV PRN (11:35)
[2023-11-01] MEDS: proCHLORperazine 10mg tablet PO PRN (13:28)
[2023-11-01] MEDS: HYDROmorphone 1 mg/ml syringe IV PRN (14:05)
[2023-11-01 18:00] VITALS: BP 135/80; PULSE 94; RESP 16; TEMP 96.7; O2SAT 95
[2023-11-01 20:00] VITALS: RESP 18; O2SAT 96
[2023-11-01 22:00] VITALS: BP 102/61; PULSE 61; RESP 15; TEMP 97.3; O2SAT 98
[2023-11-02 06:00] VITALS: BP 108/68; PULSE 62; RESP 15; TEMP 97.8; O2SAT 94
[2023-11-02 08:06] LABS: EOSINOPHILS # (AUTO) 0.1 X10'3 (0-0.9); EOSINOPHILS % (AUTO) 2.1 % (0-6); HEMATOCRIT 30.8 % (35.0-45.0); HEMOGLOBIN 10.3 g/dl (12.0-16.0); LYMPHOCYTES # (AUTO) 1.9 X10'3 (1.1-4.8); LYMPHOCYTES % (AUTO) 36.2 % (21-51); MEAN CORPUSCULAR HEMOGLOBIN 37.3 PG (27.0-31.0); MEAN CORPUSCULAR HGB CONC 33.3 g/dL (33.0-36.5); MEAN PLATELET VOLUME 7.6 FL (7.4-10.4); MONOCYTES # (AUTO) 0.5 X10'3 (0-0.9); MONOCYTES % (AUTO) 10.6 % (2-12); NEUTROPHILS # (AUTO) 2.6 X10'3 (1.8-7.7); NEUTROPHILS % (AUTO) 50.1 % (42-75); PLATELET COUNT 217 X10'3 (140-440); RED BLOOD COUNT 2.75 X10'6 (4.20-5.60); RED CELL DISTRIBUTION WIDTH 16.1 % (11.5-14.5); WHITE BLOOD COUNT 5.2 X10'3 (4.5-11.0)
[2023-11-02 08:36] LABS: ALANINE AMINOTRANSFERASE 10 U/L (12-78); ALBUMIN 2.2 G/DL (3.4-5.0); ALBUMIN/GLOBULIN RATIO 0.7 (1.1-1.5); ALKALINE PHOSPHATASE 60 IU/L (46-116); ANION GAP 11 (8-16); ASPARTATE AMINO TRANSFERASE 17 U/L (10-37); BILIRUBIN,TOTAL 0.5 MG/DL (0.1-1.0); BLOOD UREA NITROGEN 4 MG/DL (7-18); BUN/CREATININE RATIO 6.3 (10.0-20.0); CALCIUM 8.1 MG/DL (8.5-10.1); CHLORIDE 108 MMOL/L (99-107); CREATININE 0.64 MG/DL (0.40-0.90); GLUCOSE 82 MG/DL (70-104); POTASSIUM 3.2 MMOL/L (3.5-5.1); SODIUM 142 MMOL/L (135-145); TOTAL CARBON DIOXIDE 22.7 MMOL/L (24-32); TOTAL PROTEIN 5.4 G/DL (6.4-8.2); eCRCL 97 ML/MIN; eGFR > 90 ML/MIN
[2023-11-02 08:52] LABS: C DIFF ANTIGEN NEGATIVE (NEGATIVE); C DIFF SPECIMEN=DIARRHEA? ACCEPTABLE; C DIFFICILE TOXINS A&B NEGATIVE (Neg)
[2023-11-02] MEDS: dicyclomine 10 MG capsule PO PRN (09:16)
[2023-11-02 10:00] VITALS: BP 130/78; PULSE 91; RESP 14; TEMP 98; O2SAT 92
[2023-11-02] MEDS ORDERED: thiamine tablet PO (13:37)
[2023-11-02] MEDS ORDERED: NALT50TA5 PO (13:37)
[2023-11-02] MEDS ORDERED: MULT-25 PO (13:37)
[2023-11-02] MEDS ORDERED: FOLI0.4T6 PO (13:37)
[2023-11-02] MEDS ORDERED: ACET-1008 PO (13:39)
[2023-11-02] MEDS ORDERED: TRAM50TA2 PO (13:43)
[2023-11-02] MEDS ORDERED: POTA-207 PO (14:49)
[2023-11-02 16:18] VITALS: BP_SYST 130; PULSE 91
[2023-11-03] MEDS ORDERED: thiamine 100mg tablet PO SCH (08:00)
== END 2023-11-02 16:47 | disposition home or self-care (01) | DRG 641 ==
LOC: ER 12:41 → ED HOLD 10-31 00:40 → ORTHO 4S 10-31 07:10
PROVIDERS: ADMIT Surgery; ATTEND Family Medicine
DX: E87.6 Hypokalemia (principal); F10.231 Alcohol dependence with withdrawal delirium; F41.9 Anxiety disorder, unspecified; K52.9 Noninfective gastroenteritis and colitis, unspecified; M06.9 Rheumatoid arthritis, unspecified; G43.909 Migraine, unspecified, not intractable, without status migrainosus; R03.0 Elevated blood-pressure reading, without diagnosis of hypertension; J44.9 Chronic obstructive pulmonary disease, unspecified; F32.A Depression, unspecified; Z90.710 Acquired absence of both cervix and uterus; Z88.8 Allergy status to other drugs, medicaments and biological substances; Z90.49 Acquired absence of other specified parts of digestive tract
CPT/HCPCS: 36415; 74018; 74177; 80053; 80320; 81001; 81025; 83690; 83735; 84132; 84145; 84443; 85008; 85025; 85651; 87081; 87324; 87449; 93005; 97110; 97116; 97162; 99285; A6258; G0378; J0131; J0696; J1170; J1644; J2060; J2270; J2405; J3490; J7030; Q0163; Q0164; Q9967